=== PATIENT | female | born 1945 | race Caucasian/White ===

== ENCOUNTER 2020-08-16 10:02 | Emergency (ER) | payer MEDICARE, SELFPAY ==
--- NOTE | ~2020-08-16 | XR_ITS ---
XR chest 1V portable DATE: 08/16/2020 11:50 INDICATION: Shortness of breath TECHNIQUE: Portable AP chest on 08/16/2020 at 1152 hours COMPARISON: 10/08/2015 PA and lateral chest FINDINGS: Normal heart size. Is aortic unfolding. The lungs are mildly hyperinflated but clear of inf iltrate or consolidation. No pleural effusion or pulmonary vascular congestion or pneumothorax. Diffuse osteopenia. Scoliosis and degenerative change of the thoracic and lumbar spine. IMPRESSION: No active cardiopulmonary disease Reviewed, dictated and finalized at location A. RIMENTAL WORKER
--- NOTE | ~2020-08-16 | CT_ITS ---
EXAMINATION: CTA chest PE protocol DATE: 08/16/2020 14:33 INDICATION: Chest pain, shortness of breath TECHNIQUE: Computed tomography angiography (CTA) of the chest was performed with 100 mL Omnipaque-350 intravenous contrast timed to evaluate the pulmonary arteries. Coronal maximum intensity projection 3D-reconstructions were created by the technologist. Automated exposure control and iterative reconst ruction technique were employed. Exam dose: 274.63 mGy-cm total exam DLP. COMPARISON: 08/16/2020 portable AP chest FINDINGS: There is diagnostic contrast enhancement of the pulmonary arteries and no evidence of pulmo nary embolism. No thoracic aortic aneurysm or dissection. There is old pulmonary granulomatous disease including a large left lower lobe calcified pulmonary gr anuloma, calcified left hilar nodes and splenic and occasional hepatic calcified granulomas. There is mild focal infiltrate in the medial aspect of the right lower lobe and probable mild reactiv e right hilar lymph node prominence. Mild bilateral apical scarring. There are mild emphysematous changes including mild bullous change in the posterior right upper lobe and superior segment of the right lower lobe. Degenerative changes of the cervical, thoracic and lumbar spine; no suspicious osteolytic or osteobla stic lesions are noted. IMPRESSION: No evidence of pulmonary embolism Mild focal medial infiltrate in the right lower lobe with probable mild reactive right hilar lymph no de prominence Reviewed, dictated and finalized at Location A. Reviewed, dictated and finalized at location A. WEB DEVELOPER IMPRESSION: No evidence of pulmonary embolism Mild focal medial infiltrate in the right lower lobe with probable mild reactiv e right hilar lymph node prominence
[2020-08-16 10:22] VITALS: BP 177/81; PULSE 91; RESP 17; TEMP 36.8; O2SAT 96
--- NOTE | 2020-08-16 10:59 | ECG_ITS ---
Measurements Intervals [place] Rate: 88 P: 28 SD: 154 QRS: 31 QRSD: 84 T: 36 QT: 365 QTc: 443 Interpretive Statements SINUS RHYTHM BASELINE WANDER- I, II, III NORMAL ECG Electronically Signed On 08-16-2020 14:27:57 OUT OF TOWN COLLECTION CLERK by Javed Gutierrez D.O.
[2020-08-16 11:31] VITALS: BP 163/86; PULSE 86; RESP 22; O2SAT 97
[2020-08-16 11:40] VITALS: PULSE 87
[2020-08-16 12:11] LABS: Basophils Percent Auto 0.2 % (0.2-1.2); Eosinophils Percent Auto 0.2 % (0-4.4); Hematocrit 40.6 % (37.0-47.0); Hemoglobin 13.8 g/dL (12.0-15.0); Immature Granulocyte Absolute 0.05 K/mm3 (0.00-0.031); Immature Granulocyte Percent A 0.6 % (0-0.5); Mean Corpuscular Hemoglobin 29.4 pg (26-34); Mean Corpuscular Volume 86.4 fl (80-100); Mean Platelet Volume 9.6 fl (7.4-10.4); Monocytes Absolute Auto 0.7 K/mm3 (0.1-0.6); Monocytes Percent Auto 7.7 % (2.6-8.5); Neutrophils Absolute Auto 7.3 K/mm3 (1.3-6.7); Neutrophils Percent Auto 81.3 % (45.5-73.1); Platelet Count Result 243 k/mm3 (150-375); Red Cell Distribution Width 13.2 % (11.5-14.5)
[2020-08-16 12:20] LABS: Anion Gap 7 mmol/L (8-16); Blood Urea Nitrogen 18 mg/dL (7-17); Calcium 9.7 mg/dL (8.4-10.2); Carbon Dioxide 32 mmol/L (22-30); Chloride 96 mmol/L (98-107); Estimated CRCL calculation 74 ml/min; Estimated Glomerular Filt Rate > 60; Glucose 139 mg/dL (65-105); Sodium 135 mmol/L (137-145)
[2020-08-16 12:30] VITALS: BP 138/74; PULSE 66; RESP 14; O2SAT 96
[2020-08-16] MEDS: KETOROLAC 30 MG/ML VIAL (*BKC) IV PUSH (12:44)
[2020-08-16 13:30] VITALS: BP 151/75; PULSE 88; RESP 14; O2SAT 97
--- NOTE | 2020-08-16 13:36 | ED.SOB ---
HPI - SOB/Dyspnea General Chief Complaint: Shortness of Breath/Dyspnea Stated Complaint: SOB, coughing, chest pain Time Seen by Provider: 08/16/20 11:27 History of Present Illness HPI Narrative: Patient is a 74-year-old female who presents ER with chest pain or shortness of breath. Began last night around 1 AM. Unknown sure how to describe the chest pain that is worse with deep breaths. Is in her upper left chest. No loss of consciousness/runny nose/sore throat/productive cough. No previous MD but does have history of CVA. She takes Plavix. No Covid exposure. No loss of smell or taste. Related Data Home Medications Medication Instructions Recorded Confirmed losartan 25 mg tablet 25 mg PO DAILY 10/13/19 Allergies Allergy/AdvReac Type Severity Reaction Status Date / Time No Known Allergies Allergy Unverified 01/18/18 11:55 Review of Systems Review of Systems: All systems reviewed & are unremarkable except as noted in HPI and below Constitutional: Constitutional: Denies chills, Denies fever(s) and Denies weakness ENT: Denies nasal congestion and Denies sore throat Cardiovascular: Cardiovascular: Reports chest pain, Denies rapid heart rate and Denies radiating jaw, neck or arm pain Respiratory: Respiratory: Denies cough, Reports dyspnea and Denies wheezing Musculoskeletal: Musculoskeletal: Denies back pain and Denies muscle cramps PMFSH Past Medical History Medical History (Updated 08/16/20 @ 15:49 by Corby Ortiz MD) COPD (chronic obstructive pulmonary disease) CVA (cerebral vascular accident) Hyperlipidemia Hypertension Spinal cord cysts Surgical History Surgical History (Updated 08/16/20 @ 13:39 by Corby Ortiz MD) History of carpal tunnel surgery History of hysterectomy Family History Family History (Updated 04/18/19 @ 14:25 by DOCTOR UNKNOWN) Mother Hypertension Cerebrovascular accident Family history of pulmonary embolism Other Family history of alcoholism Family history of cardiovascular disease Social History Social History Smoking status: Former smoker Smoking end date: 09/20/09 Alcohol intake: current Exam Narrative: Exam Narrative: GENERAL: Well-appearing, well-nourished, and in no acute distress. HEAD: Normocephalic, atraumatic. ENT: Mucous membranes moist. CHEST: Clear to auscultation. No respiratory distress. Tender palpation anterior chest wall right side. HEART: Regular rate and rhythm. Normal peripheral pulses. ABDOMEN: Soft, nontender, nondistended. EXTREMITIES: Normal range of motion. No edema. NEURO: Alert and oriented x3. PSYCH: Normal mood and affect. Course Course Emergency Course: Informed of results. Discharge home with antibiotics. Patient's pain improved with Toradol. Vital Signs Vital signs: Vital Signs Temperature 98.3 F 08/16/20 10:22 Pulse Rate 91 08/16/20 10:22 Respiratory Rate 17 08/16/20 10:22 Blood Pressure 177/81 H 08/16/20 10:22 Pulse Oximetry 96 08/16/20 10:22 Temperature 98.3 F 08/16/20 10:22 Pulse Rate 17 L 08/16/20 15:22 Respiratory Rate 17 08/16/20 15:22 Blood Pressure 136/82 08/16/20 15:22 Pulse Oximetry 98 08/16/20 15:22 MDM - SOB/Dyspnea Lab Data Result diagrams: 08/16/20 11:38 08/16/20 11:38 Labs: Lab Results 08/16/20 08/16/20 08/16/20 Range/Units 11:38 11:38 14:10 WBC 9.0 (4.5-10.0) K/mm3 RBC 4.70 (4.2-5.4) M/mm3 Hgb 13.8 (12.0-15.0) g/dL Hct 40.6 (37.0-47.0) % MCV 86.4 (80-100) fl MCH 29.4 (26-34) pg MCHC 34.0 (32-36) g/dl RDW 13.2 (11.5-14.5) % Plt Count 243 (150-375) k/mm3 MPV 9.6 (7.4-10.4) fl Immature Gran % (Auto) 0.6 H (0-0.5) % Neut % (Auto) 81.3 H (45.5-73.1) % Lymph % (Auto) 10.0 L (18.3-44.2) % [place] % (Auto) 7.7 (2.6-8.5) % Eos % (Auto) 0.2 (0-4.4) % Baso % (Auto) 0.2 (0.2-1.2) % Lymph # (Auto) 0.90 (0.9-3.2) K/mm
[2020-08-16 14:53] LABS: Troponin I < 0.012 ng/mL (0.000-0.034)
[2020-08-16 15:22] VITALS: BP 136/82; PULSE 17; RESP 17; O2SAT 98
== END 2020-08-16 15:25 | disposition home or self-care (01) ==
PROVIDERS: Emergency Provider Emergency Medicine; PCP Nurse Practitioner
DX: J18.9 Pneumonia, unspecified organism (principal); Z86.73 Personal history of transient ischemic attack (TIA), and cerebral infarction without residual deficits; J44.9 Chronic obstructive pulmonary disease, unspecified; E78.5 Hyperlipidemia, unspecified; I10 Essential (primary) hypertension; Z87.891 Personal history of nicotine dependence; Z79.02 Long term (current) use of antithrombotics/antiplatelets
CPT/HCPCS: 36415; 71045; 71275; 80048; 84484; 85025; 93005; 96374; 99284; J1885; Q9967

== ENCOUNTER 2020-09-29 23:13 | Inpatient (IN) | payer MEDICARE, SELFPAY ==
--- NOTE | ~2020-09-29 | XR_ITS ---
EXAMINATION: XR ankle RT min 3V INDICATION: Right ankle pain, initial encounter TECHNIQUE: Four views of the right ankle are obtained. COMPARISON: None available FINDINGS: There is an acute, traumatic, closed, oblique fracture distal tibia which extends to the le kirk of the tibial plafond. There is a transverse fracture of the medial malleolus at the level of the tibial plafond. A posterior malleolus fracture of the distal tibia is also noted. Alignment is relat ively maintained. Soft tissue swelling surrounds the fractures. No additional acute osseous findings are evident. IMPRESSION: 1. Trimalleolar fracture. Reviewed, dictated and finalized at location A. NG DIRECTOR IMPRESSION: 1. Trimalleolar fracture.
[2020-09-29 23:12] VITALS: BP 185/94; PULSE 110; RESP 20; TEMP 36.7; O2SAT 94
[2020-09-29 23:19] VITALS: PULSE 109; RESP 19
[2020-09-29 23:36] VITALS: PULSE 92; RESP 20
[2020-09-29 23:37] VITALS: BP 153/96; PULSE 91; RESP 15; O2SAT 91
[2020-09-29 23:45] VITALS: PULSE 89; RESP 16; O2SAT 95
[2020-09-29 23:46] VITALS: BP 169/94; PULSE 87; RESP 15; O2SAT 95
--- NOTE | 2020-09-29 23:53 | ED.GENADULT ---
HPI - General Adult General Chief complaint: Extremity Injury, Lower Stated complaint: fall/deformity Time Seen by Provider: 09/29/20 23:17 Source: RN notes reviewed History of Present Illness HPI narrative: Patient presents to emergency department from home for a fall. Patient states she was walking when she slipped and fell injuring her right ankle. She states she landed on her bottom denies any other injuries from the fall. She states pain with attempting to walk on the right ankle has not been able to ambulate since that time she denies any headache vision changes numbness or tingling in the extremities chest pain shortness of breath or any other symptoms. Patient states she does have chronic foot drop on her left ankle from previous CVA and this does cause her to fall frequently Related Data Home Medications Medication Instructions Recorded Confirmed losartan 25 mg tablet 25 mg PO DAILY 10/13/19 Allergies Allergy/AdvReac Type Severity Reaction Status Date / Time No Known Allergies Allergy Unverified 01/18/18 11:55 Review of Systems Review of Systems: Narrative: Gen.: Denies fevers or chills ENT: Denies congestion Respiratory: Denies shortness of breath or cough CV: Denies chest pain or palpitations GI: Denies abdominal pain nausea, emesis or diarrhea Musculoskeletal: See HPI Neuro: Denies numbness, tingling, weakness or focal weakness Skin: Denies rash Except as documented, all other systems reviewed and negative PMF Past Medical History Medical History COPD (chronic obstructive pulmonary disease) CVA (cerebral vascular accident) Hyperlipidemia Hypertension Spinal cord cysts Surgical History Surgical History (Updated 08/16/20 @ 13:39 by Corby Ortiz MD) History of carpal tunnel surgery History of hysterectomy Family History Family History (Updated 04/18/19 @ 14:25 by DOCTOR UNKNOWN) Mother Hypertension Cerebrovascular accident Family history of pulmonary embolism Other Family history of alcoholism Family history of cardiovascular disease Social History Social History Smoking status: Former smoker Smoking end date: 09/20/09 Alcohol intake: current Exam Narrative: Exam Narrative: APPEARANCE: No acute distress, nontoxic, resting in bed EYES: PERRL HEENT: Normocephalic, atraumatic, OMM RESPIRATORY: No respiratory distress Clear to auscultation bilaterally with no rhonchi wheezing or rales. CARDIOVASCULAR: Regular rate and rhythm without murmurs rubs or gallops. ABDOMINAL: Soft, nontender, nondistended, no rebound or guarding MUSCULOSKELETAl: Moves all extremities. No clubbing, cyanosis or edema. Tender palpation diffusely over the right ankle with swelling and ecchymosis present dorsalis pedis pulse 2+ no tenderness of the proximal fibula, no tenderness of the right knee or hip NEURO: Awake and alert. Following commands, speech normal, no focal deficits SKIN:: Warm, dry. No rashes lesions or abrasions PSYCHIATRIC: Normal affect/mood, Course Course Emergency Course: : Discussed Dr. Parker presentation work-up. Agrees with plan for consult Discussed with Dr. Marquez presentation work-up agrees with admission at this time Discussed with patient and family results of workup and diagnosis. Discussed need for admission. Patient and family understand and agree to current treatment plan Vital Signs Vital signs: Vital Signs Temperature 98.1 F 09/29/20 23:12 Pulse Rate 110 H 09/29/20 23:12 Respiratory Rate 20 09/29/20 23:12 Blood Pressure 185/94 H 09/29/20 23:12 Pulse Oximetry 94 09/29/20 23:12 Temperature 98.1 F 09/29/20 23:12 Pulse Rate 94 09/30/20 00:33 Respiratory Rate 19 09/30/20 00:33 Blood Pressure 158/99 H 09/30/20 00:16 Pulse Oximetry 94 09/30/20 00:33 Procedures Orthopedic Splinting/Casting Injury #1: S
[2020-09-30] VITALS (14 sets, daily range): BP systolic 135–170; BP diastolic 69–99; PULSE 82–98; RESP 13–20; TEMP 36.3–36.9; O2SAT 92–98; BMI 29.1
[2020-09-30 00:34] LABS: Basophils Percent Auto 0.4 % (0.2-1.2); Eosinophils Absolute Auto 0.1 K/mm3 (0-0.3); Eosinophils Percent Auto 0.8 % (0-4.4); Hematocrit 39.4 % (37.0-47.0); Hemoglobin 13.6 g/dL (12.0-15.0); Immature Granulocyte Absolute 0.03 K/mm3 (0.00-0.031); Immature Granulocyte Percent A 0.3 % (0-0.5); Lymphocytes Absolute Auto 1.35 K/mm3 (0.9-3.2); Lymphocytes Percent Auto 15.1 % (18.3-44.2); Mean Corpuscular HGB Conc 34.5 g/dl (32-36); Mean Corpuscular Hemoglobin 29.8 pg (26-34); Mean Corpuscular Volume 86.2 fl (80-100); Mean Platelet Volume 9.2 fl (7.4-10.4); Monocytes Absolute Auto 0.4 K/mm3 (0.1-0.6); Monocytes Percent Auto 4.6 % (2.6-8.5); Neutrophils Percent Auto 78.8 % (45.5-73.1); Platelet Count Result 261 k/mm3 (150-375); Red Blood Count 4.57 M/mm3 (4.2-5.4); Red Cell Distribution Width 13.2 % (11.5-14.5); White Blood Count 8.9 K/mm3 (4.5-10.0)
[2020-09-30 00:44] LABS: INR 0.8; Prothrombin Time 12.1 Seconds (11.1-14.7)
[2020-09-30 00:45] LABS: Partial Thromboplastin Time 31.8 SECONDS (22.3-36.8)
[2020-09-30 00:56] LABS: Anion Gap 10 mmol/L (8-16); Blood Urea Nitrogen 14 mg/dL (7-17); Calcium 8.5 mg/dL (8.4-10.2); Carbon Dioxide 26 mmol/L (22-30); Chloride 96 mmol/L (98-107); Estimated CRCL calculation 64 ml/min; Estimated Glomerular Filt Rate > 60; Glucose 95 mg/dL (65-105); Potassium 3.9 mmol/L (3.4-5.0); Sodium 132 mmol/L (137-145)
--- NOTE | 2020-09-30 02:30 | ADMGEN ---
This patient, Nery Zacarias, was admitted to [facility] Surg Room 307-01. Patient/family oriented to hospital policies and general routines including ID bracelet, bed and alarms, visiting hours, pain management, procedures, bathroom and other care routines, personal items, smoking policy, room service/diet, and visiting hours. Information on how to activate the Rapid Response Team has been discussed. Patient/Family are encouraged to report perceived risks to care and to ask questions if they do not understand what they are told or what they should do.
[2020-09-30] MEDS: MORPHINE SULFATE (*CRX) 2 MG/ML INJ IV PUSH (03:55)
[2020-09-30] MEDS: HYDROcodone/acetaminophen (*CRX) 5-325 MG TABLET 1 TAB PO ×5 (05:26→21:49)
[2020-09-30] MEDS: SODIUM CHLORIDE 0.9% IV 1,000 ML 100 ML IV CONT (08:30)
--- NOTE | 2020-09-30 09:40 | ADMGEN ---
This patient, Nery Zacarias, was transferred to [facility] Room 222-01. Patient oriented to hospital policies and general routines including ID bracelet, bed and alarms, visiting hours, pain management, procedures, bathroom and other care routines, personal items, smoking policy, room service/diet, and visiting hours. Information on how to activate the Rapid Response Team has been discussed. Patient is encouraged to report perceived risks to care and to ask questions if they do not understand what they are told or what they should do.
--- NOTE | 2020-09-30 12:02 | PM.CNOR ---
Assessment and Plan Assessment and plan (1) Closed right trimalleolar fracture: Qualifiers: Encounter type: initial encounter Qualified Code(s): S82.851A - Displaced trimalleolar fracture of right lower leg, initial encounter for closed fracture Code(s): S82.851A - Displaced trimalleolar fracture of right lower leg, initial encounter for closed fracture Status: Acute (2) Left foot drop: Code(s): M21.372 - Foot drop, left foot Status: Chronic Assessment and Plan: 74-year-old female with an acute right trimalleolar ankle fracture. Overall position is virtually anatomic. At this point, going to continue with the splinting treating this closed. For her to be able to bear weight effectively on the left side, she will need an AFO or some type of an ankle brace attached to issue. I did discuss with her that she needs to use something like this moving forward as well as a gait aid. For the time being will be a walker and will be nonweightbearing right lower extremity. I do need to re-x-ray this in one week to assess the position and perhaps get her into a cast. I discussed all of this in great detail with her and she seems to understand. Thank you for the consultation. History of Present Illness HPI Consult date: 09/30/20 Consult reason: fracture (Right trimalleolar ankle fracture) Chief complaint: Right trimalleolar fracture Narrative: 74-year-old female who tripped yesterday suffering a right trimalleolar ankle fracture. It is essentially nondisplaced. Her history is significant for foot drop on the left side from a stroke that she suffered about 19 years ago. Although she has had an AFO in the past, she quit using as several years ago. She does not use any type of a gait aid and notes that she falls a lot. Review of Systems Constitutional: Constitutional: Denies chills and Denies fever(s) Eyes: Eyes: Reports no additional eye complaints ENT: Reports system reviewed and no additional complaints, except as documented Cardiovascular: Cardiovascular: Denies chest pain and Denies dyspnea on exertion Respiratory: Respiratory: Reports no additional respiratory complaints and Denies dyspnea on exertion Gastrointestinal: Gastrointestinal: Denies abdominal pain and Denies bloating PMFSH Past Medical History Medical History COPD (chronic obstructive pulmonary disease) CVA (cerebral vascular accident) Hyperlipidemia Hypertension Spinal cord cysts Surgical History Surgical History History of carpal tunnel surgery History of hysterectomy Family History Family History Mother Hypertension Cerebrovascular accident Family history of pulmonary embolism Other Family history of alcoholism Family history of cardiovascular disease Social History Social History Smoking packs per day: 2.5 Smoking cigarettes per day: 50.0 Years smoked: 35 Smoking pack-years: 87.50 Smoking status: Former smoker Tobacco type: cigarettes Smoking end date: 09/20/09 Alcohol intake: current Drinks per week: 6 Substance use: never Substance use type: marijuana Other substance usage details: MEDICAL MARIJUANA Last use: 09/29/20 Gender identity (if verbalized by the patient): Female Spiritual care concerns: No Meds Home Medications and Allergies Home Medications Medication Instructions Recorded Confirmed Type zolpidem 10 mg tablet 10 mg PO .[facility] PRN #30 tablet 09/05/19 09/30/20 Rx losartan 25 mg tablet 25 mg PO DAILY 10/13/19 09/30/20 History sertraline 50 mg tablet 50 mg PO DAILY #90 tablet 10/16/19 09/30/20 Rx clopidogrel 75 mg tablet 75 mg PO DAILY #90 tablet 12/08/19 09/30/20 Rx atorvastatin 80 mg PO DAILY 09/30/20 09/30/20 History ezetimibe 10 mg PO DAILY
--- NOTE | 2020-09-30 18:45 | PM.IMHP ---
H&P: HPI History of Present Illness Date/Time: 09/30/20 18:45 Chief Complaint: fall Narrative: Nery Zacarias is a 74 year old female with past medical history of left footdrop which occurred when she had a stroke 19 years patient presented emergency department up to see tripped and fall, stated see landed on her bottom denies any other injury however patient was not able to bear weight on her right foot and was painful, x-ray of the foot showed trimalleolar fracture, patient was seen by orthopedic surgeon recommended splinting the ankle as it is a nondisplaced fracture it does not need any surgical intervention, patient states the pain is worse with weight-bearing, patient denies any complaint of chest pain shortness of breath palpitation fever or chills prior to fall. Review of Systems Review of Systems: All systems reviewed & are unremarkable except as noted in HPI and below PMFSH Past Medical History Medical History COPD (chronic obstructive pulmonary disease) CVA (cerebral vascular accident) Hyperlipidemia Hypertension Spinal cord cysts Surgical History Surgical History History of carpal tunnel surgery History of hysterectomy Family History Family History Mother Hypertension Cerebrovascular accident Family history of pulmonary embolism Other Family history of alcoholism Family history of cardiovascular disease Social History Social History Smoking packs per day: 2.5 Smoking cigarettes per day: 50.0 Years smoked: 35 Smoking pack-years: 87.50 Smoking status: Former smoker Tobacco type: cigarettes Smoking end date: 09/20/09 Alcohol intake: current Drinks per week: 6 Substance use: never Substance use type: marijuana Other substance usage details: MEDICAL MARIJUANA Last use: 09/29/20 Gender identity (if verbalized by the patient): Female Spiritual care concerns: No Meds Home Medications and Allergies Home Medications Medication Instructions Recorded Confirmed Type zolpidem 10 mg tablet 10 mg PO .[facility] PRN #30 tablet 09/05/19 09/30/20 Rx losartan 25 mg tablet 25 mg PO DAILY 10/13/19 09/30/20 History sertraline 50 mg tablet 50 mg PO DAILY #90 tablet 10/16/19 09/30/20 Rx clopidogrel 75 mg tablet 75 mg PO DAILY #90 tablet 12/08/19 09/30/20 Rx atorvastatin 80 mg PO DAILY 09/30/20 09/30/20 History ezetimibe 10 mg PO DAILY 09/30/20 09/30/20 History loratadine 10 mg PO DAILY 09/30/20 09/30/20 History Allergies Allergy/AdvReac Type Severity Reaction Status Date / Time No Known Allergies Allergy Unverified 09/30/20 03:15 Vital Signs Vital Signs - 24 hr 09/29/20 23:12 09/29/20 23:19 09/29/20 23:36 Temperature 98.1 F Pulse Rate 110 H 109 H 92 Respiratory Rate 20 19 20 Blood Pressure 185/94 H Pulse Oximetry 94 09/29/20 23:37 09/29/20 23:45 09/29/20 23:46 Temperature Pulse Rate 91 89 87 Respiratory Rate 15 16 15 Blood Pressure 153/96 H 169/94 H Pulse Oximetry 91 95 95 09/30/20 00:00 09/30/20 00:15 09/30/20 00:16 Temperature Pulse Rate 98 89 85 Respiratory Rate 16 20 15 Blood Pressure 158/99 H Pulse Oximetry 94 94 96 09/30/20 00:33 09/30/20 00:56 09/30/20 01:12 Temperature Pulse Rate 94 92 97 Respiratory Rate 19 14 13 Blood Pressure Pulse Oximetry 94 92 09/30/20 01:16 09/30/20 01:17 09/30/20 06:00 Temperature 97.4 F L Pulse Rate 86 88 95 Respiratory Rate 13 13 20 Blood Pressure 143/69 H 135/87 Pulse Oximetry 96 94 09/30/20 08:00 09/30/20 09:48 09/30/20 11:00 Temperature 98.0 F 98.0 F Pulse Rate 83 83 Respiratory Rate 20 20 Blood Pressure 148/81 H Pulse Oximetry 96 96 09/30/20 14:00 Temperature 98.1 F Pulse Rate 86 Respiratory Rate 20 Blood Pressure 142/76 H Pulse Oximetry 98
[2020-09-30] MEDS: MORPHINE SULFATE (*CRX) 4 MG/ML INJ 2 MG IV PUSH (21:02)
[2020-09-30] MEDS: IBUPROFEN 600 MG TABLET PO (23:29)
[2020-10-01] MEDS: MORPHINE SULFATE (*CRX) 4 MG/ML INJ 2 MG IV PUSH (00:38)
[2020-10-01] MEDS: HYDROcodone/acetaminophen (*CRX) 5-325 MG TABLET 1 TAB PO ×5 (01:49→21:43)
[2020-10-01 05:07] VITALS: BP 150/84; PULSE 80; RESP 12; TEMP 36.9; O2SAT 95
[2020-10-01 05:22] LABS: Basophils Percent Auto 0.5 % (0.2-1.2); Eosinophils Absolute Auto 0.1 K/mm3 (0-0.3); Eosinophils Percent Auto 2.4 % (0-4.4); Hematocrit 40.9 % (37.0-47.0); Hemoglobin 13.6 g/dL (12.0-15.0); Immature Granulocyte Absolute 0.01 K/mm3 (0.00-0.031); Immature Granulocyte Percent A 0.2 % (0-0.5); Lymphocytes Absolute Auto 1.24 K/mm3 (0.9-3.2); Lymphocytes Percent Auto 21.1 % (18.3-44.2); Mean Corpuscular HGB Conc 33.3 g/dl (32-36); Mean Corpuscular Hemoglobin 29.4 pg (26-34); Mean Corpuscular Volume 88.5 fl (80-100); Monocytes Absolute Auto 0.4 K/mm3 (0.1-0.6); Monocytes Percent Auto 7.5 % (2.6-8.5); Neutrophils Percent Auto 68.3 % (45.5-73.1); Platelet Count Result 227 k/mm3 (150-375); Red Blood Count 4.62 M/mm3 (4.2-5.4); Red Cell Distribution Width 13.6 % (11.5-14.5); White Blood Count 5.9 K/mm3 (4.5-10.0)
[2020-10-01 05:36] LABS: Anion Gap 4 mmol/L (8-16); Blood Urea Nitrogen 9 mg/dL (7-17); Calcium 8.6 mg/dL (8.4-10.2); Carbon Dioxide 33 mmol/L (22-30); Chloride 99 mmol/L (98-107); Estimated CRCL calculation 75 ml/min; Estimated Glomerular Filt Rate > 60; Glucose 120 mg/dL (65-105); Potassium 3.5 mmol/L (3.4-5.0); Sodium 136 mmol/L (137-145)
[2020-10-01] MEDS: ATORVASTATIN 40 MG TABLET 80 MG PO (10:48)
[2020-10-01] MEDS: CLOPIDOGREL BISULFATE 75 MG TABLET PO (10:49)
[2020-10-01] MEDS: ENOXAPARIN 40 MG/0.4 ML SYRINGE SUB-Q (10:49)
[2020-10-01] MEDS: LOSARTAN POTASSIUM 25 MG TABLET PO (10:50)
[2020-10-01] MEDS: EZETIMIBE 10 MG TABLET PO (10:50)
[2020-10-01] MEDS: LORATADINE 10 MG TABLET PO (10:50)
[2020-10-01] MEDS: SERTRALINE HCL 50 MG TABLET PO (10:51)
[2020-10-01 14:00] VITALS: BP 137/74; PULSE 89; RESP 18; TEMP 36.4; O2SAT 98
--- NOTE | 2020-10-01 15:47 | PM.IMPN ---
Progress Note: A&P Assessment and Plan (1) Closed right trimalleolar fracture: Qualifiers: Encounter type: initial encounter Qualified Code(s): S82.851A - Displaced trimalleolar fracture of right lower leg, initial encounter for closed fracture Code(s): S82.851A - Displaced trimalleolar fracture of right lower leg, initial encounter for closed fracture Status: Acute Assessment and Plan: 10/01/20 15:47 Nery Zacarias is a 74 year old female with past medical history of left footdrop which occurred when she had a stroke 20 years patient presented emergency department up to see tripped and fall, stated see landed on her bottom denies any other injury however patient was not able to bear weight on her right foot and was painful, x-ray of the foot showed trimalleolar fracture, patient was seen by orthopedic surgeon recommended splinting the ankle as it is a nondisplaced fracture it does not need any surgical intervention, patient states the pain is worse with weight-bearing, patient denies any complaint of chest pain shortness of breath palpitation fever or chills prior to fall. Will have a PT OT evaluate the patient and further recommendation to follow 10/01 today patient states the pain is little better today, plan is to provide the patient with physical therapy to ambulate as much as possible before discharging home, denies any fever or chills will continue to monitor the patient, (2) Left foot drop: Code(s): M21.372 - Foot drop, left foot Status: Chronic Assessment and Plan: Chronic this makes patient unstable and risk of fall (3) COPD (chronic obstructive pulmonary disease): Code(s): J44.9 - Chronic obstructive pulmonary disease, unspecified Status: Inactive Assessment and Plan: Patient is clinically stable (4) Hypertension: Code(s): I10 - Essential (primary) hypertension Status: Inactive Assessment and Plan: Will continue home regimen and monitor Subjective Date/time seen: 10/01/20 15:47 Nery Zacarias is a 74 year old female with past medical history of left footdrop which occurred when she had a stroke 20 years patient presented emergency department up to see tripped and fall, stated see landed on her bottom denies any other injury however patient was not able to bear weight on her right foot and was painful, x-ray of the foot showed trimalleolar fracture, patient was seen by orthopedic surgeon recommended splinting the ankle as it is a nondisplaced fracture it does not need any surgical intervention, patient states the pain is worse with weight-bearing, patient denies any complaint of chest pain shortness of breath palpitation fever or chills prior to fall. Will have a PT OT evaluate the patient and further recommendation to follow 10/01 today patient states the pain is little better today, plan is to provide the patient with physical therapy to ambulate as much as possible before discharging home, denies any fever or chills will continue to monitor the patient, Review of Systems Review of Systems: All systems reviewed & are unremarkable except as noted in HPI and below Exam Narrative: Exam Narrative: Elderly frail Patient is comfortable, NAD HEENT: eyes are clear and none icteric LUNGS:CTA HEART: RR S1S2 ABD: BS+, Soft and nontender Lower extremities: no edema MS: Right foot and splint, left footdrop SKIN: nonjaundiced Neuro: grossly intact. Objective Data Vital Signs Vital Signs: Vital Signs - 24 hr 09/30/20 22:00 10/01/20 05:07 10/01/20 14:00 Temperature 98.4 F 98.5 F 97.6 F Pulse Rate 82 80 89 Respiratory Rate 16 12 18 Blood Pressure 170/90 H 150/84 H 137/74 Pulse Oximetry 94 95 98 Intake/Output Intake/Output: Intake & Output 09/28/20 09/29/20 09/30/20 10/01/20 23:59 23:59 23:59 23:59 Intake Total 1690 1405 Output Total 3450 1425 Balance -1760 -20 Meds/Results Medications: Active Medications Gener
[2020-10-01 20:00] VITALS: PULSE 102; RESP 20; O2SAT 99
[2020-10-01 22:00] VITALS: BP 172/101; PULSE 102; RESP 20; TEMP 36.1; O2SAT 99
[2020-10-01] MEDS: ZOLPIDEM TARTRATE (*CRX) 5 MG TABLET PO (23:20)
[2020-10-02 05:11] LABS: Hematocrit 40.2 % (37.0-47.0); Hemoglobin 13.6 g/dL (12.0-15.0); Mean Corpuscular HGB Conc 33.8 g/dl (32-36); Mean Corpuscular Hemoglobin 30.5 pg (26-34); Mean Corpuscular Volume 90.1 fl (80-100); Mean Platelet Volume 9.3 fl (7.4-10.4); Platelet Count Result 211 k/mm3 (150-375); Red Blood Count 4.46 M/mm3 (4.2-5.4); Red Cell Distribution Width 13.5 % (11.5-14.5); White Blood Count 6.6 K/mm3 (4.5-10.0)
[2020-10-02 05:28] LABS: Anion Gap 4 mmol/L (8-16); Blood Urea Nitrogen 13 mg/dL (7-17); Calcium 9.3 mg/dL (8.4-10.2); Carbon Dioxide 33 mmol/L (22-30); Chloride 98 mmol/L (98-107); Estimated CRCL calculation 75 ml/min; Estimated Glomerular Filt Rate > 60; Glucose 132 mg/dL (65-105); Potassium 3.4 mmol/L (3.4-5.0); Sodium 135 mmol/L (137-145)
[2020-10-02 06:00] VITALS: BP 107/47; PULSE 72; RESP 20; TEMP 36.2; O2SAT 96
[2020-10-02] MEDS: HYDROcodone/acetaminophen (*CRX) 5-325 MG TABLET 1 TAB PO ×3 (07:38→20:04)
[2020-10-02 08:00] VITALS: PULSE 72; RESP 20; O2SAT 96
[2020-10-02] MEDS: ENOXAPARIN 40 MG/0.4 ML SYRINGE SUB-Q (09:47)
[2020-10-02] MEDS: ATORVASTATIN 40 MG TABLET 80 MG PO (09:47)
[2020-10-02] MEDS: CLOPIDOGREL BISULFATE 75 MG TABLET PO (09:47)
[2020-10-02] MEDS: SERTRALINE HCL 50 MG TABLET PO (09:47)
[2020-10-02] MEDS: LORATADINE 10 MG TABLET PO (09:47)
[2020-10-02] MEDS: EZETIMIBE 10 MG TABLET PO (09:47)
[2020-10-02] MEDS: LOSARTAN POTASSIUM 25 MG TABLET PO (09:47)
--- NOTE | 2020-10-02 12:43 | PM.IMPN ---
Progress Note: A&P Assessment and Plan (1) Closed right trimalleolar fracture: Qualifiers: Encounter type: initial encounter Qualified Code(s): S82.851A - Displaced trimalleolar fracture of right lower leg, initial encounter for closed fracture Code(s): S82.851A - Displaced trimalleolar fracture of right lower leg, initial encounter for closed fracture Status: Acute Assessment and Plan: Nery Zacarias is a 74 year old female with past medical history of left footdrop which occurred when she had a stroke 20 years patient presented emergency department up to see tripped and fall, stated see landed on her bottom denies any other injury however patient was not able to bear weight. Today patient states the pain is little better today, plan is to provide the patient with physical therapy to ambulate as much as possible before discharging home, denies any fever or chills will continue to monitor the patient, (2) Left foot drop: Code(s): M21.372 - Foot drop, left foot Status: Chronic Assessment and Plan: Chronic this makes patient unstable and risk of fall (3) COPD (chronic obstructive pulmonary disease): Code(s): J44.9 - Chronic obstructive pulmonary disease, unspecified Status: Inactive Assessment and Plan: Patient is clinically stable (4) Hypertension: Code(s): I10 - Essential (primary) hypertension Status: Inactive Assessment and Plan: Will continue home regimen and monitor Additional Plan Will continue current plan of care and treatment. Will increase activity as tolerated. Subjective Date/time seen: 10/02/20 12:43 Patient was seen during the morning rounds today. Patient is feeling slightly better. Patient is an shortness breath or chest pain. No fever no chills. Mood stable. Review of Systems Review of Systems: All systems reviewed & are unremarkable except as noted in HPI and below Exam Narrative: Exam Narrative: Elderly frail Patient is comfortable, NAD HEENT: eyes are clear and none icteric LUNGS:CTA HEART: RR S1S2 ABD: BS+, Soft and nontender Lower extremities: no edema MS: Right foot and splint, left footdrop SKIN: nonjaundiced Neuro: grossly intact. Objective Data Vital Signs Vital Signs: Vital Signs - 24 hr 10/01/20 14:00 10/01/20 20:00 10/01/20 22:00 Temperature 36.4 C 36.1 C L Pulse Rate 89 102 H 102 H Respiratory Rate 18 20 20 Blood Pressure 137/74 172/101 H Pulse Oximetry 98 99 99 10/02/20 06:00 Temperature 36.2 C L Pulse Rate 72 Respiratory Rate 20 Blood Pressure 107/47 L Pulse Oximetry 96 Intake/Output Intake/Output: Intake & Output 09/29/20 09/30/20 10/01/20 10/02/20 23:59 23:59 23:59 23:59 Intake Total 1690 1645 625 Output Total 0020 1725 900 [facility] -1760 -80 -275 Meds/Results Medications: Active Medications Generic Name Dose Route Start Last Admin Trade Name Freq PRN Reason Stop Dose Admin Acetaminophen 650 mg 09/30/20 14:22 Acetaminophen 325 Mg Tablet PO Q6H PRN Mild Pain (1-3) or Fever Hydrocodone Bitart/Acetaminophen 1 tab 09/30/20 03:31 10/02/20 07:38 Hydrocodone/Acetaminophen (*Crx) 5-325 Mg Tablet PO 1 tab Q4H PRN Administration Pain Rated 4-6 Atorvastatin Calcium 80 mg 10/01/20 09:00 10/02/20 09:47 Atorvastatin 40 Mg Tablet PO 80 mg DAILY MAURICIO Administration Clopidogrel Bisulfate 75 mg 10/01/20 09:00 10/02/20 09:47 Clopidogrel Bisulfate 75 Mg Tablet PO 75 mg DAILY MAURICIO Administration Ezetimibe 10 mg 10/01/20 09:00 10/02/20 09:47 Ezetimibe 10 Mg Tablet PO 10 mg DAILY MAURICIO Administration Enoxaparin Sodium 40 mg 10/01/20 09:00 10/02/20 09:47 Enoxaparin 40 Mg/0.4 Ml Syringe SUB-Q 40 mg DAILY MAURICIO Administration Loratadine 10 mg 10/01/20 09:00 10/02/20 09:47 Loratadine 10 Mg Tablet PO 10 mg DAILY MAURICIO Administration Losartan Potassium 25 mg 10/01/20 09:00 10/02/20 09:4
[2020-10-02 14:00] VITALS: BP 148/72; PULSE 95; RESP 16; TEMP 35.7; O2SAT 95
[2020-10-02 16:11] VITALS: O2SAT 95
[2020-10-02] MEDS: ZOLPIDEM TARTRATE (*CRX) 5 MG TABLET PO (20:04)
[2020-10-02 20:05] VITALS: PULSE 95; RESP 16; O2SAT 95
[2020-10-02 22:00] VITALS: BP 125/69; PULSE 84; RESP 12; TEMP 36.7; O2SAT 97
[2020-10-03] MEDS: HYDROcodone/acetaminophen (*CRX) 5-325 MG TABLET 1 TAB PO ×4 (02:47→20:26)
[2020-10-03 05:35] LABS: Hematocrit 40.2 % (37.0-47.0); Hemoglobin 13.2 g/dL (12.0-15.0); Mean Corpuscular HGB Conc 32.8 g/dl (32-36); Mean Corpuscular Hemoglobin 29.4 pg (26-34); Mean Corpuscular Volume 89.5 fl (80-100); Mean Platelet Volume 9.4 fl (7.4-10.4); Platelet Count Result 225 k/mm3 (150-375); Red Blood Count 4.49 M/mm3 (4.2-5.4); Red Cell Distribution Width 13.4 % (11.5-14.5); White Blood Count 5.3 K/mm3 (4.5-10.0)
[2020-10-03 05:48] LABS: Anion Gap 3 mmol/L (8-16); Blood Urea Nitrogen 23 mg/dL (7-17); Calcium 9.8 mg/dL (8.4-10.2); Carbon Dioxide 36 mmol/L (22-30); Chloride 99 mmol/L (98-107); Estimated CRCL calculation 64 ml/min; Estimated Glomerular Filt Rate > 60; Glucose 123 mg/dL (65-105); Potassium 4.2 mmol/L (3.4-5.0); Sodium 138 mmol/L (137-145)
[2020-10-03 06:00] VITALS: BP 148/81; PULSE 94; RESP 18; TEMP 36.6; O2SAT 97
[2020-10-03] MEDS: ENOXAPARIN 40 MG/0.4 ML SYRINGE SUB-Q (09:13)
[2020-10-03] MEDS: CLOPIDOGREL BISULFATE 75 MG TABLET PO (09:13)
[2020-10-03] MEDS: EZETIMIBE 10 MG TABLET PO (09:13)
[2020-10-03] MEDS: ATORVASTATIN 40 MG TABLET 80 MG PO (09:13)
[2020-10-03] MEDS: SERTRALINE HCL 50 MG TABLET PO (09:14)
[2020-10-03] MEDS: LORATADINE 10 MG TABLET PO (09:14)
[2020-10-03] MEDS: LOSARTAN POTASSIUM 25 MG TABLET PO (09:14)
[2020-10-03 09:38] VITALS: RESP 18; O2SAT 97
[2020-10-03 14:00] VITALS: BP 135/85; PULSE 104; RESP 16; TEMP 36.2; O2SAT 97
--- NOTE | 2020-10-03 14:54 | PM.IMPN ---
Progress Note: A&P Assessment and Plan (1) Closed right trimalleolar fracture: Qualifiers: Encounter type: initial encounter Qualified Code(s): S82.851A - Displaced trimalleolar fracture of right lower leg, initial encounter for closed fracture Code(s): S82.851A - Displaced trimalleolar fracture of right lower leg, initial encounter for closed fracture Status: Acute Assessment and Plan: Nery Zacarias is a 74 year old female with past medical history of left footdrop which occurred when she had a stroke 20 years patient presented emergency department up to see tripped and fall, stated see landed on her bottom denies any other injury however patient was not able to bear weight. continue PT/POT and pain control, hopeful Dc tomorrow home. Pt seen by orthopedics closed fracture not for intervention (2) Left foot drop: Code(s): M21.372 - Foot drop, left foot Status: Chronic Assessment and Plan: Chronic (3) COPD (chronic obstructive pulmonary disease): Code(s): J44.9 - Chronic obstructive pulmonary disease, unspecified Status: Inactive Assessment and Plan: Patient is clinically stable (4) Hypertension: Code(s): I10 - Essential (primary) hypertension Status: Inactive Assessment and Plan: Will continue home regimen and monitor Subjective Date/time seen: 10/03/20 14:54 Interval history: Rell is a 74 year old female with past medical history of left footdrop which occurred when she had a stroke 20 years patient presented emergency department up to see tripped and fall, stated see landed on her bottom denies any other injury however patient was not able to bear weight on her right foot and was painful, x-ray of the foot showed trimalleolar fracture, pt is receiving physical therapy in the hospital, doing well medically hopeful DC javon to her home. Exam Narrative: Exam Narrative: Elderly frail LUNGS:CTA HEART: RR S1S2 ABD: BS+, Soft and nontender Lower extremities: no edema MS: R foot with dressing SKIN: nonjaundiced Neuro: grossly intact. Objective Data Vital Signs Vital Signs: Vital Signs - 24 hr 10/02/20 16:11 10/02/20 20:05 10/02/20 22:00 Temperature 36.7 C Pulse Rate 95 84 Respiratory Rate 16 12 Blood Pressure 125/69 Pulse Oximetry 95 95 97 10/03/20 06:00 10/03/20 09:38 10/03/20 14:00 Temperature 36.6 C 36.2 C L Pulse Rate 94 104 H Respiratory Rate 18 18 16 Blood Pressure 148/81 H 135/85 Pulse Oximetry 97 97 97 Intake/Output Intake/Output: Intake & Output 09/30/20 10/01/20 10/02/20 10/03/20 23:59 23:59 23:59 23:59 Intake Total 1690 1645 1105 1080 Output Total 3450 1725 1200 1000 Balance -1760 -80 -95 80 Meds/Results Medications: Active Medications Generic Name Dose Route Start Last Admin Trade Name Freq PRN Reason Stop Dose Admin Acetaminophen 650 mg 09/30/20 14:22 Acetaminophen 325 Mg Tablet PO Q6H PRN Mild Pain (1-3) or Fever Hydrocodone Bitart/Acetaminophen 1 tab 09/30/20 03:31 10/03/20 09:19 Hydrocodone/Acetaminophen (*Crx) 5-325 Mg Tablet PO 1 tab Q4H PRN Administration Pain Rated 4-6 Atorvastatin Calcium 80 mg 10/01/20 09:00 10/03/20 09:13 Atorvastatin 40 Mg Tablet PO 80 mg DAILY MAURICIO Administration Clopidogrel Bisulfate 75 mg 10/01/20 09:00 10/03/20 09:13 Clopidogrel Bisulfate 75 Mg Tablet PO 75 mg DAILY MAURICIO Administration Ezetimibe 10 mg 10/01/20 09:00 10/03/20 09:13 Ezetimibe 10 Mg Tablet PO 10 mg DAILY MAURICIO Administration Enoxaparin Sodium 40 mg 10/01/20 09:00 10/03/20 09:13 Enoxaparin 40 Mg/0.4 Ml Syringe SUB-Q 40 mg DAILY MAURICIO Administration Loratadine 10 mg 10/01/20 09:00 10/03/20 09:14 Loratadine 10 Mg Tablet PO 10 mg DAILY MAURICIO Administration Losartan Potassium 25 mg 10/01/20 09:00 10/03/20 09:14 Losartan Potassium 25 Mg Tablet PO 25 mg DAILY MAURICIO Administration Morphine S
[2020-10-03] MEDS: ZOLPIDEM TARTRATE (*CRX) 5 MG TABLET PO (20:26)
[2020-10-03 22:00] VITALS: BP 135/73; PULSE 87; RESP 20; TEMP 36.6; O2SAT 96
[2020-10-04 05:19] LABS: Hematocrit 38.1 % (37.0-47.0); Hemoglobin 12.8 g/dL (12.0-15.0); Mean Corpuscular HGB Conc 33.6 g/dl (32-36); Mean Corpuscular Hemoglobin 29.9 pg (26-34); Mean Platelet Volume 8.9 fl (7.4-10.4); Platelet Count Result 219 k/mm3 (150-375); Red Blood Count 4.28 M/mm3 (4.2-5.4); Red Cell Distribution Width 13.3 % (11.5-14.5); White Blood Count 4.2 K/mm3 (4.5-10.0)
[2020-10-04 05:31] LABS: Anion Gap 4 mmol/L (8-16); Blood Urea Nitrogen 23 mg/dL (7-17); Calcium 9.3 mg/dL (8.4-10.2); Carbon Dioxide 34 mmol/L (22-30); Chloride 100 mmol/L (98-107); Estimated CRCL calculation 64 ml/min; Estimated Glomerular Filt Rate > 60; Glucose 110 mg/dL (65-105); Potassium 3.9 mmol/L (3.4-5.0); Sodium 138 mmol/L (137-145)
[2020-10-04 06:00] VITALS: BP 149/109; PULSE 89; RESP 20; TEMP 36; O2SAT 97
[2020-10-04] MEDS: EZETIMIBE 10 MG TABLET PO (06:29)
[2020-10-04] MEDS: LOSARTAN POTASSIUM 25 MG TABLET PO (06:30)
[2020-10-04] MEDS: HYDROcodone/acetaminophen (*CRX) 5-325 MG TABLET 1 TAB PO ×2 (06:34→10:34)
[2020-10-04 08:00] VITALS: PULSE 89; RESP 20; O2SAT 97
[2020-10-04] MEDS: ACETAMINOPHEN 325 MG TABLET 650 MG PO (09:23)
[2020-10-04] MEDS: SERTRALINE HCL 50 MG TABLET PO (09:24)
[2020-10-04] MEDS: ATORVASTATIN 40 MG TABLET 80 MG PO (09:24)
[2020-10-04] MEDS: CLOPIDOGREL BISULFATE 75 MG TABLET PO (09:24)
[2020-10-04] MEDS: LORATADINE 10 MG TABLET PO (09:24)
[2020-10-04] MEDS: ENOXAPARIN 40 MG/0.4 ML SYRINGE SUB-Q (09:25)
--- NOTE | 2020-10-04 11:20 | PM.DS ---
DS: Admitting Diagnosis Admitting Diagnosis Admitting Diagnosis: FALL DS: Discharge Diagnosis Discharge Diagnosis (1) Closed right trimalleolar fracture: Qualifiers: Encounter type: initial encounter Qualified Code(s): S82.851A - Displaced trimalleolar fracture of right lower leg, initial encounter for closed fracture Code(s): S82.851A - Displaced trimalleolar fracture of right lower leg, initial encounter for closed fracture Status: Acute Assessment and Plan: Nery Zacarias is a 74 year old female with past medical history of left footdrop which occurred when she had a stroke 20 years patient presented emergency department up to see tripped and fall, landed on her bottom denies any other injury. Continue PT/OT and pain control. Pt seen by orthopedics closed fracture not for intervention. Pt had cast put on yesterday. Pt is non weight bearing using a walker. Comfortable to go home, home health services for a few days. Discharged on norco #20 for pain control pt can use ibuprofen and stool softener. (2) Left foot drop: Code(s): M21.372 - Foot drop, left foot Status: Chronic Assessment and Plan: Chronic (3) COPD (chronic obstructive pulmonary disease): Code(s): J44.9 - Chronic obstructive pulmonary disease, unspecified Status: Inactive Assessment and Plan: Patient is clinically stable, continue home medications (4) Hypertension: Code(s): I10 - Essential (primary) hypertension Status: Inactive Assessment and Plan: Will continue home regimen, Bp slightly high, may be secondary to pain. DS: Summary Hospital Course Hospital Course: Rell is a 74 year old female with past medical history of left footdrop which occurred when she had a stroke 20 years patient presented emergency department up to see tripped and fall, stated see landed on her bottom denies any other injury however patient was not able to bear weight on her right foot and was painful, x-ray of the foot showed trimalleolar fracture, pt is receiving physical therapy in the hospital, doing well medically. Pt had cast placed using walker to ambulate. Pt is non weight bearing on her right leg. Time Spent with Patient Time attestation: Total time spent providing and/or coordinating discharge services:40 minutes on day of dischrage Exam Narrative: Exam Narrative: Elderly frail LUNGS:CTA HEART: RR S1S2 ABD: BS+, Soft and nontender Lower extremities: no edema MS: R foot with dressing SKIN: nonjaundiced Neuro: grossly intact. DS: Data Data Completed and Pending Labs on day of discharge: Labs from last 24 hours 10/04/20 10/04/20 04:55 04:54 WBC 4.2 L RBC 4.28 Hgb 12.8 Hct 38.1 MCV 89.0 MCH 29.9 MCHC 33.6 RDW 13.3 Plt Count 219 MPV 8.9 Sodium 138 Potassium 3.9 Chloride 100 Carbon Dioxide 34 H Anion Gap 4 L BUN 23 H Creatinine 0.60 L Estim Creat Clear Calc 64 Estimated GFR > 60 Glucose 110 H Calcium 9.3 Discharge Plan Discharge Attending physician on discharge: Fatimah Pritchard Consulting providers: Nelson Parker Discharging Clinician: Fatimah Pritchard Anticipated Discharge Date/Time: 10/04/20 11:21 Patient Disposition: Home Health Service Activity: as tolerated Diet: heart healthy Discharge Instructions: Call Marriage Performer in regards to Brace for Left foot Per Care Coordination: Home Health services have been arranged through [facility]. [facility] can be contacted at [phone]. Patient Instructions: Antibiotic Form, Pain Management (DC), Blood Thinners (DC) Stand Alone Forms: General Discharge Information Follow-up/Referrals: Nelson Parker MD [Physician] - Other (Appointment WednesdayOctober 09 @ 1:30 pm. ) Discharge Medications: New hydrocodone-acetaminophen 5-325 mg Tablet 1 tablet PO Q4H PRN (Reason: Pain Rated 4-6) Qty: 20 RF:
== END 2020-10-04 13:10 | disposition home health service (06) | DRG 563 ==
LOC: ANHED 09-30 01:25 → ANH3MEDSUR 09-30 01:32 → ANHTRC 09-30 09:27
PROVIDERS: Family Medicine; Admitting Provider Internal Medicine; Emergency Provider Emergency Medicine; PCP Nurse Practitioner; Visit Provider Family Medicine
DX: S82.851A Displaced trimalleolar fracture of right lower leg, initial encounter for closed fracture (principal); W19.XXXA Unspecified fall, initial encounter; M21.372 Foot drop, left foot; J44.9 Chronic obstructive pulmonary disease, unspecified; Z86.73 Personal history of transient ischemic attack (TIA), and cerebral infarction without residual deficits; E78.5 Hyperlipidemia, unspecified; I10 Essential (primary) hypertension
CPT/HCPCS: 29515; 36415; 51702; 73610; 80048; 85025; 85027; 85610; 85730; 96361; 96372; 96374; 96376; 97110; 97116; 97161; 97165; 97530; 97535; 99285; A9270; G0378; J1650; J2270; J7030

== ENCOUNTER 2021-06-16 13:13 | Emergency (ER) | payer MEDICARE, SELFPAY ==
--- NOTE | 2021-06-16 13:16 | ED.URI ---
HPI - URI/Sore Throat General Chief Complaint: Upper Respiratory Infection Stated Complaint: cough/ears popping/sinus issues Time Seen by Provider: 06/16/21 13:16 Source: patient and RN notes reviewed History of Present Illness HPI Narrative: Patient is a 75-year-old female who presents the urgent care with complaints of productive cough, ears throbbing, sinus pressure and drainage. Patient states that started 6 days ago and she does have relief with Benadryl. Patient denies any use of other antihistamines, nasal spray or Tylenol or ibuprofen. Patient denies of any known exposure to Covid or strep. Denies of fever, chills, nausea, vomiting, shortness of breath. Denies of any chronic sinusitis. No other acute complaints. No acute distress noted. Patient aware of the plan of care. Some parts of this dictation were generated by voice recognition software and may contain typographical and/or grammatical inaccuracies. Related Data Home Medications Medication Instructions Recorded Confirmed losartan 25 mg tablet 25 mg PO DAILY 10/13/19 12/25/20 atorvastatin 80 mg PO DAILY 09/30/20 12/25/20 ezetimibe 10 mg PO DAILY 09/30/20 12/25/20 Allergies Allergy/AdvReac Type Severity Reaction Status Date / Time No Known Allergies Allergy Unverified 09/30/20 03:15 Review of Systems Review of Systems: CONSTITUTIONAL: Denies fever, chills, or sweats. EYES: Denies visual changes, redness, or discharge. ENT: Reports of rhinorrhea, congestion, postnasal drainage and bilateral otalgia CARDIOVASCULAR: Denies chest pain, palpitations, or edema. RESPIRATORY: Reports a productive cough without dyspnea GASTROINTESTINAL: Denies abdominal pain, nausea, vomiting, or diarrhea. GENITOURINARY: Denies dysuria or hematuria. SKIN: Denies rash or itching. MUSCULOSKELETAL: Denies back pain, joint pain, or myalgia. NEUROLOGIC: Denies headache, numbness, or weakness. All other systems reviewed are negative, except as documented in HPI. [facility], LAT[facility] Past Medical History Medical History (Updated 06/16/21 @ 13:30 by CARLOS Garvin) Closed right trimalleolar fracture September 2020 - treated with cast COPD (chronic obstructive pulmonary disease) CVA (cerebral vascular accident) 2000 Hyperlipidemia Hypertension Spinal cord cysts Surgical History Surgical History History of carpal tunnel surgery History of hysterectomy Previous back surgery 2009, [place] in [facility] Family History Family History Mother Hypertension Cerebrovascular accident Family history of pulmonary embolism Other Family history of alcoholism Family history of cardiovascular disease Social History Social History Smoking packs per day: 2.5 Smoking cigarettes per day: 50.0 Years smoked: 35 Smoking pack-years: 87.50 Smoking status: Former smoker Tobacco type: cigarettes Smoking end date: 09/20/09 Alcohol intake: current Drinks per week: 6 Substance use: never Substance use type: marijuana Other substance usage details: MEDICAL MARIJUANA Last use: 09/29/20 Gender identity (if verbalized by the patient): Female Spiritual care concerns: No Comments At the time of my signature, I reviewed and agree with the nursing past medical, surgical, social, and family history. There is no relevant family history pertinent to the patient complaint. Exam Narrative: GENERAL: This is a well-nourished, well-developed patient, in no apparent distress. HEAD: normocephalic, atraumatic. EYES: PERRL. Sclera clear/white. Vision is grossly intact. EARS: External ears normal, auditory canals clear and without drainage, TMs normal without perforation. Hearing grossly intact. NOSE: External nose normal with no obvious nasal discharge, nares without redness, no rhinorrhea. THROAT: Mucous membranes moist
[2021-06-16 13:22] VITALS: BP 161/72; PULSE 93; RESP 16; TEMP 36.9; O2SAT 97
== END 2021-06-16 13:36 | disposition home or self-care (01) ==
PROVIDERS: Emergency Provider Nurse Practitioner Family
DX: J32.9 Chronic sinusitis, unspecified (principal); E78.5 Hyperlipidemia, unspecified; I10 Essential (primary) hypertension; Z86.73 Personal history of transient ischemic attack (TIA), and cerebral infarction without residual deficits; Z87.891 Personal history of nicotine dependence
CPT/HCPCS: 99213; G0463

== ENCOUNTER 2021-08-11 16:06 | Outpatient (CLI) | payer MEDICARE, SELFPAY ==
--- NOTE | ~2021-08-11 | MR_ITS ---
EXAMINATION: MR lumbar spine wo con DATE: 08/11/2021 17:50 INDICATION: Vertebrogenic low back pain. TECHNIQUE: Magnetic resonance imaging (MRI) of the lumbar spine was performed without intravenous con trast. Sequences included sagittal T2-weighted FSE, coronal STIR FSE, sagittal T2-weighted FS FSE, sa gittal T1-weighted FSE, and axial T2-weighted FSE. COMPARISON: Lumbar spine MRI 10/01/2017 FINDINGS: There is 18 degrees levoscoliosis of lumbar spine. There is 3 mm retrolisthesis of L3 on L4 . There is moderately decreased disc height at T12-L1 and severely decreased disc height from L1-L2 t hrough L5-S1 with endplate remodeling. The distal spinal cord signal intensity is normal. The conus m edullaris is at L1. The following disc levels are specifically discussed: T12-L1: The disc is bulging. There is moderate right and severe left facet joint osteoarthritis. Ther e is mild left neural foraminal stenosis. There is mild central canal stenosis. L1-L2: The disc is bulging. There is moderate bilateral facet joint osteoarthritis. There is mild rig ht and moderate left neural foraminal stenosis. There is mild central canal stenosis with posterior d ecompression. L2-L3: The disc is bulging. Disc calcifications are noted. There is moderate bilateral facet joint hy pertrophy. There is moderate right and mild left neural foraminal stenosis. There is mild central can al stenosis. L3-L4: The disc is bulging. There is severe bilateral facet joint osteoarthritis. There is moderate r ight and mild left neural foraminal stenosis. There is mild central canal stenosis. L4-L5: The disc is bulging and has an annular fissure. There is severe bilateral facet joint osteoart hritis. There is moderate right and mild left neural foraminal stenosis. There is mild central canal stenosis. L5-S1: The disc is bulging and has an annular fissure. There is severe bilateral facet joint osteoart hritis. There is moderate bilateral neural foraminal stenosis. There is mild central canal stenosis. IMPRESSION: 1. Severe lumbar spondylosis with interval worsening at T12-L1. 2. Lumbar levoscoliosis. Reviewed, dictated and finalized at location B. [employer]
== END 2021-08-11 16:07 | disposition home or self-care (01) ==
LOC: ANHIMG 16:16
PROVIDERS: PCP Nurse Practitioner Family; Visit Provider Nurse Practitioner Family
DX: M54.51 Vertebrogenic low back pain (principal); M47.896 Other spondylosis, lumbar region
CPT/HCPCS: 72148

== ENCOUNTER 2022-06-13 11:14 | Emergency (ER) | payer MEDICARE, SELFPAY ==
--- NOTE | ~2022-06-13 | XR_ITS ---
XR wrist RT min 3V 06/13/2022 12:08 Indication: Right wrist pain after fall Procedure: 3 views right wrist Comparison: 03/23/2021 Findings: There is an acute transverse fracture of the distal aspect of the radius with approximately one cortical bone width dorsal displacement. No significant angulation. There is an ulnar styloid av ulsion fracture. 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 Osteopenia. Moderate soft tissue swelling ventral to the radial fracture. There is chondrocalcinosi s. Impression: 1: Transverse distal radial fracture with mild dorsal displacement. 2: Ulnar styloid avulsion fracture. Reviewed, dictated and finalized at location A. Impression: 1: Transverse distal radial fracture with mild dorsal displacement. 2: Ulnar styloid avulsion fracture.
[2022-06-13 11:24] VITALS: BP 132/76; PULSE 68; RESP 16; TEMP 36.5; O2SAT 98
[2022-06-13] MEDS: HYDROcodone/acetaminophen (*CRX) 5-325 MG TABLET 1 TAB PO (12:20)
--- NOTE | 2022-06-13 13:12 | ED.UPPEXIN ---
HPI - Extremity Injury (Upper) General Chief Complaint: Extremity Injury, Upper Stated Complaint: right arm pain after a fall Time Seen by Provider: 06/13/22 11:35 History of Present Illness HPI narrative: Patient is a 76-year-old female who presents ER with right wrist pain. She was pulling a stack of soil when she tripped and fell back. She caught herself with her hand and suffered sudden onset pain. There is swelling of the wrist and pain with movement. No numbness or tingling. She did not strike her head or lose consciousness. No additional concerns or areas of injury. Related Data Home Medications Medication Instructions Recorded Confirmed losartan 25 mg tablet 25 mg PO DAILY 10/13/19 12/25/20 atorvastatin 40 mg tablet 80 mg PO DAILY 09/30/20 12/25/20 ezetimibe 10 mg tablet 10 mg PO DAILY 09/30/20 12/25/20 Allergies Allergy/AdvReac Type Severity Reaction Status Date / Time No Known Allergies Allergy Unverified 06/13/22 12:20 Review of Systems Gastrointestinal: Gastrointestinal: Denies nausea and Denies vomiting Musculoskeletal: Musculoskeletal: Denies back pain, Reports arthralgias, Reports joint swelling and Denies muscle cramps Neurologic: Denies syncope, Denies focal weakness and Denies numbness PMFSH Past Medical History Medical History (Updated 06/13/22 @ 13:19 by Corby Ortiz MD) Closed right trimalleolar fracture September 2020 - treated with cast COPD (chronic obstructive pulmonary disease) CVA (cerebral vascular accident) 2000 Hyperlipidemia Hypertension Spinal cord cysts Surgical History Surgical History History of carpal tunnel surgery History of hysterectomy Previous back surgery 2009, [place] in [facility] Family History Family History Mother Hypertension Cerebrovascular accident Family history of pulmonary embolism Other Family history of alcoholism Family history of cardiovascular disease Social History Social History Smoking packs per day: 2.5 Smoking cigarettes per day: 50.0 Years smoked: 35 Smoking pack-years: 87.50 Smoking status: Former smoker Tobacco type: cigarettes Smoking end date: 09/20/09 Alcohol intake: current Drinks per week: 6 Substance use: never Substance use type: marijuana Other substance usage details: MEDICAL MARIJUANA Last use: 09/29/20 Gender identity (if verbalized by the patient): Female Spiritual care concerns: No Exam Narrative: GENERAL: Well-appearing, well-nourished, and in no acute distress. HEAD: Normocephalic, atraumatic. CHEST: Clear to auscultation. No respiratory distress. HEART: Regular rate and rhythm. Normal peripheral pulses. EXTREMITIES: Deformity of right wrist with swelling over the anatomical snuffbox and lateral wrist. From range of motion due to pain. Patient is able to extend her fingers. No tenderness at the shoulder or elbow. SKIN: Warm, dry, no rash. NEURO: Alert and oriented x3. PSYCH: Normal mood and affect. Course Course Emergency Course: Splinted by nursing staff. Placed in sling for comfort. Discussed with Dr. Darby and he will have the patient follow-up in his clinic for further evaluation. Vital Signs Vital signs: Vital Signs Temperature 97.7 F 06/13/22 11:24 Pulse Rate 68 06/13/22 11:24 Respiratory Rate 16 06/13/22 11:24 Blood Pressure 132/76 06/13/22 11:24 Pulse Oximetry 98 06/13/22 11:24 Temperature 97.7 F 06/13/22 11:24 Pulse Rate 68 06/13/22 11:24 Respiratory Rate 16 06/13/22 11:24 Blood Pressure 132/76 06/13/22 11:24 Pulse Oximetry 98 06/13/22 11:24 MDM - Extremity Injury (Upper) Imaging Data Radiologist's impression: ITS Impressions Wrist X-Ray 06/13/22 12:10 Impression: 1: Transverse distal radial fracture with mild dorsal displa
== END 2022-06-13 13:37 | disposition home or self-care (01) ==
PROVIDERS: Emergency Provider Emergency Medicine; PCP Family Medicine
DX: S52.591A Other fractures of lower end of right radius, initial encounter for closed fracture (principal); S52.611A Displaced fracture of right ulna styloid process, initial encounter for closed fracture; J44.9 Chronic obstructive pulmonary disease, unspecified; E78.5 Hyperlipidemia, unspecified; I10 Essential (primary) hypertension; Z86.73 Personal history of transient ischemic attack (TIA), and cerebral infarction without residual deficits; Z90.710 Acquired absence of both cervix and uterus; Z87.891 Personal history of nicotine dependence; W01.0XXA Fall on same level from slipping, tripping and stumbling without subsequent striking against object, initial encounter
CPT/HCPCS: 29125; 73110; 99284; A4565; A9270

== ENCOUNTER 2022-06-19 01:24 | Day surgery (SDC) | payer MEDICARE, SELFPAY ==
[2022-06-18 11:00] VITALS: BMI 24.7
--- NOTE | 2022-06-18 11:13 | PC.NURSE ---
Report to the Outpatient Waiting Room, entrance under the green pavilion located off [facility], at time __1000 on date __06/19/22 . OR Time: __1200 . Time changes happen often and if your time is changed the preop area will call you the afternoon before. - You and your visitor will be asked to self-screen and do not enter if you have any COVID symptoms. - Only one visitor and NO children visitors are allowed at this time. - The patient visitor is requested to leave or wait in car when not with patient due to restrictions. - A mask is required within the hospital. Patients may have clear liquids (water, carbonated beverages, clear teas, apple juice) until 3 hours prior to surgery (0900 AM) with a maximum of 20 ounces. - No food from midnight until time of surgery - Infants may have breast milk until 4 hours before surgery, formula 6 hours prior to surgery. - Children will be allowed to drink immediately following surgery. If applicable, please bring a bottle or sippy cup to assist with drinking. Juice, water, soda, and popsicles are readily available. For infants on formula, please bring formula the day of surgery. Pacifiers are allowed. Take the following medications with a SIP of water the morning of surgery: _SERTRALINE, PAIN PILL IF NEEDED_ Medications to discontinue per physician _PT STATES LAST DOSE OF PLAVIX 06/15/22__ Date to take last dose Please no make-up, nail slovak, hairspray, perfume, deodorant, or body powder the day of surgery. No jewelry (including any body piercings) or valuables the day of surgery, leave them at home. Please take a shower or bath the night before, or the morning of, surgery with an antibacterial soap. Wear comfortable, loose fitting clothing. Children are encouraged to wear pajamas. - Jewelry must be removed prior to entering the operating room. Rings and piercings that are not removed may be cut off. - The hospital will not accept responsibility for valuables. - Please leave all valuables, including medications, at home the day of surgery. If you are going home after surgery, a licensed new car driver must drive you home. - NO public transportation without another adult. - We recommend that an adult stay with you for 24 hours following discharge. - We also recommend that you do not drive, make important decision, drink alcoholic beverages, or take any drugs that were not prescribed by your health care provider for at least 24 hours after your discharge time. For Pediatric surgeries, we recommend two adults accompany the child home (only one inside the building at this time). Follow any additional instructions given to you from your surgeon. If you or anyone in your household have experienced Covid symptoms in the past week, please notify your surgeon or the nurse liaison at the phone number below for possible testing. Telephone instructions given to ___PT and asked if any additional questions and then verbalized understanding. Patient advised to call surgeon office or pre surgery nurse liaison [phone] if any additional questions.
[2022-06-19] VITALS (10 sets, daily range): BP systolic 134–177; BP diastolic 67–97; PULSE 74–92; RESP 12–16; TEMP 36.6–37; O2SAT 95–99
--- NOTE | ~2022-06-19 | XR_ITS ---
EXAMINATION: XR surgery orthopedic DATE: 06/19/2022 14:58 INDICATION: Internal fixation of a right wrist fracture TECHNIQUE: 4 fluoroscopic images of the right wrist were obtained during procedure performed by Dr. Kale garrett. Radiologist was not present for the imaging or procedure. The amount of fluoroscopy time used during this procedure was 29.8 minutes. COMPARISON: 06/18/2022 FINDINGS: Interval open reduction internal fixation of the comminuted intra-articular fracture of the distal ri ght radius which is now in near anatomic alignment with minimal 4 degrees of volar tilt of the distal articular surface. A minimally displaced fracture across the base of the ulnar styloid process remai ns unfixed. Severe osteoarthritis at the triscaphe joint. Mild osteoarthritis at the wrist, midcarpal and first carpometacarpal joints. Expected small amount of postoperative intra-articular and soft ti ssue gas. IMPRESSION: 1. Near-anatomic alignment post open reduction internal fixation of a comminuted intra-articular frac ture of the distal right radius. 2. Unchanged unfixed, minimally displaced ulnar styloid avulsion fracture. Reviewed, dictated and finalized at location A. IMPRESSION: 1. Near-anatomic alignment post open reduction internal fixation of a comminute d intra-articular fracture of the distal right radius. 2. Unchanged unfixed, minimally displaced ulnar styloid avulsion fracture.
--- NOTE | 2022-06-19 07:14 | WPDHPUPDATE1 ---
History and Physical Update Update Date/Time: 06/19/22 07:14 History and Physical has been reviewed, including an updated exam of the patient. There are NO changes in the patient's condition. Risks, benefits, and alternatives have been discussed and questions answered. Patient agrees to proceed with procedure.
--- NOTE | 2022-06-19 09:55 | ECG_ITS ---
Measurements Intervals [place] Rate: 71 P: 41 IA: 159 QRS: 49 QRSD: 85 T: 48 QT: 396 QTc: 430 Interpretive Statements SINUS RHYTHM NORMAL ECG COMPARED TO ECG 08/16/2020 10:34:02 NO SIGNIFICANT CHANGES Electronically Signed On 06-19-2022 11:03:21 CDT by Javed Gutierrez D.O.
--- NOTE | 2022-06-19 10:06 | WPDANESEPPF ---
Anes - Initial Pre Proc Eval Procedure: Operation Date: 06/19/22 12:00 Proposed Procedures p Open Reduction Internal Fixation Right Wrist Fracture - Daniel Darby MD Date/Time: 06/19/22 10:06 Surgeon: Daniel Darby MD Pre Op Diagnosis: right wrist fracture Patient Data Age: 76 Gender: F Height: 1.57 m Weight: 61.1 kg Allergies Allergy/AdvReac Type Severity Reaction Status Date / Time No Known Allergies Allergy Verified 06/19/22 10:03 Home Medications Medication Instructions Recorded Confirmed Type zolpidem 10 mg tablet 10 mg PO .QHS PRN insomnia #30 tabs 09/05/19 06/19/22 Rx losartan 25 mg tablet 25 mg PO DAILY 10/13/19 06/19/22 History sertraline 50 mg tablet 50 mg PO DAILY #90 tabs 10/16/19 06/19/22 Rx clopidogrel 75 mg tablet 75 mg PO DAILY #90 tabs 12/08/19 06/19/22 Rx atorvastatin 40 mg tablet 80 mg PO DAILY 09/30/20 06/19/22 History ezetimibe 10 mg tablet 10 mg PO DAILY 09/30/20 06/18/22 History benzonatate 100 mg capsule 100 mg PO TID PRN cough #20 caps 06/16/21 06/18/22 Rx (Yfn Aparicio) hydrocodone 5 mg-acetaminophen 325 1 tablet PO Q6H PRN pain #20 tabs 06/13/22 06/18/22 Rx mg tablet Patient hx anesthesia problems: none Family hx anesthesia problems: none Results Review: All pre-operative results and documents have been reviewed as part of the pre-operative evaluation. [facility] Past Medical History Medical History (Updated 06/19/22 @ 10:07 by Mook Arrieta MD) Back pain Chronic pain Closed right trimalleolar fracture September 2020 - treated with cast COPD (chronic obstructive pulmonary disease) CVA (cerebral vascular accident) 2000 Fracture of right distal radius Hyperlipidemia Hypertension Marijuana use Spinal cord cysts Surgical History Surgical History History of carpal tunnel surgery History of hysterectomy Previous back surgery 2009, [place] in [facility] Family History Family History Mother Hypertension Cerebrovascular accident Family history of pulmonary embolism Other Family history of alcoholism Family history of cardiovascular disease Social History Social History Smoking packs per day: 2.5 Smoking cigarettes per day: 50.0 Years smoked: 35 Smoking pack-years: 87.50 Smoking status: Former smoker Tobacco type: cigarettes Second hand tobacco smoke exposure: No Smoking end date: 09/20/09 Alcohol intake: current Drinks per week: 6 Substance use: current Substance use type: marijuana Other substance usage details: MEDICAL MARIJUANA - 2-3 HITS DAILY Last use: 06/17/22 Living arrangements: alone Gender identity (if verbalized by the patient): Female Spiritual care concerns: No Anes - Eval Final PreProcedure Day of Procedure 06/19/22 10:06 Patient weight: normal Heart: regular rate and rhythm Lungs: clear to auscultation and normal air movement Airway: Mallampati scale class II Neurological: alert and oriented Last oral intake: >/= 8 hours ASA classification: III Emergent: no Anesthetic plan: proceed Anesthesia type and monitoring: general LMA Results Review: All pre-operative results and documents have been reviewed as part of the pre-operative evaluation. Informed Consent: The patient's anesthetic plan and its attendant risks and benefits were discussed with the patient/family/POA. Questions were solicited and answers provided to the satisfaction of the patient/family/POA.
[2022-06-19] MEDS: CELECOXIB 200 MG CAPSULE PO (10:07)
[2022-06-19] MEDS: ACETAMINOPHEN 500 MG TABLET 1000 MG PO (10:07)
--- NOTE | 2022-06-19 10:07 | WPDANESPNB ---
Anes - Peripheral Nerve Block Date/Time: 06/19/22 10:07 I have discussed with the patient/family/POA the placement of a peripheral nerve block for post-operative pain management, including associated risks, benefits, complications, and side effects. Alternative methods of post-operative analgesia were detailed. Questions were solicited and answers provided to the satisfaction of the patient/family/POA. Time-Out: A pre-procedural Time-Out was completed immediately before starting the procedure and confirmed: Patient Identification, Site, Procedure, Patient Position and the Availability of Requisite Equipment. Clinical Indications: Acute post-operative pain management requested by the operative surgeon. Nerve Block Insertion Note Needle: 22 gauge, stimulating, insulated echogenic needle.
[2022-06-19] MEDS: LACTATED RINGERS 1,000 ML 30 ML IV CONT ×2 (10:30→15:18)
--- NOTE | 2022-06-19 10:37 | SUR.PREOP ---
Patient self caths but has been unable to do this since wrist fx. Patient wants a murray catheter. Says she hasn't been getting any rest because of need to urinate. I discussed this with Dr Darby.
[2022-06-19] MEDS: ceFAZolin 2 GM/D5W 50 ML 2 GM/50 ML BAG IVPB (12:32)
--- NOTE | 2022-06-19 15:27 | W.PM.PROC2 ---
Procedure Note - Detailed Date of Procedure 06/19/22 Pre-op Diagnosis right distal radius fracture Post-op Diagnosis Same Procedure Performed ORIF RIGHT DISTAL RADIUS FRACTURE Surgeon Daniel Darby MD Anesthesia General Description of Procedure THE RIGHT UPPER EXTREMITY WAS PREPPED AND DRAPED IN THE STERILE FASHION. A STANDARD HENRYS APPROACH WAS USED TO THE VOLAR WRIST. DISSECTION THROUGH THE SKIN AND SUBCUTANEOUS TISSUE WAS PREFORMED. THE FCR TENDON WAS IDENTIFIED. THE RADIAL ARTERY WAS IDENTIFIED AND RETRACTED. THE THE FLEXOR POLLICIS AND THE COMMON FLEXOR TENDONS WERE IDENTIFIED AND RETRACTED. THE PRONATOR QUADRATUS WAS IDENTIFIED AND INCISED EXPOSING THE FRACTURE. IT WAS HIGHLY COMMINUTED. A TRIAL REDUCTION WAS PREFORMED AND FIXED WITH A K WIRE. THE RADIAL STYLOID WAS HIGHLY COMMINUTED AND SEPARATE FROM THE MAIN FRAGMENT. K WIRES WERE PLACED THROUGH THE STYLOID FRAGMENT WELL. NEXT A BIOMET DISTAL RADIUS LOCKING PLATE WAS PLACED BRIDGING THE FRACTURE FRAGMENTS. SCREWS WERE PLACED DISTALLY AND PROXIMALLY. THE DISTAL SCREWS WERE IMAGED AND FOUND TO BE EXTRA ARTICULAR. C ARM IMAGES WERE PREFORMED AND HARDWARE AND FRACTURE FRAGMENTS WERE IN GOOD POSITION. THE TOURNIQUET WAS DEFLATED AND THE BLEEDERS WERE CAUTERIZED. THE FASCIA AND SUB CUTANEOUS LAYERS WERE APPROXIMATED WITH 3-0 VICRYL. THE SKIN WAS APPROXIMATED WITH YOUNG. STERILE DRESSING AND SPLINT WAS APPLIED. PATIENT WAS EXTUBATED. Estimated Blood Loss -10.0 Urine Output -400.0 Complications No immediate complications Condition Stable Disposition PACU
[2022-06-19] MEDS: fentaNYL CITRATE INJ (*CRX) 100 MCG/2 ML VIAL 25 MCG IV PUSH ×5 (15:45→16:10)
[2022-06-19] MEDS: oxyCODONE HCL (*CRX) 5 MG TAB IR PO (17:05)
== END 2022-06-19 18:10 | disposition home or self-care (01) ==
PROVIDERS: PCP Family Medicine; Visit Provider Orthopaedic Surgery
PROC: (CPT 25575; principal; 2022-06-19 12:00)
DX: S52.571A Other intraarticular fracture of lower end of right radius, initial encounter for closed fracture (principal); W01.0XXA Fall on same level from slipping, tripping and stumbling without subsequent striking against object, initial encounter; E78.5 Hyperlipidemia, unspecified; J44.9 Chronic obstructive pulmonary disease, unspecified; I10 Essential (primary) hypertension; Z87.891 Personal history of nicotine dependence
CPT/HCPCS: 25608; 93005; 99199; A9270; C1713; J0690; J1100; J1170; J2370; J2405; J2704; J3010; J7120

== ENCOUNTER 2022-06-23 17:14 | Emergency (ER) | payer MEDICARE, SELFPAY ==
[2022-06-23 18:11] VITALS: BP 165/87; PULSE 93; RESP 16; TEMP 36.7; O2SAT 99
--- NOTE | 2022-06-23 19:54 | ED.EXTPRO ---
HPI - Extremity Problem General Chief complaint: Extremity Problem,Nontraumatic Stated complaint: Possible Blood Clot Right Arm Time Seen by Provider: 06/23/22 19:32 History of Present Illness HPI Narrative: This is a 76-year-old female with history of ischemic stroke on Plavix, who presents to the emergency department complaining of right hand swelling after being placed in a splint 4 days ago. The patient states she fell 4 days ago was found to have a radius fracture and placed in a splint and has since noticed continued pain and swelling of the right hand. She denies chest pain, shortness of breath or lightheadedness. Related Data Home Medications Medication Instructions Recorded Confirmed losartan 25 mg tablet 25 mg PO DAILY 10/13/19 06/19/22 atorvastatin 40 mg tablet 80 mg PO DAILY 09/30/20 06/19/22 ezetimibe 10 mg tablet 10 mg PO DAILY 09/30/20 06/18/22 Allergies Allergy/AdvReac Type Severity Reaction Status Date / Time No Known Allergies Allergy Verified 06/19/22 10:03 Review of Systems Review of Systems: CONSTITUTIONAL: Denies fever, chills, or sweats. EYES: Denies visual changes, redness, or discharge. ENT: Denies rhinorrhea, congestion, sore throat, or otalgia. CARDIOVASCULAR: Denies chest pain, palpitations, or edema. RESPIRATORY: Denies cough or dyspnea. GASTROINTESTINAL: Denies abdominal pain, nausea, vomiting, or diarrhea. GENITOURINARY: Denies dysuria or hematuria. SKIN: Denies rash or itching. MUSCULOSKELETAL: Right wrist pain right hand swelling denies back pain, joint pain, or myalgia. NEUROLOGIC: Denies headache, numbness, dizziness, or weakness. PSYCHIATRIC: Denies anxiety or depression. [facility] Past Medical History Medical History (Updated 06/23/22 @ 21:58 by Henri Pelayo MD) Back pain Chronic pain Closed right trimalleolar fracture September 2020 - treated with cast COPD (chronic obstructive pulmonary disease) CVA (cerebral vascular accident) 2000 Fracture of right distal radius Hyperlipidemia Hypertension Marijuana use Spinal cord cysts Surgical History Surgical History History of carpal tunnel surgery History of hysterectomy Previous back surgery 2009, [place] in [facility] Family History Family History Mother Hypertension Cerebrovascular accident Family history of pulmonary embolism Other Family history of alcoholism Family history of cardiovascular disease Social History Social History Smoking packs per day: 2.5 Smoking cigarettes per day: 50.0 Years smoked: 35 Smoking pack-years: 87.50 Smoking status: Former smoker Tobacco type: cigarettes Second hand tobacco smoke exposure: No Smoking end date: 09/20/09 Alcohol intake: current Drinks per week: 6 Substance use: current Substance use type: marijuana Other substance usage details: MEDICAL MARIJUANA - 2-3 HITS DAILY Last use: 06/17/22 Gender identity (if verbalized by the patient): Female Spiritual care concerns: No Exam Narrative: GENERAL: Well-appearing, well-nourished, and in no acute distress. HEAD: Normocephalic, atraumatic. EYES: PERRLA and EOMI. NECK: Supple. No adenopathy or masses. No carotid bruits or JVD CHEST: Clear to auscultation. No respiratory distress. No wheezes rales or rhonchi HEART: Regular rate and rhythm. No murmur heard. Normal peripheral pulses. ABDOMEN: Soft, nontender, nondistended, normal active bowel sounds. EXTREMITIES: Swelling with mild ecchymosis noted of the right hand, right side splint in place with wrapping somewhat tight around the distal right arm. Range of motion intact without significant pain on passive flexion extension. SKIN: Warm, dry, no rash. NEURO: No focal deficits. Alert and oriented x3. PSYCH: Normal mood and affect. Course Course Emergency Cours
[2022-06-23 20:30] LABS: Basophils Percent Auto 0.3 % (0.2-1.2); Eosinophils Absolute Auto 0.2 K/mm3 (0-0.3); Eosinophils Percent Auto 3.4 % (0-4.4); Hematocrit 40.2 % (37.0-47.0); Hemoglobin 13.7 g/dL (12.0-15.0); Immature Granulocyte Absolute 0.01 K/mm3 (0.00-0.031); Immature Granulocyte Percent A 0.2 % (0-0.5); Lymphocytes Absolute Auto 1.33 K/mm3 (0.9-3.2); Lymphocytes Percent Auto 22.7 % (18.3-44.2); Mean Corpuscular HGB Conc 34.1 g/dl (32-36); Mean Platelet Volume 8.7 fl (7.4-10.4); Monocytes Absolute Auto 0.5 K/mm3 (0.1-0.6); Monocytes Percent Auto 9.2 % (2.6-8.5); Neutrophils Absolute Auto 3.8 K/mm3 (1.3-6.7); Neutrophils Percent Auto 64.2 % (45.5-73.1); Platelet Count Result 323 k/mm3 (150-375); Red Blood Count 4.57 M/mm3 (4.2-5.4); Red Cell Distribution Width 13.4 % (11.5-14.5); White Blood Count 5.9 K/mm3 (4.5-10.0)
[2022-06-23 20:39] LABS: Prothrombin Time 12.3 Seconds (11.1-14.7)
[2022-06-23 20:44] LABS: D Dimer 1.47 ug/mL (<0.48)
[2022-06-23] MEDS: APIXABAN 5 MG TABLET 10 MG PO (22:10)
== END 2022-06-23 22:29 | disposition home or self-care (01) ==
PROVIDERS: Emergency Provider Preventive Medicine Aerospace Medicine; PCP Family Medicine
DX: M79.631 Pain in right forearm (principal); M79.89 Other specified soft tissue disorders; S52.501D Unspecified fracture of the lower end of right radius, subsequent encounter for closed fracture with routine healing; W19.XXXD Unspecified fall, subsequent encounter; I10 Essential (primary) hypertension; E78.5 Hyperlipidemia, unspecified; J44.9 Chronic obstructive pulmonary disease, unspecified; Z86.73 Personal history of transient ischemic attack (TIA), and cerebral infarction without residual deficits; G89.29 Other chronic pain; Z87.891 Personal history of nicotine dependence; F12.90 Cannabis use, unspecified, uncomplicated; Z79.02 Long term (current) use of antithrombotics/antiplatelets; Z79.891 Long term (current) use of opiate analgesic
CPT/HCPCS: 36415; 85025; 85380; 85610; 93971; 99283; A9270

== ENCOUNTER 2022-06-24 11:12 | Outpatient (CLI) | payer MEDICARE, SELFPAY ==
--- NOTE | ~2022-06-24 | US_ITS ---
EXAMINATION: US venous doppler UE RT DATE: 06/24/2022 11:57 INDICATION: Right upper limb swelling. TECHNIQUE: Grayscale ultrasound images without and with compression and Doppler ultrasound images of the right upper extremity veins were obtained. COMPARISON: None. FINDINGS: The visualized portions of the right internal jugular vein, subclavian vein, axillary vein, brachial veins, basilic vein, cephalic vein, radial vein, and ulnar vein are patent. IMPRESSION: 1. No deep venous thrombosis. Reviewed, dictated and finalized at location A.
== END 2022-06-24 11:13 | disposition home or self-care (01) ==
PROVIDERS: PCP Family Medicine; Visit Provider Orthopaedic Surgery
DX: M79.89 Other specified soft tissue disorders (principal); S52.501A Unspecified fracture of the lower end of right radius, initial encounter for closed fracture; Z98.890 Other specified postprocedural states; X58.XXXA Exposure to other specified factors, initial encounter
CPT/HCPCS: 93971

== ENCOUNTER 2023-01-27 09:28 | Day surgery (SDC) | payer MEDICARE, SELFPAY ==
[2023-01-25 11:21] VITALS: BMI 24.4
[2023-01-27 09:41] VITALS: BP 146/81; PULSE 82; RESP 16; TEMP 36.4; O2SAT 96; BMI 23.3
[2023-01-27] MEDS: LACTATED RINGERS 1,000 ML 150 ML IV CONT (09:50)
--- NOTE | 2023-01-27 10:07 | WPDANESEPPF ---
Anes - Initial Pre Proc Eval Procedure: Operation Date: 01/27/23 10:45 Proposed Procedures p Colonoscopy - Sean Sierra MD Date/Time: 01/27/23 10:07 Surgeon: Sean Sierra MD Pre Op Diagnosis: neoplasm screening Patient Data Age: 77 Gender: F Height: 1.59 m Weight: 59 kg Last Vital Signs Temp 97.5 F L 01/27/23 09:41 Pulse 82 01/27/23 09:41 Resp 16 01/27/23 09:41 BP 146/81 H 01/27/23 09:41 Pulse Ox 96 01/27/23 09:41 O2 Del Method Room Air 01/27/23 09:41 Allergies Allergy/AdvReac Type Severity Reaction Status Date / Time No Known Allergies Allergy Verified 01/27/23 09:39 Home Medications Medication Instructions Recorded Confirmed Type zolpidem 10 mg tablet 10 mg PO .QHS PRN insomnia #30 tabs 09/05/19 01/27/23 Rx losartan 25 mg tablet 25 mg PO DAILY 10/13/19 01/27/23 History clopidogrel 75 mg tablet 75 mg PO DAILY #90 tabs 12/08/19 01/27/23 Rx atorvastatin 40 mg tablet 40 mg PO DAILY 09/30/20 01/27/23 History lisinopril 20 mg tablet 20 mg PO DAILY 12/22/22 01/27/23 History loratadine 10 mg tablet 10 mg PO DAILY 01/25/23 01/27/23 History sertraline 100 mg tablet 100 mg PO DAILY 01/25/23 01/27/23 History Patient hx anesthesia problems: none Family hx anesthesia problems: none Results Review: All pre-operative results and documents have been reviewed as part of the pre-operative evaluation. [facility] Past Medical History Medical History Back pain Cervical cancer (~1976) Chronic pain Closed right trimalleolar fracture September 2020 - treated with cast COPD (chronic obstructive pulmonary disease) CVA (cerebral vascular accident) 2000 Fracture of right distal radius Hyperlipidemia Hypertension Marijuana use Spinal cord cysts Surgical History Surgical History History of carpal tunnel surgery History of hysterectomy (~1977) RADHA with Bladder suspension/ cervical cancer Previous back surgery (05/04/10) cyst removed from spinal cord [facility] in [place] in [facility] Family History Family History Mother Hypertension Cerebrovascular accident Family history of pulmonary embolism Other Carcinoma of colon maternal aunt Other Family history of alcoholism Family history of cardiovascular disease Social History Social History Smoking packs per day: 2.5 Smoking cigarettes per day: 50.0 Years smoked: 51 Smoking pack-years: 127.50 Smoking status: Former smoker Tobacco type: cigarettes Second hand tobacco smoke exposure: No Smoking end date: 09/20/09 Alcohol intake: current Drinks per week: 21 Alcohol use details: BEERS Substance use: current Substance use type: marijuana Other substance usage details: EVERYDAY Last use: 06/17/22 Living arrangements: alone Additional living arrangements comments: Occupation/Education: retired Gender identity (if verbalized by the patient): Female Sexual Orientation (if Verbalized by the Patient): Straight or Heterosexual Spiritual care concerns: No Anes - Eval Final PreProcedure Day of Procedure 01/27/23 10:07 Patient weight: normal Heart: regular rate and rhythm Lungs: clear to auscultation Airway: Mallampati scale class II Neurological: alert and oriented Last oral intake: >/= 8 hours ASA classification: III Emergent: no Anesthetic plan: proceed Anesthesia type and monitoring: general GIVS and standard monitoring Results Review: All pre-operative results and documents have been reviewed as part of the pre-operative evaluation. Informed Consent: The patient's anesthetic plan and its attendant risks and benefits were discussed with the patient/family/POA. Questions were solicited and answers provided to the satisfaction o
--- NOTE | 2023-01-27 10:18 | PM.HPGS ---
History of Present Illness History of Present Illness Consent: Risks, benefits, and alternatives have been discussed and questions answered. Patient agrees to proceed with procedure. Chief complaint: neoplasm screening Narrative: Nery Zacarias is a 77 year old female with colon polyp 4 years ago Review of Systems Constitutional: Constitutional: Denies headache(s) and Denies weakness Eyes: Eyes: Denies blurry vision ENT: Reports Normal hearing present, Denies headache(s) and Denies neck pain Cardiovascular: Cardiovascular: Denies chest pain and Denies dyspnea Respiratory: Respiratory: Denies dyspnea Gastrointestinal: Gastrointestinal: Reports no additional gastrointestinal complaints Genitourinary: Genitourinary: Denies dysuria Musculoskeletal: Musculoskeletal: Denies neck pain Integumentary/Breasts: Skin/Breast: Denies dry skin Neurologic: Reports Normal hearing present, Denies headache(s) and Denies weakness Psychiatric: Psychiatric: Denies anxiety Endocrine: Endocrine: Denies change in body appearance Hematologic/Lymphatic: Hematologic/Lymphatic: Denies easy bleeding Allergic/Immunologic: Allergic/Immunologic: Denies urticaria PMFSH Past Medical History Medical History (Updated 01/27/23 @ 10:18 by Sean Sierra MD) Adenomatous colon polyp Back pain Cervical cancer (~1976) Chronic pain Closed right trimalleolar fracture September 2020 - treated with cast COPD (chronic obstructive pulmonary disease) CVA (cerebral vascular accident) 2001 Fracture of right distal radius Hyperlipidemia Hypertension Marijuana use Spinal cord cysts Surgical History Surgical History History of carpal tunnel surgery History of hysterectomy (~1977) RADHA with Bladder suspension/ cervical cancer Previous back surgery (05/04/10) cyst removed from spinal cord [address] [place] [address] in [facility] Family History Family History Mother Hypertension Cerebrovascular accident Family history of pulmonary embolism Other Carcinoma of colon maternal aunt Other Family history of alcoholism Family history of cardiovascular disease Social History Social History Smoking packs per day: 2.5 Smoking cigarettes per day: 50.0 Years smoked: 51 Smoking pack-years: 127.50 Smoking status: Former smoker Tobacco type: cigarettes Second hand tobacco smoke exposure: No Smoking end date: 09/20/09 Alcohol intake: current Drinks per week: 21 Alcohol use details: BEERS Substance use: current Substance use type: marijuana Other substance usage details: EVERYDAY Last use: 06/17/22 Living arrangements: alone Additional living arrangements comments: Occupation/Education: retired Gender identity (if verbalized by the patient): Female Sexual Orientation (if Verbalized by the Patient): Straight or Heterosexual Spiritual care concerns: No Meds Home Medications and Allergies Home Medications Medication Instructions Recorded Confirmed Type zolpidem 10 mg tablet 10 mg PO .HS PRN insomnia #30 tabs 09/05/19 01/27/23 Rx losartan 25 mg tablet 25 mg PO DAILY 10/13/19 01/27/23 History clopidogrel 75 mg tablet 75 mg PO DAILY #90 tabs 12/08/19 01/27/23 Rx atorvastatin 40 mg tablet 40 mg PO DAILY 09/30/20 01/27/23 History lisinopril 20 mg tablet 20 mg PO DAILY 12/22/22 01/27/23 History loratadine 10 mg tablet 10 mg PO DAILY 01/25/23 01/27/23 History sertraline 100 mg tablet 100 mg PO DAILY 01/25/23 01/27/23 History Allergies Allergy/AdvReac Type Severity Reaction Status Date / Time No Known Allergies Allergy Verified 01/27/23 09:39 Vital Signs Vital Signs - 24 hr 01/27/23 09:41 Temperature 97.5 F L Pulse Rate 82 Respiratory Rate 16 Blood Pressure 146/81 H Pulse Oximetry 96 Oxygen Delivery Room
[2023-01-27 10:39] VITALS: BP 134/65; PULSE 83; RESP 14; O2SAT 93
[2023-01-27 10:49] VITALS: BP 119/70; PULSE 80; RESP 16; O2SAT 96
[2023-01-27 10:59] VITALS: BP 126/71; PULSE 81; RESP 20; O2SAT 97
== END 2023-01-27 11:07 | disposition home or self-care (01) ==
LOC: ANHENDO 11:24
PROVIDERS: PCP Family Medicine; Visit Provider Internal Medicine Gastroenterology
PROC: 0DJD8ZZ Inspection of Lower Intestinal Tract, Via Natural or Artificial Opening Endoscopic (ICD-10-PCS; CPT 45378; principal; 2023-01-27 10:45)
DX: Z12.11 Encounter for screening for malignant neoplasm of colon (principal); K57.30 Diverticulosis of large intestine without perforation or abscess without bleeding; K64.8 Other hemorrhoids; K64.4 Residual hemorrhoidal skin tags; Z86.010 Personal history of colon polyps; J44.9 Chronic obstructive pulmonary disease, unspecified; Z86.73 Personal history of transient ischemic attack (TIA), and cerebral infarction without residual deficits; I10 Essential (primary) hypertension; E78.5 Hyperlipidemia, unspecified; Z85.41 Personal history of malignant neoplasm of cervix uteri; Z79.02 Long term (current) use of antithrombotics/antiplatelets; Z87.891 Personal history of nicotine dependence; F12.90 Cannabis use, unspecified, uncomplicated
CPT/HCPCS: G0105; J2704; J7120

== ENCOUNTER → 2023-02-10 08:04 | Outpatient (CLI) | payer MEDICARE, SELFPAY ==
--- NOTE | ~2023-02-10 | MMUS_ITS ---
EXAMINATION: MM diagnostic massimo BI w andriy, US breast RT limited HISTORY: Palpable right breast lump at the 12:00 location TECHNIQUE: Craniocaudal, mediolateral, and mediolateral oblique 3-D tomosynthesis images of the right breast were performed and synthetic 2-D images were generated. CAD analysis was submitted and interp reted. High resolution limited right breast ultrasound was performed. COMPARISON: 04/07/2019, 03/04/2018, 02/22/2018, 02/19/2017 BREAST PARENCHYMAL COMPOSITION: There are scattered areas of fibroglandular density. FINDINGS: MAMMOGRAPHIC FINDINGS: Right breast: There is an approximately 1.4 x 1.0 cm irregular, high density mass with spiculated mar gins at the 12:00 location, 5 cm from the nipple in the middle third of the breast corresponding to t he palpable abnormality of concern. Left breast: No suspicious mass, calcification, or architectural distortion are identified to suggest malignancy. There has been no suspicious interval change. ULTRASOUND: There is a 1.3 x 1.0 cm irregular, hypoechoic mass with angular margins, posterior acoustic shadowing , and peripheral vascularity at the 12:00 location, 5 cm from the nipple corresponding to the palpabl e abnormality of concern. IMPRESSION: 1. Suspicious right breast mass corresponding to the palpable abnormality of concern. 2. Ultrasound-guided biopsy is recommended. BI-RADS category 5, highly suggestive of malignancy. Reviewed, dictated and finalized at location A. IMPRESSION: 1. Suspicious right breast mass corresponding to the palpable abnormality of co ncern. 2. Ultrasound-guided biopsy is recommended. BI-RADS category 5, highly suggestive of malignancy.
== END ==
PROVIDERS: PCP Family Medicine; Visit Provider Obstetrics & Gynecology
DX: N63.15 Unspecified lump in the right breast, overlapping quadrants (principal); R92.8 Other abnormal and inconclusive findings on diagnostic imaging of breast
CPT/HCPCS: 76642; 77062; 77066; G0279

== ENCOUNTER 2023-03-17 12:45 | Outpatient (CLI) | payer MEDICARE, SELFPAY ==
--- NOTE | ~2023-03-17 | MMUS_ITS ---
EXAMINATION: US GUIDED NEEDLE BIOPSY DATE: 03/17/2023 14:30 CDT INDICATION: 1.3 x 1.0 cm irregular hypoechoic mass with angular margins, posterior shadowing at 12:00 5 cm from nipple, right breast TECHNIQUE AND FINDINGS: The risks and potential benefits of the procedure were discussed with the patient, and written inform ed consent was obtained. Timeout procedure was performed. After sterile preparation of the right patel st, 1% lidocaine was utilized for local anesthesia. A 12 G spring-loaded biopsy gun needle was advanced to the edge of the region of interest from a late ral approach utilizing sonographic guidance. A total of 7 tissue core samples were obtained through the lesion. A Hydromark marker was then placed at the biopsy site. Hemostasis was achieved. A steril e bandage was applied. The patient tolerated procedure well and there was no evidence of immediate complication. The patien t was given verbal instructions prior to departing from the department. A two view mammogram was perf ormed to document tissue marker clip placement. The tissue samples were submitted to surgical patholo gy for histologic analysis. IMPRESSION: Ultrasound guided biopsy of 12:00 right breast mass with biopsy marker placement. Please refer to pat hology report for histologic analysis. Reviewed, dictated and finalized at Location A. Reviewed, dictated and finalized at location A. IMPRESSION: Ultrasound guided biopsy of 12:00 right breast mass with biopsy marker placemen t. Please refer to pathology report for histologic analysis.
== END 2023-03-17 12:46 | disposition home or self-care (01) ==
PROVIDERS: PCP Family Medicine; Visit Provider Surgery
DX: R92.8 Other abnormal and inconclusive findings on diagnostic imaging of breast (principal); N63.10 Unspecified lump in the right breast, unspecified quadrant; D05.11 Intraductal carcinoma in situ of right breast
CPT/HCPCS: 19083; 88305; 88342; 88360

== ENCOUNTER 2023-03-22 12:22 | Emergency (ER) | payer MEDICARE, SELFPAY ==
--- NOTE | ~2023-03-22 | XR_ITS ---
Right Knee Technique: AP, lateral, and oblique views were obtained. Clinical History: Pain Findings: No fracture or dislocation is seen. Osseous alignment is anatomic. Joint spaces are preserv ed without degenerative or erosive change. Soft tissues are unremarkable. No joint effusion is seen. Impression: Unremarkable right knee radiographs. Reviewed, dictated and finalized at location . Impression: Unremarkable right knee radiographs.
[2023-03-22 12:25] VITALS: BP 147/71; PULSE 92; RESP 16; TEMP 36.7; O2SAT 94
--- NOTE | 2023-03-22 12:46 | PC.NURSE ---
Pt to XRAY via w/c.
--- NOTE | 2023-03-22 13:01 | ED.GENADULT ---
HPI - General Adult General Chief complaint: Extremity Injury, Lower Stated complaint: R knee injury Time Seen by Provider: 03/22/23 12:38 Source: patient Mode of arrival: ambulatory Limitations: no limitations History of Present Illness HPI narrative: This is a 77-year-old female who presents to the ED with chief complaint of a right knee injury occurring last night. Patient states that she was walking outside at night and tripped on a rock and had subsequent posterior knee pain. Denies any audible pops. Denies any pain in the ankle or hip. States she uses a cane normally because she has a left foot drop. Denies any new numbness or weakness. Denies any further complaints. Related Data Home Medications Medication Instructions Recorded Confirmed losartan 25 mg tablet 25 mg PO DAILY 10/13/19 02/17/23 atorvastatin 40 mg tablet 40 mg PO DAILY 09/30/20 02/17/23 lisinopril 20 mg tablet 20 mg PO DAILY 12/22/22 02/17/23 loratadine 10 mg tablet 10 mg PO DAILY 01/25/23 02/17/23 sertraline 100 mg tablet 100 mg PO DAILY 01/25/23 02/17/23 Allergies Allergy/AdvReac Type Severity Reaction Status Date / Time No Known Allergies Allergy Verified 03/22/23 12:41 [facility] Past Medical History Medical History (Updated 03/22/23 @ 13:03 by Lauro Dominguez PA-C) Adenomatous colon polyp Back pain Breast mass, right Cervical cancer (~1976) Chronic pain Closed right trimalleolar fracture September 2020 - treated with cast COPD (chronic obstructive pulmonary disease) CVA (cerebral vascular accident) 2000 Fracture of right distal radius Hyperlipidemia Hypertension Marijuana use Spinal cord cysts Surgical History Surgical History (Updated 02/17/23 @ 11:29 by Geovanna Teague CMA) H/O wrist surgery History of carpal tunnel surgery History of hysterectomy (~1977) RADHA with Bladder suspension/ cervical cancer Previous back surgery (05/04/10) cyst removed from spinal cord [address] [place] [address] in [facility] Family History Family History Mother Hypertension Cerebrovascular accident Family history of pulmonary embolism Other Carcinoma of colon maternal aunt Other Family history of alcoholism Family history of cardiovascular disease Social History Social History (Updated 02/17/23 @ 11:32 by [facility]ague [facility] Smoking packs per day: 2.5 Smoking cigarettes per day: 50.0 Years smoked: 51 Smoking pack-years: 127.50 Smoking status: Former smoker Tobacco type: cigarettes Second hand tobacco smoke exposure: No Smoking end date: 09/20/09 Alcohol intake: current Alcohol use details: 3-4 beers at night Substance use: current Substance use type: marijuana Other substance usage details: EVERYDAY Last use: 06/17/22 Lack of Transportation: No Lack of Food: Never True Current Housing: I Do Not Have Housing Concerned About Future Housing: No Difficulty Paying Gas/Electric Bills: No Difficulty Paying for Meds: No Currently Unemployed: No Education: High School Diploma/GED Difficulty w/ Childcare or Family Care: No Living arrangements: alone Additional living arrangements comments: Occupation/Education: retired Gender identity (if verbalized by the patient): Female Sexual Orientation (if Verbalized by the Patient): Straight or Heterosexual Spiritual care concerns: No Exam Narrative: GENERAL: Well-appearing, well-nourished, and in no acute distress. HEAD: Normocephalic, atraumatic. EYES: PERRLA and EOMI. ENT: Nares clear, no rhinorrhea or epistaxis. Mucous membranes moist. Oropharynx without tonsillar hypertrophy exudate or other lesions. NECK: Supple. No adenopathy or masses. CHEST: No respiratory distress. Clear to auscultation. No wheezes rales or rhonchi HEART: Regular rate and rhythm. No murmur heard. Normal peripheral pulses. ABDOMEN: Soft, nontender, nondistended, normal active bowel sounds.
== END 2023-03-22 13:15 | disposition home or self-care (01) ==
LOC: ANHED 13:07
PROVIDERS: Emergency Provider Physician Assistant; PCP Family Medicine
DX: S89.91XA Unspecified injury of right lower leg, initial encounter (principal); J44.9 Chronic obstructive pulmonary disease, unspecified; E78.5 Hyperlipidemia, unspecified; I10 Essential (primary) hypertension; Z90.710 Acquired absence of both cervix and uterus; Z85.41 Personal history of malignant neoplasm of cervix uteri; Z86.73 Personal history of transient ischemic attack (TIA), and cerebral infarction without residual deficits; Z86.010 Personal history of colon polyps; Z87.891 Personal history of nicotine dependence; W18.09XA Striking against other object with subsequent fall, initial encounter
CPT/HCPCS: 73562; 99283

== ENCOUNTER 2023-04-07 11:27 | Outpatient (CLI) | payer MEDICARE, SELFPAY ==
[2023-04-07 11:36] LABS: Kit Draw Collected
== END 2023-04-07 11:28 | disposition home or self-care (01) ==
LOC: ANHLAB 11:29
PROVIDERS: PCP Family Medicine; Visit Provider Internal Medicine Hematology & Oncology
DX: C50.119 Malignant neoplasm of central portion of unspecified female breast (principal)
CPT/HCPCS: 36415

== ENCOUNTER 2023-04-16 13:12 | Outpatient (CLI) | payer MEDICARE, SELFPAY ==
[2023-04-16 13:43] LABS: Basophils Percent Auto 0.7 % (0.2-1.2); Eosinophils Absolute Auto 0.1 K/mm3 (0-0.3); Eosinophils Percent Auto 2.2 % (0-4.4); Hematocrit 41.3 % (37.0-47.0); Hemoglobin 13.4 g/dL (12.0-15.0); Immature Granulocyte Absolute 0.01 K/mm3 (0.00-0.031); Immature Granulocyte Percent A 0.2 % (0-0.5); Lymphocytes Absolute Auto 1.32 K/mm3 (0.9-3.2); Lymphocytes Percent Auto 29.7 % (18.3-44.2); Mean Corpuscular HGB Conc 32.4 g/dl (32-36); Mean Corpuscular Hemoglobin 29.3 pg (26-34); Mean Corpuscular Volume 90.2 fl (80-100); Mean Platelet Volume 9.2 fl (7.4-10.4); Monocytes Absolute Auto 0.3 K/mm3 (0.1-0.6); Monocytes Percent Auto 6.1 % (2.6-8.5); Neutrophils Absolute Auto 2.7 K/mm3 (1.3-6.7); Neutrophils Percent Auto 61.1 % (45.5-73.1); Platelet Count Result 207 k/mm3 (150-375); Red Blood Count 4.58 M/mm3 (4.2-5.4); Red Cell Distribution Width 14.2 % (11.5-14.5); White Blood Count 4.5 K/mm3 (4.5-10.0)
[2023-04-16 13:53] LABS: Alanine Aminotransferase 30 U/L (6-35); Albumin Level 4.4 g/dL (3.5-5.1); Alkaline Phosphatase 71 U/L (38-126); Anion Gap 3 mmol/L (8-16); Aspartate Amino Transferase 39 U/L (14-36); Bilirubin,Total 0.3 mg/dL (0.2-1.3); Blood Urea Nitrogen 17 mg/dL (7-17); Calcium 9.1 mg/dL (8.4-10.2); Carbon Dioxide 35 mmol/L (22-30); Chloride 99 mmol/L (98-107); Estimated Glomerular Filt Rate > 60; Glucose 98 mg/dL (65-110); Potassium 4.2 mmol/L (3.4-5.0); Sodium 137 mmol/L (137-145)
[2023-04-21 06:03] LABS: CA 15-3 7 U/mL (<32)
== END 2023-04-16 13:13 | disposition home or self-care (01) ==
LOC: ANHLAB 13:19
PROVIDERS: PCP Family Medicine; Visit Provider Internal Medicine Hematology & Oncology
DX: C50.119 Malignant neoplasm of central portion of unspecified female breast (principal)
CPT/HCPCS: 36415; 80053; 85025; 86300

== ENCOUNTER 2023-04-28 10:01 | Outpatient (CLI) | payer MEDICARE, SELFPAY ==
--- NOTE | ~2023-04-28 | MMUS_ITS ---
EXAMINATION: US_MAGSEEDRT_US, MM post biopsy invasive RT INDICATION: Right breast cancer TECHNIQUE: The procedure for a ultrasound -guided Magseed localization was discussed with the patient . Risks discussed included bleeding and infection. The patient verbalized understanding and agreed to proceed. The time out was performed to verify the patient's name, date of , and site of procedure. The sk in overlying the right breast was prepared in usual fashion. 1% lidocaine was used for skin and deep anesthesia. Utilizing ultrasound guidance, the needle was advanced into the right breast. Confirmatio n of Magseed position was achieved with ultrasound and subsequent mediolateral and craniocaudal mammo gram. The patient tolerated procedure without immediate complication. FINDINGS: Ultrasound and mammographic images demonstrate deployment of the Magseed device within the biopsy-proven right breast cancer. IMPRESSION: 1. Successful ultrasound-guided right breast Magseed localization. Reviewed, dictated and finalized at location A. IMPRESSION: 1. Successful ultrasound-guided right breast Magseed localization.
== END 2023-04-28 10:02 | disposition home or self-care (01) ==
PROVIDERS: PCP Family Medicine; Visit Provider Surgery
DX: C50.911 Malignant neoplasm of unspecified site of right female breast (principal)
CPT/HCPCS: 19285; A4648

== ENCOUNTER 2023-05-18 01:04 | Day surgery (SDC) | payer MEDICARE, SELFPAY ==
[2023-05-05 14:52] VITALS: BMI 24.0
--- NOTE | 2023-05-05 15:28 | PC.NURSE ---
Report to the Outpatient Waiting Room, entrance under the green pavilion located off [facility], at time __6:00AM on date __05/18/23 . Planned Procedure Time: __7:30AM . Time changes happen often and if your time is changed the preop area will call you the afternoon before. - You and your visitor will be asked to self-screen and do not enter if you have any COVID symptoms. - A mask is optional within the hospital at this time. Patients may have clear liquids (water, carbonated beverages, clear teas, apple juice) until 3 hours prior to surgery with a maximum of 20 ounces. - No food from midnight until time of surgery Take the following medications with a SIP of water the morning of surgery: ___NONE DO NOT STOP ANY OF YOUR OTHER PRESCRIPTION MEDICATIONS PRIOR TO SURGERY ?EXCEPT THE FOLLOWING Medications to discontinue per physician __HOLD PLAVIX 5 DAYS PRE-OP PER DR KHAN(PER PATIENT)-LAST DOSE 05/12/23. HOLD ALL VITAMINS/SUPPLEMENTS 3 DAYS PRE-OP PER ANESTHESIA- LAST DOSE 05/14/23____ Please no make-up, nail togolese, hairspray, perfume, deodorant, or body powder the day of surgery. No jewelry (including any body piercings) or valuables the day of surgery, leave them at home. Please take a shower or bath the night before, or the morning of, surgery with an antibacterial soap. Wear comfortable, loose fitting clothing. . - Jewelry must be removed prior to entering the operating room. Rings and piercings that are not removed may be cut off. - The hospital will not accept responsibility for valuables. - Please leave all valuables, including medications, at home the day of surgery. If you are going home after surgery, a licensed local bulk driver must drive you home. - NO public transportation without another adult if you receive anesthesia. - We recommend that an adult stay with you for 24 hours following discharge. - We also recommend that you do not drive, make important decision, drink alcoholic beverages, or take any drugs that were not prescribed by your health care provider for at least 24 hours after your discharge time. Follow any additional instructions given to you from your surgeon. If you or anyone in your household have experienced Covid symptoms in the past week, please notify your surgeon or the nurse liaison at the phone number below for possible testing. Telephone instructions given to __PATIENT and asked if any additional questions and then verbalized understanding. Patient advised to call surgeon office or pre surgery nurse liaison [phone] if any additional questions.
--- NOTE | 2023-05-17 14:13 | WPDANESEPPF ---
Anes - Initial Pre Proc Eval Procedure: Operation Date: 05/18/23 07:30 Proposed Procedures p Right Breast Lumpectomy with Magseed Localization - Erica Jackson MD Date/Time: 05/17/23 14:13 Surgeon: Erica Jackson MD Pre Op Diagnosis: malignant neoplasm unspecified site of rt breast Patient Data Age: 77 Gender: F Height: 1.58 m Weight: 60 kg Allergies Allergy/AdvReac Type Severity Reaction Status Date / Time No Known Allergies Allergy Verified 05/05/23 14:40 Home Medications Medication Instructions Recorded Confirmed Type zolpidem 10 mg tablet 10 mg PO .QHS PRN insomnia #30 tabs 09/05/19 05/05/23 Rx losartan 25 mg tablet 25 mg PO QACDINNER 10/13/19 05/05/23 History atorvastatin 40 mg tablet 40 mg PO QACDINNER 09/30/20 05/05/23 History lisinopril 20 mg tablet 20 mg PO QACDINNER 12/22/22 05/05/23 History loratadine 10 mg tablet 10 mg PO QACDINNER 01/25/23 05/05/23 History sertraline 100 mg tablet 100 mg PO QACDINNER 01/25/23 05/05/23 History amlodipine 5 mg tablet 5 mg PO QACDINNER 05/05/23 05/05/23 History cholecalciferol (vitamin D3) 50 50 mcg PO QACDINNER 05/05/23 05/05/23 History mcg (2,000 unit) capsule clopidogrel 75 mg tablet 75 mg PO QACDINNER 05/05/23 05/05/23 History multivitamin 1 tablet PO DAILY 05/05/23 05/05/23 History tramadol 50 mg tablet 50 mg PO Q8-10H PRN Pain 05/05/23 05/05/23 History Patient hx anesthesia problems: none Family hx anesthesia problems: none Results Review: All pre-operative results and documents have been reviewed as part of the pre-operative evaluation. [facility] Past Medical History Medical History Adenomatous colon polyp Back pain Breast mass, right Cervical cancer (~1976) Chronic pain Closed right trimalleolar fracture September 2020 - treated with cast COPD (chronic obstructive pulmonary disease) CVA (cerebral vascular accident) 2000 Fracture of right distal radius Hyperlipidemia Hypertension Invasive ductal carcinoma of right breast in female Marijuana use Spinal cord cysts Surgical History Surgical History H/O wrist surgery History of carpal tunnel surgery History of hysterectomy (~1977) RADHA with Bladder suspension/ cervical cancer Previous back surgery (05/04/10) cyst removed from spinal cord [facility] [place] [place] in [facility] Family History Family History Mother Hypertension Cerebrovascular accident Family history of pulmonary embolism Other Carcinoma of colon maternal aunt Other Family history of alcoholism Family history of cardiovascular disease Social History Social History Smoking packs per day: 2.5 Smoking cigarettes per day: 50.0 Years smoked: 51 Smoking pack-years: 127.50 Smoking status: Former smoker Tobacco type: cigarettes Second hand tobacco smoke exposure: No Smoking end date: 03/20/10 Alcohol intake: current Drinks per week: 28 Alcohol use details: 3-4 beers at night Substance use: current Substance use type: marijuana Other substance usage details: SMOKES MARIJUANA IN THE EVENING Last use: 06/17/22 Lack of Transportation: No Lack of Food: Never True Current Housing: I Do Not Have Housing Concerned About Future Housing: No Difficulty Paying Gas/Electric Bills: No Difficulty Paying for Meds: No Currently Unemployed: No Education: High School Diploma/GED Difficulty w/ Childcare or Family Care: No Living arrangements: alone Additional living arrangements comments: Occupation/Education: retired Gender identity (if verbalized by the patient): Female Sexual Orientation (if Verbalized by the Patient): Straight or Heterosexual Spiritual care concerns: No Anes - Eval Final PreProcedure Day of Procedure 05/17/23 14:13 Patient weight: no
[2023-05-18] VITALS (9 sets, daily range): BP systolic 122–187; BP diastolic 63–92; PULSE 74–99; RESP 12–14; TEMP 36.4; O2SAT 95–98
--- NOTE | ~2023-05-18 | MM_ITS ---
EXAMINATION: MM_FAXITRON_MG INDICATION: Right breast cancer TECHNIQUE: Two specimen radiographs are submitted for review. COMPARISON: None available FINDINGS: The biopsy marker and magseed are contained within the specimen radiographs. IMPRESSION: 1. Biopsy marker and magseed within the specimen radiographs. These findings were discussed with Dr. Erica Jackson MD at 0831 hours on 05/18/2023. Reviewed, dictated and finalized at location A. IMPRESSION: 1. Biopsy marker and magseed within the specimen radiographs. These findings we re discussed with Dr. Erica Jackson MD at 0831 hours on 05/18/2023.
--- NOTE | 2023-05-18 07:04 | WPDHPUPDATE1 ---
History and Physical Update Update Date/Time: 05/18/23 07:04 History and Physical has been reviewed, including an updated exam of the patient. There are NO changes in the patient's condition. Risks, benefits, and alternatives have been discussed and questions answered. Patient agrees to proceed with procedure.
[2023-05-18] MEDS: ACETAMINOPHEN 500 MG TABLET 1000 MG PO (07:25)
[2023-05-18] MEDS: LACTATED RINGERS 1,000 ML 30 ML IV CONT (07:25)
[2023-05-18] MEDS: ceFAZolin 2 GM/D5W 50 ML 2 GM/50 ML BAG IVPB (07:26)
--- NOTE | 2023-05-18 08:18 | SUR.OPER ---
Right Breast Lumpectomy excised at 0814. Specimen marked using margin marker per Dr. Jackson. Mammography notified of specimen being scanned via Faxitron. Image sent to PACS. Specimen sent to Lab Fresh with BOUBACAR Suarez. Received in Lab by
--- NOTE | 2023-05-18 08:27 | SUR.OPER ---
Right Breast Lumpectomy Additional Anterior Margin Specimen sent Fresh with BOUBACAR Suarez. Received in Lab by Judie. 0817: [facility] contacted that specimen was being scanned. 0826: [facility] called stating they received image and will call back with results. 0831: Dr. Davis called with results. Marker present.
--- NOTE | 2023-05-18 08:38 | W.PM.PROC2 ---
Procedure Note - Detailed Date of Procedure 05/18/23 Pre-op Diagnosis Invasive ductal carcinoma of right breast Post-op Diagnosis Same Procedure Performed 1. Right lumpectomy with magseed localization 2. Excision of additional anterior margins Surgeon Erica Jackson MD Chief Clinical Dietitian Eulalia Pollock PA-C Anesthesia General Indications 77-year-old female who presents for follow-up for a palpable right breast mass who was found to have invasive ductal carcinoma ER positive, AR positive, HER2 negative, Ki-67 1%, ? Soheila grade 2.? After reviewing options for surgical treatment including lumpectomy and mastectomy, patient has elected to proceed with lumpectomy. Also reviewed with patient the Choosing Wisely guidelines by SSO and ASBrS, and the fact that she is on plavix and thus slightly higher risk for bleeding and bruising, I recommended omitting sentinel lymph node biopsy at this time.?Risks of procedure were discussed with patient which included but were not limited to risk of bleeding, infection, positive margins, possible need for additional procedures in the future, recurrence, wound healing problems, asymmetry, scar, pain, as well as the risk of anesthesia. All questions were answered and patient has agreed to proceed. Findings Lumpectomy specimen radiographic confirmation obtained with faxitron and official radiologist read Description of Procedure Patient was identified in the pre-operative area and brought to the OR suite. She underwent tumor localization previously by IR with magseed placement. She was laid supine in the operating table and sequential compression devices were applied. General anesthesia was induced without difficulties. The right chest was prepped and draped in a sterile fashion. The sentimag probe was used to identify the area where the magseed was placed and a superior periareolar incision was made. Dissection was carried down through the subcutaneous tissue into the breast tissue. The tumor was identified with palpation and using sentimag probe, and a rim of normal breast tissue was excised along with the tumor as our lumpectomy specimen. Once the specimen was completely excised, it was oriented using surgical paint according to licensed nursing assistant instructions. The specimen was placed in the faxitron and 2 radiographs were obtained and sent to Radiology for radiographic confirmation of Tumor, biopsy marker and magseed within the specimen. Once the radiographic confirmation was received, the wound was irrigated with saline and hemostasis was assured. The deep dermal layer was approximated using interrupted 3-0 vicryl followed by 4-0 monocryl for the skin. Dermabond was applied followed by a surgical bra. Patient was awoken from anesthesia and taken to the recovery area in stable condition. All needles, instruments and sponge counts were correct as reported by the operating room staff. Patient tolerated the procedure well with no immediate complications. Eulalia Pollock PA-C was required for positioning and retraction throughout the entire case. Estimated Blood Loss 15 Drains No Pathology Yes Complications No immediate complications Condition Stable Disposition PACU [facility] Billing Surgery - Charge Forward: Surgery Billing
--- NOTE | 2023-05-18 10:33 | SUR.PHASEII ---
PATIENT SELF-CATHETERIZED HERSELF WITH HOME EQUIPMENT.
== END 2023-05-18 10:40 | disposition home or self-care (01) ==
PROVIDERS: PCP Family Medicine; Visit Provider Surgery
PROC: (CPT 19301; principal; 2023-05-18 07:30)
DX: C50.911 Malignant neoplasm of unspecified site of right female breast (principal); Z17.0 Estrogen receptor positive status [ER+]; J44.9 Chronic obstructive pulmonary disease, unspecified; I10 Essential (primary) hypertension; E78.5 Hyperlipidemia, unspecified; G89.29 Other chronic pain; Z85.41 Personal history of malignant neoplasm of cervix uteri; F12.90 Cannabis use, unspecified, uncomplicated; Z87.891 Personal history of nicotine dependence; Z79.02 Long term (current) use of antithrombotics/antiplatelets; Z79.891 Long term (current) use of opiate analgesic
CPT/HCPCS: 19301; 76098; 88307; A9270; J0360; J0690; J1100; J2250; J2405; J2704; J3010; J7120; Q9968

== ENCOUNTER 2023-09-23 13:06 | Emergency (ER) | payer MEDICARE, SELFPAY ==
--- NOTE | ~2023-09-23 | XR_ITS ---
Left foot Technique: AP, oblique, and lateral views were obtained. Clinical History: Pain COMPARISON: 05/10/2017 Findings: No acute fracture or dislocation is seen. There is hallux valgus with stable degenerative c hange at the first metatarsophalangeal joint region. Soft tissues are unremarkable. Impression: No acute abnormality. Hallux valgus with stable degenerative change at the first metatarsophalangeal joint. Reviewed, dictated and finalized at location M. ERY ATTENDANT Impression: No acute abnormality. Hallux valgus with stable degenerative change at the first metatarsophalangeal joint.
[2023-09-23 13:20] VITALS: BP 145/88; PULSE 74; RESP 16; TEMP 37; O2SAT 99
--- NOTE | 2023-09-23 13:44 | ED.LOWEXIN ---
HPI - Extremity Injury (Lower) General Chief Complaint: Extremity Injury, Lower Stated Complaint: INJURED L FOOT Time Seen by Provider: 09/23/23 13:08 Source: patient Mode of arrival: ambulatory Limitations: no limitations History of Present Illness HPI Narrative: Nery is a 77-year-old female patient presenting to the clinic today with complaints of injury to her left foot. She reports that she fell down the stairs in her foot went underneath her butt and skidded down the stairs on the top of her foot. Has an abrasion to the dorsal foot. Reports pain to the medial foot. 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 Related Data Home Medications Medication Instructions Recorded Confirmed losartan 25 mg tablet 50 mg PO QACDINNER 10/13/19 09/23/23 atorvastatin 40 mg tablet 40 mg PO QACDINNER 09/30/20 09/23/23 loratadine 10 mg tablet 10 mg PO QACDINNER 01/25/23 09/23/23 sertraline 100 mg tablet 100 mg PO QACDINNER 01/25/23 09/23/23 amlodipine 5 mg tablet 5 mg PO QACDINNER 05/05/23 09/23/23 cholecalciferol (vitamin D3) 50 50 mcg PO QACDINNER 05/05/23 09/23/23 mcg (2,000 unit) capsule clopidogrel 75 mg tablet 75 mg PO QACDINNER 05/05/23 09/23/23 multivitamin 1 tablet PO DAILY 05/05/23 09/23/23 Allergies Allergy/AdvReac Type Severity Reaction Status Date / Time No Known Allergies Allergy Verified 09/23/23 13:17 Review of Systems Review of Systems: Pertinent positives per HPI. Patient denies any fever, chills, rash, headache, visual changes, dizziness, cough, runny nose, sore throat, shortness of breath, chest pain, palpitations, nausea, vomiting, diarrhea, constipation, abdominal pain, or any urinary issues. [facility] Past Medical History Medical History Adenomatous colon polyp Back pain Breast mass, right Cervical cancer (~1976) Chronic pain Closed right trimalleolar fracture September 2020 - treated with cast COPD (chronic obstructive pulmonary disease) CVA (cerebral vascular accident) 2000 Fracture of right distal radius Hyperlipidemia Hypertension Invasive ductal carcinoma of right breast in female Marijuana use Spinal cord cysts Surgical History Surgical History H/O wrist surgery History of carpal tunnel surgery History of hysterectomy (~1977) RADHA with Bladder suspension/ cervical cancer Previous back surgery (05/04/10) cyst removed from spinal cord [facility] [place] [facility] Family History Family History Mother Hypertension Cerebrovascular accident Family history of pulmonary embolism Other Carcinoma of colon maternal aunt Other Family history of alcoholism Family history of cardiovascular disease Social History Social History Smoking packs per day: 2.5 Smoking cigarettes per day: 50.0 Years smoked: 50 Smoking pack-years: 125.00 Smoking status: Former smoker Tobacco type: cigarettes Second hand tobacco smoke exposure: No Smoking end date: 03/20/10 Alcohol intake: current Drinks per week: 28 Alcohol use details: 3-4 beers at night Substance use: current Substance use type: marijuana Other substance usage details: SMOKES MARIJUANA IN THE EVENING Last use: 06/17/22 Lack of Transportation: No Lack of Food: Never True Current Housing: I Do Not Have Housing Concerned About Future Housing: No Difficulty Paying Gas/Electric Bills: No Difficulty Paying for Meds: No Currently Unemployed: No Education: High School Diploma/GED Difficulty w/ Childcare or Family Care: No Living arrangements: alone Additional living arrangements comments: Occupation/Education: retired Gender identity (if verbalized by the patient): Female Sexual Orientation (if Verbalized by the Patient): Straight or Heterosexual
== END 2023-09-23 14:22 | disposition home or self-care (01) ==
PROVIDERS: Emergency Provider Nurse Practitioner Family; PCP Family Medicine
DX: S90.812A Abrasion, left foot, initial encounter (principal); W10.9XXA Fall (on) (from) unspecified stairs and steps, initial encounter; S90.412A Abrasion, left great toe, initial encounter; M79.672 Pain in left foot; Z87.891 Personal history of nicotine dependence; J44.9 Chronic obstructive pulmonary disease, unspecified; E78.5 Hyperlipidemia, unspecified; I10 Essential (primary) hypertension; F12.90 Cannabis use, unspecified, uncomplicated; Z86.73 Personal history of transient ischemic attack (TIA), and cerebral infarction without residual deficits; Z85.41 Personal history of malignant neoplasm of cervix uteri
CPT/HCPCS: 73630; 99213; G0463

== ENCOUNTER 2024-05-05 12:42 | Outpatient (CLI) | payer MEDICARE, SELFPAY ==
--- NOTE | ~2024-05-05 | MM_ITS ---
EXAMINATION: MM diagnostic massimo BI w andriy HISTORY: History of previous right lumpectomy for breast cancer TECHNIQUE: Additional 3-D tomosynthesis images of the breasts were performed and synthetic 2-D images were generated. CAD analysis was submitted and interpreted. COMPARISON: Comparison to multiple prior studies sequentially, with oldest reviewed study dated 04/07. BREAST PARENCHYMAL COMPOSITION: Not dense: There are scattered areas of fibroglandular density. FINDINGS: The left breast is stable without evidence for malignancy. There is architectural distortio n in the upper central aspect of the right breast, consistent with previous lumpectomy. No suspicious masses, calcifications or architectural distortion. IMPRESSION: 1. No evidence for malignancy in either breast. Postoperative changes of the right breast. 2. Routine yearly screening mammogram and regular clinical breast examination are recommended. BI-RADS Category 2: Benign finding(s). Reviewed, dictated and finalized at location B. IMPRESSION: 1. No evidence for malignancy in either breast. Postoperative changes of the ri ght breast. 2. Routine yearly screening mammogram and regular clinical breast examination a re recommended. BI-RADS Category 2: Benign finding(s).
== END 2024-05-05 12:43 | disposition home or self-care (01) ==
PROVIDERS: PCP Family Medicine; Visit Provider Physician Assistant Surgical
DX: C50.911 Malignant neoplasm of unspecified site of right female breast (principal); R92.8 Other abnormal and inconclusive findings on diagnostic imaging of breast
CPT/HCPCS: 77062; 77066; G0279

== ENCOUNTER 2024-10-05 10:00 | Outpatient (CLI) | payer MEDICARE, SELFPAY ==
--- NOTE | ~2024-10-05 | CT_ITS ---
EXAMINATION:CT diagnostic chest wo con DATE: 10/05/2024 10:49 INDICATION: Lung nodule. TECHNIQUE: Computed tomography (CT) of the chest was performed without intravenous contrast. Automate d exposure control and iterative reconstruction technique were employed. The dose-length product (DLP ) was 69.33 mGy-cm. COMPARISON: Chest CT 08/16/2020 FINDINGS: There is stable mild scarring at the lung apices. There is a cluster of centrilobular nodul es in posterior segment right upper lobe, new from 08/16/20. The largest of these nodules measures 7 mm. There is mild emphysema. A calcified left lung nodule and calcified left hilar lymph nodes are co nsistent with old granulomatous disease. There is a stable groundglass opacity in left upper lobe, li raúl benign. There are a few scattered nodules in the lungs measuring up to 2 mm, likely benign. No p leural effusion. The heart size is normal. There are coronary artery calcifications. No pericardial e ffusion. Calcifications in the liver and spleen are consistent with old granulomatous disease. There is severe cervical, thoracic, and lumbar spondylosis. IMPRESSION: 1. New cluster of centrilobular nodules in posterior segment right upper lobe, likely mild pneumonia. Consider noncontrast low-dose chest CT in 6 months. Reviewed, dictated and finalized at location A. INVESTIGATOR
--- NOTE | ~2024-10-05 | DEXA_ITS ---
Bone Density Report Name: MARLENE LIVE Age: 78 Sex: Female Ethnicity: White Date of : 1945 Indication: postmenopausal; screening for osteoporosis; height loss; cancer; hysterectomy; Referring Provider: ALISSON, CRESENCIO Lara Study: Bone densitometry was performed. Exam Date: October 05, 2024 Accession number: [id number] Bone Density: Region BMD T-score Z-score Classification AP Spine(L1, L2, L3) 0.890 -1.2 1.3 Osteopenia Femoral Neck (Left) 0.597 -2.3 -0.1 Osteopenia Total Hip (Left) 0.718 -1.8 0.1 Osteopenia Femoral Neck (Right) 0.629 -2.0 0.2 Osteopenia Total Hip (Right) 0.796 -1.2 0.7 Osteopenia Total Hip Mean 0.757 -1.5 0.4 Osteopenia World Health Organization criteria for BMD impression classify patients as: Normal (T-score at or above -1.0), Osteopenia (T-score between -1.0 and -2.5), or Osteoporosis (T-score at or below -2.5). 10-year Fracture Risk(1): Major Osteoporotic Fracture 23% Hip Fracture 12% Reported Risk Factors: [place] (), Neck BMD=0.597, BMI=25.1, smoking, alcohol use (1) FRAX(R) Version 3.08. Fracture probability calculated for an untreated patient. Fracture probability may be lower if the patient has received treatment. Clinical Information Provided by Patient: Smokes Has 3 or more alcoholic drinks per day Has used the following medications: Vitamin D Has the following medical conditions: Cancer, Hysterectomy Patient maximum height was 64 Menopause Age: 29 No regular weight bearing exercise Drinks caffeinated beverages Onset of menses at age 14 Number of children 2 Impression: The patient has low bone mass, based on the Left Femoral Neck T-score. The patient has an estimated ten-year risk of hip fracture of 12% and an estimated ten-year risk of major fracture of 23%, based on the WHO FRAX algorithm. The patient has risk factors, including: smoking, excessive alcohol use. Discussion: BONE DENSITY IS LOW AT ONE OR MORE SKELETAL SITES. THE PATIENT'S BMD AND CLINICAL RISK FACTORS CONTRIBUTE TO THIS PATIENT'S HIGH RISK OF FRACTURE. This patient's lowest T-score is low at one or more skeletal sites. It meets the World Health Organization's (WHO) criteria for ?low bone mass? (T-score between -1.0 and -2.5). The patient's 10-year risk of hip fracture and 10 year risk of a major osteoporotic fracture as calculated by FRAX exceeds the threshold where pharmacological therapy is recommended by the National Osteoporosis Foundation (NOF). However, all treatment decisions require clinical judgment and consideration of individual patient factors, including patient preferences, comorbidities, previous drug use, risk factors not captured in the FRAX model (e.g., frailty, falls, vitamin D deficiency, increased bone turnover, interval significant decline in bone density) and possible under or overestimation of fracture risk by FRAX. The patient should follow a healthful lifestyle (good nutrition with adequate calcium and vitamin D, and appropriate weight-bearing exercise). Follow-Up: Consider a repeat BMD and Vertebral Fracture Assessment (VFA) exam in 2 years or sooner if medically necessary, to reassess this patient's status. Reported by: OMI on 10/05/2024 10:36:00 AM. Reviewed, dictated and finalized at location AKeisha LUEVANO
--- OUTSIDE RECORDS SUMMARY | 2024-10-12 02:26 | XMS_ITS | Data Portability ---
Author Organization [place] - [facility] [employer], Main Office Address [address] [place] [address] Care Team Providers Care Tooling Manager Name Role Phone BRAD ROSAS Primary Care Provider [phone] Assessment Encounter Date Assessment Date Assessment LastModified by Organization Details LastModified Time 10/04/2023 10/04/2023 Lisanc's fx (MT fracture) Lt footy akachigian Not available 10/04/2023 16:13:25 10/15/2023 10/15/2023 full neuro exam, light touch, S/d, reflexes, m. strength, vibratory akachigian Not available 10/15/2023 13:36:50 Plan of Treatment Reminders Order Date Submit Date Provider Last Modified By Organization Details Last Modified Time Details Appointments None record ed. Lab None record ed. Referral None record ed. Procedures None record ed. Surgeries None record ed. Imaging None record ed. Medication Orders None record ed. Patient Targets Encounter Date Encounter Id Patient Goals Patient Target Last Modified By Organization Details Last Modified Time pain free ambulation akachigian Not available 10/15/2023 13:36:56 Patient Instructions Encounter Date Encounter Id Patient Instructions Last Modified By Organization Details Last Modified Time 10/04/2023 [id number] Pt to remain OWB as much as poss. and only ambulate in the boot. akachigian Not available 10/04/2023 16:14:05 Pt relates no pain during gait w/ the boot. Instructed her on the proper application of the device. akachigian Not available 10/04/2023 16:14:26 10/15/2023 [id number] To RT regular shoegear as tolerated. akachigian Not available 10/15/2023 13:37:13 applied a low dye strapping to the left foot to assist in ambulation; may order orthotics for pt if she feels comfortable in the dressing. darcy Not available 10/15/2023 13:37:46 Reason for Referral None Reported. Problems Name Problem SNOMED Code Status Onset Date Resolution Date Notes Provider Name and Address Organization Details Recorded Time Hypercholeste rolemia 48571091 Active 2016 Not Available [facility] 3 09:18:26 Cerebrovascul ar accident 478605083 Active 2000 Not Available [facility] 3 09:18:26 Hypertensive disorder 13880152 Active 2016 Not Available [facility] 3 09:18:26 Problem Notes None recorded. Procedures Surgical History Date Name Laterality Status Provider Name and Address Organization Details Recorded Time 12/16/19 24 Nail Debridement completed Juan Nieves DPM [address], [address], [place], [address], [facility] 12/17/2023 10:53:36 10/15/19 24 Unna boot - LE edema completed Juan Nieves DPM [address], [address], [place], [address], [facility] 10/15/2023 13:38:11 10/04/19 24 Unna boot - LE edema completed Juan Nieves DPM [address], [address], [place], [address], [facility] 10/04/2023 16:12:45 10/04/19 24 Foot/Ankle Cast completed Juan Nieves DPM [address], [address], [place], [address], [facility] 10/04/2023 16:13:01 04/07/20 19 Most Recent Bone Density completed Not Available [facility] 11/18/2022 09:13:18 04/07/20 19 Most Recent Mammogram completed Not Available [facility] 11/18/2022 09:13:18 06/14/20 12 Date of Last Pap Smear completed Not Available [facility] 11/18/2022 09:13:18 Imaging Results None recorded. Procedure Notes None recorded. Medical Equipment None Reported. Allergies No known drug allergies Medications Name Sig Start Date Stop Date Status Note LastModified by Organization Details LastModified Time losartan 50 mg tablet active Not Available Not Available No t Available atorvastati n 40 mg tablet TK 1 T PO QD active Not Available Not Available No t Available buspirone 5 mg tablet active Not Available Not Available No t Available hydrocodone 7.5 mg-ibuprofe n 200 mg tablet TK 1 T PO QID PRN P 01/12 completed Not Available Not Available Not Available atorvastati n 80 mg tablet TAKE 1 TABLET BY MOUTH EVERY DAY FOR HIGH CHOLESTER OL active Not Available Not Available No t Available polyethylen e glycol 3350 17 gram oral powder packet active Not Available Not Available Not Available azithromyci n 250 mg tablet 01/14 completed Not Available Not Available Not Available hydrocodone 5 mg-acetamin ophen 325 mg tablet TAKE 1 TABLET BY MOUTH EVERY 4 HOURS NEEDED 01/14 completed Not Available Not Available Not Available lisinopril 20 mg tablet TK 1 T PO D active Not Available Not Available No t Available sertraline 100 mg tablet TAKE 1 TABLET BY MOUTH DAILY active Not Available Not Available No t Available acetaminoph en 300 mg-codeine 30 mg tablet TAKE 1 TABLET BY MOUTH EVERY 6 HOURS NEEDED FOR PAIN active Not Available Not Available No t Available clopidogrel 75 mg tablet TAKE 1 TABLET BY MOUTH DAILY active Not Available Not Available No t Available amlodipine 5 mg tablet active Not Available Not Available Not Available tramadol 50 mg tablet TAKE 1 TABLET BY MOUTH EVERY 8 HOURS FOR 3 DAYS NEEDED FOR PAIN active Not Available Not Available No t Available prednisolon e acetate 1 % eye drops,suspe nsion 01/12 completed Not Available Not Available Not Available dicyclomine 20 mg tablet active Not Available Not Available Not Available lisinopril 10 mg tablet 01/12 completed Not Available Not Available Not Available polymyxin B sulfate 10,000 unit-trimet hoprim 1 mg/mL eye drops 01/12 completed Not Available Not Available Not Available losartan 25 mg tablet active Not Available Not Available No t Available levofloxaci n 500 mg tablet 01/25 completed Not Available Not Available Not Available zolpidem 10 mg tablet active Not Available Not Available No t Available methylpredn isolone 4 mg tablets in a dose pack 01/25 completed Not Available Not Available Not Available oxybutynin chloride 5 mg tablet 01/12 completed Not Available Not Available Not Available fluticasone propionate 50 mcg/actuati on nasal spray,suspe nsion ADMINISTE R 2 SPRAYS IN EACH NOSTRIL D 01/14 completed Not Available Not Available Not Available loratadine 10 mg tablet TAKE 1 TABLET BY MOUTH DAILY active Not Available Not Available No t Available ezetimibe 10 mg tablet TK 1 T PO QD FOR HIGH CHOLESTER OL 01/14 completed Not Available Not Available Not Available Vesicare 5 mg tablet TK 1 T PO QD 01/25 completed Not Available Not Available Not Available ibuprofen 2016 active Not Available Not Available Not Avai lable peg 3350 240 gram-electr olytes 22.72 gram-6.72 g-5.84 g powdr for soln 01/12 completed Not Available Not Available Not Available Besivance 0.6 % eye drops,suspe nsion 01/12 completed Not Available Not Available Not Available sodium,pota ssium,mag sulfates 17.5 gram-3.13 gram-1.6 gram oral soln MIX AND DRINK DIRECTED active Not Available Not Available No t Available Myrbetriq 25 mg tablet,exte nded release 01/12 completed Not Available Not Available Not Available Lotemax 0.5 % eye gel drops 01/12 completed Not Available Not Available Not Available Prolensa 0.07 % eye drops 01/12 completed Not Available Not Available Not Available Vitals Date Recorded Body mass index (BMI) Body height Body temperature Body weight Systolic blood pressure Diastolic blood pressure Provider Name and Address Organization Details Last Updated DateTime 1 26.6 kg/m2 160.02 cm 97.5 [degF] 87069.8 6 g 162 mm[Hg] 102 mm[Hg] Not Available [facility] 3 09:14:15 Date Recorded Oxygen saturation Oxygen saturation in Arterial blood by Pulse oximetry Heart rate Body temperature Body height Body mass index (BMI) Body weight Systolic blood pressure Diastolic blood pressure Provider Name and Address Organization Details Last Updated DateTime 4 93 % 93 % 74 /min 97.9 [degF] 152.4 cm 27.3 kg/m2 12425.9 3 g 127 mm[Hg] 82 mm[Hg] STEPHANY Perez [employer] [facility] 4 15:44:29 Date Recorded Body height Body mass index (BMI) Body weight Oxygen saturation Oxygen saturation in Arterial blood by Pulse oximetry Body temperature Heart rate Systolic blood pressure Diastolic blood pressure Provider Name and Address Organization Details Last Updated DateTime 4 152.4 cm 27.7 kg/m2 09845.1 2 g 95 % 95 % 98.2 [degF] 80 /min 123 mm[Hg] 78 mm[Hg] STEPHANY Perez [employer] [facility] 4 12:42:51 Date Recorded Body height Body mass index (BMI) Body weight Oxygen saturation Oxygen saturation in Arterial blood by Pulse oximetry Body temperature Heart rate Provider Name and Address Organization Details Last Updated DateTime 4 152.4 cm 27.7 kg/m2 91728.1 2 g 98 % 98 % 97.6 [degF] 77 /min Pranav Foreman Jane [employer] [facility] 4 11:30:25 Social History Question Answer Notes LastModified by Organizat ion Details LastModified Time Tobacco Smoking Status Never Smoker Not Available [facility] 11/18/2022 09:12:59 What Is Your Level Of Alcohol Consumption? Occasional [id number] Information not available 11/18/2022 What Is Your Level Of Caffeine Consumption? Moderate [id number] Information not available 11/18/2022 In The 14 Days Before Symptom Onset, Have You Had Close Contact With A Laboratory-confirm ed COVID-19 While That Case Was Ill? No [id number] Information not available 11/18/2022 In The 14 Days Before Symptom Onset, Have You Had Close Contact With A Person Who Is Under Investigation For COVID-19 While That Person Was Ill? No [id number] Information not available 11/18/2022 Which Illicit Or Recreational Drugs Have You Used? Marijuana Daily [id number] Information not available 11/18/2022 What Was The Date Of Your Most Recent Tobacco Screening? 12/16/2023 [email or web address] Information not available 12/16/2023 Sex: Unknown Functional Status Question Answer Note LastModified by Organizat ion Details LastModified Time What is your exercise level? Occasional [id number] Information not available 11/18/2022 Mental Status None recorded. Family History Relationship Description Onset Age of this Age Resolved Age Notes LastModified by Organization Details LastModified Time Father No current problems or disability [email or web address] Not available 10/15 12:43:03 Mother No current problems or disability Not available 10/15 12:43:03 Notes:no new Medical History Condition Response CANCER: SPECIFY Y HYPERTENSION HIGH CHOLESTEROL / HYPERLIPIDEMIA Y Gynecological History Statement/Question Response Abnormal Pap Y Date of Last Pap Smear 06/14/2012 Current Control Method Hysterectom y Most Recent Mammogram 04/07/2019 Most Recent Bone Density 04/07/2019 Obstetrics History GPAL:G 2 P 2 0 0 2 Type Value Full Term 2 Living 2 Total 2 Past Encounters Encounter ID Performer Location Encounter Start Date Encounter Closed Date Diagnosis/Indication Diagnosis SNOMED-CT Code Diagnosis ICD10 Code Diagnosis Note [id number] _ATHENA_M IGRATION_ DEFAULT_1 _1 , 01/14/2021 00:00:00 01/14/2021 12:35:44 [id number] Juan Nieves DPM [facility] [place] [address] [place] [id number] 10/04/2023 15:20:09 04/20/2024 11:43:50 [id number] Juan Nieves DPM [facility] [place] [address] [place] [address] [id number] 10/15/2023 12:33:33 04/21/2024 11:16:31 [id number] Juan Nieves DPM [facility] [place] [address] [place] [id number] 12/16/2023 11:07:57 04/26/2024 04:08:20 Health Concerns Section Related Observation LastModified by Organization Detai ls LastModified Time None Recorded Concern Status LastModified by Organization Details LastModified Time None Recorded Advance Directives Directive None Recorded Payers Encounter Date Sequence Insurance Name Policy Number Policy Cardoza Covered Member ID Cardoza Member ID Guarantor Name 10/04/2023 1 [place] Nery Cervantest [id number] Nery Elkins Zacarias 10/04/2023 2 [employer] HE[employer]CARE OPTION - PLAN N (MEDICARE SUPPLEMENT) TDPJOEL Elkins Zacarias [id number] Nery Elkins Zacarias 10/15/2023 1 [place] Nery Elkins Zacarias [id number] Nery Elkins Zacarias 10/15/2023 2 [employer] HEALTHCARE OPTION - PLAN N (MEDICARE SUPPLEMENT) [id number] Nery Elkins Zacarias [id number] Nery Elkins Zacarias 12/16/2023 1 [place] Nery Elkins Zacarias [id number] Nery Elkins Zacarias 12/16/2023 2 [employer] HEALTHCARE OPTION - PLAN N (MEDICARE SUPPLEMENT) TDPJOEL Elkins Zacarias [id number] Nery Elkins Zacarias Notes Date Note Type Note Provider Name and Address Organization Details Recorded Time 10/04/2023 text/html Pt suffered trau ma to Lt foot 10 d ago, stumbled down stairs and bent foot backwards; already had foot drop from a previous stroke, Lt. Visited emergency room and other MD's office. Reports wearing a fx shoe and MICHELLE wrap. Xrays reportedly were negative. Juan Nieves DPM [address], [place], [address], [facility] 10/04/2023 16:14:33 10/15/2023 text/html Pain and edema f rom fall from stairs and hyperextension of the dorsal tendons, Lt. Pt reports wearing a low profile walker for ambulation and walker to assist. Juan Nieves DPM [address], [place], [address], [facility] 10/15/2023 13:38:18 12/16/2023 text/html NIDDM foot care routine this date. Juan Nieves DPM [address], [place], [address], [employer] [facility] 12/17/2023 10:53:43 OBGyn Episode No OBEpisode recorded.
--- OUTSIDE RECORDS SUMMARY | 2024-10-12 02:26 | XMS_ITS | CONTINUITY OF CARE DOCUMENT ---
Author Name bowen wiseman Address Unknown Organization [facility] Address [address] [place] [address] Phone [phone] Care Team Providers Care Residential Case Manager Name Role Phone bowen wiseamn Unavailable Unavailable INSURANCE PROVIDERS Payer name Policy type / Coverage type [place] red democrat ID [facility] [id number] Other [id number]
--- OUTSIDE RECORDS SUMMARY | 2024-10-12 02:27 | XMS_ITS | Encounter Summary ---
Author Organization [facility] Healthcare Address [address] [place] [address] Care Team Providers Care Insurance Manager Name Role Phone Juan King MD Primary Care Provider [phone] Daniel Darby MD Unavailable [phone] Reason for Visit * Reason Onset Date Comments Medical Question/Miscellaneous 09/29/2024 Encounter Details Date Type Department Care Team (Late st Contact Info) Description 09/29/2024 Telephone [facility] Medical Group Primary Care at [address] [address] Juan King MD [address] [place] [id number] Medical Question/Miscellaneous Social History Tobacco Use Types Packs/Day Years Used Date Smoking Tobacco: Former Cigarettes 2.5 39 0 09/20/1972 - 09/20/2009 Smokeless Tobacco: Never Comments:Glad I quit AUDIT-C Answer Date Recorded Q1: How often do you have a drink containing alcohol? 4 or more times a week 09/27/2023 Q2: How many drinks containi ng alcohol do you have on a typical day when you are drinking? 1 or 2 Q3: How often do you have si x or more drinks on one occasion? Never 09/27/2023 PHQ-2 Answer Date Recorded PHQ-2 Total Score (If total score is 3 or more points, staff should administer the PHQ-9) 0 09/28/2024 Personal Safety Answer Date Recorded Have you ever been in or are you currently in a harmful physical or emotional relationship or is someone making you feel afraid or unsafe? 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 Does message need to be routed? No LE SCHOOL TEACHER documented in this encounter Plan of Treatment Not on file documented as of this encounter Visit Diagnoses Not on filedocumented in this encounter Care Teams Insurance Manager Relationship Specialty Start Date End Date Juan King MD [address] [place] [address] PCP - General Family Medicine 05/04/22 Daniel Darby MD [address] [facility] [address] [place] [address] Referring Physician Orthopedic Surgery 06/16/22 documented as of this encounter
--- OUTSIDE RECORDS SUMMARY | 2024-10-12 02:27 | XMS_ITS | Encounter Summary ---
Author Organization [facility] Address [address] [place] [address] Care Team Providers Care Insole Department Worker Name Role Phone Juan King MD Primary Care Provider [phone] Daniel Darby MD Unavailable [phone] Encounter Details Date Type Department Care Team (Late st Contact Info) Description 10/14/2023 Telephone [facility] [address] [place] [id number] Mary Burns, MAIRA Social History Tobacco Use Types Packs/Day Years Used Date Smoking Tobacco: Former Cigarettes 2.5 39 0 09/20/1972 - 09/20/2009 AUDIT-C Answer Date Recorded Q1: How often [...] points, staff should administer the PHQ-9) 0 09/27/2023 Personal Safety Answer Date Recorded Have you ever been in or are you currently in a harmful physical or emotional relationship or is someone making you feel afraid or unsafe? 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
--- OUTSIDE RECORDS SUMMARY | 2024-10-12 02:27 | XMS_ITS | Continuity of Care Document ---
Author Organization [facility] Address [address] [place] [address] Phone Care Team Providers Care Reproductive Endocrinologist Name Role Phone He OD, Lai Unavailable Unavailable Advance Directives Directive Yes / No Effective Date File Name No Information Encounters Encounter Description Practice Location Reason(s) For Visit Diagnoses Date Provider Providers Copied on Encounter [facility], [address], [place], [place], [id number], [place] tel:[phone] [facility] No Information Nov-0 6-200 1 He OD Lai. [address], [place], [address], [place]. tel:[phone] Family History Family Member Type Diagnosis Age [...]
--- OUTSIDE RECORDS SUMMARY | 2024-10-12 02:27 | XMS_ITS | Clinical Summary ---
Author Organization [facility] Shukri Mcgee Address [address] [place] [address] Care Team Providers Care News Commentator Name Role Phone Juan King MD Primary Care Provider Allergies No known active allergies Medications atorvastatin (LIPITOR) 40 mg tablet Take 40 mg by mouth daily. 05/04/2022 Active losartan (COZAAR) 25 mg tablet Take 50 mg by mouth daily. 10/06/2021 Active clopidogreL (PLAVIX) 75 mg Tablet Take 75 mg by mouth daily. 10/08/2021 Active loratadine (CLARITIN) 10 mg tablet Take 1 Tablet by mouth daily. 10/06/2021 Active multivitamin (DAILY-ROM) tablet Take 1 Tablet by mouth daily. Active lisinopriL (PRINIVIL) 20 mg tablet Take 20 mg by mouth daily. Active traMADoL (ULTRAM) 50 mg tablet Take 50 mg by mouth every 6 hours as needed. 06/16/2022 Active zolpidem (AMBIEN) 10 mg tablet Take 10 mg by mouth nightly as needed. 10/07/2021 Active sertraline (ZOLOFT) 100 mg tablet Take 100 mg by mouth daily. 10/08/2021 Active TOCOPHERSOLAN, VITAMIN E TPGS, ORAL Take by mouth. Active Active Problems No known active problems Family History Relation Name Status Comments Brother Daughter Alive Father Mother Sister Alive Son Alive Social History Tobacco Use Types Packs/Day Years Used Date Smoking Tobacco: Former Cigarettes Smokeless Tobacco: Never Tobacco Cessation:Counseling Given: Not Answered Alcohol Use Standard Drinks/Week Comments Yes 0 (1 standard drink = 0.6 oz pur e alcohol) rare Comments Unknown Sex and Gender Information Value Date Recorded Sex Assigned at Not on file Legal Sex Female 9:13 AM CDT Gender Identity Not on file Sexual Orientation Not on file Last Filed Vital Signs Vital Sign Reading Time Taken Comments Blood Pressure 140/81 05/25/2023 10:39 AM CDT Pulse 71 05/25/2023 10:39 AM CDT Temperature 36.7 ??C (98.1 ??F) 05/25/2023 10:39 AM C DT Respiratory Rate 16 05/25/2023 10:39 AM CDT Oxygen Saturation 96% 05/25/2023 10:39 AM CDT Inhaled Oxygen Concentration - - Weight 62 kg (136 lb 9.6 oz) 05/25/2023 10:39 AM CDT Height 157.5 cm (5' 2 ) 04/07/2023 10:39 AM CDT Body Mass Index 24.98 04/07/2023 10:39 AM CDT Plan of Treatment Health Maintenance Due Date Last Done Comments ZOSTER VACCINE (1 of 2) 1996 OSTEOPOROSIS SCREENING 12/13/2011 04/07/2019 PNEUMOCOCCAL VACCINE 65+ YEA RS (2 of 2 - PCV) 06/21/2018 06/21/2017, 05/10/2015 RSV VACCINE (60+ or ) (1 - 1-dose 75+ series) 2021 INFLUENZA VACCINE (#1) 2024 9, 06/21/2017, 07/17/2016 DTAP/TDAP/TD VACCINES (2 - T d or Tdap) 05/10/2025 05/10/2015, 03/25/2005 Insurance MEDICARE PART A AND B [facility] [id number] Advance Directives For more information, please contact: [phone] Documents on File Type Date Recorded 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
--- OUTSIDE RECORDS SUMMARY | 2024-10-12 02:27 | XMS_ITS | Clinical Summary ---
Author Organization [facility] Address [address] [place] [address] Care Team Providers Care Bath Mixer Name Role Phone Juan King MD Primary Care Provider [phone] Daniel Darby MD Unavailable [phone] Allergies No known active allergies Medications multivitamin tablet Take 1 tablet by mouth daily Active vitamin D3-tocophersolan 10 mcg-4 mg/ 0.2 mL drops Take by mouth Active sertraline (ZOLOFT) 100 mg tablet Take 1 tablet (100 mg total) by mouth daily 90 tablet 1 09/15/20 22 Active zolpidem (AMBIEN) 10 mg tablet TAKE 1 TABLET(10 MG) BY MOUTH EVERY NIGHT NEEDED FOR SLEEP 30 tablet 1 01/16/20 23 Active busPIRone (BUSPAR) 5 mg tablet Active amLODIPine (NORVASC) 5 mg tabletIndications: Primary hypertension Take 1 tablet (5 mg total) by mouth daily 90 tablet 3 04/27/20 24 025 Active atorvastatin (LIPITOR) 40 mg tabletIndications: Mixed hyperlipidemia Take 1 tablet (40 mg total) by mouth daily 90 tablet 3 05/31/20 24 Active losartan (COZAAR) 100 mg tabletIndications: Primary hypertension Take 1 tablet (100 mg total) by mouth daily 90 tablet 3 06/12/20 24 025 Active clopidogreL (PLAVIX) 75 mg tablet Take 1 tablet (75 mg total) by mouth daily 90 tablet 1 06/28/20 24 Active loratadine (CLARITIN) 10 mg tablet Take 1 tablet (10 mg total) by mouth daily 90 tablet 1 09/21/19 25 026 Active acetaminophen-code ine (TYLENOL with CODEINE #3) 300-30 mg per tablet Take 1 tablet by mouth every 4 (four) hours as needed for pain 20 tablet 10/11/19 25 Active loratadine (CLARITIN) 10 mg tablet Take 1 tablet (10 mg total) by mouth daily 10/06/19 22 025 Discontinued(Re order) acetaminophen-code ine (TYLENOL with CODEINE #3) 300-30 mg per tablet Take 1 tablet by mouth daily as needed for pain Weaning. 20 tablet 08/31/20 24 024 Discontinued(Re order) acetaminophen-code ine (TYLENOL with CODEINE #3) 300-30 mg per tablet Take 1 tablet by mouth daily as needed for pain Weaning. 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 Suspicious that her increased stress may be playing a role in her memory. Discussed adjunct therapies, will trial Buspar (low dose) to see if benefit provided. Left wrist fracture 06/20/2022 Assessment & Plan (06/20/2022 12:02 PM CDT): Tramadol for breakthrough pain (>8/10); otherwise tylenol PRN Keeping ortho appointment on Will check around regarding getting French; first with home health Please get bone density test ordered last month scheduled (will help us rule out osteoporosis) Encounter for Medicare annual wellness exam 04/20 Assessment & Plan (09/28/2024 2:59 PM AUTOMATION TEST DEVELOPER): A(n) yearly Medicare Annual Wellness Visit has been performed today. Nery Zacarias is not up to date on screening tests. She is in need of DEXA, Lung cancer screening, and Hepatitis B screen. She is not up to date on needed preventative vaccinations; She is in need of Zoster. We discussed healthy lifestyle habits, educational material has been given. Medications reviewed, changes documented as per the medical record and discussed with patient along with risks vs benefits. Specific topics reviewed: drugs, ETOH, and tobacco, importance of regular dental care, importance of regular exercise, importance of varied diet, limit TV, media violence, minimize junk food, and seat belts. Return in 6 months Assessment & Plan (09/27/2023 1:36 PM AUTOMATION TEST DEVELOPER): A(n) yearly Medicare Annual Wellness Visit has been performed today. Nery Zacarias is not up to date on screening tests. She is in need of DEXA and Lung cancer screening. She is not up to date on needed preventative vaccinations; She is in need of Influenza. We discussed healthy lifestyle habits, educational material has been given. Medications reviewed, changes documented as per the medical record and discussed with patient along with risks vs benefits. Return in 6 months Assessment & Plan (05/04/2022 3:13 PM CDT): A(n) initial Medicare Annual Wellness Visit has been performed today. Nery Zacarias is not up to date on screening tests. She is in need of DEXA, Lung cancer screening and Cholesterol screening- ordered. She is not up to date on needed preventative vaccinations; She is in need of Pneumonia (Prevnar-13 or Pneumovax-23) and Zoster. Hypercholesterolemia 06/01/2017 Hypertensive disorder 06/01/2017 Cerebrovascular accident (CVA) 09/20/2000 Encounters Date Type Department Care Team Description 10/09/2024 Orders Only [facility] Group Primary Care at [address] [address] Juan King MD Personal history of nicotine dependence 10/03/2024 Telephone [facility] Primary Care at [address] [address] Juan King MD Additional Services Or Orders 09/29/2024 Telephone [facility] Primary Care at [address] [address] Juan King MD Medical Question/Miscellaneo us 09/29/2024 Telephone [facility] Primary Care at [address] [address] Juan King MD Medical Question/Miscellaneo us 09/28/2024 4:00 PM AUTOMATION TEST DEVELOPER Ancillary Procedure [facility] Imaging at [address] [address] Disorder of left rotator cuff 09/28/2024 2:45 PM AUTOMATION TEST DEVELOPER Office Visit [facility] Primary Care at [address] [phone] Juan King MD Encounter for Medicare annual wellness exam (Primary Dx); Need for vaccination; Hypercholesterolemia ; Primary hypertension; Anxiety and depression; Vitamin D deficiency; Personal history of nicotine dependence; Malignant neoplasm of central portion of female breast, unspecified estrogen receptor status, unspecified laterality (HCC); Need for hepatitis B screening test; Screening for osteoporosis 09/28/2024 Orders Only [facility] Primary Care at [address] [address] Juan King MD Disorder of left rotator cuff (Primary Dx) from Last 3 Months Immunizations Name Administration Dates Next Due Influenza, Quadrivalent, Spl it, Preservative Free, Intramuscular 08/07/2019 Influenza, Trivalent, High D ose, Split, Preservative Free, Intramuscular 09/28/2024,07/17/2016 Influenza, Trivalent, IM (MDV) 06/21/2017 Influenza, Unspecified 09/27/2023(Deferr ed: Patient Refused),09/20/2022(Deferred: Patient Refused),09/20/2022(Deferred: Patient Refused),07/20/2022,09/20/2021(Deferre d: Patient Refused) Pneumococcal Conjugate Pcv20 04/26/2023 Pneumococcal Polysaccharide PPV23 06/21/2017, TD Preservative Free 03/25/2005 Tdap 05/10/2015 Surgical History Surgery Date Site/Laterality Comments SPINE SURGERY 09/20/2009 - 09/19/2010 cord cyst; lumbar WRIST SURGERY Right BREAST BIOPSY 03/17/2023 Right HYSTERECTOMY FL FLUORO GUIDED LUMBAR PUNCTURE 10/13/2023 Right CATARACT EXTRACTION 06/29/18 Medical History Medical History Date Comments Hypertension Stroke (HCC) Hypercholesteremia Cancer (CMS/HCC) (HCC) Migraines Spastic colon in high school Anxiety 15 yrs ago Arthritis 30yrs ago Osteoporosis Family History Medical History Relation Name Comments Arthritis Daughter Henny Hydrocephalus Father secondary to h ead trauma Cancer Father's Sister Aunt April Atrial fibrillation Mother Mom Laura Hypertension Mother Mom Laura Stroke Mother Mom Laura Arthritis Other Hypertension Other Stroke Other Cancer Sister Radha Raygoza Relation Name Status Comments Daughter Henny Father Father's Sister Aunt April Maternal Grandfather Maternal Grandmother Mother Mom Laura Other Paternal Grandfather Paternal Grandmother Sister Radha Raygoza Alive Social History Tobacco Use Types Packs/Day Years Used Date Smoking Tobacco: Former Cigarettes 2.5 39 0 09/20/1972 - 09/20/2009 Smokeless Tobacco: Never Tobacco Cessation:Counseling Given: Not Answered Comments:Glad I quit AUDIT-C Answer Date Recorded [...] on file Legal Sex Female 2:53 PM AUTOMATION TEST DEVELOPER Gender Identity Not on file Sexual Orientation Not on file Obstetrics History Last Filed Vital Signs Vital Sign Reading Time Taken Comments Blood Pressure 142/86 09/28/2024 2:56 PM AUTOMATION TEST DEVELOPER Pulse 92 09/28/2024 2:56 PM AUTOMATION TEST DEVELOPER Temperature 36.8 ??C (98.2 ??F) 09/28/2024 2:56 PM CS T Respiratory Rate 18 05/03/2024 12:14 PM CDT Oxygen Saturation 95% 09/28/2024 2:56 PM AUTOMATION TEST DEVELOPER Inhaled Oxygen Concentration - - Weight 66.2 kg (146 lb) 09/28/2024 2:56 PM AUTOMATION TEST DEVELOPER Height 158.1 cm (5' 2.24 ) 09/28/2024 2:56 PM CS T Body Mass Index 26.49 09/28/2024 2:56 PM AUTOMATION TEST DEVELOPER Plan of Treatment Health Maintenance Due Date Last Done Comments Osteoporosis Screening-Bone Density Scan 1946 Hepatitis B Screening 1964 Lung Cancer Screening 1996 Zoster Vaccine (1 of 2) 1996 DTaP/Tdap/Td Vaccine (2 - Td or Tdap) 05/10/2025 05/10/2015, 03/25/2005 Depression Screening 09/28/2025 09/28/2024, 03/28/2024, 09/27/2023, Additional history exists Fall Risk Assessment 09/28/2025 09/28/2024, 10/13/2023, 09/27/2023, Additional history exists Well Visit 65+ 09/28/2025 09/28/2024, 04/2024, 05/04/2022 Hepatitis C Screening Completed 05/04/2022 Pneumococcal vaccine 65+ Completed 023, 06/21/2017, 05/10/2015 Breast Cancer Screening-Mammogram Discontinued 05/05/2024, 04/28/2023, 02/10/2023 Influenza Vaccine Completed 09/28/2024, , 08/07/2019, Additional history exists Procedures Procedure Name Priority Date/Time Associated Diagnosis Comments XR SHOULDER LEFT 2 OR MORE VIEWS Schedule Routine, Read Routine (OP Routine) 09/28/2024 4:04 PM AUTOMATION TEST DEVELOPER Disorder of left rotator cuff HM MAMMOGRAPHY Routine 05/05/2024 2:20 PM CDT HEPATITIS C ANTIBODY Routine 05/04/2022 1:15 PM CDT Encounter for hepatitis C screening test for low risk patient from Last 3 Months or Most Recently Relevant to Health Maintenance Results * XR Shoulder Left 2 or More Views (09/28/2024 4:04 PM AUTOMATION TEST DEVELOPER) Anatomical Region Laterality Modality Upper Extremities, Shoulder Left Digi gabriela Radiography 09/29/2024 3:47 PM AUTOMATION TEST DEVELOPER Narrative 09/29/2024 3:49 PM AUTOMATION TEST DEVELOPER EXAM DESCRIPTION: XR SHOULDER LEFT 2 OR MORE VIEWS REASON FOR STUDY: old injury (15-20 years) to left shoulder; continued pain and weakness ?? Pt complains of chronic shoulder pain. Injury 20 years ago. Worsening recently. No prior fx or surgery ?? TECHNIQUE: Four ??radiographic view(s) of the ??left shoulder . COMPARISON: None FINDINGS: BONES/JOINTS: There is no acute fracture or dislocation. ??No destructive osseous lesion. ??There is osteoarthritis of both the acromioclavicular and glenohumeral joints. ??There are degenerative changes at the greater tuberosity. ??There is downward sloping of the acromion process as can be associated with impingement symptoms. ??Correlate clinically. ??There are healed fracture deformities involving the left 7th through 9th posterolateral ribs. ?? SOFT TISSUES: There are atherosclerotic calcifications of the thoracic aorta. ?? IMPRESSION: Osteoarthritis of the left shoulder. ??No acute fracture or dislocation. ??Chronic rib fracture deformities involving the posterolateral left 7th through 9th ribs. THIS IS AN ELECTRONICALLY VERIFIED FINAL REPORT 09/29/2024 3:49 PM - Electronically signed by ??Trinidad Marcos M.D. TW D: ??09/29/2024 3:49 PM T: Report ID: [id number] Reading Location: ??[id number] Procedure Note Trinidad Marcos MD - 09/29/2024 EXAM DESCRIPTION: XR SHOULDER LEFT 2 OR MORE VIEWS REASON FOR STUDY: old injury (15-20 years) to left shoulder; continuedpain and weakness Pt complains of chronic shoulder pain. Injury 20 years ago. Worsening recently. No prior fx or surgery TECHNIQUE: Four radiographic view(s) of the left shoulder . COMPARISON: None FINDINGS: BONES/JOINTS: There is no acute fracture or dislocation. No destructive osseous lesion. There is osteoarthritis of both the acromioclavicular and glenohumeral joints. There are degenerative changesat the greater tuberosity. There is downward sloping of the acromion processas can be associated with impingement symptoms. Correlate clinically. Thereare healed fracture deformities involving the left 7th through 9thposterolateral ribs. SOFT TISSUES: There are atherosclerotic calcifications of the thoracicaorta. IMPRESSION: Osteoarthritis of the left shoulder. No acute fracture or dislocation. Chronic rib fracture deformities involving theposterolateral left 7th through 9th ribs. THIS IS AN ELECTRONICALLY VERIFIED FINAL REPORT 09/29/2024 3:49 PM - Electronically signed by Trinidad Marcos M.D. TW T: Report ID: [id number] Reading Location: [place] [address] Juan King MD IMG XR PROCEDURES Final Res ult * HM MAMMOGRAPHY (05/05/2024 2:20 PM CDT) Pathologist [facility] Mammography Normal Historical Provider HEALTH MAINTENANCE Final Result * Hepatitis C antibody (05/04/2022 1:15 PM CDT) Hep C Ab Nonreactive Nonreactive [facility] WEBB Comment: Interpretive Data Nonreactive: Antibodies to HCV not detected. Does NOT exclude the possibility of recent exposure to HCV. Equivocal: Equivocal for HCV antibodies. Supplemental molecular testing will be automatically performed to determine infection status in accordance with current CDC screening recommendations. ?? Reactive: Positive for HCV antibodies. ??This may represent current or past HCV infection. Supplemental molecular testing will be automatically performed to determine ??current infection status in accordance with current CDC screening recommendations. Interpretive data was last revised on 2019. 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 Expl anation Advance Directives and Living Will 07/05/2023 3:41 PM POA updated 06/14/23 Power of Loan Processor 04/02/2023 3:20 PM Power of Loan Processor 03/11/2023 12:28 PM Power of Loan Processor 08/20/2022 6:50 PM * Full Code (Latest Code Status on File) Date Activated Date Inactivated Comments 10/13/2023 9:38 AM 10/14/2023 5:32 AM Care Teams Bath Mixer Relationship Specialty Start Date End Date Juan King MD [address] [place] [address] PCP - General Family Medicine 05/04/22 Daniel Darby MD [address] [facility] [address] [place], [place] [id number] Referring Physician Orthopedic Surgery 06/16/22
--- OUTSIDE RECORDS SUMMARY | 2024-10-12 02:27 | XMS_ITS ---
Author Organization [facility] Medical Office Building B Address [address] [place] [address] Care Team Providers Care Labor Economics Professor Name Role Phone Christine, Juan Solomon MD Primary Care Provider [phone] Daniel Darby MD Unavailable [phone] Active Problems Problem Noted Date Diagnosed Date Malignant neoplasm of centra l portion of female breast, unspecified estrogen receptor status, unspecified laterality 09/28/2024 Memory loss 03/26/2023 Medical marijuana use 03/25/2023 Anxiety and depression 09/15/2022 Assessment & Plan (09/15/2022 1:58 PM CHAIRMAN OF THE BOARD): Patient doesn't feel like the Sertraline does much, has had increased stress and 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 Suspicious that her increased stress may be [...] 04/20 Assessment & Plan (09/28/2024 2:59 PM CHAIRMAN OF THE BOARD): A(n) yearly Medicare Annual Wellness Visit has [...] months Assessment & Plan (09/27/2023 1:36 PM CHAIRMAN OF THE BOARD): A(n) yearly Medicare Annual Wellness Visit has [...] Hypertensive disorder 06/01/2017 Cerebrovascular accident (CVA) 09/20/2000 Current Oncology Plans No current plan information found. Past Plans No past plan information found. Radiation Treatments * No radiation treatments are documented for this patient in [facility]. Treatments may have been administered in another system. Lifetime Dose Tracking * Chemical Lifetime Dose Automatic Entry Manual Entr y Fluoro Time 1.23 minutes 1.23 minutes 0 minutes Air kerma at the reference point (Ka,r) 46.65 mGy 4 6.65 mGy 0 mGy
--- OUTSIDE RECORDS SUMMARY | 2024-10-12 02:27 | XMS_ITS | Referral Summary ---
Author Organization [facility] Medical Office Building B Address [address] [place] [address] Care Team Providers Care Automobile Upholsterer Name Role Phone Juan King MD Primary Care Provider [phone] Daniel Darby MD Unavailable [phone] Encounters Date Type Department Care Team Description 10/09/2024 Orders Only [facility] Primary Care at [address] [address] Juan King MD Personal history of nicotine dependence 10/03/2024 Telephone [facility] Primary Care at [address] [address] Juan King MD Additional Services Or Orders 09/29/2024 Telephone [facility] Primary Care at [address] [address] Juan King MD Medical Question/Miscellaneo us 09/29/2024 Telephone [facility] Primary Care at [address] [address] Juan King MD Medical Question/Miscellaneo us 09/28/2024 4:00 PM BARREL LINER Ancillary Procedure [facility] Imaging at [address] [address] Disorder of left rotator cuff 09/28/2024 Orders Only [facility] Primary Care at [address] [address] Juan King MD Disorder of left rotator cuff (Primary Dx) 09/28/2024 2:45 PM BARREL LINER Office Visit [facility] Primary Care at [address] [address] Juan King MD Encounter for Medicare annual wellness exam (Primary Dx); Need for vaccination; Hypercholesterolemia ; Primary hypertension; Anxiety and depression; Vitamin D deficiency; Personal history of nicotine dependence; Malignant neoplasm of central portion of female breast, unspecified estrogen receptor status, unspecified laterality (HCC); Need for hepatitis B screening test; Screening for osteoporosis from Last 3 Months Allergies No known active allergies Medications multivitamin [...] 09/15/2022 Assessment & Plan (09/15/2022 1:58 PM BARREL LINER): Patient doesn't feel like the Sertraline does much, has had increased stress and anxiety since her 's passing 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 Suspicious that her increased stress may be [...] 04/20 Assessment & Plan (09/28/2024 2:59 PM BARREL LINER): A(n) yearly Medicare Annual Wellness Visit has [...] months Assessment & Plan (09/27/2023 1:36 PM BARREL LINER): A(n) yearly Medicare Annual Wellness Visit has [...] Hypertensive disorder 06/01/2017 Cerebrovascular accident (CVA) 09/20/2000 Immunizations Name Administration Dates Next Due Influenza, Quadrivalent, Spl it, Preservative Free, Intramuscular 08/07/2019 Influenza, Trivalent, High D ose, Split, Preservative Free, Intramuscular 09/28/2024,07/17/2016 Influenza, Trivalent, IM (MDV) 06/21/2017 Influenza, Unspecified 09/27/2023(Deferr ed: Patient Refused),09/20/2022(Deferred: Patient Refused),09/20/2022(Deferred: Patient Refused),07/20/2022,09/20/2021(Deferre d: Patient Refused) Pneumococcal Conjugate Pcv20 04/26/2023 Pneumococcal Polysaccharide PPV23 06/21/2017, TD Preservative Free 03/25/2005 Tdap 05/10/2015 Social History Tobacco Use Types Packs/Day Years [...] on file Legal Sex Female 2:53 PM BARREL LINER Gender Identity Not on file Sexual Orientation Not on file Last Filed Vital Signs Vital Sign Reading Time Taken Comments Blood Pressure 142/86 09/28/2024 2:56 PM BARREL LINER Pulse 92 09/28/2024 2:56 PM BARREL LINER Temperature 36.8 ??C (98.2 ??F) 09/28/2024 2:56 PM CS T Respiratory Rate 18 05/03/2024 12:14 PM CDT Oxygen Saturation 95% 09/28/2024 2:56 PM BARREL LINER Inhaled Oxygen Concentration - - Weight 66.2 kg (146 lb) 09/28/2024 2:56 PM BARREL LINER Height 158.1 cm (5' 2.24 ) 09/28/2024 2:56 PM CS T Body Mass Index 26.49 09/28/2024 2:56 PM BARREL LINER Plan of Treatment Not on file Procedures Procedure Name Priority Date/Time Associated Diagnosis Comments XR SHOULDER LEFT 2 OR MORE VIEWS Schedule Routine, Read Routine (OP Routine) 09/28/2024 4:04 PM BARREL LINER Disorder of left rotator cuff HM MAMMOGRAPHY Routine 05/05/2024 2:20 PM CDT HEPATITIS C ANTIBODY Routine 05/04/2022 1:15 PM CDT Encounter for hepatitis C screening test for low risk patient from Last 3 Months or Most Recently Relevant to Health Maintenance Results * XR Shoulder Left 2 or More Views (09/28/2024 4:04 PM BARREL LINER) Anatomical Region Laterality Modality Upper Extremities, Shoulder Left Digi gabriela Radiography 09/29/2024 3:47 PM BARREL LINER Narrative 09/29/2024 3:49 PM BARREL LINER EXAM DESCRIPTION: XR SHOULDER LEFT 2 OR [...] 3:49 PM - Electronically signed by ??Trinidad Mclain: ??09/29/2024 3:49 PM T: Report ID: [id number] Reading Location: ??[id number] Procedure Note Trinidad Marcos MD - 09/29/2024 [...] Trinidad Marcos M.D. TW T: Report ID: [id number] Reading Location: [id number] Juan King MD IMG XR PROCEDURES Final Res ult * HM MAMMOGRAPHY (05/05/2024 2:20 PM CDT) Pathologist [facility] Mammography Normal Historical Provider HEALTH MAINTENANCE Final Result * Hepatitis C antibody (05/04/2022 1:15 PM CDT) Pathologist [facility] Hep C Ab Nonreactive Nonreactive [facility] [...] LAB MICROBIOLOGY - GENERAL ORDERABLES Final Result [facility] [address] Department [place] [address] from Last 3 Months or Most Recently Relevant to Health Maintenance Insurance MEDICARE [facility] MEDICARE [facility] Advance Directives For more information, please contact: [phone] Documents on File Type Date Recorded Patient Cartography Teacher Expl anation Advance Directives and Living Will 07/05/2023 3:41 PM POA updated 06/14/23 Power of Rate And Cost Analyst 04/02/2023 3:20 PM Power of Rate And Cost Analyst 03/11/2023 12:28 PM Power of Rate And Cost Analyst 08/20/2022 6:50 PM * Full Code (Latest Code Status on File) Date Activated Date Inactivated Comments 10/13/2023 9:38 AM 10/14/2023 5:32 AM Care Teams Automobile Upholsterer Relationship Specialty Start Date End Date Juan King MD [address] [place] [address] PCP - General Family Medicine 05/04/22 Daniel Darby MD [address] [facility] [address] [place] [address] Referring Physician Orthopedic Surgery 06/16/22
== END 2024-10-05 10:01 | disposition home or self-care (01) ==
PROVIDERS: PCP Family Medicine; Visit Provider Family Medicine
DX: R91.1 Solitary pulmonary nodule (principal); M85.89 Other specified disorders of bone density and structure, multiple sites; Z78.0 Asymptomatic menopausal state; Z13.820 Encounter for screening for osteoporosis; Z87.891 Personal history of nicotine dependence
CPT/HCPCS: 71250; 77080

== ENCOUNTER 2025-07-16 17:59 | Emergency (ER) | payer MEDICARE, SELFPAY ==
--- OUTSIDE RECORDS SUMMARY | 2001-07-26 09:30 | XMS_ITS | Continuity of Care Document ---
Author Organization [facility] Address [address] [place] [address] Phone Care Team Providers Care Rope Tow Operator Name Role Phone He OD, Lai Unavailable Unavailable Advance Directives Directive Yes / No Effective Date File Name No Information Encounters Encounter Description Practice Location Reason(s) For Visit Diagnoses Date Provider Providers Copied on Encounter [facility], [address], [place], [place], [id number], [place] tel:[phone] [facility] No Information Nov-0 6-200 1 He OD Lai. [address] , [address], [place], [address], [place]. tel:[phone] Family History Family Member Type Diagnosis Age At Onset No Information Payers Payer name Insurance type Covered green party ID Authoriza tion(s) No Information Social History Type Description Quantity Date Captured Comments Sex Female Smoking Status No Information Chief Complaint And Reason For Visit No Information Reason For Referral Reason For Referral No Information History Of Present Illness Encounter Date Complaint History Of Prese nt Illness No Information Functional Status Date Functional Assessmen t No Information Instructions Date Instruction Additional Infor mation No Information Assessments Type Assessment Date No Information Patient Care Teams Name Effective Dates (start - stop) Status Members No Information
--- OUTSIDE RECORDS SUMMARY | 2001-07-26 09:30 | XMS_ITS | Continuity of Care Document ---
Author Organization [facility] Address [address] [facility] [address] [place] [address] Phone Care Team Providers Care Elevator Operator Service Name Role Phone Eh OD, Lai Unavailable Unavailable Advance Directives Directive Yes / No Effective Date File Name No Information Encounters Encounter Description Practice Location Reason(s) For Visit Diagnoses Date Provider Providers Copied on Encounter [facility], [address], [place], [place], [id number], [place] tel:[phone] [facility] No Information Nov-0 6-200 1 He OD Lai. [address] , [address], [place], [address], [place]. tel:[phone] Family History Family Member Type Diagnosis Age [...]
--- OUTSIDE RECORDS SUMMARY | 2025-07-16 17:30 | XMS_ITS | Encounter Summary ---
Author Organization [facility] Healthcare Address [address] [place] [address] Care Team Providers Care Historiographer Name Role Phone Daniel Darby MD Unavailable [phone] Kylee Fine Primary Care Provider [phone] Reason for Visit * Reason Comments Diarrhea Bleeding Encounter Details Date Type Department Care Team (Late st Contact Info) Description 07/16/2025 5:30 PM CDT Office Visit [facility] Medical Group Convenient Care at [address] [address] Christine Taylor PA [address] [place] [address] [address] [place], [place] [id number] Rectal bleeding (Primary Dx) Social History Tobacco Use Types Packs/Day Years [...] on file Legal Sex Female 2:53 PM CALENDER WIND UP TENDER Gender Identity Not on file Sexual Orientation Not on file documented as of this encounter Last Filed Vital Signs Vital Sign Reading Time Taken Comments Blood Pressure 122/78 07/16/2025 5:15 PM CDT Pulse 71 07/16/2025 5:15 PM CDT Temperature 36.8 C (98.3 F) 07/16/2025 5:15 PM CDT Respiratory Rate 20 07/16/2025 5:15 PM CDT Oxygen Saturation 96% 07/16/2025 5:15 PM CDT Inhaled Oxygen Concentration - - Weight 64.9 kg (143 lb) 07/16/2025 5:15 PM CDT Height - - Body Mass Index 25.95 09/28/2024 2:56 PM CALENDER WIND UP TENDER documented in this encounter Progress Notes * Christine Taylor PA - 07/16/2025 5:30 PM CDT Images from the original note were not included. Subjective/Objective Patient ID: Nery Zacarias is a 79 y.o. female. This patient has verbally consented to recording this visit in order to utilize AI technology in generating this note. Chief Complaint Diarrhea (Bleeding) History of Present Illness Nery Zacarias is a 79 year old female with IBS who presents with rectal bleeding following a colonoscopy. She is accompanied by her granddaughter. Rectal bleeding - Onset yesterday following colonoscopy performed one week ago - Bright red blood noted during wiping - No clots present - Bleeding described as significant pools of blood - No melena or black stools - History of external hemorrhoids since childbirth; questions if hemorrhoids are related to currentbleeding Diarrhea - Persistent for several months - Severe, with soft stools primarily in the mornings - Diarrhea has led to incontinence and limits ability to leave the house - Low FODMAP diet has not improved symptoms - Colonoscopy one week ago showed normal results with no polyps or abnormalities Review of Systems All other systems reviewed and are negative. Physical Exam Physical Exam Constitutional: Appearance: Normal appearance. HENT: Head: Normocephalic and atraumatic. Right Ear: External ear normal. Left Ear: External ear normal. Nose: Nose normal. Mouth/Throat: Pharynx: Oropharynx is clear. Eyes: Pupils: Pupils are equal, round, and reactive to light. Cardiovascular: Rate and Rhythm: Normal rate. Pulmonary: Effort: Pulmonary effort is normal. Musculoskeletal: General: Normal range of motion. Cervical back: Normal range of motion. Skin: General: Skin is warm and dry. Neurological: General: No focal deficit present. Mental Status: She is alert and oriented to person, place, and time. Psychiatric: Mood and Affect: Mood normal. Behavior: Behavior normal. Vitals: 07/16/25 1715 BP: 122/78 Pulse: 71 Resp: 20 Temp: 36.8 ??C (98.3 ??F) TempSrc: Oral SpO2: 96% Weight: 64.9 kg (143 lb) No results found. Past Medical History: Diagnosis Date Anxiety 15 yrs ago Arthritis 30yrs ago Cancer (HCC) Hypercholesteremia Hypertension Migraines Osteoporosis Spastic colon in high school Stroke (HCC) Current Outpatient Medications: acetaminophen-codeine (TYLENOL with CODEINE #3) 300-30 mg per tablet, Take 1 tablet by mouth every 4 (four) hours as needed for pain for pain, Disp: 20 tablet, Rfl: 0 amLODIPine (NORVASC) 5 mg tablet, Take 1 tablet (5 mg total) by mouth daily, Disp: 90 tablet, Rfl: 3 atorvastatin (LIPITOR) 40 mg tablet, Take 1 tablet (40 mg total) by mouth daily, Disp: 90 tablet, Rfl: 3 busPIRone (BUSPAR) 5 mg tablet, , Disp: , Rfl: clopidogreL (PLAVIX) 75 mg tablet, TAKE 1 TABLET(75 MG) BY MOUTH DAILY, Disp: 90 tablet, Rfl: 1 loratadine (CLARITIN) 10 mg tablet, Take 1 tablet (10 mg total) by mouth daily, Disp: 90 tablet, Rfl: 1 losartan (COZAAR) 100 mg tablet, Take 1 tablet (100 mg total) by mouth daily, Disp: 90 tablet, Rfl:3 sertraline (ZOLOFT) 100 mg tablet, Take 1 tablet (100 mg total) by mouth daily, Disp: 90 tablet, Rfl: 1 vitamin D3-tocophersolan 10 mcg-4 mg/ 0.2 mL drops, Take by mouth, Disp: , Rfl: zolpidem (AMBIEN) 10 mg tablet, Take 1 tablet (10 mg total) by mouth nightly as needed for sleep for sleep, Disp: 30 tablet, Rfl: 0 multivitamin tablet, Take 1 tablet by mouth daily (Patient not taking: Reported on 07/16/2025), Disp: , Rfl: No Known Allergies Social History Tobacco Use Smoking status: Former Current packs/day: 0.00 Average packs/day: 2.5 packs/day for 39.0 years (97.5 ttl pk-yrs) Types: Cigarettes Start date: 09/20/1972 Quit date: 09/20/2009 Years since quittin.8 Smokeless tobacco: Never Tobacco comments: Glad I quit Substance and Sexual Activity Drug use: Yes Frequency: 7.0 times per week Types: Medical marijuana Sexual activity: Not Currently Partners: Male control/protection: Post-menopausal Alcohol Use: Not At Risk (05/23/2025) Received from [facility] AUDIT-C Q1: How often do you have a drink containing alcohol?: Never Q2: How many drinks containing alcohol do you have on a typical day when you are drinking?: 1 or 2 Q3: How often do you have six or more drinks on one occasion?: Never Past Surgical History: Procedure Laterality Date BREAST BIOPSY Right 03/17/2023 CATARACT EXTRACTION 06/29/18 [place] FLUORO GUIDED LUMBAR PUNCTURE Right 10/13/2023 HYSTERECTOMY SPINE 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 Assessment & Plan Rectal bleeding after recent colonoscopy Bright red bleeding suggests possible external hemorrhoids or post-procedural complication. Recent colonoscopy increases risk for complications. - Advise immediate ER evaluation for post-colonoscopy complications and bleeding source. Diagnoses and all orders for this visit: Rectal bleeding (Primary) Disposition Treatment plan including expectations, follow up, and return precautions discussed with patient/parent, verbalizes understanding. Medication dosage, use, and potential adverse reactions discussed with patient/parent. Advised to follow up with PCP if symptoms do not resolve as expected or sooner if condition worsens. Signs/symptoms warranting ER evaluation reviewed. Patient and/or guardian was given an opportunity to ask questions, questions answered. KAVITHA Smith Cosigned by Jorge Ledesma MD at 07/16/2025 5:37 PM CDT documented in this encounter Plan of Treatment Not on file documented as of this encounter Visit Diagnoses Diagnosis Rectal bleeding- Primary Hemorrhage of rectum and anus documented in this encounter Care Teams Historiographer Relationship Specialty Start Date End Date Kylee Fine [address] [address] PCP - General 06/06/25 Daniel Darby MD [address] [address] Referring Physician Orthopedic Surgery 06/16/22 documented as of this encounter
--- OUTSIDE RECORDS SUMMARY | 2025-07-16 17:30 | XMS_ITS | Encounter Summary ---
Author Organization [facility] Healthcare Address [address] [place] [address] Care Team Providers Care Marble Coper Name Role Phone Daniel Darby MD Unavailable [phone] Kylee Fine Primary Care Provider [phone] Reason for Visit * Reason Comments Diarrhea Bleeding Encounter Details Date Type Department Care Team (Late st Contact Info) Description 07/16/2025 5:30 PM CDT Office Visit [facility] Medical Group Convenient Care at [address] [address] Christine Taylor PA [address] [place] [address] [address] [place], [place] [id number] Rectal bleeding (Primary Dx) Social History Tobacco [...] on file Legal Sex Female 2:53 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 Gender Identity Not on file Sexual Orientation [...] Body Mass Index 25.95 09/28/2024 2:56 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 documented in this encounter Progress Notes * [...] Use: Not At Risk (05/23/2025) Received from [facility] AUDIT-C Q1: How often do you have [...] anus documented in this encounter Care Teams Marble Coper Relationship Specialty Start Date End Date Kylee Fine [address], [place] [address] PCP - General 06/06/25 Daniel Darby MD [address] [address] Referring Physician Orthopedic Surgery 06/16/22 documented as of this encounter
--- OUTSIDE RECORDS SUMMARY | 2025-07-16 18:01 | XMS_ITS | Data Portability ---
Author Organization [place] - [employer], Main Office Address [address] [place] [address] Care Team Providers Care Alternative Energy Engineer Name Role Phone BRAD ROSAS Primary Care Provider [phone] Assessment Encounter Date Assessment Date Assessment LastModified [...] Modified By Organization Details Last Modified Time 10/15/2023 [id number] pain free ambulation [email or web address] Not available 10/15/2023 13:36:56 Patient Instructions Encounter Date Encounter Id Patient Instructions Last Modified By Organization Details Last Modified Time 10/04/2023 [id number] Pt to remain OWB as much as poss. and only ambulate in the boot. [email or web address] Not available 10/04/2023 16:14:05 Pt relates no pain during gait w/ the boot. Instructed her on the proper application of the device. [email or web address] Not available 10/04/2023 16:14:26 10/15/2023 [id number] To RT regular shoegear as tolerated. [email or web address] [...] Name and Address Organization Details Recorded Time Cerebrovascul ar accident 002573411 Active 2000 Not Available [facility] 3 09:18:26 Hypercholeste rolemia 02030672 Active 2016 Not Available [facility] 3 09:18:26 Hypertensive disorder 79571899 Active 2016 Not Available [facility] 3 09:18:26 Problem Notes None recorded. Procedures Surgical History Date Name Laterality Status Provider Name and Address Organization Details Recorded Time 12/16/19 24 Nail Debridement completed Juan Nieves DPM [address], [place], [address], [employer] 12/17/2023 10:53:36 10/15/19 24 Unna boot - LE edema completed Juan Nieves DPM [address], [address], [place], [address], [employer] 10/15/2023 13:38:11 10/04/19 24 Unna boot - LE edema completed Juan Nieves DPM [address], [address], [place], [address], [employer] 10/04/2023 16:12:45 10/04/19 24 Foot/Ankle Cast completed Juan Nieves DPM [address], [place], [address], [employer] 10/04/2023 16:13:01 04/07/20 19 Most Recent Bone Density completed Not Available [facility] 11/18/2022 09:13:18 04/07/20 19 Most Recent Mammogram completed Not Available [facility] 11/18/2022 09:13:18 06/14/20 12 Date of Last Pap Smear completed Not Available [facility] 11/18/2022 09:13:18 Imaging Results None recorded. Procedure [...] Not Available Not Available Vitals Date Recorded Oxygen saturation Oxygen saturation in Arterial blood by Pulse oximetry Heart rate Body temperature Body height Body mass index (BMI) Body weight Systolic And Diastolic Provider Name and Address Organization Details Last Updated DateTime 4 93 % 93 % 74 /min 97.9 [degF] 152.4 cm 27.3 kg/m2 55628.9 3 g 127/82 mm[Hg] STEPHANY Perez [place] [facility] [place] [employer] [facility] 4 15:44:29 Date Recorded Body height Body mass index (BMI) Body weight Oxygen saturation Oxygen saturation in Arterial blood by Pulse oximetry Body temperature Heart rate Systolic And Diastolic Provider Name and Address Organization Details Last Updated DateTime 4 152.4 cm 27.7 kg/m2 02243.1 2 g 95 % 95 % 98.2 [degF] 80 /min 123/78 mm[Hg] Pranav Foreman Jane [facility] [employer] [facility] [employer] [facility] 4 12:42:51 Date Recorded Body height Body mass index (BMI) Body weight Oxygen saturation Oxygen saturation in Arterial blood by Pulse oximetry Body temperature Heart rate Provider Name and Address Organization Details Last Updated DateTime 4 152.4 cm 27.7 kg/m2 07679.1 2 g 98 % 98 % 97.6 [degF] 77 /min Pranav Foreman [facility] [employer] [facility] [employer] [facility] 4 11:30:25 Date Recorded Body mass index (BMI) Body height Body temperature Body weight Systolic And Diastolic Provider Name and Address Organization Details Last Updated DateTime 01/14/2021 26.6 kg/m2 160.02 cm 97.5 [degF] 65788.8 6 g 162/102 mm[Hg] Not Available [facility] 3 09:14:15 Social History Question Answer Notes LastModified by [employer] Details LastModified Time Tobacco Smoking Status Never Smoker Not Available [facility] 11/18/2022 09:12:59 What Is Your Level Of Caffeine Consumption? Moderate [id number] Information not available 11/18/2022 In The 14 Days Before Symptom Onset, Have You Had Close Contact With A Laboratory-confirm ed COVID-19 While That Case Was Ill? No [id number] Information not available 11/18/2022 In The 14 Days Before Symptom Onset, Have You Had Close Contact With A Person Who Is Under Investigation For COVID-19 While That Person Was Ill? No [id number] Information not available 11/18/2022 Which Illicit Or Recreational Drugs Have You Used? Marijuana Daily [id number] Information not available 11/18/2022 What Was The Date Of Your Most Recent Tobacco Screening? 12/16/2023 [email or web address] Information not available 12/16/2023 Sex: Unknown Functional Status Question Answer Note LastModified by Organizat ion Details LastModified Time What is your level of alcohol consumption? Occasional [id number] Information not available 11/18/2022 What is your exercise level? Occasional [id number] Information not available 11/18/2022 Mental Status None recorded. Family History Relationship Description Onset Age of this Age Resolved Age Notes LastModified by Organization Details LastModified Time Father No current problems or disability [email or web address] Not available 10/15 12:43:03 Mother No current problems or disability [email or web address] Not available 10/15 12:43:03 Notes:no new Medical [...] Diagnosis SNOMED-CT Code Diagnosis ICD10 Code Diagnosis IMO Codes Diagnosis Note [id number] [facility] _ATHENA_M IGRATION_ DEFAULT_1 _1 , 01/14/2021 00:00:00 01/14/2021 12:35:44 [id number] [facility] [place] [address] [address] 10/04/2023 15:20:09 04/20/2024 11:43:50 [id number] Juan Nieves DPM [facility] [address] [address] 10/15/2023 12:33:33 04/21/2024 11:16:31 [id number] Juan Nieves DPM [facility] [place] [address] [address] 12/16/2023 11:07:57 04/26/2024 04:08:20 Health Concerns Section Related Observation LastModified by Organization Sadi ls LastModified Time None Recorded Concern Status LastModified by Organization Details LastModified Time None Recorded Advance Directives Directive None Recorded Payers Insurance Date Sequence Insurance Name Policy Number Policy Cardoza Covered Member ID Cardoza Member ID Guarantor Name 12/16/2023 1 [place] Nery Elkins Rell [id number] Nery Elkins Rell 12/16/2023 2 [employer] HEALTHCARE OPTION - PLAN N (MEDICARE SUPPLEMENT) TDPIND Nery K Rell [id number] Nery Severo Rell Notes Date Note Type Note Provider Name and Address Organization Details Recorded Time 10/04/2023 text/html Pt suffered trauma to Lt foot 10 d ago, stumbled down stairs and bent foot backwards; already had foot drop from a previous stroke, Lt. Visited emergency room and other MD's office. Reports wearing a fx shoe and MICHELLE wrap. Xrays reportedly were negative. Juan Nieves DPM [address], [place], [address], [employer] 10/04/2023 16:14:33 10/15/2023 text/html Pain and edema from fall from stairs and hyperextension of the dorsal tendons, Lt. Pt reports wearing a low profile walker for ambulation and walker to assist. Juan Nieves DPM [address], [place], [address], [employer] 10/15/2023 13:38:18 12/16/2023 text/html [facility] foot care routine this date. Juan Nieves DPM [address], [place], [address], [employer] 12/17/2023 10:53:43 OBGyn Episode No OBEpisode recorded.
--- OUTSIDE RECORDS SUMMARY | 2025-07-16 18:02 | XMS_ITS | Encounter Summary ---
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 Role Phone Patient, No Pcp Per Primary Care Provider Olya Chris Brewer MD Primary Care Provider Prince Velez APRN, FIREARMS SALES ASSOCIATE Unavailable Reason for Visit * Reason Comments Medication Refill Encounter Details Date Type Department Care Team (Late st Contact Info) Description 03/01/2025 Refill [facility] [address] [address] Geronimo Herron MD [address] [place] [address] Medication Refill Social History Tobacco Use Types Packs/Day Years Used Date Smoking Tobacco: Former Cigarettes Smokeless Tobacco: Never Alcohol Use Standard Drinks/Week Comments Yes 17.5 (1 standard dri nk = 0.6 oz pure alcohol) drinks about 3 12oz beers daily [facility] Utilities Answer Date Recorded In the past 12 months has [employer], gas, oil, or water [employer] threatened to shut off services in your home? No 02/13/2025 AUDIT-C Answer Date Recorded Q1: How often do you have a drink containing alc ohol? Never 02/12/2025 Q2: How many drinks containi ng alcohol do you have on a typical day when you are drinking? 3 or 4 02/12/2025 Q3: How often do you have six or more drinks on one occasion? Never 02/12/2025 Overall Financial Resource Strain (CARDIA) Answe r Date Recorded How hard is it for you to pa y for the very basics like food, housing, medical care, and heating? Not very hard 02/13/2025 Depression Answer Date Recorded PHQ-2 Score 0 02/22/2025 Last PHQ-9 Score Not on file 02/22/2025 Interpersonal Safety Answer Date Record ed Feels UN-safe at Home or Work/School no 03/01/2025 Feels Unsafe Not on file 03/01/2025 Physical Signs of Abuse Present no 03/01/2025 Food Insecurity Answer Date Recorded Within the past 12 months, y ou worried that your food would run out before you got the money to buy more. Never true 02/14/20 Within the past 12 months, t he food you bought just didn't last and you didn't have money to get more. Never true 02/13/2025 Transportation Answer Date Recorded In the past 12 months, has l ack of transportation kept you from medical appointments or from getting medications? No 01/19 In the past 12 months, has l ack of transportation kept you from meetings, work, or from getting things needed for daily living? No 02/13/2025 Housing Stability Answer Date Recorded At any time in the past 12 m [facility], were you homeless or living in a custodial (including now)? No 02/13/2025 In the last 12 months, was t here a time when you were not able to pay the mortgage or rent on time? No 02/13/2025 In the past 12 months, how m any times have you moved where you were living? 1 02/13/2025 Comments Unknown Sex and Gender Information Value Date Recorded Sex Assigned at Not on file Legal Sex Female 4:15 PM CDT Gender Identity Not on file Sexual Orientation Not on file documented as of this encounter Miscellaneous Notes * Telephone Encounter - Argelia Huitron RN - 03/02/2025 11:54 AM CDT Notified pharmacy that MD will see her in 30 days and to refill 30, not 90. documented in this encounter Plan of Treatment Upcoming Encounters Date Type Department Care Team (Late st Contact Info) Description 08/07/2025 8:00 AM THEOLOGY TEACHER Evaluation [facility] - [place] [address] [address] Matti Wolf PsyD [address] [place] [phone] 08/08/2025 11:20 AM THEOLOGY TEACHER Office Visit [facility] [place] [facility] [place] [address] [address] Orquidea Arizmendi APRN, FIREARMS SALES ASSOCIATE [address] [address] 08/27/2025 3:00 PM THEOLOGY TEACHER Office Visit [facility] - [place] [address] [address] [place] [address] [place] [address] 09/26/2025 3:40 PM THEOLOGY TEACHER Office Visit [facility] - [place] [address] [address] Chris Tam MD [address] [place] [address] 10/08/2025 1:00 PM THEOLOGY TEACHER Office Visit [facility] 5A - [place] [address] [address] Hope Reza PA-C [address] [place] [address] 12/19/2025 1:00 PM CDT Appointment [facility] 2D - [place] [address] [place] [address] Tray Cornell MD [address] [place] [address] 01/04/2026 8:30 AM CDT Lab [facility] Diagnostic [facility] [address] [address] 01/08/2026 10:20 AM CDT Office Visit [facility] VC - [place] [address] [address] Geronimo Herron MD [address] [phone] 03/19/2026 4:20 PM CDT Office Visit [facility] 3B - [place] [address] [place] [address] Grant Carmona, ARTIFACTS CONSERVATOR, [facility] [address] [place] [address] 05/10/2026 2:00 PM CDT Appointment [facility] Ground Floor Desk - [place] [address] [address] documented as of this encounter Visit Diagnoses Diagnosis Encounter for monitoring aromatase inhibitor therapy documented in this encounter Additional Health Concerns Infection Onset Date Last Indicated Resolved Time Respiratory Suspected 04/26/2025 04/26/20252024 1:12 AM CDT GI Infection Suspected 07/05/2025 07/05/202507/06 2:47 PM CDT documented as of this encounter Care Teams Fruit Or Nut Farm Worker Relationship Specialty Start Date End Date Patient, No Pcp MD Greg PCP - General Internal Medicine 02/11/25 5 [place] [address] [place] [address] [place] [address] PCP - General Internal Medicine 03/15/25 Prince Velez APRN, FIREARMS SALES ASSOCIATE [address] [place] [phone] Nurse Practitioner Internal Medicine 03/15/25 documented as of this encounter
--- OUTSIDE RECORDS SUMMARY | 2025-07-16 18:02 | XMS_ITS | Clinical Summary ---
Author Organization [facility] Address [address] [place] [address] Care Team Providers Care Deputy Felony Clerk Name Role Phone Chris Tam MD Primary Care Provider Prince Velez APRN, PCAT INSTRUCTOR Unavailable Allergies No known active allergies Medications amLODIPine (NORVASC) 5 MG tablet Take 1 tablet (5 mg total) by mouth daily. 04/27/20 24 Active atorvastatin (LIPITOR) 40 MG tablet Take 1 tablet (40 mg total) by mouth daily. 05/31/20 24 Active clopidogreL (PLAVIX) 75 mg tablet Take 1 tablet (75 mg total) by mouth daily. 06/28/20 24 Active losartan (COZAAR) 100 MG tablet Take 1 tablet (100 mg total) by mouth daily. 06/12/20 24 Active loratadine (CLARITIN) 10 mg tablet Take 1 tablet (10 mg total) by mouth daily. 09/21/19 25 026 Active multivitamin (THERAGRAN) per tablet Take 1 tablet by mouth daily. Active cyanocobalamin (VITAMIN B-12) 1000 MCG tablet Take 1 tablet (1,000 mcg total) by mouth daily. Active loperamide (IMODIUM) 2 mg capsule Take 1 capsule (2 mg total) by mouth daily as needed for Diarrhea. Active cholecalcifero l, vitamin D3, (VITAMIN D3 ORAL) Take 1 tablet by mouth daily. Active benzonatate (TESSALON) 100 MG capsuleIndicat ions:Chronic cough Take 1 capsule (100 mg total) by mouth 3 (three) times daily as needed for cough. 30 capsule 05/02/20 25 Active sertraline (ZOLOFT) 100 MG tabletIndicati ons:Anxiety and depression Take 1 tablet (100 mg total) by mouth daily. 90 tablet 3 05/04/20 25 026 Active zolpidem (AMBIEN) 5 MG tabletIndicati ons:INSOMNIA Take 1 tablet (5 mg total) by mouth nightly as needed. Indications: INSOMNIA 30 tablet 05/15/20 25 Active naloxone 4 mg/actuation SpryIndication s:opioid overdose 1 spray by one nostril route once as needed (for known or suspected opioid overdose) Call for emergency medical help right away after using. May repeat after 2-3 minutes if needed.. Indications: opioid overdose 2 each 05/15/20 25 Active busPIRone (BUSPAR) 5 MG tabletIndicati ons:Anxiety Take 1 tablet (5 mg total) by mouth daily. 90 tablet 05/30/20 25 025 Active anastrozole (ARIMIDEX) 1 mg tabletIndicati ons:Encounter for monitoring aromatase inhibitor therapy TAKE 1 TABLET(1 MG) BY MOUTH DAILY 30 tablet 06/25/20 25 Active hyoscyamine (LEVSIN/SL) 0.125 mg SL tabletIndicati ons:IBS (irritable bowel syndrome) DISSOLVE 1 TABLET(0.125 MG) UNDER THE TONGUE EVERY 4 HOURS NEEDED FOR CRAMPING OR DIARRHEA 30 tablet 3 07/02/20 25 Active hyoscyamine (LEVSIN/SL) 0.125 mg SL tabletIndicati ons:IBS (irritable bowel syndrome) Place 1 tablet (0.125 mg total) under the tongue every 4 (four) hours as needed for Cramping or Diarrhea. 30 tablet 3 05/15/20 25 025 Discontinued anastrozole (ARIMIDEX) 1 mg tabletIndicati ons:Encounter for monitoring aromatase inhibitor therapy TAKE 1 TABLET(1 MG) BY MOUTH DAILY 30 tablet 05/23/20 25 025 Discontinued Active Problems Problem Noted Date Diagnosed Date Possible Wernicke's encephalopathy 04/27/2025 Microscopic hematuria 02/15/2025 Leukopenia 02/13/2025 History of CVA with residual deficit left drop f oot 02/11/2025 Expressive aphasia, now resolved 02/11/2025 Neurogenic bladder due to co mplications from lumbar spinal surgery 02/11/2025 Overview (02/11/2025): Performs CIC up 7x daily History of breast cancer, s/p lumpectomy 2022 Essential hypertension 02/11/2025 Right Internal carotid aneurysm 02/11/2025 Overview (02/11/2025): Per CTA neck 02/11/2025 2 mm right cavernous ICA aneurysm suspected Sleep apnea 02/11/2025 Anxiety and depression 09/15/2022 Hypercholesterolemia 06/01/2017 Dementia EtOH dependence Resolved Problems Problem Noted Date Diagnosed Date Resolved Date Influenza B 02/11/2025 02/15/2025 Malignant neoplasm of centra l portion of female breast, unspecified estrogen receptor status, unspecified laterality 09/28/2024 Medical marijuana use 03/25/20232024 Left wrist fracture 06/20/2022 02/12/20 Encounters Date Type Department Care Team Description 07/11/2025 3:00 PM CDT Office Visit [facility] Desk - [address] [phone] Geronimo Herron MD Malignant neoplasm of overlapping sites of right breast in female, estrogen receptor positive (HCC) (Primary Dx); Osteoporosis, unspecified osteoporosis type, unspecified pathological fracture presence; Encounter for screening mammogram for breast cancer; Encounter for monitoring aromatase inhibitor therapy; Encounter for follow-up surveillance of breast cancer; Status post right breast lumpectomy; Status post radiation therapy; Memory changes; Counseling and coordination of care 07/11/2025 11:40 AM CDT Telemedicine [facility] Desk 3B - [place] [address] [place] [phone] Maria Dolores Beck, PREMIUM CANCELLATION CLERK, PCAT INSTRUCTOR Constipation (Primary Dx); Diarrhea; IBS (irritable bowel syndrome) 07/11/2025 Travel 07/11/2025 Telephone [facility] Desk 3B - [place] [address] [place] [phone] Maria Dolores Beck APRN, CARLOS 07/09/2025 3:20 PM CDT Anest[facility] [place] [address] [place] [phone] Michelle Cochran RN 07/09/2025 3:18 PM CDT - 07/09/2025 11:59 PM CDT Hospital Encounter [facility] - [place] [address] [place] [phone] Edgar Meredith Jr., DO Discharge Disposition: Home or Self Care 07/09/2025 Travel 07/05/2025 5:55 PM CDT Lab [facility] Diagnostic Medicine - [place] [address] [place] [phone] IBS (irritable bowel syndrome) 07/05/2025 Travel 07/05/2025 Pre-Evaluation [facility] - [place] [address] [place] [address] [phone] Michelle Cochran RN 07/05/2025 Telephone [facility] [place] [address] [place] [address] [phone] Leonor Rogers RN ECOLI 07/01/2025 Refill [facility] - [place] [address] [place] [phone] Grant Carmona APRN, CARLOS Medication Refill 06/29/2025 Telephone [facility] 3[facility] - [place] [address] [place] [address] [phone] Edgar Meredith Jr., DO Colonoscopy 06/25/2025 Refill [facility] - [place] [address] [place] [address] 78[address] Geronimo Herron MD Medication Refill 06/25/2025 Telephone [facility] Desk 3B - [place] [address] [place] [address] 24[address] Susanna Saul, optical glass sawyer Only 06/22/2025 Refill [facility] Des[facility] VC - [place] [address] [place] [address] [phone] Geronimo Herron MD Medication Refill 06/20/2025 3:00 PM CDT Office Visit [facility] Desk 2D - [place] [address] [place] [address] 25000 Tray Cornell MD OAB (overactive bladder) [N32.81] (Primary Dx); Anxiety and depression 06/20/2025 Travel 06/19/2025 Telephone [facility] Des[facility] 3B - [place] [address] [place] [address] [phone] Britany Walker LVN BT--Plavix 06/18/2025 Patient Outreach [facility] Tammy Cheney CMAS 06/18/2025 Orders Only [facility] Diarrhea (Primary Dx) 06/18/2025 Patient Outreach [facility] Janie Gamble MA 06/14/2025 Results Follow-Up [facility] 3B - [place] [address] [place] [phone] Ana Paula Gayle APRN, ANP X-ray abdomen AP (1 view) 06/13/2025 12:00 PM CDT - 06/13/2025 11:59 PM CDT Hospital Encounter [facility] Desk 2X - [place] [address] [place] [address] [phone] Discharge Disposition: Home or Self Care 06/13/2025 11:20 AM CDT Office Visit [facility] Desk 3B - [place] [address] [place] [address] [phone] Ana Paula Gayle APRN, ANP IBS (irritable bowel syndrome) (Primary Dx); Dementia, unspecified dementia severity, unspecified dementia type, unspecified whether behavioral, psychotic, or mood disturbance or anxiety ([facility]) 06/13/2025 Travel 06/08/2025 Telephone [facility] 2D - [place] [address] [place] [address] [phone] Tray Cornell MD 06/07/2025 2:30 PM CDT Treatment [facility] - [place] [address] [place] [address] Rome Rissa, HEAD OF [employer] Impaired gait and mobility (Primary Dx); Left foot drop; Recurrent falls 06/07/2025 Travel 06/05/2025 2:30 PM CDT Treatment [facility] - [place] [address] [place] [phone] RomeAmilcarRissa, HEAD [employer] Impaired gait and mobility (Primary Dx); Left foot drop; Recurrent falls 06/05/2025 Travel 06/04/2025 Telephone [facility] - [place] [address] [place] [address] [phone] Grant Carmona APRN, PCAT INSTRUCTOR Appointment 05/31/2025 2:30 PM CDT Treatment [facility] - [place] [address] [place] [phone] RomeAmilcarRissa, HEAD [employer] Impaired gait and mobility (Primary Dx); Left foot drop; Recurrent falls 05/31/2025 Travel 05/31/2025 Telephone [facility] 2[facility] - [place] [address] [place] [address] [phone] Renetta Zavala APRN, PCAT INSTRUCTOR Appointment 05/30/2025 Orders Only [facility] for [facility] Medicine - [place] [address] [place] [address] [phone] Chris Tam MD Anxiety (Primary Dx) 05/30/2025 Telephone [facility] - [place] [address] [place] [address] [phone] Renetta Zavala APRN, PCAT INSTRUCTOR Appointment 05/30/2025 Telephone [facility] [address] [place] [address] Davida Lou, MAIRA Biopsy (Breast Biopsy Results/) 05/29/2025 3:15 PM CDT Treatment [facility] [address] [place] [address] Rissa Peter, HEAD [employer] Impaired gait and mobility (Primary Dx); Left foot drop; Recurrent falls 05/29/2025 Travel 05/28/[address] [place] [address] [phone] Renetta Zavala APRN, PCAT INSTRUCTOR 05/25/2025 2:26 PM CDT - 05/25/2025 11:59 PM CDT Hospital Encounter [facility] [address] [place] [address] [phone] Discharge Disposition: Home or Self Care 05/25/2025 2:26 PM CDT - 05/25/2025 11:59 PM CDT Hospital Encounter [facility] [address] [place] [address] 160[address] Discharge Disposition: Home or Self Care 05/25/2025 10:30 AM CDT Evaluation [facility] [address] [place] [address] 8[address]63 Velia Dozier PT Impaired gait and mobility (Primary Dx); Left foot drop; Recurrent falls 05/25/2025 Travel 05/24/2025 3:40 PM CDT Office Visit [facility] [address] [place] [address] [phone] Eli Child APRN, WHNP History of breast cancer (Primary Dx); History of cervical cancer; Colon cancer screening 05/24/2025 10:30 AM CDT Office Visit [facility] [place] [address] [phone] Renetta Zavala APRN, PCAT INSTRUCTOR Neurogenic bladder due to complications from lumbar spinal surgery (Primary Dx); Self-catheterizes urinary bladder 05/24/2025 Telephone [facility] - [place] [address] [place] [phone] AnyVictorina fall, RADHASW 05/24/2025 Travel 05/23/2025 Refill [facility] [address] [place] [address] 76287 Geronimo Herron MD Medication Refill 05/23/2025 Telephone [facility] [address] [address] Geronimo Herron MD 05/22/2025 Telephone [facility] Professional [place] [facility] [address] [address] Eli Child APRN, LAKIA Appointment 05/20/2025 Refill [facility] for Diagnostic Medicine - [place] [address] [place] [address] Prince Velez APRN, PCAT INSTRUCTOR Medication Refill (BENZONATATE 100MG CAPSULES) 05/18/2025 1:41 PM CDT - 05/18/2025 11:59 PM CDT Hospital Encounter [facility] [address] [address] Discharge Disposition: Home or Self Care 05/18/2025 1:41 PM CDT - 05/18/2025 11:59 PM CDT Hospital Encounter [facility] [address] [address] Discharge Disposition: Home or Self Care 05/18/2025 Results Follow-Up [facility] Desk 3B - [place] [address] [place] [address] 332[address] Grant Carmona APRN, PCAT INSTRUCTOR Tissue Transglutaminase Antibodies, IgA 05/17/2025 2:30 PM CDT Treatment [facility] [address] [place], [place] [phone] Rissa Peter, HEAD [employer] Impaired gait and mobility (Primary Dx); Left foot drop; Recurrent falls 05/17/2025 Travel 05/15/2025 11:10 AM CDT Lab [facility] - [place] [address] [place], [place] [phone] Kia Thayer MD IBS (irritable bowel syndrome) 05/15/2025 10:40 AM CDT Office Visit [facility] [address] [place], [place] [phone] Grant Carmona APRN, PCAT INSTRUCTOR IBS (irritable bowel syndrome) (Primary Dx); Colon cancer screening 05/15/2025 Refill [facility] - [place] [address] [place], [place] [phone] Geronimo Herron MD Medication Refill 05/15/2025 Orders Only [facility] for Diagnostic Medicine - [place] [address] [place], [place] [phone] Chris Tam MD Insomnia 05/15/2025 Documentation [facility] - [place] [address] [place] [phone] Rissa Peter PTA 05/15/2025 Telephone [facility] [address] [place] [address] [address] [place] [phone] Chris Tam MD 05/15/2025 Travel 05/10/2025 2:30 PM CDT Treatment [facility] - [place] [address] [place] [address] Rissa Peter PTA Impaired gait and mobility (Primary Dx); Left foot drop; Recurrent falls 05/10/2025 Travel 05/09/2025 1:24 PM CDT - 05/09/2025 11:59 PM CDT Hospital Encounter [facility] Ground Floor Desk - [place] [address] [place], [place] [phone] Geronimo Herron MD Discharge Disposition: Home or Self Care 05/09/2025 Travel 05/08/2025 Results Follow-Up [address] [place], [place] [phone] Lj Hilliard MD Vitamin B12 Level, Folate, Thyroid Stimulating Hormone, T4 (Thyroxine), Free 05/07/2025 12:15 PM CDT Lab [address] [place], [place] [phone] Kia Thayer MD Cognitive complaints 05/07/2025 11:00 AM CDT Office Visit [address] [place] [phone] Lj Hilliard MD Cognitive complaints (Primary Dx); TIA (transient ischemic attack); Cerebral aneurysm (HHS-HCC); Migraine with aura and without status migrainosus, not intractable 05/07/2025 Travel 05/04/2025 Orders Only [facility] Diagnostic [facility] [address] [place] [phone] Chris Tam MD Anxiety and depression (Primary Dx) 05/04/2025 Refill [facility] - [place] [address] [place] [address] 73757 Chris Tam MD Medication Refill (zoloft) 05/02/2025 3:20 PM CDT Office Visit [facility] Diagnostic Medicine [facility] [address] [place], [place] [phone] Prince Velez, PREMIUM CANCELLATION CLERK, PCAT INSTRUCTOR History of colonoscopy (Primary Dx); Alternating constipation and diarrhea; Change in bowel habit; Chronic cough; Abnormal chest x-ray; History of smoking; Essential hypertension 05/02/2025 Travel 05/02/2025 Transitional Care Management [facility] Diagnostic Medicine - [place] [address] [address] Chris Tam MD 04/25/2025 10:55 PM CDT - 05/01/2025 10:16 AM CDT Hospital Encounter [facility] - [place] [address] Room SCG.107 [place] [address] Cale Knight MD Reasoner, Brian Michael, MD Wood, Teofilo Nelson MD Wernicke's encephalopathy Discharge Disposition: Home or Self Care 04/25/2025 Travel 04/17/2025 11:30 AM CDT Evaluation [facility] - [place] [address] [place], [place] [phone] Velia Dozier, PT Impaired gait and mobility (Primary Dx); Left foot drop; Recurrent falls 04/17/2025 Travel 04/17/2025 Telephone [facility] Des[facility] [address] [place] [phone] Geronimo Herron MD 04/17/2025 Refill [facility] Des[facility] [address] [place] [phone] Geronimo Herron MD Medication Refill from Last 3 Months Family History Medical History Relation Name Comments Diabetes Daughter Henny Bipolar disorder Granddaughter Marisol Hypertension Mother Stroke Mother Colon cancer Neg Hx Esophageal cancer Neg Hx Heart attack Neg Hx Stomach cancer Neg Hx Relation Name Status Comments Daughter Henny Alive Father Granddaughter Marisol Alive Mother Social History Tobacco Use Types Packs/Day Years Used Date Smoking Tobacco: Former Cigarettes 0 05/31/1962 - 09/08/2010 Smokeless Tobacco: Never Tobacco Cessation:Counseling Given: No Alcohol Use Standard Drinks/Week Comments Not Currently 17.5 (1 standard dri nk = 0.6 oz pure alcohol) drinks about 3 12oz beers daily [facility] Utilities Answer Date Recorded In the past 12 months has th e electric, gas, oil, or water company threatened to shut off services in your home? No 05/23/2025 AUDIT-C Answer Date Recorded Q1: How often do you have a drink containing alc ohol? Never 05/23/2025 Q2: How many drinks containi ng alcohol do you have on a typical day when you are drinking? 1 or 2 05/23/2025 Q3: How often do you have six or more drinks on one occasion? Never 05/23/2025 Overall Financial Resource Strain (CARDIA) Answe r Date Recorded How hard is it for you to pa y for the very basics like food, housing, medical care, and heating? Not hard at all 05/23/2025 Depression Answer Date Recorded PHQ-2 Score 2 05/24/2025 Last PHQ-9 Score Not on file 05/24/2025 Interpersonal Safety Answer Date Record ed Feels UN-safe at Home or Work/School no 07/11/2025 Verbal Abuse Denies 07/11/2025 Physical Signs of Abuse Present no 07/11/2025 Food Insecurity Answer Date Recorded Within the past 12 months, y ou worried that your food would run out before you got the money to buy more. Never true 05/23/20 25 Within the past 12 months, t he food you bought just didn't last and you didn't have money to get more. Never true 05/23/2025 Transportation Answer Date Recorded In the past 12 months, has l ack of transportation kept you from medical appointments or from getting medications? No 11/2024 In the past 12 months, has l ack of transportation kept you from meetings, work, or from getting things needed for daily living? No 05/23/2025 Housing Stability Answer Date Recorded At any time in the past 12 m [facility], were you homeless or living in a usp (including now)? No 05/23/2025 In the last 12 months, was t here a time when you were not able to pay the mortgage or rent on time? No 05/23/2025 In the past 12 months, how m any times have you moved where you were living? 0 05/23/2025 Comments No Sex and Gender Information Value Date Recorded Sex Assigned at Not on file Legal Sex Female 4:15 PM CDT Gender Identity Not on file Sexual Orientation Not on file Last Filed Vital Signs Vital Sign Reading Time Taken Comments Blood Pressure 112/66 07/11/2025 2:53 PM CDT Pulse 82 07/11/2025 2:53 PM CDT Temperature 35.6 C (96 F) 07/11/2025 2:53 PM CDT Respiratory Rate 18 07/11/2025 2:53 PM CDT Oxygen Saturation 96% 07/11/2025 2:53 PM CDT Inhaled Oxygen Concentration - - Weight 64 kg (141 lb 3.2 oz) 07/11/2025 2:53 PM CDT Height 157.5 cm (5' 2.01) 07/11/2025 2:53 PM CD T Body Mass Index 25.82 07/11/2025 2:53 PM CDT Plan of Treatment Upcoming Encounters Date Type Department Care Team (Late st Contact Info) Description 08/07/2025 8:00 AM PAINTING CONTRACTOR Evaluation [facility] Clinic Desk 6W - [place] [address] [address] Matti Wolf PsyD [address] [place] [phone] 08/08/2025 11:20 AM PAINTING CONTRACTOR Office Visit [facility] - [place] [address] [place] [address] Sleep [facility] - [facility] [address] [place] [address] Orquidea Arizmendi APRN, PCAT INSTRUCTOR [address] [place] [address] 08/27/2025 3:00 PM PAINTING CONTRACTOR Office Visit [facility] Medicine - [place] [address] [place] [phone] Jorge Gutierrez MD [address] [place] [address] 09/26/2025 3:40 PM PAINTING CONTRACTOR Office Visit [facility] Diagnostic [facility] [address] [address] Chris Tam MD [address] [place] [address] 10/08/2025 1:00 PM PAINTING CONTRACTOR Office Visit [facility] Desk 5A [facility] [address] [address] Hope Reza PA-C [address] [address] 12/19/2025 1:00 PM CDT Appointment [facility] Desk 2D [facility] [address] [place] [phone] Tray Cornell MD [address] [address] 01/04/2026 8:30 AM CDT Lab [facility] [address] [address] 01/08/2026 10:20 AM CDT Office Visit [facility] Desk VC [facility] [address] [place] [address] Geroinmo Herron MD [address] [phone] 03/19/2026 4:20 PM CDT Office Visit [facility] Desk 3B [facility] [address] [place] [address] Grant Carmona, PREMIUM CANCELLATION CLERK, PCAT INSTRUCTOR [address] [place] [address] 05/10/2026 2:00 PM CDT Appointment [facility] [place] [address] Health Maintenance Due Date Last Done Comments Advance Care Planning 1945 Colorectal Cancer Screening: CT Colonography 1946 Colorectal Cancer Screening: FIT-DNA 1945 Colorectal Cancer Screening: Fecal Occult Blood 1945 Colorectal Cancer Screening: Sigmoidoscopy 1945 Hepatitis C Screening Adults 1945 COVID-19 Vaccine (#1) 12/13/1950 Kidney Health Evaluation 1956 Medicare Wellness Visit 1964 Zoster Vaccine (1 of 2) 1965 RSV (Adults 60+) (1 - 1-dose 75+ series) 2021 Tetanus Booster Vaccines 05/10/2025 05/10/2015, 02/2005 Seasonal Influenza Vaccine (#1) 2025 09/28/2024, 07/20/2022, 08/07/2019, Additional history exists Mood Screen 05/24/2026 05/24/2025, 12/2024, 05/23/2025, Additional history exists Pneumococcal Vaccine (50+) Completed 04/26, 06/21/2017, 05/10/2015 Osteoporosis Screening Discontinued 04/03/2025 Colorectal Cancer Screening: Colonoscopy Discontinued 07/09/2025, 01/27/2023 Colorectal Cancer Screening Discontinued HPV Vaccines Aged Out No longer eligi ble based on patient's age to complete this topic Hepatitis A Vaccines Aged Out No long er eligible based on patient's age to complete this topic Hepatitis B Vaccines Aged Out No long er eligible based on patient's age to complete this topic Hib Vaccines Aged Out No longer eligi ble based on patient's age to complete this topic Meningococcal (ACWY) Vaccines Aged Out No longer eligible based on patient's age to complete this topic Meningococcal B Vaccine Aged Out No l onger eligible based on patient's age to complete this topic Pediatric RSV Vaccines Aged Out No lo nger eligible based on patient's age to complete this topic Polio Vaccines Aged Out No longer bowen gible based on patient's age to complete this topic Goals Goal Patient Goal Type Associated Problems Recent Progress Patient-Stated? Author PHQ-9 score below 10 Disease Management No Chris Ramsey MD Note: Managing Your Depression What are the symptoms of depression? There are physical and emotional symptoms such as: Crying easily Changes in appetite Feeling worthless or hopeless Feeling tired all the time Feeling numb Headaches, backaches, or digestive problems Feeling easily annoyed Having difficulty sleeping (too much or too little) Loss of enjoyment in activities Having troubles paying attention Thoughts of or suicide Unintended weight loss or gain How is depression treated? Depression is a highly treatable disease. A combination of medicine and counseling is usually the most effective way of treating more severe depression. Doing both makes it less likely to have your depression come back. What can I do to help my depression? Wednesday Week 1 Week 2 Week 3 Week 4 Self-care plan: Each day you complete one of the activities below, then place the number of the activity on the day that you completed activity in the chart above. 1. I found something to look forward to today. 2. I spent time with a loved one or friend who supports me 3. I was in touch with my rastafarian community/attended orthodox service. 4. I followed a daily routine (got up on time, bathed, went to work/school, took care of responsibilities) 5. I made time today to do a physical activity. I spent time outside. I did something that I thought was fun. 6. I ate a balanced meal and healthy foods. 7. I slept to rest, not to hide out. 8. I relaxed. 9. I avoided negative talk. 10. I avoided drugs and alcohol because they make my depression worse. Resources for Depression 1. Depression and Bipolar [place] www.dbsalliance.org 2. National [place] of Mental Health www.nimh.nih.gov 3. National [place] on Mental Illness www.callie.org 4. [facility] www.webmd.com/depression Call your doctor or go to the emergency room if you start thinking about suicide. Medical Devices Implanted Type Area Medical Technical Writer Device Identifier Shelf Expiration Date Model / Serial / Lot Monitor Cardiac 7.2mm X 44.8mm D4mm 1.2cc Titanium Nitride Electrode Polymer Header Parylene Insertable Mr Conditional For Subcutaneous Ekg Lux-Dx Ii+ - [id number] Implanted:Qty: 1 on 02/15/2025 by Yakelin Lou APRN, AGACNP at [facility] Implant Left: Chest 8tracks Radio [id number] / / Procedures Procedure Name Priority Date/Time Associated Diagnosis Comments SCREENING COLONOSCOPY Routine 07/09/2025 4:19 PM CDT Colon cancer screening O&P(ROUTINE) Routine 07/05/2025 12:34 PM CDT IBS (irritable bowel syndrome) PCR LIMITED STOOL PATHOGEN PANEL, PCR Routine 07/05/2025 12:34 PM CDT IBS (irritable bowel syndrome) ILR DEVICE CHECK-REMOTE 06/21/2025 10:43 AM CDT XR ABDOMEN 1 VIEW KUB Routine 06/13/2025 12:08 PM CDT IBS (irritable bowel syndrome) MG DIGITAL DIAGNOSTIC LEFT W WO CAD Routine 05/25/2025 3:23 PM CDT Abnormal mammogram Breast mass SURGICAL PATHOLOGY EXAM Routine 05/25/2025 3:09 PM CDT Abnormal mammogram Breast mass US GUIDED BREAST CORE NEEDLE BIOPSY LEFT Routine 05/25/2025 3:08 PM CDT Abnormal mammogram Breast mass ILR DEVICE CHECK-REMOTE 05/20/2025 11:24 AM CDT US BREAST LIMITED LEFT Routine 3:45 PM CDT Abnormal mammogram Breast asymmetry MG DIGITAL DIAGNOSTIC LEFT W WO CAD Routine 05/18/2025 3:02 PM CDT Abnormal mammogram Breast asymmetry IGA Routine 05/15/2025 11:37 AM CDT IBS (irritable bowel syndrome) TISSUE TRANSGLUTAMINASE, IGA Routine 05/15/2025 11:37 AM CDT IBS (irritable bowel syndrome) MG 3D KAMRON SCREEN BILATERAL W WO CAD Routine 05/09/2025 1:56 PM CDT Encounter for screening mammogram for breast cancer T4 (THYROXINE), FREE Routine 05/07/2025 12:22 PM CDT Cognitive complaints THYROID STIMULATING HORMONE Routine 05/07/2025 12:22 PM CDT Cognitive complaints FOLATE Routine 05/07/2025 12:22 PM CDT Cognitive complaints THYROID STIMULATING HORMONE Routine 05/07/2025 12:22 PM CDT Cognitive complaints VITAMIN B12 LEVEL Routine 05/07/2025 12: 22 PM CDT Cognitive complaints TELEMETRY INTEGRATION RHYTHM STRIP 04/27/2025 2:14 PM CDT TELEMETRY INTEGRATION RHYTHM STRIP 04/27/2025 7:58 AM CDT TELEMETRY INTEGRATION RHYTHM STRIP 04/27/2025 2:12 AM CDT TELEMETRY INTEGRATION RHYTHM STRIP 04/26/2025 10:20 PM CDT TELEMETRY INTEGRATION RHYTHM STRIP 04/26/2025 2:08 PM CDT MRA NECK W CONTRAST Routine 04/26/2025 1 1:29 AM CDT MRI BRAIN WO CONTRAST Routine 04/26/2025 11:11 AM CDT MRA HEAD WO CONTRAST Routine 04/26/2025 11:11 AM CDT TELEMETRY INTEGRATION RHYTHM STRIP 04/26/2025 8:29 AM CDT VITAMIN B1 (THIAMINE), WHOLE BLOOD Routine 04/26/2025 6:39 AM CDT CBC WITH DIFFERENTIAL Routine 04/26/2025 6:38 AM CDT COMPLETE BLOOD COUNT (CBC) WITH DIFFERENTIAL Routine 04/26/2025 6:38 AM CDT PHOSPHORUS Routine 04/26/2025 6:38 AM CDT MAGNESIUM Routine 04/26/2025 6:38 AM CDT BASIC METABOLIC PANEL Routine 04/26/2025 6:38 AM CDT HEMOGLOBIN A1C Routine 04/26/2025 6:38 AM CDT LIPID PANEL Routine 04/26/2025 6:38 AM CDT ECG 12-LEAD Routine 04/26/2025 6:25 AM CDT RT TO INSTRUCT IS Routine 04/26/2025 5:1 0 AM CDT DRUG SCREEN (BASIC MEDICAL), URINE Add-On 04/26/2025 12:34 AM CDT URINALYSIS WITH MICROSCOPY WITH REFLEX TO CULTURE STAT 04/26/2025 12:34 AM CDT URINALYSIS WITH MICROSCOPIC EXAMINATION AND REFLEX TO CULTURE STAT 04/26/2025 12:34 AM CDT CULTURE, URINE STAT 04/26/2025 12:34 AM CDT RESPIRATORY VIRUS MINI-PANEL, [place] (SARS COV-2, INFLUENZA A AND B) STAT 04/26/2025 12:[address] HEAD WO CONTRAST STAT 04/25/2025 2 :48 PM CDT XR CHEST 2 VIEWS STAT 04/25/2025 2:24 PM CDT ECG 12-LEAD STAT 04/25/2025 1:55 PM CDT CBC WITH DIFFERENTIAL STAT 04/25/2025 1:51 PM CDT PROTHROMBIN TIME (PT) WITH INR STAT 04/25/2025 1:51 PM CDT TROPONIN T, HIGH-SENSITIVITY STAT 04/25/2025 1:51 PM CDT THYROID STIMULATING HORMONE STAT 04/25/2025 1:51 PM CDT MAGNESIUM STAT 04/25/2025 1:51 PM CDT COMPREHENSIVE METABOLIC PANEL STAT 04/25/2025 1:51 PM CDT COMPLETE BLOOD COUNT (CBC) WITH DIFFERENTIAL STAT 04/25/2025 1:51 PM CDT B-TYPE NATRIURETIC PEPTIDE (BNP) STAT 04/25/2025 1:51 PM CDT ILR DEVICE CHECK-REMOTE 04/19/2025 1:17 PM CDT XR DEXA AXIAL SKELETON Routine 11:47 AM CDT Osteoporosis from Last 3 Months or Most Recently Relevant to Health Maintenance Results * Screening Colonoscopy Lumens (07/09/2025 4:19 PM CDT) Anatomical Region Laterality Modality Endoscopy Narrative 07/09/2025 4:21 PM CDT Table formatting from the original result was not included. Impression Normal. Recommendation Diet Continue medications Call clinic with any questions Patient has a contact number available for emergencies No further screening colonoscopies necessary Indication Colon cancer screening Post-Procedure Diagnosis None Staff Staff Role Corbin Locke RN Procedure Nurse Edgar Meredith Jr., DO GI Provider Marysol Alexis RN Procedure Nurse Jennifer Louis Investment Analyst Medications fentaNYL (SUBLIMAZE) 50 mcg/mL injection 75 mcg midazolam (VERSED) injection 4 mg (Totals for administrations occurring from 1551 to 1615 on 07/09/25) Preprocedure A history and physical has been performed, and patient medication allergies have been reviewed. The patient's tolerance of previous anesthesia has been reviewed. The risks and benefits of the procedure and the sedation options and risks were discussed with the patient. All questions were answered and informed consent obtained. Details of the Procedure The patient underwent moderate sedation, which was administered by the procedural nurse. The patient's blood pressure, heart rate, level of consciousness, oxygen saturation, respirations and ECG were monitored throughout the procedure. A digital rectal exam was performed. A perianal exam was performed. The scope was introduced through the anus and advanced to the terminal ileum. Insufflated with carbon dioxide. Retroflexion was performed in the rectum. Computer-assisted detection was not used during the procedure. The quality of bowel preparation was evaluated using the [place] Bowel Preparation Scale with scores of: right colon = 3, transverse colon = 3, left colon = 3. The total BBPS score was 9. Bowel prep was adequate. The patient experienced no blood loss. The procedure was not difficult. The patient tolerated the procedure well. There were no apparent adverse events. Events Procedure Events Event Event Time ENDO SCOPE IN TIME 07/09/2025 3:57 PM ENDO CECUM REACHED 07/09/2025 4:10 PM ENDO SCOPE OUT TIME 07/09/2025 4:14 PM Cecal Withdrawal Time: 4m 16s Findings All observed locations appeared normal. Specimens No specimens collected Patient Friendly Report Summary {\[id number]\[id number]\ansi\spltpgpar\jexpand\noxlattoyen\deff0{\fonttbl{\f0 F[place]ch;}}{\colortbl ;}\[id number]\[id number]\[id number]\[id number]\bjuwa4859\ldeuvjn429\fo otery 720\pard\plain\fs22 Normal: The exam was completed and no problems were found. Nothing unusual or abnormal was seen, and no samples were taken or treatments done.\par} Grant Carmona APRN, PCAT INSTRUCTOR ENDOSCOPY PRO CEDURE ORDERABLES Final Result * PCR Limited Stool Pathogen Panel, PCR (07/05/2025 12:34 PM CDT) Adenovirus Not Detected Not Detected 5 2:47 PM CDT [facility] Campylobacter species Not Detected Not Detected 5 2:47 PM CDT [facility] Cryptosporidium species Not Detected Not Detected 5 2:47 PM CDT [facility] Shigella / Enteroinvasive E. coli Not Detected Not Detected 5 2:47 PM CDT [facility] Enteroaggregative E. coli Not Detected Not Detected 5 2:47 PM CDT [facility] Enterotoxigenic E. coli Not Detected Not Detected 5 2:47 PM CDT [facility] Shiga toxin-producing E. coli Not Detected Not Detected 5 2:47 PM CDT [facility] Giardia lamblia Not Detected Not Detected 5 2:47 PM CDT [facility] Norovirus Not Detected Not Detected 5 2:47 PM CDT [facility] Rotavirus Not Detected Not Detected 5 2:47 PM CDT [facility] Salmonella species Not Detected Not Detected 5 2:47 PM CDT [facility] Yersinia enterocolitica Not Detected Not Detected 5 2:47 PM CDT [facility] C. difficile Toxin Gene(s), [place] Not Detected Not Detected 5 2:47 PM CDT [facility] Comment:Specimen tested usin g the Maxcyte platform, which detects the C. difficile toxin A and B genes. Methodology, Molecular This test is performed using the Closetbox MDx 3000, an automated system that integrates PCR amplification, target capture, signal generation, and optical detection for multiple gastrointestinal pathogens in a single well. Appropriate positive and negative controls were run alongside the patient's sample. 5 2:47 PM CDT [facility] Disclaimer This test was validated and its performance determined by the [facility]. This test is approved by the U.S. Food and Drug Administration. This test is used for clinical purposes. It should not be regarded as investigational or for research. This laboratory is certified under the Clinical Laboratory Improvement Amendments of 1988 (CLIA) as qualified to perform high complexity clinical testing. 5 2:47 PM CDT [facility] Stool Non-Blood Collection / Unknown 07/05/2025 12:34 PM CDT 07/05/2025 5:27 PM CDT Grant Carmona APRN, PCAT INSTRUCTOR MICROBIOLOGY - GENERAL ORDERABLES Final Result Performing Organization Address [facility] Co de Phone Number [facility] [address] [phone] * O&P(Routine) (07/05/2025 12:34 PM CDT) Ova and Parasite Identification No Parasites seen. No Parasites Seen 07/06/2025 6:06 AM CDT [facility] Stool Non-Blood Collection / Unknown 07/05/2025 12:34 PM CDT 07/05/2025 5:28 PM CDT CARLOS Waddell APRN MICROBIOLOGY - GENERAL ORDERABLES Final Result Performing Organization Address [facility] de Phone Number [address] [phone] * ILR Device Check- Remote (06/21/2025 10:43 AM CDT) Anatomical Region Laterality Modality Other Adrien Card MD CV IMPLANTABLE DEVICE ORDS F inal Result * X-ray abdomen AP (1 view) (06/13/2025 12:08 PM CDT) Anatomical Region Laterality Modality Abdomen Computed Radiogr aphy 06/13/2025 4:06 PM CDT Impressions 06/13/2025 4:07 PM CDT No acute finding in the abdomen or pelvis noted. Large colonic stool burden. ELECTRONICALLY SIGNED By: Talon Cole MD Date/Time 06/13/2025 4:07 PM Narrative 06/13/2025 4:07 PM CDT REASON GIVEN FOR EXAM: . IBS (irritable bowel syndrome) EXAM: XR ABDOMEN 1 VIEW KUB. COMPARISON: None available. FINDINGS: Abundant formed stool within the colon. Vascular appearing calcifications. Calcified granuloma overlies the left lung base. No bowel obstruction, suspicious calcification, organ enlargement or acute osseous abnormality noted. Similar thoracolumbar curvature and spondylosis. Procedure Note Talon Cole MD - 06/13/2025 REASON GIVEN FOR EXAM: . IBS (irritable bowel syndrome) EXAM: XR ABDOMEN 1 VIEW KUB. COMPARISON: None available. FINDINGS: Abundant formed stool within the colon. Vascular appearingcalcifications. Calcified granuloma overlies the left lung base. No bowelobstruction, suspicious calcification, organ enlargement or acute osseousabnormality noted. Similar thoracolumbar curvature and spondylosis. IMPRESSION: No acute finding in the abdomen or pelvis noted. Large colonic stool burden. ELECTRONICALLY SIGNED By: Talon Cole MD Date/Time 06/13/2025 4:07PM JACK Garduno APRN IMG DIAGNOSTIC APPLE GING ORDERABLES Final Result * (ABNORMAL) MG Digital Diagnostic Left w wo CAD (05/25/2025 3:23 PM CDT) Only the most recent of2 resultswithin the time period is included. Anatomical Region Laterality Modality Breast Mammography 05/25/2025 2:31 PM CDT Narrative 05/25/2025 6:42 PM CDT #[id number] - MG DIGITAL DIAGNOSTIC LEFT W WO CAD UNILATERAL LEFT DIGITAL DIAGNOSTIC MAMMOGRAM WITH CAD: 05/25/2025 CLINICAL HISTORY: Abnormal Mammogram. COMPARISON: Comparison is made to exams dated: 05/25/2025 ultrasound biopsy, 05/18/2025 ultrasound, 05/18/2025 mammogram, 05/09/2025 mammogram - [facility], 05/05/2024 mammogram, and 05/18/2023 mammogram. TECHNIQUE: Mammographic views were obtained using digital acquisition. Current study was also evaluated with a Computer Aided Detection (CAD) system. Current study contains 2 films. BREAST COMPOSITION CATEGORY: The breasts are heterogeneously dense, which may obscure small masses. FINDINGS: There is a marker clip in the appropriate position in the left breast at 11 o'clock posterior depth. This marker clip placement is at the biopsy site. The clip damon the biopsy target (mass). There is no other significant change since the prior mammogram. PATHOLOGY IS PENDING; other findings in this report do not reflect the pathology of the biopsied lesion, as those results are not yet available. IMPRESSION: POST PROCEDURE MAMMOGRAM FOR MARKER PLACEMENT There was a successful marker clip placement in the left breast posterior depth. The clips correctly monique the target. PATHOLOGY IS PENDING; other findings in this report do not reflect the pathology of the biopsied lesion, as those results are not yet available. The exam was reviewed by a staff physician. Because of the breast density and/or pattern, lesions can be obscured and, therefore, physical exam correlation is especially important in this patient. Increased breast density may also increase breast cancer risk. For this patient, assessing overall breast cancer risk, which includes many other risk factors, might be helpful in determining whether or not additional screening would be appropriate. The most sensitive screening method in patients proven to be high risk is mammography with contrast-enhanced breast MRI. Mammogram BI-RADS: Post-procedure mammogram for marker placement Talon flor,mf/penrad:05/25/2025 18:42:14 Manager Machine: RT Esteban(Javier)(Velma), [facility] Letter Sent: Post Proc Mammo Procedure Note Talon Gayle, DO - 05/28/2025 #[id number] - MG DIGITAL DIAGNOSTIC LEFT W WO CAD UNILATERAL LEFT DIGITAL DIAGNOSTIC MAMMOGRAM WITH CAD: 05/25/2025 CLINICAL HISTORY: Abnormal Mammogram. COMPARISON: Comparison is made to exams dated: 05/25/2025 ultrasoundbiopsy, 05/18/2025 ultrasound, 05/18/2025 mammogram, 05/09/2025 mammogram -[facility], 05/05/2024 mammogram, and05/18/2023 mammogram. TECHNIQUE: Mammographic views were obtained using digital acquisition.Current study was also evaluated with a Computer Aided Detection (CAD)system. Current study contains 2 films. BREAST COMPOSITION CATEGORY: The breasts are heterogeneously dense, whichmay obscure small masses. FINDINGS: There is a marker clip in the appropriate position in the left breast at11 o'clock posterior depth. This marker clip placement is at the biopsysite. The clip damon the biopsy target (mass). There is no othersignificant change since the prior mammogram. PATHOLOGY IS PENDING; other findings in this report do not reflect thepathology of the biopsied lesion, as those results are not yet available. IMPRESSION: POST PROCEDURE MAMMOGRAM FOR MARKER PLACEMENT There was a successful marker clip placement in the left breast posteriordepth. The clips correctly monique the target. PATHOLOGY IS PENDING; other findings in this report do not reflect thepathology of the biopsied lesion, as those results are not yet available. The exam was reviewed by a staff physician. Because of the breast density and/or pattern, lesions can be obscured and,therefore, physical exam correlation is especially important in thispatient. Increased breast density may also increase breast cancer risk.For this patient, assessing overall breast cancer risk, which includes many other risk factors, might behelpful in determining whether or not additional screening would beappropriate. The most sensitive screening method in patients proven to behigh risk is mammography with contrast-enhanced breast MRI. Mammogram BI-RADS: Post-procedure mammogram for marker placement Talon flor,/penrad:05/25/2025 18:42:14 Manager Machine: RT Esteban(Javier)(M), [facility] Letter Sent: Post Proc Mammo Geronimo Herron MD IM MAMMOGRAPHY ORDERABLES Final Result * Surgical Pathology Exam (05/25/2025 3:09 PM CDT) Case Report Surgical Pathology Report Case: [id number] Authorizing Provider: Geronimo Herron MD Collected: 05/25/2025 1509 Ordering Location: [facility] Received: 05/25/2025 [address] Floor [facility] Pathologist: Genesis Bernstein MD Specimen: Breast, US GUIDED LEFT BREAST 11:00 MASS 05/29/2025 5:40 PM CDT [facility] Clinical Information US GUIDED LEFT BREAST 11:00 MASS 05/29/2025 5:40 PM CDT [facility] Final Diagnosis Left breast, 11 o'clock, US guided biopsy: Small amount of benign breast tissue composed of predominantly dense fibrotic stroma. 05/29/2025 5:40 PM CDT [facility] at 1740 CDT Gross Description A. Specimen labeled left breast 11 o'clock mass are five friable ruby-pink to yellow cores ranging from 0.4 cm to 0.7 cm in length. Entirely submitted in A1-A2. Specimen collected at 15:09 and placed in formalin within 5 minutes. Specimen fixed in 10% formalin for at least 6 hours and to a maximum of 72 hours. 05/29/2025 5:40 PM CDT [facility] Microscopic Description Multiple levels were examined. 05/29/2025 5:40 PM CDT [facility] Quality Information Unless gross only is specified, the final diagnosis for each specimen is based on a microscopic examination. Unless otherwise noted, the quality of any routine and special stains performed is satisfactory, and applicable internal or external positive and negative controls react appropriately. If any immunohistochemist ry (in vitro diagnostic or analyte-specific reagent), immunofluorescence , or in situ hybridization tests are included in this report, these tests were developed and their performance characteristics determined by the performing laboratory. They have not been cleared or approved by the U.S. Food and Drug Administration (FDA). The FDA has determined that such clearance or approval is not necessary. These tests are used for clinical purposes. They should not be regarded as investigational or for research. The performing laboratory is certified under the Clinical Laboratory Improvement Amendments of 1988 (CLIA) as qualified to perform high complexity clinical laboratory testing. Professional services performed at address [address] [place] [address]; CLIA [id number]. 05/29/2025 5:40 PM CDT [facility] Tissue SPECIMEN FROM BREAST / Unknown Non-Blood Collection / Unknown 05/25/2025 3:09 PM CDT 05/25/2025 9:54 PM CDT Comment:US GUIDED LEFT BREAS T 11:00 MASS us Geronimo Herron MD PATHOLOGY/CYTOLOGY ORDERABLES Fi nal Result [facility] [address] [place], [place] [id number] [place] [address] * (ABNORMAL) US Guided Breast Core Needle Biopsy Left (05/25/2025 3:08 PM CDT) Anatomical Region Laterality Modality Breast Mammography 05/25/2025 2:31 PM CDT Narrative 05/30/2025 7:42 AM CDT FINAL REPORT #[id number] - US GUIDED BREAST CORE NEEDLE BIOPSY LEFT ULTRASOUND GUIDED BIOPSY LEFT BREAST WITH MARKING DEVICE INSERTED AND POST DIGITAL MAMMOGRAPHIC AND ULTRASOUND IMAGIN05/25/2025 CLINICAL HISTORY: Abnormal Mammogram. PATIENT CONSENT: Procedure and potential risks and complications were explained to the patient and informed consent obtained. A T IMEOUT was performed before the procedure. Patient name and date of were verified, along with the correct side and correct procedure. Consent and pertinent H&P elements were reviewed and verified. Allergies were also verified. Correlation is made to exams dated: 05/18/2025 ultrasound, 05/18/2025 mammogram, 05/09/2025 mammogram, 05/25/2025 mammogram - [facility], and 05/05/2024 mammogram. An ultrasound guided biopsy using real-time ultrasound was performed for the 9 mm oval mass located in the left breast at 11 o'clock posterior depth. This was described on the previous mammography and ultrasound reports. The skin was prepped in the usual manner. 1% lidocaine was used for local anesthesia. A small incision was made in the breast. The abnormality was approached from the medial aspect. A 14 gauge biopsy needle was placed adjacent to the abnormality under ultrasound guidance. Once the needle was documented to be in the correct location, five specimens were obtained using Inrad 14G device. A anne-marie shaped titanium clip was inserted into the biopsy cavity. A skin closure strip and a sterile dressing were applied to the access site. Post procedure digital mammographic and ultrasound imaging demonstrates the location device at the targeted area. The specimens were sent to the laboratory for pathological analysis. Labeling was confirmed with the technologist, the patient and the MD. IMPRESSION: ULTRASOUND GUIDED BIOPSY BENIGN Ultrasound guided biopsy of the 9 mm mass in the left breast at 11 o'clock posterior depth was successful with no apparent post procedure complications. Pathology indicates benign breast tissue composed of predominantly dense fibrotic stroma. Pathology results are concordant with mammography and ultrasound findings. Return to annual mammogram screening schedule is recommended. The procedure was reviewed by a staff physician. SUMMARY: The patient will be due for annual mammographic screening in April 2026. Talon flor,/:05/30/2025 07:42:28 Manager Machine: RAND Orellana)(Velma), [facility] Letter Sent: B9 Biopsy Short Term Procedure Note Talon Gayle Juan, DO - 05/31/2025 FINAL REPORT #[id number] - US GUIDED BREAST CORE NEEDLE BIOPSY LEFT ULTRASOUND GUIDED BIOPSY LEFT BREAST WITH MARKING DEVICE INSERTED AND POSTDIGITAL MAMMOGRAPHIC AND ULTRASOUND IMAGIN05/25/2025 CLINICAL HISTORY: Abnormal Mammogram. PATIENT CONSENT: Procedure and potential risks and complications wereexplained to the patient and informed consent obtained. A T IMEOUT wasperformed before the procedure. Patient name and date of wereverified, along with the correct side and correct procedure. Consent and pertinent H&P elements were reviewed andverified. Allergies were also verified. Correlation is made to exams dated: 05/18/2025 ultrasound, 05/18/2025mammogram, 05/09/2025 mammogram, 05/25/2025 mammogram - [facility], and 05/05/2024 mammogram. An ultrasound guided biopsy using real-time ultrasound was performed forthe 9 mm oval mass located in the left breast at 11 o'clock posteriordepth. This was described on the previous mammography and ultrasoundreports. The skin was prepped in the usual manner. 1% lidocaine was used for local anesthesia. A smallincision was made in the breast. The abnormality was approached from themedial aspect. A 14 gauge biopsy needle was placed adjacent to theabnormality under ultrasound guidance. Once the needle was documented to be in the correct location, five specimenswere obtained using Inrad 14G device. A anne-marie shaped titanium clip wasinserted into the biopsy cavity. A skin closure strip and a steriledressing were applied to the access site. Post procedure digital mammographic and ultrasound imaging demonstratesthe location device at the targeted area. The specimens were sent to thelaboratory for pathological analysis. Labeling was confirmed with thetechnologist, the patient and the MD. IMPRESSION: ULTRASOUND GUIDED BIOPSY BENIGN Ultrasound guided biopsy of the 9 mm mass in the left breast at 11 o'clockposterior depth was successful with no apparent post procedurecomplications. Pathology indicates benign breast tissue composed ofpredominantly dense fibrotic stroma. Pathology results are concordant with mammography and ultrasound findings. Return to annual mammogram screening schedule is recommended. The procedure was reviewed by a staff physician. SUMMARY: The patient will be due for annual mammographic screening in April 2026. Talon flor,/:05/30/2025 07:42:28 Manager Machine: RT Esteban(R)(M), [facility] Letter Sent: B9 Biopsy Short Term Geronimo Herron MD G US ORDERABLES Final Result * ILR Device Check- Remote (05/20/2025 11:24 AM CDT) Anatomical Region Laterality Modality Other Adrien Card MD CV IMPLANTABLE DEVICE ORDS F inal Result * (ABNORMAL) US Breast Limited Left (05/18/2025 3:45 PM CDT) Anatomical Region Laterality Modality Breast Mammography 05/18/2025 3:33 PM CDT Narrative 05/18/2025 3:56 PM CDT #[id number] - US BREAST LIMITED LEFT ULTRASOUND OF LEFT BREAST: 05/18/2025 CLINICAL HISTORY: Abnormal Mammogram. COMPARISON: Comparison is made to exams dated: 05/18/2025 mammogram, 05/09/2025 mammogram - [facility], 05/05/2024 mammogram, and 05/18/2023 mammogram. TECHNIQUE: Real-time ultrasound of the left breast was performed. FINDINGS: There is a 9 mm oval mass in the left breast at 11 o'clock posterior depth. This oval mass is hypoechoic. This correlates with mammography findings. The entire quadrant around the area of interest was scanned. IMPRESSION: SUSPICIOUS ABNORMALITY The 9 mm oval mass in the left breast is suspicious for malignancy. Ultrasound guided biopsy is recommended and has been arranged with the patient. This has been discussed with the patient. Dr. Fredy Villalobos M.D. def/penrad:05/18/2025 15:56:55 Manager Machine: EVETTE AbramsR)(M), [facility] Ultrasound BI-RADS: 4 Suspicious Abnormality Procedure Note Fredy Villalobos MD - 05/18/2025 #[id number] - US BREAST LIMITED LEFT ULTRASOUND OF LEFT BREAST: 05/18/2025 CLINICAL HISTORY: Abnormal Mammogram. COMPARISON: Comparison is made to exams dated: 05/18/2025 mammogram,05/09/2025 mammogram - [facility],05/05/2024 mammogram, and 05/18/2023 mammogram. TECHNIQUE: Real-time ultrasound of the left breast was performed. FINDINGS: There is a 9 mm oval mass in the left breast at 11 o'clock posteriordepth. This oval mass is hypoechoic. This correlates with mammographyfindings. The entire quadrant around the area of interest was scanned. IMPRESSION: SUSPICIOUS ABNORMALITY The 9 mm oval mass in the left breast is suspicious for malignancy.Ultrasound guided biopsy is recommended and has been arranged with thepatient. This has been discussed with the patient. Dr. Fredy Villalobos M.D. def/penrad:05/18/2025 15:56:55 Manager Machine: RAND Abrams)(M), [facility] Ultrasound BI-RADS: 4 Suspicious Abnormality Geronimo Herron MD [facility] US ORDERABLES Final Result * Tissue Transglutaminase Antibodies, IgA (05/15/2025 11:37 AM CDT) Tissue Transglutaminase Antibody, IgA, Qualitative Negative Negative 05/16/2025 11:29 AM CDT [facility] Tissue Transglutaminase Antibody, IgA, Quantitative <0.5 <15.0 U/mL 05/16/2025 11:29 AM CDT [facility] Blood VENOUS BLOOD SPECIMEN / Unknown Venipuncture / Unknown 05/15/2025 11:37 AM CDT 05/15/2025 12:16 PM CDT Narrative [facility] - 05/16/2025 11:29 AM CDT Testing performed on [employer] 2200 utilizing multiplexed bead immunoassay. Grant Carmona APRN, PCAT INSTRUCTOR LAB BLOOD ORD ERABLES Final Result Performing Organization Address City/[facility]/ZIP Co de Phone Number [facility] [address] [place] [address], [facility] [phone] * IgA, Quantitative (05/15/2025 11:37 AM CDT) IgA, Quantitative 123 70 - 400 mg/dL 05/15/2025 4:32 PM CDT [facility] Blood VENOUS BLOOD SPECIMEN / Unknown Venipuncture / Unknown 05/15/2025 11:37 AM CDT 05/15/2025 12:16 PM CDT Grant Carmona APRN, PCAT INSTRUCTOR LAB BLOOD ORD ERABLES Final Result Performing Organization Address City/[facility] Co de Phone Number [facility] [address] [phone] * (ABNORMAL) MG 3D Kamron Screen Bilateral w wo CAD (05/09/2025 1:56 PM CDT) Anatomical Region Laterality Modality Breast Mammography 05/09/2025 1:39 PM CDT Narrative 05/09/2025 4:32 PM CDT #[id number] - MG 3D KAMRON SCREEN BILATERAL W WO CAD BILATERAL DIGITAL SCREENING MAMMOGRAM 3D/2D WITH CAD: 05/09/2025 CLINICAL HISTORY: Encounter For Screening Mammogram For Breast Cancer. COMPARISON: Comparison is made to exams dated: 05/05/2024 mammogram, 05/18/2023 mammogram, and 04/28/2023 mammogram. TECHNIQUE: Digital Breast Tomosynthesis was performed and utilized for Interpretation. Current study was also evaluated with a Computer Aided Detection (CAD) system. Current study contains 8 films. BREAST COMPOSITION CATEGORY: The breasts are heterogeneously dense, which may obscure small masses. FINDINGS: Loop recorder device overlies the medial left breast. This obscures tissue in this region. There are benign calcifications in the left breast. There also are benign vascular calcifications in the left breast. Additionally, there are benign post operative findings in the right breast. There is a possible 7 mm asymmetry in the left breast posterior depth medial region seen on the craniocaudal view only. Finding is best noted on tomographic CC slice 35. No other significant masses, calcifications, or other findings are seen in either breast. IMPRESSION: INCOMPLETE: NEEDS ADDITIONAL IMAGING EVALUATION The possible 7 mm asymmetry in the left breast is indeterminate. Spot magnification, rolled lateral, and rolled medial views of the left breast are recommended. Because of the breast density and/or pattern, lesions can be obscured and, therefore, physical exam correlation is especially important in this patient. Increased breast density may also increase breast cancer risk. For this patient, assessing overall breast cancer risk, which includes many other risk factors, might be helpful in determining whether or not additional screening would be appropriate. The most sensitive screening method in patients proven to be high risk is mammography with contrast-enhanced breast MRI. Mammogram BI-RADS: 0 Needs Additional Imaging Evaluation Talon flor/cinthia:05/09/2025 16:32:11 Manager Machine: RT Naynaa(R), [facility] Letter Sent: Additional Imaging Procedure Note Talon Gayle, DO - 05/10/2025 #[id number] - MG 3D KAMRON SCREEN BILATERAL W WO CAD BILATERAL DIGITAL SCREENING MAMMOGRAM 3D/2D WITH CAD: 05/09/2025 CLINICAL HISTORY: Encounter For Screening Mammogram For Breast Cancer. COMPARISON: Comparison is made to exams dated: 05/05/2024 mammogram,05/18/2023 mammogram, and 04/28/2023 mammogram. TECHNIQUE: Digital Breast Tomosynthesis was performed and utilized forInterpretation. Current study was also evaluated with a Computer AidedDetection (CAD) system. Current study contains 8 films. BREAST COMPOSITION CATEGORY: The breasts are heterogeneously dense, whichmay obscure small masses. FINDINGS: Loop recorder device overlies the medial left breast. This obscures tissuein this region. There are benign calcifications in the left breast. There also are benignvascular calcifications in the left breast. Additionally, there arebenign post operative findings in the right breast. There is a possible 7 mm asymmetry in the left breast posterior depthmedial region seen on the craniocaudal view only. Finding is best notedon tomographic CC slice 35. No other significant masses, calcifications, or other findings are seen ineither breast. IMPRESSION: INCOMPLETE: NEEDS ADDITIONAL IMAGING EVALUATION The possible 7 mm asymmetry in the left breast is indeterminate. Spotmagnification, rolled lateral, and rolled medial views of the left breastare recommended. Because of the breast density and/or pattern, lesions can be obscured and,therefore, physical exam correlation is especially important in thispatient. Increased breast density may also increase breast cancer risk.For this patient, assessing overall breast cancer risk, which includes many other risk factors, might behelpful in determining whether or not additional screening would beappropriate. The most sensitive screening method in patients proven to behigh risk is mammography with contrast-enhanced breast MRI. Mammogram BI-RADS: 0 Needs Additional Imaging Evaluation Talon flor/cinthia:05/09/2025 16:32:11 Manager Machine: RT Nayana(R), [facility] Letter Sent: Additional Imaging Geronimo Herron MD IMG MAMMOGRAPHY ORDERABLES Final Result * Thyroid Stimulating Hormone (05/07/2025 12:22 PM CDT) Only the most recent of2 resultswithin the time period is included. Thyroid Stimulating Hormone (TSH) 3.040 0.270 - 4.200 uIU/mL 05/07/2025 4:12 PM CDT [facility] Comment:Biotin, present in s ome multivitamins and dietary supplements, may interfere with this test, causing falsely high or low results. Blood VENOUS BLOOD SPECIMEN / Unknown Venipuncture / Unknown 05/07/2025 12:22 PM CDT 05/07/2025 1:11 PM CDT Lj Hilliard MD LAB BLOOD ORDERABLES Final Resul t [facility] [address] [phone] * T4 (Thyroxine), Free (05/07/2025 12:22 PM CDT) Pathologist [facility] T4 (Thyroxine), Free 1.15 0.92 - 1.68 ng/dL 05/07/2025 4:12 PM CDT [facility] Blood VENOUS BLOOD SPECIMEN / Unknown Venipuncture / Unknown 05/07/2025 12:22 PM CDT 05/07/2025 1:11 PM CDT Lj Hilliard MD LAB BLOOD ORDERABLES Final Resul t Performing Organization Address [facility] Co de Phone Number [facility] [address] [phone] * Folate (05/07/2025 12:22 PM CDT) [facility] Folate 16.4 4.8 - 37.3 ng/mL 05/07/2025 4:12 PM CDT [facility] Comment:Biotin, present in s ome multivitamins and dietary supplements, may interfere with this test, causing falsely high or low results. Blood VENOUS BLOOD SPECIMEN / Unknown Venipuncture / Unknown 05/07/2025 12:22 PM CDT 05/07/2025 1:11 PM CDT Lj Hilliard MD LAB BLOOD ORDERABLES Final Resul t [facility] [address] [phone] * Vitamin B12 Level (05/07/2025 12:22 PM CDT) [facility] Vitamin B12 703 232 - 1,245 pg/mL 05/07/2025 4:12 PM CDT [facility] Blood VENOUS BLOOD SPECIMEN / Unknown Venipuncture / Unknown 05/07/2025 12:22 PM CDT 05/07/2025 1:11 PM CDT us Lj Hilliard MD LAB BLOOD ORDERABLES Final Resul t [facility] [address] [address], [facility] [phone] * Telemetry Integration Rhythm Strip (04/27/2025 2:14 PM CDT) Only the most recent of6 resultswithin the time period is included. us Him Scanning Provider NURSING TREATMENT ORDERABL ES - UNTIL DISCONTINUED Final Result * MRA Neck w Contrast (04/26/2025 11:29 AM CDT) Anatomical Region Laterality Modality Neck, C-spine, Vascular Magnetic Resonance 04/26/2025 11:3 6 AM CDT Impressions 04/26/2025 11:56 AM CDT Negative for significant neck vascular abnormality. Dictated By: Siddharth Hendrix MD By electronically signing this report, I, the responsible physician, attest that I have personally reviewed the images/data for the above examination(s) and agree with the final edited report. ELECTRONICALLY SIGNED By: Jeff Byrd DO Date/Time 04/26/2025 11:56 AM Narrative 04/26/2025 11:56 AM CDT EXAM: MRA NECK W CONTRAST REASON FOR EXAM: dizziness, r/o stroke TECHNIQUE: Contrast enhanced MRA of the neck arterial vasculature was obtained with multiplanar 3D reconstructions also submitted. Stenoses are graded by the NASCET criteria where residual lumen diameter is compared to the downstream ICA diameter. Grading system is mild <50%, moderate 50-69%, and severe 70% and greater. CONTRAST: 20 mL of Dotarem IV COMPARISON: CTA stroke neck 02/11/2025. FINDINGS: DISSECTION: Negative. STENOSIS/OCCLUSION: Negative for hemodynamically significant stenosis. NORMAL ANATOMIC VASCULAR VARIANTS: A conjoined brachiocephalic and left common carotid artery origin is present. The right vertebral is diffusely hypoplastic throughout the vessels course. VISIBLE INTRACRANIAL VASCULATURE: See MRA head. Procedure Note Jeff Byrd DO - 04/26/2025 EXAM: MRA NECK W CONTRAST REASON FOR EXAM: dizziness, r/o stroke TECHNIQUE: Contrast enhanced MRA of the neck arterial vasculature wasobtained with multiplanar 3D reconstructions also submitted. Stenoses aregraded by the NASCET criteria where residual lumen diameter is compared tothe downstream ICA diameter. Grading system is mild <50%, moderate 50-69%,and severe 70% and greater. CONTRAST: 20 mL of Dotarem IV COMPARISON: CTA stroke neck 02/11/2025. FINDINGS: DISSECTION: Negative. STENOSIS/OCCLUSION: Negative for hemodynamically significant stenosis. NORMAL ANATOMIC VASCULAR VARIANTS: A conjoined brachiocephalic and leftcommon carotid artery origin is present. The right vertebral is diffuselyhypoplastic throughout the vessels course. VISIBLE INTRACRANIAL VASCULATURE: See MRA head. IMPRESSION: Negative for significant neck vascular abnormality. Dictated By: Siddharth Hendrix MD By electronically signing this report, I, the responsible physician,attest that I have personally reviewed the images/data for the aboveexamination(s) and agree with the final edited report. ELECTRONICALLY SIGNED By: Jeff Byrd DO Date/Time 04/26/2025 11:56AM us Ladi Castillo MD IMG MRI ORDERABLES Final Re sult * MRI brain without contrast (04/26/2025 11:11 AM CDT) Anatomical Region Laterality Modality Head Magnetic Resonan ce 04/26/2025 11:1 9 AM CDT Impressions 04/26/2025 11:36 AM CDT 1. No acute intracranial abnormality. 2. Stable moderate chronic small vessel ischemic changes. Dictated By: Siddharth Hendrix MD By electronically signing this report, I, the responsible physician, attest that I have personally reviewed the images/data for the above examination(s) and agree with the final edited report. ELECTRONICALLY SIGNED By: Jeff Byrd DO Date/Time 04/26/2025 11:36 AM Narrative 04/26/2025 11:36 AM CDT EXAM: MRI BRAIN WO CONTRAST REASON FOR EXAM: Dizziness, non-specific Evaluate for neurological abnormalities TECHNIQUE: Multiplanar, multisequence MRI examination performed of the brain without intravenous contrast material. COMPARISON: MRI brain 02/12/2025. FINDINGS: BRAIN PARENCHYMA: No acute infarct or hemorrhage. No mass effect or herniation. Moderate chronic small vessel changes. VENTRICLES/EXTRA-AXIAL SPACES: No hydrocephalus. Normal extra-axial spaces. FLOW VOIDS: Intact. EXTRACRANIAL STRUCTURES: Imaged structures are normal. OTHER SIGNIFICANT FINDINGS: Bilateral pseudophakia. Mild mucosal thickening of the right maxillary sinus. Procedure Note Jeff Byrd DO - 04/26/2025 EXAM: MRI BRAIN WO CONTRAST REASON FOR EXAM: Dizziness, non-specific Evaluate for neurological abnormalities TECHNIQUE: Multiplanar, multisequence MRI examination performed of thebrain without intravenous contrast material. COMPARISON: MRI brain 02/12/2025. FINDINGS: BRAIN PARENCHYMA: No acute infarct or hemorrhage. No mass effect orherniation. Moderate chronic small vessel changes. VENTRICLES/EXTRA-AXIAL SPACES: No hydrocephalus. Normal extra-axialspaces. FLOW VOIDS: Intact. EXTRACRANIAL STRUCTURES: Imaged structures are normal. OTHER SIGNIFICANT FINDINGS: Bilateral pseudophakia. Mild mucosalthickening of the right maxillary sinus. IMPRESSION: 1. No acute intracranial abnormality. 2. Stable moderate chronic small vessel ischemic changes. Dictated By: Siddharth Hendrix MD By electronically signing this report, I, the responsible physician,attest that I have personally reviewed the images/data for the aboveexamination(s) and agree with the final edited report. ELECTRONICALLY SIGNED By: Jeff Byrd DO Date/Time 04/26/2025 11:36AM Ladi Castillo MD [facility] MRI ORDERABLES Final Re sult * MRA Head wo Contrast (04/26/2025 11:11 AM CDT) Anatomical Region Laterality Modality Head, Vascular Magnetic Resonan ce 04/26/2025 11:2 7 AM CDT Impressions 04/26/2025 11:52 AM CDT 1. Stable 2 mm right cavernous ICA aneurysm. 2. Otherwise, no new significant vascular abnormality since 02/11/2025. Dictated By: Siddharth Hendrix MD By electronically signing this report, I, the responsible physician, attest that I have personally reviewed the images/data for the above examination(s) and agree with the final edited report. ELECTRONICALLY SIGNED By: Jeff Byrd DO Date/Time 04/26/2025 11:52 AM Narrative 04/26/2025 11:52 AM CDT EXAM: MRA HEAD WO CONTRAST REASON FOR EXAM: dizziness, r/o CVA TECHNIQUE: 3D Time of Flight MR angiogram obtained with multiple maximum intensity projections (MIP) reconstructions also submitted. COMPARISON: CTA stroke head 02/11/2025. FINDINGS: OCCLUSION/STENOSIS: Negative. ANEURYSM/VASCULAR MALFORMATION: Stable 2 mm right cavernous ICA aneurysm projecting laterally. VERTEBROBASILAR SYSTEM: Left dominant. NORMAL VASCULAR ANATOMIC VARIANTS: Bilateral origin posterior cerebral arteries are present with no sizable P1 segments. Procedure Note Jeff Byrd DO - 04/26/2025 EXAM: MRA HEAD WO CONTRAST REASON FOR EXAM: dizziness, r/o CVA TECHNIQUE: 3D Time of Flight MR angiogram obtained with multiple maximumintensity projections (MIP) reconstructions also submitted. COMPARISON: CTA stroke head 02/11/2025. FINDINGS: OCCLUSION/STENOSIS: Negative. ANEURYSM/VASCULAR MALFORMATION: Stable 2 mm right cavernous ICA aneurysmprojecting laterally. VERTEBROBASILAR SYSTEM: Left dominant. NORMAL VASCULAR ANATOMIC VARIANTS: Bilateral origin posteriorcerebral arteries are present with no sizable P1 segments. IMPRESSION: 1. Stable 2 mm right cavernous ICA aneurysm. 2. Otherwise, no new significant vascular abnormality since 02/11/2025. Dictated By: Siddharth Hendrix MD By electronically signing this report, I, the responsible physician,attest that I have personally reviewed the images/data for the aboveexamination(s) and agree with the final edited report. ELECTRONICALLY SIGNED By: Jeff Byrd DO Date/Time 04/26/2025 11:52AM us Ladi Castillo MD IM MRI ORDERABLES Final Re sult * Vitamin B1 Level (04/26/2025 6:39 AM CDT) Vitamin B1 (Thiamine), Whole Blood 150 70 - 180 nmol/L 04/29/2025 12:41 PM CDT [facility]) Comment: INTERPRETIVE INFORMATION: Vitamin B1, Whole Blood This assay measures the concentration of thiamine diphosphate (TDP), the primary active form of vitamin B1. Approximately 90 percent of vitamin B1 present in whole blood is TDP. Thiamine and thiamine monophosphate, which comprise the remaining 10 percent, are not measured. This test was developed and its performance characteristics determined by [facility]. It has not been cleared or approved by the US Food and Drug Administration. This test was performed in a CLIA certified laboratory and is intended for clinical purposes. Performed By: [facility] [address] [place] [address] Cloth Reeler: Farrukh Villanueva MD, PhD CLIA Number: [id number] Blood VENOUS BLOOD SPECIMEN / Unknown Venipuncture / Unknown 04/26/2025 6:39 AM CDT 04/26/2025 8:11 AM CDT Ladi Castillo MD LAB BLOOD ORDERABLES Final Result [facility] [employer]) [address] [place] [address] * (ABNORMAL) (P) CBC WITH DIFFERENTIAL (04/26/2025 6:38 AM CDT) Only the most recent of2 resultswithin the time period is included. White Blood Cell Count 4.3(L) 4.5 - 11.0 10*3/uL 04/26/2025 7:07 AM CDT [facility] Red Blood Cell Count 3.81(L) 4.00 - 5.40 10*6/uL 04/26/2025 7:07 AM CDT [facility] Hemoglobin 11.2(L) 12.0 - 16.0 g/dL 04/26/2025 7:07 AM T [facility] Hematocrit 33.8(L) 37.0 - 47.0 % 04/26/2025 7:07 AM T [facility] MCV 88.7 80.0 - 99.0 fL 04/26/2025 7:07 AM CDT [facility] MCH 29.4 27.0 - 34.5 pg 04/26/2025 7:07 AM T [facility] MCHC 33.1 32.0 - 36.5 g/dL 04/26/2025 7:07 AM [facility] RDW 13.7 11.0 - 15.0 % 04/26/2025 7:07 AM [facility] Platelet Count 191 150 - 450 10*3/uL 04/26/2025 7:07 AM [facility] MPV 9.5 7.4 - 12.0 fL 04/26/2025 7:07 AM [facility] Segmented Neutrophils 55.4 % 04/26/2025 7:07 AM [facility] Lymphocytes 28.2 % 04/26/2025 7:07 AM [facility] Monocytes 9.4 % 04/26/2025 7:07 AM [facility] Eosinophils 5.4 % 04/26/2025 7:07 AM [facility] Basophils 0.7 % 04/26/2025 7:07 AM [facility] Immature Granulocytes 0.9 % 04/26/2025 7:07 AM [facility] Comment:Immature Granulocyte includes Metamyelocytes, Myelocytes and Promyelocytes. Absolute Neutrophil Count (ANC) 2.36 1.92 - 8.64 10*3/uL 04/26/2025 7:07 AM [facility] Lymphocytes, Absolute 1.20 0.72 - 4.32 10*3/uL 04/26/2025 7:07 AM [facility] Monocytes, Absolute 0.40 0.09 - 0.99 10*3/uL 04/26/2025 7:07 AM [facility] Eosinophils, Absolute 0.23 0.00 - 0.76 10*3/uL 04/26/2025 7:07 AM [facility] Basophils, Absolute 0.03 0.00 - 0.22 10*3/uL 04/26/2025 7:07 AM [facility] Blood VENOUS BLOOD SPECIMEN / Unknown Venipuncture / Unknown 04/26/2025 6:38 AM CDT 04/26/2025 6:53 AM CDT us Ladi Castillo MD LAB BLOOD ORDERABLES Final Result Performing Organization Address [facility]/ZIP Co de Phone Number [facility] [address] [phone] * Phosphorus (04/26/2025 6:38 AM CDT) Phosphorus 3.7 2.5 - 4.5 mg/dL 04/26/2025 7:23 AM CDT [facility] Blood VENOUS BLOOD SPECIMEN / Unknown Venipuncture / Unknown 04/26/2025 6:38 AM CDT 04/26/2025 7:23 AM CDT Ladi Castillo MD LAB BLOOD ORDERABLES Final Result Performing Organization Address [facility] Co de Phone Number [facility] [address] [phone] * Magnesium (04/26/2025 6:38 AM CDT) Only the most recent of2 resultswithin the time period is included. Magnesium 2.0 1.6 - 2.4 mg/dL 04/26/2025 7:23 AM CDT [facility] Blood VENOUS BLOOD SPECIMEN / Unknown Venipuncture / Unknown 04/26/2025 6:38 AM CDT 04/26/2025 7:23 AM CDT Ladi Castillo MD LAB BLOOD ORDERABLES Final Result Performing Organization Address [facility] Co de Phone Number [facility] [address] [phone] * Hemoglobin A1c (04/26/2025 6:38 AM CDT) Hemoglobin A1c 5.6 3.8 - 5.6 % 04/26/2025 7:17 AM CDT [facility] Comment: Diabetes: HgbA1c of 6.5% or greater (should be confirmed with a follow-up test) There is not a standard for using HgbA1c to diagnose diabetes in children Pre-Diabetes: HgbA1c 5.7%-6.4% HgbA1c Goal: 7.0% or less (your goal may be different based on how long you have had diabetes, your age, or other medical conditions) Note: This test does not detect hemoglobin variants, hemolytic disease, or significant blood loss, which may interfere with the accuracy of the HgbA1c test, especially when homozygous variants are present. If clinically indicated, alternative HgbA1c methods such as HPLC, electrophoresis, or fructosamine are available. Estimated Average Glucose 114 mg/dL 04/26/2025 7:17 AM CDT [facility] Blood VENOUS BLOOD SPECIMEN / Unknown Venipuncture / Unknown 04/26/2025 6:38 AM CDT 04/26/2025 7:16 AM CDT Ladi Castillo MD LAB BLOOD ORDERABLES Final Result Performing Organization Address City/State/[facility] Co de Phone Number [facility] [address] [place] [address] * Lipid Panel (04/26/2025 6:38 AM CDT) [facility] Cholesterol, Total 175 <200 mg/dL 2024 7:23 AM T [facility] Triglycerides 140 <150 mg/dL 04/26/2025 7:23 AM T [facility] HDL Cholesterol 62 >=40 mg/dL 7:23 AM T [facility] Comment: < 40 mg/dL: Low HDL-Cholesterol (major risk factor for CHD) >= 60 mg/dL: High HDL-Cholesterol (negative risk factor for CHD) Cholesterol/HDL Ratio 2.8 04/26/2025 7:23 AM T [facility] LDL Cholesterol 90 <100 mg/dL 7:23 AM T [facility] Comment: Optimal <100 mg/dL Near Optimal/Above Optimal 100 - 129 mg/dL Borderline High 130 - 159 mg/dL High 160 - 189 mg/dL Very High >= 190 mg/dL Non-HDL Cholesterol 113 mg/dL 04/26/2025 7:23 AM T [facility] Blood VENOUS BLOOD SPECIMEN / Unknown Venipuncture / Unknown 04/26/2025 6:38 AM CDT 04/26/2025 7:23 AM CDT us Ladi Castillo MD LAB BLOOD ORDERABLES Final Result [facility] [address] [phone] * (ABNORMAL) Basic Metabolic Panel (04/26/2025 6:38 AM CDT) Glucose 110(H) 70 - 99 mg/dL 04/26/2025 7:23 AM T [facility] Comment:Reference interval b ased on minimum 8 hour fasting sample. Sodium 140 136 - 145 meq/L 04/26/2025 7:23 AM T [facility] Potassium 3.9 3.5 - 5.1 meq/L 04/26/2025 7:23 AM T [facility] Comment:Hemolysis is present which may interfere with this analyte. Please interpret with caution Chloride 104 98 - 107 meq/L 04/26/2025 7:23 AM T [facility] Anion Gap 10 6 - 16 meq/L 04/26/2025 7:23 AM T [facility] Carbon Dioxide 26 22 - 29 meq/L 04/26/2025 7:23 AM T [facility] BUN 17 8 - 23 mg/dL 04/26/2025 7:23 AM T [facility] Creatinine 0.61 0.51 - 0.95 mg/dL 04/26/2025 7:23 AM T [facility] BUN/Creatinine Ratio 28(H) 7 - 25 04/26/2025 7:23 AM T [facility] Calcium 8.6(L) 8.8 - 10.2 mg/dL 04/26/2025 7:23 AM T [facility] Estimated Glomerular Filtration Rate (eGFR) 91 >=60 mL/min/1.7 3m2 04/26/2025 7:23 AM CDT [facility] Comment:Calculated using the Chronic Kidney Disease Epidemiology Collaboration (CKD-EPI) equation. Blood VENOUS BLOOD SPECIMEN / Unknown Venipuncture / Unknown 04/26/2025 6:38 AM CDT 04/26/2025 7:23 AM CDT Ladi Castillo MD LAB BLOOD ORDERABLES Final Result Performing Organization Address City/[facility] Co de Phone Number [facility] [address] [phone] * ECG 12-Lead (04/26/2025 6:25 AM CDT) Only the most recent of2 resultswithin the time period is included. VENTRICULAR RATE 64 BPM MUSE ATRIAL RATE 64 BPM MUSE PRINT 170 ms MUSE QRS DURATION 86 ms MUSE Q-T INTERVAL 424 ms MUSE QTCINT 437 ms MUSE P AXIS 55 degrees MUSE R AXIS 46 degrees MUSE T AXIS 49 degrees MUSE DIAGNOSIS Test Reason : R00.8 - Vent. Rate : 064 BPM Atrial Rate : 064 BPM P-R Int : 170 ms QRS Dur : 086 ms QT Int : 424 ms P-R-T Axes : 055 046 049 degrees QTc Int : 437 ms SX: R00.8 Other abnormalities of heart beat Normal sinus rhythm Normal ECG When compared with ECG of 25-APR-2025 13:55, No significant change was found Referred By: Confirmed By:CRESCENCIO MONTES MD MUSE 04/26/2025 6:25 AM CDT 04/26/2025 6:41 AM CDT Ladi Castillo MD ECG ORDERABLES Edited Resu lt - Final MUSE * Respiratory virus mini-panel, [place] ??(SARS CoV-2, Influenza A and B) (04/26/2025 12:34 AM CDT) SARS-CoV-2 (COVID-19) Virus, [place] Not Detected Not Detected [place] METHOD 04/26/2025 1:12 AM CDT [facility] Influenza A, [place] Not Detected Not Detected [place] METHOD 04/26/2025 1:12 AM CDT [facility] Influenza B, [place] Not Detected Not Detected [place] METHOD 04/26/2025 1:12 AM CDT [facility] Swab NASOPHARYNGEAL STRUCTURE / Unknown Non-Blood Collection / Unknown 04/26/2025 12:34 AM CDT 04/26/2025 12:49 AM CDT Narrative [facility] - 04/26/2025 1:12 AM CDT Competitive inhibition studies showed that SARS-CoV-2 virus, when present at certain concentrations, can inhibit the detection and amplification of influenza A and influenza B virus RNA if present at low concentration, and may lead to false negative influenza virus results. If co-infection with influenza A or influenza B virus is suspected in samples with a positive SARS-CoV-2 result, the sample should be re-tested with another FDA cleared, approved or authorized influenza test. A negative test for any organism does not exclude an active infection, particularly in patients with moderate to high clinical suspicion of disease. Documentation of infection may be possible by retesting or testing of other specimen sources. This sample was analyzed using the [employer] platform using nucleic acid amplification technology. Test performance was verified by the performing laboratory prior to use. Results should be interpreted in the context of other clinical and laboratory data. The SARS-CoV-2 test was performed using qualified reagents and protocol under an Emergency Use Authorization by the FDA. Patient Fact Sheet for SARS CoV-2 test is available at https://www.fda.gov/media/990512/download Provider Fact Sheet for SARS CoV-2 test is available at Https://www.fda.gov/media/201345/download us Cale Knight MD MICROBIOLOGY - GENERAL O RDERABLES Final Result [facility] [address] [place] [address], [facility] [phone] * (ABNORMAL) (P) Urinalysis with microscopy with reflex to culture (04/26/2025 12:34 AM CDT) Color, Urine Yellow See Below 04/26/2025 12:55 AM [facility] Comment:Reference range: Col orless, Light Yellow, Pale Yellow, Straw, Yellow, Dark Yellow. Appearance, Urine Clear Clear 04/26/2025 12:55 AM [facility] Specific [place], Urine 1.005(A) 1.006 - 1.029 04/26/2025 12:55 AM [facility] pH, Urine 6.5 5.0 - 8.0 04/26/2025 12:55 AM [facility] Protein, Urine Negative Negative 04/26/2025 12:55 AM [facility] Glucose, Urine Negative Negative 04/26/2025 12:55 AM [facility] Ketones, Urine Negative Negative 04/26/2025 12:55 AM [facility] Bilirubin, Urine Negative Negative 04/26/2025 12:55 AM [facility] Blood, Urine Negative Negative 04/26/2025 12:55 AM [facility] Urobilinogen, Urine 0.2 0.2 - 1.0 David U/dL 04/26/2025 12:55 AM [facility] Nitrites, Urine Negative Negative 04/26/2025 12:55 AM [facility] Leukocyte Esterase, Urine 3+(A) Negative 04/26/2025 12:55 AM [facility] Red Blood Cells, Urine 0-2 0 - 2 /hpf 04/26/2025 12:55 AM [facility] White Blood Cells, Urine 21-50(A) 0 - 5 /hpf 04/26/2025 12:55 AM [facility] Bacteria, Urine None Seen None Seen /hpf 04/26/2025 12:55 AM [facility] Hyaline Casts, Urine Negative Negative /lpf 04/26/2025 12:55 AM [facility] Squamous Epithelial Cells, Urine 0-2 0-2, 3-5 /hpf /hpf 04/26/2025 12:55 AM [facility] Urine URINE SPECIMEN OBTAINED BY CLEAN CATCH PROCEDURE / Unknown Non-Blood Collection / Unknown 04/26/2025 12:34 AM CDT 04/26/2025 12:48 AM CDT us Cale Knight MD URINE ORDERABLES Final R esult [facility] [address] [place] [address], [facility] [phone] * (ABNORMAL) UDS (04/26/2025 12:34 AM CDT) Pathologist [facility] Amphetamine, Urine Negative Negative 04/26/2025 5:32 AM CDT [facility] Comment:Cutoff 500 ng/mL Barbiturates, Urine Negative Negative 04/26/2025 5:32 AM CDT [facility] Comment:Cutoff 200 ng/mL Benzodiazepines, Urine Negative Negative 04/26/2025 5:32 AM CDT [facility] Comment:Cutoff 100 ng/mL Cocaine, Urine Negative Negative 04/26/2025 5:32 AM CDT [facility] Comment:Cutoff 150 ng/mL Opiates, Urine Negative Negative 04/26/2025 5:32 AM CDT [facility] Comment:Cutoff 300 ng/mL Phencyclidine, Urine Negative Negative 04/26/2025 5:32 AM CDT [facility] Comment:Cutoff 25 ng/mL Cannabinoids (THC), Urine Negative Negative 04/26/2025 5:32 AM CDT [facility] Comment:Cutoff 50 ng/mL Fentanyl, Urine Negative Negative 5:32 AM T [facility] Comment:Cutoff 5.0 ng/mL Creatinine, Random Urine 18.3(L) 29.0 - 226.0 mg/dL 04/26/2025 5:32 AM CDT [facility] Comment:Creatinine <20 mg/dL = dilute urine specimen pH, Urine 6.3 5.0 - 8.0 04/26/2025 5:32 AM T [facility] Urine URINE SPECIMEN OBTAINED BY CLEAN CATCH PROCEDURE / Unknown Non-Blood Collection / Unknown 04/26/2025 12:34 AM CDT 04/26/2025 12:48 AM CDT Narrative [facility] - 04/26/2025 5:32 AM CDT Positive urine drug screening results have not been subjected to confirmation unless specifically noted on the test result. The urine drug screen is intended for medical use in the clinical management of patients. The urine drug concentration must exceed SAMHSA guidelines to be considered positive. Confirmation of positive drug screening results by an alternative method must be additionally requested within 48 hours of the original collection. Ladi Castillo MD URINE ORDERABLES Final Resu lt [facility] [address] [place] [address], [facility] [phone] * (ABNORMAL) Culture, Urine (04/26/2025 12:34 AM CDT) Culture 50,000-100,00 0 CFU/mL Klebsiella oxytoca(A) DASHAWN SUSCEPTIBILITY 04/28/2025 2:00 PM CDT [facility] Urine URINE SPECIMEN OBTAINED BY CLEAN CATCH PROCEDURE / Unknown Non-Blood Collection / Unknown 04/26/2025 12:34 AM CDT 04/26/2025 12:55 AM CDT Narrative Organism Antibiotic Method Susceptibility Klebsiella oxytoca Amoxicillin/Clavulanate DASHAWN SUSCEPT IBILITY <=8/4 ug/mL: Susceptible Klebsiella oxytoca Ampicillin DASHAWN SUSCEPTIBILITY Klebsiella oxytoca Ampicillin/Sulbactam DASHAWN SUSCEPTIBI LITY 8/4 ug/mL: Susceptible Klebsiella oxytoca Cefazolin DASHAWN SUSCEPTIBILITY 16 ug/mL: Resistant Klebsiella oxytoca Cefepime DASHAWN SUSCEPTIBILITY <=2 ug/mL: Susceptible Klebsiella oxytoca Ceftriaxone DASHAWN SUSCEPTIBILITY <=1 ug/mL: Susceptible Klebsiella oxytoca Cefuroxime DASHAWN SUSCEPTIBILITY <=4 ug/mL: Susceptible Klebsiella oxytoca Gentamicin DASHAWN SUSCEPTIBILITY <=2 ug/mL: Susceptible Klebsiella oxytoca Nitrofurantoin DASHAWN SUSCEPTIBILITY <=32 ug/mL: Susceptible Klebsiella oxytoca Piperacillin/Tazobactam DASHAWN SUSCEPT IBILITY <=8 ug/mL: Susceptible Klebsiella oxytoca Tobramycin DASHAWN SUSCEPTIBILITY <=2 ug/mL: Susceptible Klebsiella oxytoca Trimethoprim + Sulfamethoxazole DASHAWN SUSCEPTIBILITY <=0.5/9.5 ug/mL: Susceptible Cale Knight MD MICROBIOLOGY - GENERAL O RDERABLES Final Result [facility] [address] [place] [address], [facility] [phone] * CT Head wo Contrast (04/25/2025 2:48 PM CDT) Anatomical Region Laterality Modality Head Computed Tomogra phy 04/25/2025 2:54 PM CDT Impressions 04/25/2025 2:55 PM CDT No acute intracranial abnormality. ELECTRONICALLY SIGNED By: Edgar Hayden MD Date/Time 04/25/2025 2:55 PM Narrative 04/25/2025 2:55 PM CDT EXAM: CT HEAD WO CONTRAST REASON FOR EXAM: Transient ischemic attack (TIA) TECHNIQUE: Unenhanced volumetric CT data of the brain obtained with display of axial, coronal and sagittal planes. COMPARISON: 02/12/2025 FINDINGS: INTRACRANIAL: Moderate chronic microvascular ischemic changes. Volume loss. Coffey-white differentiation is maintained. No hemorrhage. No mass effect or herniation. No extra-axial fluid collection. No hydrocephalus. SKULL/SCALP: Normal bones and soft tissues. SINUSES: Visualized paranasal sinuses and mastoids are clear. ORBITS: Absent nuiqsut ocular lenses. Procedure Note Edgar Hayden MD - 04/25/2025 EXAM: CT HEAD WO CONTRAST REASON FOR EXAM: Transient ischemic attack (TIA) TECHNIQUE: Unenhanced volumetric CT data of the brain obtained withdisplay of axial, coronal and sagittal planes. COMPARISON: 02/12/2025 FINDINGS: INTRACRANIAL: Moderate chronic microvascular ischemic changes. Volumeloss. Coffey- white differentiation is maintained. No hemorrhage. No masseffect or herniation. No extra-axial fluid collection. No hydrocephalus. SKULL/SCALP: Normal bones and soft tissues. SINUSES: Visualized paranasal sinuses and mastoids are clear. ORBITS: Absent nuiqsut ocular lenses. IMPRESSION: No acute intracranial abnormality. ELECTRONICALLY SIGNED By: Edgar Hayden MD Date/Time04/25/2025 2:55 PM Nelson Oglesby MD IMG CT ORDERABLES Fi nal Result * XR Chest 2 Views (04/25/2025 2:24 PM CDT) Anatomical Region Laterality Modality Chest Computed Radiogr aphy 04/25/2025 2:55 PM CDT Impressions 04/25/2025 2:57 PM CDT Similar small nodularity in the right upper lobe compared to prior CT chest dated 10/05/2024, likely represents a chronic infectious/inflammatory process. ELECTRONICALLY SIGNED By: Latha Nielsen MD Date/Time 04/25/2025 2:57 PM Narrative 04/25/2025 2:57 PM CDT EXAM: XR CHEST 2 VIEWS HISTORY: weakness TECHNIQUE: Frontal and lateral views of the chest. COMPARISON: Chest radiograph dated 02/18/2025, CT chest dated 10/05/2024 FINDINGS: Lines/tubes/devices: Loop recorder overlying the left hemithorax. Lungs/Pleura: Left lower lobe calcified granuloma is redemonstrated. Similar small nodularity in the right upper lobe. No pleural effusion or significant pneumothorax. CV: The heart size and vascularity are within normal limits. Bone: There are chronic degenerative changes present without acute osseous abnormality. Procedure Note Latha Nielsen MD - 04/25/2025 EXAM: XR CHEST 2 VIEWS HISTORY: weakness TECHNIQUE: Frontal and lateral views of the chest. COMPARISON: Chest radiograph dated 02/18/2025, CT chest dated 10/05/2024 FINDINGS: Lines/tubes/devices: Loop recorder overlying the left hemithorax. Lungs/Pleura: Left lower lobe calcified granuloma is redemonstrated.Similar small nodularity in the right upper lobe. No pleural effusion orsignificant pneumothorax. CV: The heart size and vascularity are within normal limits. Bone: There are chronic degenerative changes present without acuteosseous abnormality. IMPRESSION: Similar small nodularity in the right upper lobe compared to prior CTchest dated 10/05/2024, likely represents a chronic infectious/inflammatoryprocess. ELECTRONICALLY SIGNED By: Latha Nielsen MD Date/Time 04/25/2025 2:57PM Nelson Oglesby MD IMG DIAGNOSTIC IMAGI NG ORDERABLES Final Result * Prothrombin Time (PT) with INR (04/25/2025 1:51 PM CDT) Prothrombin Time (PT) 9.8 9.4 - 12.5 s 04/25/2025 2:12 PM CDT [facility] Comment:Normal range PT does not rule out presence of oral Factor Xa Inhibitors. International Normalized Ratio (INR) 0.9 <=1.1 04/25/2025 2:12 PM CDT [facility] Comment: Coumadin Anticoagulant Therapeutic Ranges (INR): Prophylaxis and treatment of venous thromboembolism: 2.0-3.0 Prevention of recurrent thromboembolism or treatment for prosthetic heart valves: 2.5-3.5 Blood VENOUS BLOOD SPECIMEN / Unknown Venipuncture / Unknown 04/25/2025 1:51 PM CDT 04/25/2025 1:56 PM CDT Nelson Oglesby MD LAB BLOOD ORDERABLES Final Result Performing Organization Address City/State/[facility] Co de Phone Number [facility] [address] [phone] * Troponin T, High-sensitivity (04/25/2025 1:51 PM CDT) Pathologist [facility] Troponin T, High-Sensitivity 9 <14 ng/L 04/25/2025 2:28 PM CDT [facility] Comment: <14 ng/L (female) , <22 ng/L (male): Normal, Less than the 99th percentile reference point of a healthy population 14 ng/L (female) or 22 ng/L (male) to 51 ng/L: Indeterminate, Greater than the 99th percentile reference point of a healthy population >=52 ng/L: Abnormal, Critical Value Recommended testing interval: 0H, 1H, and, if necessary, further testing at 3H. Any troponin >=52 at any time or a delta > 5 ng/L from baseline at 1H, or a delta > 7 ng/L from baseline at 3H is abnormal. Low risk patients (HEART score <= 3) with troponins < 14 ng/L (female) or < 22 ng/L (male) with delta < 3 ng/L from baseline at 1H, or delta <= 5 ng/L from baseline at 3H are ruled out for OK. See [facility] hsTnT Accelerated Diagnostic Protocol for further details. Detection of a rise and/or fall of serial cardiac troponins with at least one value above the 99th percentile upper reference limit in addition to clinical evidence consistent with acute cardiac ischemia meets the criteria for acute myocardial infarction. A rise and/or fall in hsTnT may be necessary to distinguish chronically elevated hsTnT values due to other disease (renal failure, etc) from acute cardiac ischemia. Blood VENOUS BLOOD SPECIMEN / Unknown Venipuncture / Unknown 04/25/2025 1:51 PM CDT 04/25/2025 1:56 PM CDT Nelson Oglesby MD LAB BLOOD ORDERABLES Final Result Performing Organization Address [facility] Co de Phone Number [facility] [address] [phone] * B-Type Natriuretic Peptide (BNP) (04/25/2025 1:51 PM CDT) [facility] B-Type Natriuretic Peptide (BNP) 58 0 - 100 pg/mL [employer] I2000 METHOD 04/25/2025 3:43 PM CDT [facility] Comment:After use of recombi nant BNP, generally designated nesiritide, trade name NATRECOR, two hours should be allowed for clearance of the drug for results to reflect the Patient's physiologic BNP with no medication interference. Blood VENOUS BLOOD SPECIMEN / Unknown Venipuncture / Unknown 04/25/2025 1:51 PM CDT 04/25/2025 1:56 PM CDT Nelson Oglesby MD LAB BLOOD ORDERABLES Final Result Performing Organization Address [facility] Co de Phone Number [facility] [address] [phone] * (ABNORMAL) Comprehensive Metabolic Panel (04/25/2025 1:51 PM CDT) Pathologist [facility] Glucose 122(H) 70 - 99 mg/dL 04/25/2025 2:28 PM CDT [facility] Comment:Reference interval b ased on minimum 8 hour fasting sample. Sodium 136 136 - 145 meq/L 04/25/2025 2:28 PM [facility] Potassium 4.2 3.5 - 5.1 meq/L 04/25/2025 2:28 PM [facility] Comment:Hemolysis is present which may interfere with this analyte. Please interpret with caution Chloride 101 98 - 107 meq/L 04/25/2025 2:28 PM T [facility] Anion Gap 12 6 - 16 meq/L 04/25/2025 2:28 PM [facility] Carbon Dioxide 23 22 - 29 meq/L 04/25/2025 2:28 PM [facility] BUN 15 8 - 23 mg/dL 04/25/2025 2:28 PM [facility] Creatinine 0.61 0.51 - 0.95 mg/dL 04/25/2025 2:28 PM [facility] BUN/Creatinine Ratio 25 7 - 25 02/2025 2:28 PM T [facility] Estimated Glomerular Filtration Rate (eGFR) 91 >=60 mL/min/1. 73m2 04/25/2025 2:28 PM [facility] Comment:Calculated using the Chronic Kidney Disease Epidemiology Collaboration (CKD-EPI) equation. Calcium 8.6(L) 8.8 - 10.2 mg/dL 04/25/2025 2:28 PM [facility] Total Protein 6.3(L) 6.4 - 8.3 g/dL 04/25/2025 2:28 PM [facility] Albumin 3.9 3.5 - 5.2 g/dL 04/25/2025 2:28 PM [facility] Globulin (Calculated) 2.4 1.7 - 3.3 g/dL 04/25/2025 2:28 PM [facility] Albumin/Globulin Ratio 1.6 1.3 - 2.8 04/25/2025 2:28 PM [facility] Bilirubin, Total 0.3 0.0 - 1.1 mg/dL 04/25/2025 2:28 PM T [facility] Alkaline Phosphatase 74 35 - 104 U/L 04/25/2025 2:28 PM CDT [facility] Aspartate Aminotransferase (AST) 30 10 - 35 U/L 04/25/2025 2:28 PM CDT [facility] Comment:Hemolysis is present which may interfere with this analyte. Please interpret with caution Alanine Aminotransferase (ALT) 19 10 - 35 U/L 04/25/2025 2:28 PM CDT [facility] Blood VENOUS BLOOD SPECIMEN / Unknown Venipuncture / Unknown 04/25/2025 1:51 PM CDT 04/25/2025 1:56 PM CDT Nelson Oglesby MD LAB BLOOD ORDERABLES Final Result [facility] [address] [place] [address], [facility] [phone] * ILR Device Check- Remote (04/19/2025 1:17 PM CDT) Anatomical Region Laterality Modality Other Adrien Card MD CV IMPLANTABLE DEVICE ORDS F inal Result * XR DEXA Axial Skeleton (04/03/2025 11:47 AM CDT) Anatomical Region Laterality Modality Hip, C-spine, T-spine, L-spine C omputed Radiography 04/03/2025 12:1 6 PM CDT Impressions 04/03/2025 12:18 PM CDT 1. Osteoporosis with left femoral neck T score/s indicating a/an 4 fold increased risk for fracture compared with young adult normal. 2. Calculated FRAX 10-year probability of fracture: Major osteoporotic fracture: 34.3% Hip fracture: 14.8% Osteoporosis may be diagnosed in postmenopausal women or in men over age 50 if the T-score is -2.5 or lower in the lumbar spine, total hip or femoral neck. In certain circumstances the 33% radius may be utilized. By T-score, compared to young adult normals, relative increased risk for fracture is as follows: T-score -1.1 to -1.9 ----two-fold increased risk T-score -2.0 to -2.9-----four-fold increased risk T-score -3.0 to -3.9-----eight-fold increased risk. T-score < -3.9-----sixteen-fold increased risk TECHNICAL INFORMATION: Anabaptism studies at desk 2X are performed on [id number] with [employer] software version 18.SP5. MONITORING PATIENTS: Perform BMD testing 1 to 2 years after initiating medical therapy for osteoporosis and every 2 years thereafter. -More frequent BMD testing may be warranted in certain clinical situations. -The interval between repeat BMD screenings may be longer for patients without major risk factors and who have an initial T-score in the normal or upper low bone mass range. Biochemical markers can be repeated to determine if treatment is producing expected effect. TREATMENT INFORMATION: Approaches to reduce osteoporosis related fracture risk include optimizing calcium and vitamin D status and fall prevention measures. The National Osteoporosis Foundation treatment guidelines (http://nof.org/files/nof/public/content/resource/913/files/580.pdf)recommend: -Initiate pharmacologic treatment in those with hip or vertebral (clinical or asymptomatic) fractures -Initiate therapy in those with T- scores ? -2.5 at the femoral neck, total hip or lumbar spine by DXA, after appropriate evaluation -Initiate treatment in postmenopausal women and men age 50 and older with low bone mass (T- score between -1.0 and -2.5, low bone density) at the femoral neck, total hip or lumbar spine by DXA and a 10-year hip fracture probability ? 3% or a 10- year major osteoporosis - related fracture probability ? 20% based on the U.S.- adapted WHO absolute fracture risk model (FRAX?; www.NOF.org and www.shef.ac.uk/FRAX) All treatment decisions require clinical judgment and consideration of individual factors including patient preferences, comorbidities, prior drug use, risk factors not captured in the FRAX model (e.g. sarcopenia, falls, vitamin D deficiency, increased bone turnover, interval significant decline in bone density. ELECTRONICALLY SIGNED By: Talon Cole MD Date/Time 04/03/2025 12:18 PM Narrative 04/03/2025 12:18 PM CDT EXAM: DEXA. CLINICAL HISTORY PROVIDED: osteoporosis CLINICAL: 79-year-old postmenopausal white female. Patient reports the following risk factors: Personal history of fracture as an adult. 3 or more units of alcohol per day. COMPARISON: None available for comparative purposes. FINDINGS: Lumbar spine (L1-L4): BMD is 1.084 g/cm2. T-score is -0.9. Left femoral neck: BMD is 0.664 g/cm2. T-score is -2.7. Right femoral neck: BMD is 0.809 g/cm2. T-score is -1.6. Procedure Note Talon Cole MD - 04/03/2025 EXAM: DEXA. CLINICAL HISTORY PROVIDED: osteoporosis CLINICAL: 79-year-old postmenopausal white female. Patient reports thefollowing risk factors: Personal history of fracture as an adult. 3 ormore units of alcohol per day. COMPARISON: None available for comparative purposes. FINDINGS: Lumbar spine (L1-L4): BMD is 1.084 g/cm2. T-score is -0.9. Left femoral neck: BMD is 0.664 g/cm2. T-score is -2.7. Right femoral neck: BMD is 0.809 g/cm2. T-score is -1.6. IMPRESSION: 1. Osteoporosis with left femoral neck T score/s indicating a/an 4 foldincreased risk for fracture compared with young adult normal. 2. Calculated FRAX 10-year probability of fracture: Major osteoporoticfracture: 34.3% Hip fracture: 14.8% Osteoporosis may be diagnosed in postmenopausal women or in men over age50 if the T-score is -2.5 or lower in the lumbar spine, total hip orfemoral neck. In certain circumstances the 33% radius may be utilized. By T-score, compared to young adult normals, relative increased risk forfracture is as follows: T-score -1.1 to -1.9 ----two-fold increased risk T-score -2.0 to -2.9-----four-fold increased risk T-score -3.0 to -3.9-----eight-fold increased risk. T-score < -3.9-----sixteen-fold increased risk TECHNICAL INFORMATION: Anabaptism studies at des 2X are performed on [place] [id number] with[employer] software version 18.SP5. MONITORING PATIENTS: Perform BMD testing 1 to 2 years after initiating medical therapy forosteoporosis and every 2 years thereafter. -More frequent BMD testing may be warranted in certain clinicalsituations. -The interval between repeat BMD screenings may be longer for patientswithout major risk factors and who have an initial T-score in the normalor upper low bone mass range. Biochemical markers can be repeated to determine if treatment is producingexpected effect. TREATMENT INFORMATION: Approaches to reduce osteoporosis related fracture risk include optimizingcalcium and vitamin D status and fall prevention measures. The NationalOsteoporosis Foundation treatment guidelines(http://nof.org/files/nof/public/content/resource/913/files/580.pdf)re comme nd: -Initiate pharmacologic treatment in those with hip or vertebral (clinicalor asymptomatic) fractures -Initiate therapy in those with T- scores ? -2.5 at the femoral neck,total hip or lumbar spine by DXA, after appropriate evaluation -Initiate treatment in postmenopausal women and men age 50 and older withlow bone mass (T- score between -1.0 and -2.5, low bone density) at thefemoral neck, total hip or lumbar spine by DXA and a 10-year hip fractureprobability ? 3% or a 10-year major osteoporosis - related fractureprobability ? 20% based on the U.S.- adapted WHO absolute fracture riskmodel (FRAX?; www.NOF.org and www.shef.ac.uk/FRAX) All treatment decisions require clinical judgment and consideration ofindividual factors including patient preferences, comorbidities, priordrug use, risk factors not captured in the FRAX model (e.g. sarcopenia,falls, vitamin D deficiency, increased bone turnover, interval significantdecline in bone density. ELECTRONICALLY SIGNED By: Talon Cole MD Date/Time 04/03/2025 12:18PM Geronimo Herron MD IMG DXA ORDERABLES Final Result from Last 3 Months or Most Recently Relevant to Health Maintenance Insurance MEDICARE [facility] MEDICARE SUPPLEMENT MEDICARE [facility] MEDICARE SUPPLEMENT MEDICARE [facility] MEDICARE SUPPLEMENT Advance Directives For more information, please contact: [phone] * Full Code (Latest Code Status on File) Date Activated Date Inactivated Comments 04/26/2025 5:10 AM 05/01/2025 12:22 PM * Full Code Date Activated Date Inactivated Comments 02/12/2025 1:52 AM 02/15/2025 9:15 PM Care Teams Deputy Felony Clerk Relationship Specialty Start Date End Date Chris Tam MD [address] [place] [address] PCP - General Internal Medicine 03/15/25 Prince Velez APRN, PCAT INSTRUCTOR [address] [phone] Nurse Practitioner Internal Medicine 03/15/25
--- OUTSIDE RECORDS SUMMARY | 2025-07-16 18:02 | XMS_ITS ---
Author Organization [facility] Address [address] [facility] [place] [address] Care Team Providers Care Tassel Maker Name Role Phone Chris Tam MD Primary Care Provider Prince Velez TRIM SETTER HELPER, APPEALS REPRESENTATIVE Unavailable Active Problems Problem Noted Date Diagnosed Date [...] depression 09/15/2022 Hypercholesterolemia 06/01/2017 Dementia EtOH dependence Current Treatment and Therapy Plans No current plan information found. Past Treatment and Therapy Plans No past plan information found. Lifetime Dose Tracking * Chemical Lifetime Dose Automatic Entry Manual Entr y mGy 13.76 mGy 13.76 mGy 0 mGy Radiation (DLP) 2,609 DLP 2,609 DLP 0 DLP Resolved Problems Problem Noted Date Diagnosed Date Resolved Date Influenza B 02/11/2025 02/15/2025 Malignant neoplasm of centra l portion of female breast, unspecified estrogen receptor status, unspecified laterality 09/28/2024 Medical marijuana use 03/25/20232024 Left wrist fracture 06/20/2022 02/12/20 25
--- OUTSIDE RECORDS SUMMARY | 2025-07-16 18:02 | XMS_ITS | Encounter Summary ---
Author Organization [facility] Address [address] [place] [address] Care Team Providers Care Gear Machinist Name Role Phone Chris Tam MD Primary Care Provider Prince Velez APRN, PLASTER MIXER Unavailable Encounter Details Date Type Department Care Team (Late st Contact Info) Description 05/04/2025 Orders Only [facility] [place] [address] [phone] Chris Tam MD [address] [place] [address] Anxiety and depression (Primary Dx) Social History Tobacco Use Types Packs/Day Years Used Date Smoking Tobacco: Former Cigarettes 0 05/31/1962 - 09/08/2010 Smokeless Tobacco: Never Alcohol Use Standard Drinks/Week Comments Yes 17.5 (1 standard dri nk = 0.6 oz pure alcohol) drinks about 3 12oz beers daily [facility] Utilities Answer Date Recorded In the past 12 months has e Contactual, gas, oil, or water [employer] threatened to shut off services in your home? No 04/26/2025 AUDIT-C Answer Date Recorded Q1: How often do you have a drink containing alc ohol? Monthly or less 04/26/2025 Q2: How many drinks containi ng alcohol do you have on a typical day when you are drinking? 1 or 2 04/26/2025 Q3: How often do you have si x or more drinks on one occasion? Never 04/26/2025 Overall Financial Resource Strain (CARDIA) Answe r Date Recorded How hard is it for you to pa y for the very basics like food, housing, medical care, and heating? Not very hard 04/26/2025 Depression Answer Date Recorded PHQ-2 Score 2 05/02/2025 Last PHQ-9 Score Not on file 05/02/2025 Interpersonal Safety Answer Date Record ed Feels UN-safe at Home or Work/School no 05/07/2025 Verbal Abuse Denies 05/07/2025 Physical Signs of Abuse Present no 05/07/2025 Food Insecurity Answer Date Recorded Within the past 12 months, y ou worried that your food would run out before you got the money to buy more. Never true 04/26/20 25 Within the past 12 months, t he food you bought just didn't last and you didn't have money to get more. Never true 04/26/2025 Transportation Answer Date Recorded In the past 12 months, has l ack of transportation kept you from medical appointments or from getting medications? No 03/2025 In the past 12 months, has l ack of transportation kept you from meetings, work, or from getting things needed for daily living? No 04/26/2025 Housing Stability Answer Date Recorded At any time in the past 12 m [facility], were you homeless or living in a senior care (including now)? No 04/26/2025 In the last 12 months, was t here a time when you were not able to pay the mortgage or rent on time? No 04/26/2025 In the past 12 months, how m any times have you moved where you were living? 0 04/26/2025 Comments Unknown Sex and Gender Information Value Date Recorded Sex Assigned at Not on file Legal Sex Female 4:15 PM CDT Gender Identity Not on file Sexual Orientation Not on file documented as of this encounter Plan of Treatment Upcoming Encounters Date Type Department Care Team (Late Contact Info) Description 08/07/2025 8:00 AM FILING AND POLISHING SUPERVISOR Evaluation [facility] Des[facility] [place] [address] [place] [address] Maryann Matti Omid, PsyD [address] [place] [phone] 08/08/2025 11:20 AM FILING AND POLISHING SUPERVISOR Office Visit [facility] [place] [facility] [place] [address] [place] [address] Orquidea Arizmendi APRN, PLASTER MIXER [address] [place] [address] 08/27/2025 3:00 PM FILING AND POLISHING SUPERVISOR Office Visit [facility] [address] [address] Jorge Gutierrez MD [address] [address] 09/26/2025 3:40 PM FILING AND POLISHING SUPERVISOR Office Visit [facility] [address] [phone] [place] [address] [place] [address] [place] [address] 10/08/2025 1:00 PM FILING AND POLISHING SUPERVISOR Office Visit [facility] Desk 5A - [place] [address] [address] Hope Reza PA-C [address] [place] [address] 12/19/2025 1:00 PM CDT Appointment [facility] Desk 2D - [place] [address] [place] [address] Tray Cornell MD [address] [place] [address] 01/04/2026 8:30 AM CDT Lab [facility] - [place] [address] [address] 01/08/2026 10:20 AM CDT Office Visit [facility] Desk [facility] - [place] [address] [address] Geronimo Herron MD [address] [place] [phone] 03/19/2026 4:20 PM CDT Office Visit [facility] Desk 3B - [place] [address] [address] Grant Carmona APRN, PLASTER MIXER [address] [place] [address] 05/10/2026 2:00 PM CDT Appointment [facility] Ground Floor Desk - [place] [address] [address] documented as of this encounter Goals Goal Patient Goal Type Associated Problems [...] 3. I was in touch with my advent community/attended islam service. 4. I followed a daily routine [...] Resources for Depression 1. Depression and Bipolar [place] www.dbsalliance.org 2. National [place] of Mental Health www.nimh.nih.gov 3. National [place] on Mental Illness www.callie.org 4. Depression [facility] www.webTextualAds.com/depression Call your doctor or go to the emergency room if you start thinking about suicide. documented as of this encounter Visit Diagnoses Diagnosis Anxiety and depression- Primary documented in this encounter Additional Health Concerns Infection Onset Date Last Indicated Resolved Time GI Infection Suspected 07/05/2025 07/05/202507/06 2:47 PM CDT documented as of this encounter Care Teams Gear Machinist Relationship Specialty Start Date End Date Chris Tam MD [address] Medicine [place], [place] [phone] PCP - General Internal Medicine 03/15/25 Prince Velez APRN, PLASTER MIXER [address] [phone] Nurse Practitioner Internal Medicine 03/15/25 documented as of this encounter
--- OUTSIDE RECORDS SUMMARY | 2025-07-16 18:02 | XMS_ITS | Clinical Summary ---
Author Organization [facility] Office Building B Address [address] [place] [address] Care Team Providers Care Graduate Nurse Name Role Phone Daniel Darby MD Unavailable [phone] Kylee Fine Primary Care Provider [phone] Allergies No known active allergies Medications multivitamin tablet Take 1 tablet by mouth daily Active vitamin D3-tocophersolan 10 mcg-4 mg/ 0.2 mL drops Take by mouth Active busPIRone (BUSPAR) 5 mg tablet Active amLODIPine (NORVASC) 5 mg tabletIndications:P rimary hypertension Take 1 tablet (5 mg total) by mouth daily 90 tablet 3 4 Active atorvastatin (LIPITOR) 40 mg tabletIndications:M ixed hyperlipidemia Take 1 tablet (40 mg total) by mouth daily 90 tablet 3 4 Active losartan (COZAAR) 100 mg tabletIndications:P rimary hypertension Take 1 tablet (100 mg total) by mouth daily 90 tablet 3 4 Active loratadine (CLARITIN) 10 mg tablet Take 1 tablet (10 mg total) by mouth daily 90 tablet 1 5 09/21/19 26 Active sertraline (ZOLOFT) 100 mg tablet Take 1 tablet (100 mg total) by mouth daily 90 tablet 1 5 Active zolpidem (AMBIEN) 10 mg tablet Take 1 tablet (10 mg total) by mouth nightly as needed for sleep for sleep 30 tablet 5 Active clopidogreL (PLAVIX) 75 mg tablet TAKE 1 TABLET(75 MG) BY MOUTH DAILY 90 tablet 1 5 Active acetaminophen-codei ne (TYLENOL with CODEINE #3) 300-30 mg per tablet Take 1 tablet by mouth every 4 (four) hours as needed for pain for pain 20 tablet 5 Active Active Problems Problem Noted Date Diagnosed Date Malignant neoplasm of centra l portion of female breast, unspecified estrogen receptor status, unspecified laterality 09/28/2024 Memory loss 03/26/2023 Medical marijuana use 03/25/2023 Anxiety and depression 09/15/2022 Assessment & Plan (09/15/2022 1:58 PM HEAD NECK SURGEON): Patient doesn't feel like the Sertraline does much, has had increased stress and anxiety 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 Suspicious that her increased stress may be [...] 04/20 Assessment & Plan (09/28/2024 2:59 PM HEAD NECK SURGEON): A(n) yearly Medicare Annual Wellness Visit has [...] months Assessment & Plan (09/27/2023 1:36 PM HEAD NECK SURGEON): A(n) yearly Medicare Annual Wellness Visit has [...] Encounters Date Type Department Care Team Description 07/16/2025 5:30 PM CDT Office Visit [facility] Care at [address] [phone] Christine Taylor PA Rectal bleeding (Primary Dx) from Last 3 Months Immunizations Immunization Administration Dates Next Due Influenza, Quadrivalent, Spl [...] Date Comments Hypertension Stroke (HCC) Hypercholesteremia Cancer (HCC) Migraines Spastic colon in high school Anxiety 15 yrs ago Arthritis 30yrs ago Osteoporosis Family History Medical History Relation Name Comments Arthritis Daughter Shannan Hydrocephalus Father secondary to h ead trauma Cancer Father's Sister Aunt April Atrial fibrillation Mother Mom Laura Hypertension Mother Mom Laura Stroke Mother Mom Laura Arthritis Other Hypertension Other Stroke Other Cancer Sister Radha Raygoza Relation Name Status Comments Daughter Shannan Father Father's Sister Aunt April Maternal Grandfather [...] on file Legal Sex Female 2:53 PM HEAD NECK SURGEON Gender Identity Not on file Sexual Orientation [...] (143 lb) 07/16/2025 5:15 PM CDT Height 158.1 cm (5' 2.24) 09/28/2024 2:56 PM CS T Body Mass Index 25.95 09/28/2024 2:56 PM HEAD NECK SURGEON Plan of Treatment Health Maintenance Due Date Last Done Comments Hepatitis B Screening 1963 Lung Cancer Screening 1996 Zoster Vaccine (1 of 2) 1996 DTaP/Tdap/Td Vaccine (2 - Td or Tdap) 05/10/2025 05/10/2015, 03/25/2005 Influenza Vaccine (#1) 2025 , 07/20/2022, 08/07/2019, Additional history exists Depression Screening 09/28/2025 09/28/2024, 03/28/2024, 09/27/2023, Additional history exists Fall Risk Assessment 09/28/2025 09/28/2024, 10/13/2023, 09/27/2023, Additional history exists Well Visit 65+ 09/28/2025 09/28/2024, 04/2024, 05/04/2022 Osteoporosis Screening-Bone Density Scan 04/03/2027 04/03/2025, 04/03/2025 Hepatitis C Screening Completed 05/04/2022 Pneumococcal vaccine 65+ Completed 023, 06/21/2017, 05/10/2015 Breast Cancer Screening-Mammogram Discontinued 05/09/2025, 05/09/2025, 05/05/2024, Additional history exists Procedures Procedure Name Priority Date/Time Associated Diagnosis Comments HM MAMMOGRAPHY Routine 05/05/2024 2:20 PM CDT HEPATITIS C ANTIBODY Routine 05/04/2022 1:15 PM CDT Encounter for hepatitis C screening test for low risk patient from Last 3 Months or Most Recently Relevant to Health Maintenance Results * Hepatitis C antibody (05/04/2022 1:15 PM CDT) Hep C Ab Nonreactive Nonreactive [facility] Comment: Interpretive Data Nonreactive: Antibodies to HCV not detected. Does NOT exclude the possibility of recent exposure to HCV. Equivocal: Equivocal for HCV antibodies. Supplemental molecular testing will be automatically performed to determine infection status in accordance with current CDC screening recommendations. Reactive: Positive for HCV antibodies. This may represent current or past HCV infection. Supplemental molecular testing will be automatically performed to determine current infection status in accordance with current CDC screening recommendations. Interpretive data was last revised on 2019. Blood 05/04/2022 1:15 PM CDT 05/04/2022 8:03 PM CDT us Juan King MD LAB MICROBIOLOGY - GENERAL ORDERABLES Final Result [facility] [id number] [address] [place] [address] from Last 3 Months or Most Recently Relevant to Health Maintenance Insurance MEDICARE [facility] MEDICARE [facility] Address: [address] [place] [phone] [facility] MEDICARE AAR Advance Directives For more information, please contact: [phone] Documents on File Type Date Recorded Patient Assembler Dry Cell And Battery Expl anation Advance Directives and Living Will 07/05/2023 3:41 PM POA updated 06/14/23 Power of Resident Service Coordinator 04/02/2023 3:20 PM Power of Resident Service Coordinator 03/11/2023 12:28 PM Power of Resident Service Coordinator 08/20/2022 6:50 PM * Full Code (Latest Code Status on File) Date Activated Date Inactivated Comments 10/13/2023 9:38 AM 10/14/2023 5:32 AM Care Teams Graduate Nurse Relationship Specialty Start Date End Date Rody Kyleekarolina Rea [address] [place] [address] PCP - General 06/06/25 Daniel Darby MD [address] [facility] [address] [place] [address] Referring Physician Orthopedic Surgery 06/16/22
--- OUTSIDE RECORDS SUMMARY | 2025-07-16 18:02 | XMS_ITS | Clinical Summary ---
Author Organization [facility] Shukri Mcgee Address [address] [place] [address] Care Team Providers Care Cloth Spreader Screen Printing Name Role Phone Juan King MD Primary [...] 71 05/25/2023 10:39 AM CDT Temperature 36.7 C (98.1 F) 05/25/2023 10:39 AM CDT Respiratory Rate 16 05/25/2023 10:39 AM CDT Oxygen Saturation 96% 05/25/2023 10:39 AM CDT Inhaled Oxygen Concentration - - Weight 62 kg (136 lb 9.6 oz) 05/25/2023 10:39 AM CDT Height 157.5 cm (5' 2) 04/07/2023 10:39 AM CDT Body Mass Index 24.98 04/07/2023 10:39 AM CDT Plan of Treatment Health Maintenance Due Date Last Done Comments ZOSTER VACCINE (1 of 2) 1996 PNEUMOCOCCAL VACCINE 50+ YEA RS (2 of 2 - PCV) 06/21/2018 06/21/2017, 05/10/2015 RSV VACCINE (60+ or ) (1 - 1-dose 75+ series) 2021 OSTEOPOROSIS SCREENING 04/07/2024 04/07/2019 INFLUENZA VACCINE (#1) 2025 9, 06/21/2017, 07/17/2016 DTAP/TDAP/TD VACCINES (2 - T d or Tdap) 05/10/2025 05/10/2015, 03/25/2005 COLORECTAL SCREENING Discontinued 01/27/2023 Colorectal Cancer Screening Discontinued FIT-DNA Q 3 years Discontinued FIT/FOBT Q 1 year Discontinued Flex Sig/CT Colonography Q 5 years Discontinued Insurance MEDICARE PART A AND B [place] [id number] Advance Directives For more information, please contact: [phone] Documents on File Type Date Recorded Patient Rivet Driver Expl anation Advance Directive POA 07/07/2023 9:41 AM Updated 06/14/2023 Care Teams Cloth Spreader Screen Printing Relationship Specialty Start Date End Date Juan King MD [address] [place] [phone] PCP - General Family Practice 04/07/23
--- OUTSIDE RECORDS SUMMARY | 2025-07-16 18:02 | XMS_ITS | Encounter Summary ---
Author Organization [facility] Address [address] [address] Care Team Providers Care Floral Assistant Name Role Phone Chris Tam MD Primary Care Provider Prince Velez APRN, CARLOS Unavailable Reason for Visit * Reason Comments Appointment Encounter Details Date Type Department Care Team (Late st Contact Info) Description 06/04/2025 Telephone [facility] Desk - [place] [address] [place] [address] Grant Carmona APRN, SLITTING MACHINE FEEDER [address] [address] Appointment Social History Tobacco Use Types Packs/Day Years Used Date Smoking Tobacco: Former Cigarettes 0 05/31/1962 - 09/08/2010 Smokeless Tobacco: Never Alcohol Use Standard Drinks/Week Comments Yes 17.5 (1 standard dri nk = 0.6 oz pure alcohol) drinks about 3 12oz beers daily [facility] Utilities Answer Date Recorded In the past 12 months has [employer], gas, oil, or water [employer] threatened to shut off services in your [...] Feels UN-safe at Home or Work/School no 05/15/2025 Verbal Abuse Denies 05/15/2025 Physical Signs of Abuse Present no 05/15/2025 Food Insecurity Answer Date Recorded Within the [...] any time in the past 12 m [facility], were you homeless or living in a skilled nursing (including now)? No 05/23/2025 In the last [...] encounter Miscellaneous Notes * Telephone Encounter - Senait Rehman - 06/05/2025 10:01 AM CDT Called pt no answer couldn't leave a voicemail, sent a my chart message * Telephone Encounter - Catherine Saenz - 06/04/2025 5:02 PM CDT Copied from [facility] #[id number]. Topic: Clinic Involvement - CM >> Jun 04, 2025 4:58 PM Catherine Carreon wrote: Contacted by: Ember Patient Relationship: Other Relative Patient NERY LIVE Date/Time: 06/04/2025 4:50 PM Contact Type: Incoming Requesting sooner appt due to same issues not getting better Additional Details: the pt is still having the same issue as before and the medicine has not helpedand would like to be seen sooner than Aug 2025 Response Requested: Yes Caller's preferred method of contact: Phone # as listed above Did you attempt to call the clinic? No If Yes, what number did you dial? na documented in this encounter Plan of Treatment Upcoming Encounters Date Type Department Care Team (Late st Contact Info) Description 08/07/2025 8:00 AM CLAIM MANAGER Evaluation [facility] Desk 6W - [place] [address] [address] Matti Wolf, YonatanyD [address] [place] [phone] 08/08/2025 11:20 AM CLAIM MANAGER Office Visit [facility] [place] - [place] [address] [place] [address] [address] Orquidea Arizmendi APRN, SLITTING MACHINE FEEDER [address] [place] [address] 08/27/2025 3:00 PM CLAIM MANAGER Office Visit [facility] - [place] [address] [address] Jorge Gutierrez MD [address] [place] [address] 09/26/2025 3:40 PM CLAIM MANAGER Office Visit [facility] - [place] [address] [address] Chris Tam MD [address] [place] [address] 10/08/2025 1:00 PM CLAIM MANAGER Office Visit [facility] Desk 5A - [place] [address] [address] Hope Reza PA-C [address] [place] [address] 12/19/2025 1:00 PM CDT Appointment [facility] Desk 2D - [place] [address] [address] Tray Cornell MD [address] [place] [address] 01/04/2026 8:30 AM CDT Lab [facility] Diagnostic Medicine [facility] [address] [address] 01/08/2026 10:20 AM CDT Office Visit [facility] Desk VC - [place] [address] [address] Geronimo Herron MD [address] [place] [phone] 03/19/2026 4:20 PM CDT Office Visit [facility] Desk 3B - [place] [address] [place] [address] Grant Carmona APRN, SLITTING MACHINE FEEDER [address] [place] [address] 05/10/2026 2:00 PM CDT Appointment [facility] Ground Floor Desk - [place] [address] [place] [address] documented as of this encounter Goals Goal [...] 3. I was in touch with my jewish community/attended baptism service. 4. I followed a daily routine [...] Resources for Depression 1. Depression and Bipolar [place] www.dbsalliance.org 2. National [place] of Mental Health www.nimh.nih.gov 3. National [place] on Mental Illness www.callie.org 4. Depression Health Center-WebMD www.webmd.com/depression Call your doctor or go to the emergency room if you start thinking about suicide. documented as of this encounter Visit Diagnoses Not on filedocumented in this encounter Additional Health Concerns Infection Onset Date Last Indicated Resolved Time GI Infection Suspected 07/05/2025 07/05/202507/06 2:47 PM CDT documented as of this encounter Care Teams Floral Assistant Relationship Specialty Start Date End Date Chris Tam MD [address] Medicine [place], [place] [phone] PCP - General Internal Medicine 03/15/25 Prince Velez APRN, SLITTING MACHINE FEEDER [address] [address] Nurse Practitioner Internal Medicine 03/15/25 documented as of this encounter
--- OUTSIDE RECORDS SUMMARY | 2025-07-16 18:02 | XMS_ITS | Encounter Summary ---
Author Organization [facility] Address [address] [place] [address] Care Team Providers Care Color Drum Worker Name Role Phone Chris Tam MD Primary Care Provider Prince Velez APRN, HAND SHAPER Unavailable Encounter Details Date Type Department Care Team (Late st Contact Info) Description 05/15/2025 Orders Only [facility] Diagnostic [place] [address] [phone] Chris Tam MD [address] [place] [address] Insomnia Social History Tobacco Use Types Packs/Day Years Used Date Smoking Tobacco: Former Cigarettes 0 05/31/1962 - 09/08/2010 Smokeless Tobacco: Never Alcohol Use Standard Drinks/Week Comments Yes 17.5 (1 standard dri nk = 0.6 oz pure alcohol) drinks about 3 12oz beers daily [facility] Utilities Answer Date Recorded In the past 12 months has [employer], gas, oil, or water [employer] threatened to shut off services in your [...] any time in the past [address] [facility], were you homeless or living in a longterm (including now)? No 04/26/2025 In the last [...] st Contact Info) Description 08/07/2025 8:00 AM ROUTE RIDER Evaluation [facility]k [address] [place] [address] Matti Wolf, PsyD [address] [place] [phone] 08/08/2025 11:20 AM ROUTE RIDER Office Visit [facility] [place] [facility] [place] [address] [place] [address] Orquidea Arizmendi APRN, HAND SHAPER [address] [place] [address] 08/27/2025 3:00 PM ROUTE RIDER Office Visit [facility] Diagnostic Medicine [facility] [address] [address] Jorge Gutierrez MD [address] [address] 09/26/2025 3:40 PM ROUTE RIDER Office Visit [facility] [address] [address] [place] [address] [place] [address] [place] [address] 10/08/2025 1:00 PM ROUTE RIDER Office Visit [facility] Desk 5A [facility] [address] [address] Hope Reza PA-C [address] [place] [address] 12/19/2025 1:00 PM CDT Appointment [facility] Desk 2D - [place] [address] [address] Tray Cornell MD [address] [place] [address] 01/04/2026 8:30 AM CDT Lab [facility] - [place] [address] [address] 01/08/2026 10:20 AM CDT Office Visit [facility] Desk VC - [place] [address] [address] Geronimo Herron MD [address] [place] [phone] 03/19/2026 4:20 PM CDT Office Visit [facility] Desk 3B - [place] [address] [address] Grant Carmona APRN, [facility] [address] [place] [address] 05/10/2026 2:00 PM CDT Appointment [facility] Ground Floor Desk - [place] [address] [address] documented as of this encounter Goals Goal [...] 3. I was in touch with my shinto community/attended uatsdin service. 4. I followed a daily routine [...] Resources for Depression 1. Depression and Bipolar [place] www.dbsalliance.org 2. National [place] of Mental Health www.nimh.nih.gov 3. National [place] on Mental Illness www.callie.org 4. Depression Health Center-WebMD www.webPersonal Development Bureau.com/depression Call your doctor or go to the emergency room if you start thinking about suicide. documented as of this encounter Visit Diagnoses Diagnosis Insomnia Insomnia, unspecified documented in this encounter Additional Health Concerns Infection Onset Date Last Indicated Resolved Time GI Infection Suspected 07/05/2025 07/05/202507/06 2:47 PM CDT documented as of this encounter Care Teams Color Drum Worker Relationship Specialty Start Date End Date Chris Tam MD [address] Medicine [place], [place] [phone] PCP - General Internal Medicine 03/15/25 Prince Velez APRN, HAND SHAPER [address] [phone] Nurse Practitioner Internal Medicine 03/15/25 documented as of this encounter
--- OUTSIDE RECORDS SUMMARY | 2025-07-16 18:02 | XMS_ITS ---
Author Organization [facility] Address [address] [place] [address] Care Team Providers Care Non Destructive Evaluation Manager Name Role Phone Daniel Darby MD Unavailable [phone] Kylee Fine Primary Care Provider [phone] Active Problems Problem Noted Date Diagnosed Date Malignant neoplasm of centra l portion of female breast, unspecified estrogen receptor status, unspecified laterality 09/28/2024 Memory loss 03/26/2023 Medical marijuana use 03/25/2023 Anxiety and depression 09/15/2022 Assessment & Plan (09/15/2022 1:58 PM DOCTOR OF PODIATRY): Patient doesn't feel like the Sertraline does much, has had increased stress and anxiety since 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 Suspicious that her increased stress may be [...] 04/20 Assessment & Plan (09/28/2024 2:59 PM DOCTOR OF PODIATRY): A(n) yearly Medicare Annual Wellness Visit has [...] months Assessment & Plan (09/27/2023 1:36 PM DOCTOR OF PODIATRY): A(n) yearly Medicare Annual Wellness Visit has [...] disorder 06/01/2017 Cerebrovascular accident (CVA) 09/20/2000 Current Treatment and Therapy Plans No current plan information found. Past Treatment and Therapy Plans No past plan information found. Lifetime Dose Tracking * Chemical Lifetime Dose Automatic Entry Manual Entr y Fluoro Time 1.23 minutes 1.23 minutes 0 minutes Air kerma at the reference point (Ka,r) 46.65 mGy 4 6.65 mGy 0 mGy
--- OUTSIDE RECORDS SUMMARY | 2025-07-16 18:02 | XMS_ITS | Encounter Summary ---
Author Organization [facility] Address [address] [address] Care Team Providers Care Hotel Services Sales Representative Name Role Phone Chris Tam MD Primary Care Provider Prince Velez APRN, METAL WEIGHER Unavailable Encounter Details Date Type Department Care Team (Late Contact Info) Description 06/14/2025 Results Follow-Up [facility] Desk 3B - [place] [address] [address] Ana Paula Gayle APRN, ANP [address] [place] [phone] X-ray abdomen AP (1 view) Social History Tobacco Use Types Packs/Day Years Used Date Smoking Tobacco: Former Cigarettes 0 05/31/1962 - 09/08/2010 Smokeless Tobacco: Never Alcohol Use Standard Drinks/Week Comments Yes 17.5 (1 standard dri nk = 0.6 oz pure alcohol) drinks about 3 12oz beers daily [facility] Utilities Answer Date Recorded In the past 12 months has [employer], gas, oil, or water company threatened [...] Feels UN-safe at Home or Work/School no 06/13/2025 Verbal Abuse Denies 06/13/2025 Physical Signs of Abuse Present no 06/13/2025 Food Insecurity Answer Date Recorded Within the [...] any time in the past 12 m [facility], were you homeless or living in [...] st Contact Info) Description 08/07/2025 8:00 AM CERTIFIED NURSE MIDWIFE Evaluation [facility] Desk 6W - [place] [address] [place] [address] Maryann Matti Omid, PsyD [address] [place] [phone] 08/08/2025 11:20 AM CERTIFIED NURSE MIDWIFE Office Visit [facility] Sleep [facility] - [place] [address] [place] [address] Orquidea Arizmendi APRN, METAL WEIGHER [address] [place] [address] 08/27/2025 3:00 PM CERTIFIED NURSE MIDWIFE Office Visit [facility] for Diagnostic Medicine [facility] [address] [address] Jorge Gutierrez MD [address] [address] 09/26/2025 3:40 PM CERTIFIED NURSE MIDWIFE Office Visit [facility] - [place] [address] [address] Chris Tam MD [address] [place] [address] 10/08/2025 1:00 PM CERTIFIED NURSE MIDWIFE Office Visit [facility] Desk 5A - [place] [address] [address] Hope Reza PA-C [address] [place] [address] 12/19/2025 1:00 PM CDT Appointment [facility] Desk 2D - [place] [address] [place] [address] Tray Cornell MD [address] [place] [address] 01/04/2026 8:30 AM CDT Lab [facility] - [place] [address] [address] 01/08/2026 10:20 AM CDT Office Visit [facility] Desk VC - [place] [address] [address] Geronimo Herron MD [address] [place] [phone] 03/19/2026 4:20 PM CDT Office Visit [facility] Desk 3B - [place] [address] [address] Grant Carmona APRN, [facility] [address] [place] [address] 05/10/2026 2:00 PM CDT Appointment [facility] Ground Floor Desk - [place] [address] [address] documented as of this encounter Goals Goal [...] 3. I was in touch with my methodist community/attended jehovah's witness service. 4. I followed a daily routine [...] Resources for Depression 1. Depression and Bipolar [place] www.dbsalliance.org 2. National [place] of Mental Health www.nimh.nih.gov 3. National [place] on Mental Illness www.callie.org 4. Depression Health Center-WebMD www.webJETME.com/depression Call your doctor or go to the emergency room if you start thinking about suicide. documented as of this encounter Visit Diagnoses Not on filedocumented in this encounter Additional Health Concerns Infection Onset Date Last Indicated Resolved Time GI Infection Suspected 07/05/2025 07/05/202507/06 2:47 PM CDT documented as of this encounter Care Teams Hotel Services Sales Representative Relationship Specialty Start Date End Date Chris Tam MD [address] Medicine [place], [place] [phone] PCP - General Internal Medicine 03/15/25 Prince Velez APRN, METAL WEIGHER [address] [phone] Nurse Practitioner Internal Medicine 03/15/25 documented as of this encounter
--- OUTSIDE RECORDS SUMMARY | 2025-07-16 18:02 | XMS_ITS | Encounter Summary ---
Author Organization [facility] Address [address] [place] [address] Care Team Providers Care Tool Engineer Name Role Phone Juan King MD Primary Care Provider [phone] Daniel Darby MD Unavailable [phone] Kylee Fine Primary Care Provider [phone] Encounter Details Date Type Department Care Team (Late st Contact Info) Description 10/14/2023 Telephone [facility] [address] [place] [address] Mary Burns RN Social History Tobacco Use Types Packs/Day Years [...] on file Legal Sex Female 2:53 PM DISTILLERY MILLER HELPER Gender Identity Not on file Sexual Orientation Not on file documented as of this encounter Plan of Treatment Not on file documented as of this encounter Visit Diagnoses Not on filedocumented in this encounter Care Teams Tool Engineer Relationship Specialty Start Date End Date Juan King MD [address] [place] [address] PCP - General Family Medicine 05/04/22 06/05/25 Kylee Fine [address] [address] PCP - General 06/06/25 Daniel Darby MD [address] [facility] [address] [place] [address] Referring Physician Orthopedic Surgery 06/16/22 documented as of this encounter
--- OUTSIDE RECORDS SUMMARY | 2025-07-16 18:02 | XMS_ITS | Encounter Summary ---
Author Organization [facility] Address [address] [place] [address] Care Team Providers Care Bird Sitter Name Role Phone Chris Tam MD Primary Care Provider Prince Velez APRN, FEEDER OPERATOR Unavailable Encounter Details Date Type Department Care Team (Late st Contact Info) Description 05/30/2025 Orders Only [facility] Diagnostic [facility] [place] [address] [address] Chris Tam MD [address] [place] [address] Anxiety (Primary Dx) Social History Tobacco Use Types Packs/Day Years Used Date Smoking Tobacco: Former Cigarettes 0 05/31/1962 - 09/08/2010 Smokeless Tobacco: Never Alcohol Use Standard Drinks/Week Comments Yes 17.5 (1 standard dri nk = 0.6 oz pure alcohol) drinks about 3 12oz beers daily [facility] Utilities Answer Date Recorded In the past 12 months has [employer], gas, oil, or water [employer] threatened to shut off services in your [...] any time in the past 12 m [facility], were you homeless or living in a fpc (including now)? No 05/23/2025 In the last [...] st Contact Info) Description 08/07/2025 8:00 AM INTERNAL AUDIT CONSULTANT Evaluation [facility] Desk [address] [place] [address] Maryann Matti Omid, PsyD [address] [place] [phone] 08/08/2025 11:20 AM INTERNAL AUDIT CONSULTANT Office Visit [facility] [place] [address] [place] [address] Orquidea Arizmendi APRN, FEEDER OPERATOR [address] [place] [address] 08/27/2025 3:00 PM INTERNAL AUDIT CONSULTANT Office Visit [facility] Diagnostic Medicine [facility] [address] [place] [address] Jorge Gutierrez MD [address] [address] 09/26/2025 3:40 PM INTERNAL AUDIT CONSULTANT Office Visit [facility] Diagnostic Medicine [facility] [address] [place] [address] Chris Tam MD [address] [place] [address] 10/08/2025 1:00 PM INTERNAL AUDIT CONSULTANT Office Visit [facility] Desk 5A [facility] [address] [place] [address] Hope Reza PA-C [address] [place] [address] 12/19/2025 1:00 PM CDT Appointment [facility] Desk 2D - [place] [address] [place] [address] Tray Cornell MD [address] [place] [address] 01/04/2026 8:30 AM CDT Lab [facility] - [place] [address] [address] 01/08/2026 10:20 AM CDT Office Visit [facility] Desk VC - [place] [address] [address] Geronimo Herron MD [address] [place] [phone] 03/19/2026 4:20 PM CDT Office Visit [facility] Desk 3B - [place] [address] [address] Grant Carmona APRN, [facility] [address] [place] [address] 05/10/2026 2:00 PM CDT Appointment [facility] Ground Floor Desk - [place] [address] [address] documented as of this encounter Goals Goal [...] 3. I was in touch with my latter day community/attended tenriism service. 4. I followed a daily routine [...] Resources for Depression 1. Depression and Bipolar [place] www.dbsalliance.org 2. National [place] of Mental Health www.nimh.nih.gov 3. National [place] on Mental Illness www.callie.org 4. Depression Health Center-WebMD www.webInstructure.com/depression Call your doctor or go to the emergency room if you start thinking about suicide. documented as of this encounter Visit Diagnoses Diagnosis Anxiety- Primary Anxiety state, unspecified documented in this encounter Additional Health Concerns Infection Onset Date Last Indicated Resolved Time GI Infection Suspected 07/05/2025 07/05/202507/06 2:47 PM CDT documented as of this encounter Care Teams Bird Sitter Relationship Specialty Start Date End Date Chris Tam MD [address] Medicine [place], [place] [phone] PCP - General Internal Medicine 03/15/25 Prince Vleez APRN, FEEDER OPERATOR [address] [phone] Nurse Practitioner Internal Medicine 03/15/25 documented as of this encounter
[2025-07-16 18:04] VITALS: BP 155/79; PULSE 86; RESP 20; TEMP 36.9; O2SAT 97
[2025-07-16 19:06] VITALS: BP 138/67; PULSE 83; RESP 16; O2SAT 96
[2025-07-16 19:10] LABS: Hematocrit 36.9 % (37.0-47.0); Hemoglobin 12.3 g/dL (12.0-15.0); Immature Granulocyte Percent A 0.2 % (0-0.5); Lymphocytes Absolute Auto 1.42 K/mm3 (0.9-3.2); Mean Corpuscular HGB Conc 33.3 g/dl (32-36); Mean Corpuscular Hemoglobin 28.7 pg (26-34); Mean Corpuscular Volume 86.2 fl (80-100); Nucleated Red Blood Cells Absolute Auto 0.000 K/mm3 (0.0-0.012); Nucleated Red Blood Cells Perc 0.0 % (0.0-0.2); Platelet Count Result 234 k/mm3 (150-375); Red Blood Count 4.28 M/mm3 (4.2-5.4); White Blood Count 5.2 K/mm3 (4.5-10.0)
[2025-07-16 19:20] LABS: Alanine Aminotransferase 20 U/L (6-35); Albumin Level 4.3 g/dL (3.5-5.1); Alkaline Phosphatase 64 U/L (38-126); Anion Gap 5 mmol/L (4-12); Aspartate Amino Transferase 33 U/L (14-36); Bilirubin,Total 0.3 mg/dL (0.2-1.3); Blood Urea Nitrogen 22 mg/dL (7-17); Calcium 8.9 mg/dL (8.4-10.2); Carbon Dioxide 32 mmol/L (22-30); Chloride 98 mmol/L (98-107); Estimated CRCL calculation 56 ml/min; Estimated Glomerular Filt Rate > 60; Glucose 82 mg/dL (65-110); INR 0.9; Potassium 4.0 mmol/L (3.4-5.0); Prothrombin Time 12.1 Seconds (11.1-14.7); Sodium 135 mmol/L (137-145); Total Protein 7.1 g/dL (6.3-8.2)
[2025-07-16 19:21] LABS: Partial Thromboplastin Time 28.7 Seconds (22.3-36.8)
--- OUTSIDE RECORDS SUMMARY | 2025-07-16 19:23 | XMS_ITS ---
Author Organization [facility] Address [address] [facility] [place] [address] Care Team Providers Care Rehabilitation Caseworker Name Role Phone Chris Tam MD Primary Care Provider Prince Velez SENIOR MEDICAL DIRECTOR, RENTAL CAR FERRY DRIVER Unavailable Active Problems Problem Noted Date Diagnosed [...]
--- OUTSIDE RECORDS SUMMARY | 2025-07-16 19:23 | XMS_ITS | Encounter Summary ---
Author Organization [facility] Address [address] [place] [address] Care Team Providers Care Head Nurse Name Role Phone Chris Tam MD Primary Care Provider Prince Velez APRN, NUCLEAR EQUIPMENT DESIGN ENGINEER Unavailable Encounter Details Date Type Department Care Team (Late st Contact Info) Description 05/15/2025 Orders Only [facility] Diagnostic [place] [address] [phone] Chris Tam MD [address] [place] [address] Insomnia Social History Tobacco Use Types Packs/Day Years Used Date Smoking Tobacco: Former Cigarettes 0 05/31/1962 - 09/08/2010 Smokeless Tobacco: Never Alcohol Use Standard Drinks/Week Comments Yes 17.5 (1 standard dri nk = 0.6 oz pure alcohol) drinks about 3 12oz beers daily [facility] Utilities Answer Date Recorded In the past 12 months has [employer], gas, oil, or water [employer] threatened to shut off services in your [...] any time in the past 12 m [facility], were you homeless or living in a half-way (including now)? No 04/26/2025 In the last [...] st Contact Info) Description 08/07/2025 8:00 AM ONLINE EDITOR Evaluation [facility] Desk [address] [place] [address] Matti Wolf, PsyD [address] [place] [phone] 08/08/2025 11:20 AM ONLINE EDITOR Office Visit [facility] Sleep [place] [address] [place] [address] Orquidea Arizmendi APRN, NUCLEAR EQUIPMENT DESIGN ENGINEER [address] [place] [address] 08/27/2025 3:00 PM ONLINE EDITOR Office Visit [facility] Diagnostic Medicine [facility] [address] [address] Jorge Gutierrez MD [address] [address] 09/26/2025 3:40 PM ONLINE EDITOR Office Visit [facility] for Diagnostic Medicine [facility] [address] [address] [place] [address] [place] [address] [place] [address] 10/08/2025 1:00 PM ONLINE EDITOR Office Visit [facility] Desk [address] [facility] [address] [address] Hope Reza PA-C [address] [place] [address] 12/19/2025 1:00 PM CDT Appointment [facility] Desk 2D - [place] [address] [address] Tray Cornell MD [address] [place] [address] 01/04/2026 8:[address] [facility] for Diagnostic Medicine - [place] [address] [address] 01/08/2026 10:20 AM CDT Office Visit [facility] Desk [place] - [place] [address] [address] Geronimo Herron MD [address] [place] [phone] 03/19/2026 4:20 PM CDT Office Visit [facility] Desk 3B - [place] [address] [address] Grant Carmona APRN, [facility] [address] [place] [address] 05/10/2026 2:00 PM CDT Appointment [facility] Ground Floor Desk - [place] [address] [address] documented as of this encounter Goals Goal [...] 3. I was in touch with my mormonism community/attended sikhism service. 4. I followed a daily routine [...] Resources for Depression 1. Depression and Bipolar [place] www.dbsalliance.org 2. National [place] of Mental Health www.nimh.nih.gov 3. National [place] on Mental Illness www.callie.org 4. Depression Health Center-WebMD www.webPHmHealth.com/depression Call your doctor or go to the emergency room if you start thinking about suicide. documented as of this encounter Visit Diagnoses Diagnosis Insomnia Insomnia, unspecified documented in this encounter Additional Health Concerns Infection Onset Date Last Indicated Resolved Time GI Infection Suspected 07/05/2025 07/05/202507/06 2:47 PM CDT documented as of this encounter Care Teams Head Nurse Relationship Specialty Start Date End Date Chris Tam MD [address] Medicine [place], [place] [phone] PCP - General Internal Medicine 03/15/25 Prince Velez APRN, NUCLEAR EQUIPMENT DESIGN ENGINEER [address] [phone] Nurse Practitioner Internal Medicine 03/15/25 documented as of this encounter
--- OUTSIDE RECORDS SUMMARY | 2025-07-16 19:23 | XMS_ITS | Encounter Summary ---
Author Organization [facility] Address [address] [address] Care Team Providers Care Plastics Plater Name Role Phone Chris Tam MD Primary Care Provider Prince Velez APRN, CARLOS Unavailable Reason for Visit * Reason Comments Appointment Encounter Details Date Type Department Care Team (Late st Contact Info) Description 06/04/2025 Telephone [facility] Desk - [place] [address] [place] [address] Grant Carmona APRN, MEDICAL PATHOLOGY TEACHER [address] [address] Appointment Social History Tobacco Use Types Packs/Day Years Used Date Smoking Tobacco: Former Cigarettes 0 05/31/1962 - 09/08/2010 Smokeless Tobacco: Never Alcohol Use Standard Drinks/Week Comments Yes 17.5 (1 standard dri nk = 0.6 oz pure alcohol) drinks about 3 12oz beers daily [facility] Utilities Answer Date Recorded In the past 12 months has [address], gas, oil, or water [employer] threatened to shut off services in your [...] were you homeless or living in a nursing home (including now)? No 05/23/2025 In the last [...] - 06/04/2025 5:02 PM CDT Copied from [facility] #[id number]. Topic: Clinic Involvement - CM >> Jun [...] st Contact Info) Description 08/07/2025 8:00 AM MANAGER PATIENT Evaluation [facility] Clinic Desk 6W - [place] [address] [address] Matti Wolf, YonatanyD [address] [place] [phone] 08/08/2025 11:20 AM MANAGER PATIENT Office Visit [facility] Sleep [place] [address] [place] [address] [address] Orquidea Arizmendi APRN, MEDICAL PATHOLOGY TEACHER [address] [place] [address] 08/27/2025 3:00 PM MANAGER PATIENT Office Visit [facility] for Diagnostic Medicine - [place] [address] [address] Jorge Gutierrez MD [address] [place] [address] 09/26/2025 3:40 PM MANAGER PATIENT Office Visit [facility] for Diagnostic Medicine - [place] [address] [address] Chris Tam MD [address] [place] [place] [address] 10/08/2025 1:00 PM MANAGER PATIENT Office Visit [facility] Desk 5A - [place] [address] [address] Hope Reza PA-C [address] [place] [address] 12/19/2025 1:00 PM CDT Appointment [facility] Desk 2D - [place] [address] [address] Tray Cornell MD [address] [place] [address] 01/04/2026 8:30 AM CDT Lab [facility] Diagnostic Medicine [facility] [address] [address] 01/08/2026 10:20 AM CDT Office Visit [facility] Desk VC - [place] [address] [address] Geronimo Herron MD [address] [place] [phone] 03/19/2026 4:20 PM CDT Office Visit [facility] Desk 3B - [place] [address] [place] [address] Grant Carmona APRN, MEDICAL PATHOLOGY TEACHER [address] [place] [address] 05/10/2026 2:00 PM CDT Appointment [facility] Ground Floor Desk - [place] [address] [place] [address] documented as of this encounter Goals Goal [...] 3. I was in touch with my yazdanism community/attended pentecostal service. 4. I followed a daily routine [...] Resources for Depression 1. Depression and Bipolar [place] www.dbsalliance.org 2. National [place] of Mental Health www.nimh.nih.gov 3. National [place] on Mental Illness www.callie.org 4. Depression Health Center-WebMD www.webmd.com/depression Call your doctor or go to the emergency room if you start thinking about suicide. documented as of this encounter Visit Diagnoses Not on filedocumented in this encounter Additional Health Concerns Infection Onset Date Last Indicated Resolved Time GI Infection Suspected 07/05/2025 07/05/202507/06 2:47 PM CDT documented as of this encounter Care Teams Plastics Plater Relationship Specialty Start Date End Date Chris Tam MD [address] Medicine [place], [place] [phone] PCP - General Internal Medicine 03/15/25 Prince Velez APRN, MEDICAL PATHOLOGY TEACHER [address] [address] Nurse Practitioner Internal Medicine 03/15/25 documented as of this encounter
--- OUTSIDE RECORDS SUMMARY | 2025-07-16 19:23 | XMS_ITS | Clinical Summary ---
Author Organization [facility] Shukri Mcgee Address [address] [place] [address] Care Team Providers Care Room Cooler Installer Name Role Phone Juan King MD Primary [...] Discontinued Insurance MEDICARE PART A AND B [place] [id number] Advance Directives For more information, please contact: [phone] Documents on File Type Date Recorded Patient Insole Tape Stitcher Uco Expl anation Advance Directive POA 07/07/2023 9:41 AM Updated 06/14/2023 Care Teams Room Cooler Installer Relationship Specialty Start Date End Date Juan King MD [address] [place] [phone] PCP - General Family Practice 04/07/23
--- OUTSIDE RECORDS SUMMARY | 2025-07-16 19:23 | XMS_ITS | Clinical Summary ---
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 Suspicious that her increased stress may [...] 04/20 Assessment & Plan (09/28/2024 2:59 PM PLATE WORKER HELPER): A(n) yearly Medicare Annual Wellness Visit has [...] months Assessment & Plan (09/27/2023 1:36 PM PLATE WORKER HELPER): A(n) yearly Medicare Annual Wellness Visit has [...] Description 07/16/2025 5:30 PM CDT Office Visit [facility] Care at [address] [phone] Christine Taylor PA Rectal bleeding [...] on file Legal Sex Female 2:53 PM PLATE WORKER HELPER Gender Identity Not on file Sexual [...] Body Mass Index 25.95 09/28/2024 2:56 PM PLATE WORKER HELPER Plan of Treatment Health Maintenance Due Date [...] - GENERAL ORDERABLES Final Result [facility] [address] [address] Department [place] [address] from Last 3 Months or Most Recently Relevant to Health Maintenance Insurance MEDICARE [facility] MEDICARE [facility] MEDICARE AAR Advance Directives For more information, please contact: [phone] Documents on File Type Date Recorded Patient Interior Block Wirer Expl anation Advance Directives and Living Will 07/05/2023 3:41 PM POA updated 06/14/23 Power of Executive Consultant 04/02/2023 3:20 PM Power of Executive Consultant 03/11/2023 12:28 PM Power of Executive Consultant 08/20/2022 6:50 PM * Full Code (Latest Code Status on File) Date Activated Date Inactivated Comments 10/13/2023 9:38 AM 10/14/2023 5:32 AM Care Teams Business Services Sales Representative Relationship Specialty Start Date End Date Rody Kyleekarolina Rea [address] [place] [address] PCP - General 06/06/25 Daniel Darby MD [address] [facility] [address] [place] [address] Referring Physician Orthopedic Surgery 06/16/22
--- OUTSIDE RECORDS SUMMARY | 2025-07-16 19:23 | XMS_ITS ---
Author Organization [facility] Address [address] [place] [address] Care Team Providers Care Blow Torch Operator Name Role Phone Daniel Darby MD Unavailable [phone] Kylee Fine Primary Care Provider [phone] Active Problems Problem Noted Date Diagnosed Date Malignant neoplasm of centra l portion of female breast, unspecified estrogen receptor status, unspecified laterality 09/28/2024 Memory loss 03/26/2023 Medical marijuana use 03/25/2023 Anxiety and depression 09/15/2022 Assessment & Plan (09/15/2022 1:58 PM COACH PROFESSIONAL ATHLETES): Patient doesn't feel like the Sertraline does much, has had increased stress and 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 Suspicious that her increased stress may be [...] 04/20 Assessment & Plan (09/28/2024 2:59 PM COACH PROFESSIONAL ATHLETES): A(n) yearly Medicare Annual Wellness Visit has [...] months Assessment & Plan (09/27/2023 1:36 PM COACH PROFESSIONAL ATHLETES): A(n) yearly Medicare Annual Wellness Visit has [...]
--- OUTSIDE RECORDS SUMMARY | 2025-07-16 19:23 | XMS_ITS | Encounter Summary ---
Author Organization [facility] Address [address] [place] [address] Care Team Providers Care Desulphuring Operator Name Role Phone Juan King MD Primary Care Provider [phone] Daniel Darby MD Unavailable [phone] Kylee Fine Primary Care Provider [phone] Encounter Details Date Type Department Care Team (Late st Contact Info) Description 10/14/2023 Telephone [facility] 1 [place] [address] Mary Burns RN Social History Tobacco Use [...] on file Legal Sex Female 2:53 PM VP DIRECTOR OF CREATIVE STRATEGY Gender Identity Not on file Sexual Orientation Not on file documented as of this encounter Plan of Treatment Not on file documented as of this encounter Visit Diagnoses Not on filedocumented in this encounter Care Teams Desulphuring Operator Relationship Specialty Start Date End Date Juan King MD [address] [place] [address] PCP - General Family Medicine 05/04/22 06/05/25 Kylee Fine [address] [address] PCP - General 06/06/25 Daniel Darby MD [address] [facility] [address] [place] [address] Referring Physician Orthopedic Surgery 06/16/22 documented as of this encounter
--- OUTSIDE RECORDS SUMMARY | 2025-07-16 19:23 | XMS_ITS | Encounter Summary ---
Author Organization [facility] Address [address] [address] Care Team Providers Care Print Developer Automatic Name Role Phone Patient, No Pcp Per Primary Care Provider Olya Chris Brewer MD Primary Care Provider Prince Velez APRN, FIELD CONTACT TECHNICIAN Unavailable Reason for Visit * Reason Comments Medication Refill Encounter Details Date Type Department Care Team (Late st Contact Info) Description 03/01/2025 Refill [facility] Desk [address] [address] Geronimo Herron MD [address] [place] [phone] Medication Refill Social History Tobacco Use Types Packs/Day Years Used Date Smoking Tobacco: Former Cigarettes Smokeless Tobacco: Never Alcohol Use Standard Drinks/Week Comments Yes 17.5 (1 standard dri nk = 0.6 oz pure alcohol) drinks about 3 12oz beers daily [facility] Utilities Answer Date Recorded In the past 12 months has [employer], gas, oil, or water [employer] threatened to shut off services in your [...] any time in the past [address] [facility], were you homeless or living in a half-way (including now)? No 02/13/2025 In the last [...] st Contact Info) Description 08/07/2025 8:00 AM CLINIC OFFICE COORDINATOR Evaluation [facility] Desk 6W - [place] [address] [address] Matti Wolf PsyD [address] [place] [phone] 08/08/2025 11:20 AM CLINIC OFFICE COORDINATOR Office Visit [facility] - [place] [address] [address] Orquidea Arizmendi APRN, FIELD CONTACT TECHNICIAN [address] [address] 08/27/2025 3:00 PM CLINIC OFFICE COORDINATOR Office Visit [facility] Diagnostic Medicine - [place] [address] [address] [place] [address] [place] [address] 09/26/2025 3:40 PM CLINIC OFFICE COORDINATOR Office Visit [facility] Diagnostic Medicine - [place] [address] [address] Chris Tam MD [address] [place] [address] 10/08/2025 1:00 PM CLINIC OFFICE COORDINATOR Office Visit [facility] Desk 5A - [place] [address] [address] Hope Reza PA-C [address] [place] [address] 12/19/2025 1:00 PM CDT Appointment [facility] Desk 2D - [place] [address] [place] [address] Tray Cornell MD [address] [place] [address] 01/04/2026 8:30 AM CDT Lab [facility] Diagnostic [facility] [address] [address] 01/08/2026 10:20 AM CDT Office Visit [facility] Desk VC - [place] [address] [address] Geronimo Herron MD [address] [phone] 03/19/2026 4:20 PM CDT Office Visit [facility] Desk 3B - [place] [address] [place] [address] Grant Carmona, COLLATERAL SPECIALIST, [facility] [address] [place] [address] 05/10/2026 2:00 PM CDT Appointment [facility] Ground Floor Desk - [place] [address] [address] documented as of this encounter Visit Diagnoses Diagnosis Encounter for monitoring aromatase inhibitor therapy documented in this encounter Additional Health Concerns Infection Onset Date Last Indicated Resolved Time Respiratory Suspected 04/26/2025 04/26/20252024 1:12 AM CDT GI Infection Suspected 07/05/2025 07/05/202507/06 2:47 PM CDT documented as of this encounter Care Teams Print Developer Automatic Relationship Specialty Start Date End Date Patient, No Pcp MD Greg PCP - General Internal Medicine 02/11/25 5 [place] [address] [place] [address] [place] [address] PCP - General Internal Medicine 03/15/25 Prince Velez APRN, FIELD CONTACT TECHNICIAN [address] [place] [phone] Nurse Practitioner Internal Medicine 03/15/25 documented as of this encounter
--- OUTSIDE RECORDS SUMMARY | 2025-07-16 19:23 | XMS_ITS | Encounter Summary ---
Author Organization [facility] Address [address] [place] [address] Care Team Providers Care Engine Monitor Name Role Phone Chris Tam MD Primary Care Provider Prince Velez APRN, DIRECTOR PHONE Unavailable Encounter Details Date Type Department Care Team (Late st Contact Info) Description 05/30/2025 Orders Only [facility] Diagnostic [facility] [place] [facility] - [place] [address] [address] Chris Tam MD [address] [place] [address] Anxiety (Primary Dx) Social History Tobacco Use Types Packs/Day Years Used Date Smoking Tobacco: Former Cigarettes 0 05/31/1962 - 09/08/2010 Smokeless Tobacco: Never Alcohol Use Standard Drinks/Week Comments Yes 17.5 (1 standard dri nk = 0.6 oz pure alcohol) drinks about 3 12oz beers daily [facility] Utilities Answer Date Recorded In the past 12 months has [employer], gas, oil, or water [employer] threatened to shut off services in your [...] any time in the past 12 m [facility], were you homeless or living in a group home (including now)? No 05/23/2025 In the [...] st Contact Info) Description 08/07/2025 8:00 AM DREDGE OR BARGE SHORE HAND Evaluation [facility] Desk [address] [place] [address] Maryann Matti Omid, PsyD [address] [place] [phone] 08/08/2025 11:20 AM DREDGE OR BARGE SHORE HAND Office Visit [facility] [place] [address] [place] [address] Orquidea Arizmendi APRN, DIRECTOR PHONE [address] [place] [address] 08/27/2025 3:00 PM DREDGE OR BARGE SHORE HAND Office Visit [facility] Diagnostic Medicine [facility] [address] [place] [address] Jorge Gutierrez MD [address] [address] 09/26/2025 3:40 PM DREDGE OR BARGE SHORE HAND Office Visit [facility] Diagnostic Medicine [facility] [address] [place] [address] Chris Tam MD [address] [place] [address] 10/08/2025 1:00 PM DREDGE OR BARGE SHORE HAND Office Visit [facility] Desk 5A [facility] [address] [place] [address] Hope Reza PA-C [address] [place] [address] 12/19/2025 1:00 PM CDT Appointment [facility] Desk 2D - [place] [address] [place] [address] Tray Cornell MD [address] [place] [address] 01/04/2026 8:30 AM CDT Lab [facility] Diagnostic Medicine - [place] [address] [address] 01/08/2026 10:20 AM CDT Office Visit [facility] Desk VC - [place] [address] [address] Geronimo Herron MD [address] [place] [phone] 03/19/2026 4:20 PM CDT Office Visit [facility] Desk 3B - [place] [address] [address] Grant Carmona APRN, [facility] [address] [place] [address] 05/10/2026 2:00 PM CDT Appointment [facility] Ground Floor Desk - [place] [address] [address] documented as of this encounter Goals Goal [...] 3. I was in touch with my cheondoism community/attended shinto service. 4. I followed a daily routine [...] Resources for Depression 1. Depression and Bipolar [place] www.dbsalliance.org 2. National [place] of Mental Health www.nimh.nih.gov 3. National [place] on Mental Illness www.callie.org 4. Depression Health Center-WebMD www.webShadesCases inc..com/depression Call your doctor or go to the emergency room if you start thinking about suicide. documented as of this encounter Visit Diagnoses Diagnosis Anxiety- Primary Anxiety state, unspecified documented in this encounter Additional Health Concerns Infection Onset Date Last Indicated Resolved Time GI Infection Suspected 07/05/2025 07/05/202507/06 2:47 PM CDT documented as of this encounter Care Teams Engine Monitor Relationship Specialty Start Date End Date Chris Tam MD [address] Medicine [place], [place] [phone] PCP - General Internal Medicine 03/15/25 Prince Velez APRN, DIRECTOR PHONE [address] [phone] Nurse Practitioner Internal Medicine 03/15/25 documented as of this encounter
--- OUTSIDE RECORDS SUMMARY | 2025-07-16 19:23 | XMS_ITS | Encounter Summary ---
Author Organization [facility] Address [address] [place] [id number] Care Team Providers Care Dot Net Developer Name Role Phone Chris Tam MD Primary Care Provider Prince Velez APRN, LINOLEUM FLOOR INSTALLER Unavailable Encounter Details Date Type Department Care Team (Late st Contact Info) Description 05/04/2025 Orders Only [facility] [place] [address] [phone] Chris Tam MD [address] [place] [address] Anxiety and depression (Primary Dx) Social History Tobacco Use Types Packs/Day Years Used Date Smoking Tobacco: Former Cigarettes 0 05/31/1962 - 09/08/2010 Smokeless Tobacco: Never Alcohol Use Standard Drinks/Week Comments Yes 17.5 (1 standard dri nk = 0.6 oz pure alcohol) drinks about 3 12oz beers daily [facility] Utilities Answer Date Recorded In the past 12 months has e [employer], gas, oil, or water [employer] threatened to shut off services in your [...] any time in the past 12 m [facility], were you homeless or living in a residential (including now)? No 04/26/2025 In the last [...] (Late Contact Info) Description 08/07/2025 8:00 AM FORCE ADJUSTMENT SUPERVISOR Evaluation [facility] Desk [place] [address] [place] [phone] Maryann Matti Omid, PsyD [address] [place] [phone] 08/08/2025 11:20 AM FORCE ADJUSTMENT SUPERVISOR Office Visit [facility] [place] [address] [place] [address] Orquidea Arizmendi APRN, LINOLEUM FLOOR INSTALLER [address] [place] [phone] 08/27/2025 3:00 PM FORCE ADJUSTMENT SUPERVISOR Office Visit [facility] Diagnostic Medicine [facility] [address] [address] Jorge Gutierrez MD [address] [address] 09/26/2025 3:40 PM FORCE ADJUSTMENT SUPERVISOR Office Visit [facility] [address] [phone] [place] [address] [place] [address] [place] [address] 10/08/2025 1:00 PM FORCE ADJUSTMENT SUPERVISOR Office Visit [facility] Desk 5A - [place] [address] [address] Hope Reza PA-C [address] [place] [address] 12/19/2025 1:00 PM CDT Appointment [facility] Desk 2D - [place] [address] [place] [address] Tray Cornell MD [address] [place] [address] 01/04/2026 8:30 AM CDT Lab [facility] - [place] [address] [address] 01/08/2026 10:20 AM CDT Office Visit [facility] Desk VC - [place] [address] [address] Geronimo Herron MD [address] [place] [phone] 03/19/2026 4:20 PM CDT Office Visit [facility] Desk 3B - [place] [address] [address] Grant Carmona APRN, LINOLEUM FLOOR INSTALLER [address] [place] [address] 05/10/2026 2:00 PM CDT Appointment [facility] Ground Floor Desk - [place] [address] [address] documented as of this encounter Goals Goal [...] 3. I was in touch with my latter-day community/attended [facility] service. 4. I followed a daily routine [...] Resources for Depression 1. Depression and Bipolar [place] www.dbsalliance.org 2. [facility] [place] [facility] www.nimh.nih.gov 3. National [place] on Mental Illness www.callie.org 4. [facility] www.webSPOTBY.COM.com/depression Call your doctor or go to the emergency room if you start thinking about suicide. documented as of this encounter Visit Diagnoses Diagnosis Anxiety and depression- Primary documented in this encounter Additional Health Concerns Infection Onset Date Last Indicated Resolved Time GI Infection Suspected 07/05/2025 07/05/202507/06 2:47 PM CDT documented as of this encounter Care Teams Dot Net Developer Relationship Specialty Start Date End Date Chris Tam MD [address] Medicine [place], [place] [phone] PCP - General Internal Medicine 03/15/25 Prince Velez APRN, LINOLEUM FLOOR INSTALLER [address] [phone] Nurse Practitioner Internal Medicine 03/15/25 documented as of this encounter
--- OUTSIDE RECORDS SUMMARY | 2025-07-16 19:23 | XMS_ITS | Clinical Summary ---
Author Organization [facility] [place] [place] Address [address] [place] [address] Care Team Providers Care Bulk Plant Manager Name Role Phone Chris Tam MD Primary Care Provider Prince Velez APRN, VOLUNTEER MANAGER Unavailable Allergies No known active allergies Medications [...] Description 07/11/2025 3:00 PM CDT Office Visit [facility] Desk - [address] [address] Geronimo Herron MD Malignant neoplasm of overlapping [...] of care 07/11/2025 11:40 AM CDT Telemedicine [facility] Desk 3B - [place] [address] [place] [address] [phone] Maria Dolores Beck, SENIOR WAREHOUSE CLERK, VOLUNTEER MANAGER Constipation (Primary Dx); Diarrhea; IBS (irritable bowel syndrome) 07/11/2025 Travel 07/11/2025 Telephone [facility] Desk 3B - [place] [address] [place] [address] Maria Dolores Beck APRN, CARLOS 07/09/2025 3:20 PM CDT [facility]est[facility] [place] [address] [place] [phone] Michelle Cochran RN 07/09/2025 3:18 PM CDT - 07/09/2025 11:59 PM CDT Hospital Encounter [facility] [place] [address] [place] [address] 28309 Edgar Meredith Jr., DO Discharge Disposition: Home or Self Care 07/09/2025 Travel 07/05/2025 5:55 PM CDT Lab [facility] - [place] [address] [place] [address] 13388 IBS (irritable bowel syndrome) 07/05/2025 Travel 07/05/2025 Pre-Evaluation [facility] [place] [address] [place] [address] Michelle Cochran RN 07/05/2025 Telephone [facility] [place] [address] [place] [address] 33463 Leonor Rogers RN ECOLI 07/01/2025 Refill [facility] [place] [address] [place] [address] 16[address] Grant Carmona APRN, CARLOS Medication Refill 06/29/2025 Telephone [facility] [place] [address] [place] [address] 13659 Edgar Meredith Jr., DO Colonoscopy 06/25/2025 Refill [facility] VC [facility] [place] [address] [place] [address] 99117 Geronimo Herron MD Medication Refill 06/25/2025 Telephone [facility] Desk 3B - [place] [address] [place] [address] 43898 Susanna Saul, kitchen cleaner Only 06/22/2025 Refill [facility] Desk VC - [place] [address] [place] [address] 430[address] Geronimo Herron MD Medication Refill 06/20/2025 3:00 PM CDT Office Visit [facility] Desk 2D - [place] [address] [place] [address] 57539 Tray Cornell MD OAB (overactive bladder) [N32.81] (Primary Dx); Anxiety and depression 06/20/2025 Travel 06/19/2025 Telephone [facility] Desk 3B - [place] [address] [place] [address] 51864 Britany Walker LVN BT--Plavix 06/18/2025 Patient Outreach [facility] Tammy Cheney CMAS 06/18/2025 Orders Only [facility] Diarrhea (Primary Dx) 06/18/2025 Patient Outreach [facility] Janie Gamble MA 06/14/2025 Results Follow-Up [facility] Desk 3B - [place] [address] [place] [address] Ana Paula Gayle APRN, ANP X-ray abdomen AP (1 view) 06/13/2025 12:00 PM CDT - 06/13/2025 11:59 PM CDT Hospital Encounter [facility] Desk 2X - [place] [address] [place] [address] [phone] Discharge Disposition: Home or Self Care 06/13/2025 11:20 AM CDT Office Visit [facility] Desk 3B - [place] [address] [place] [address] [phone] Ana Paula Gayle APRN, ANP IBS (irritable bowel syndrome) (Primary Dx); Dementia, unspecified dementia severity, unspecified dementia type, unspecified whether behavioral, psychotic, or mood disturbance or anxiety ([facility]) 06/13/2025 Travel 06/08/2025 Telephone [facility] Desk 2D - [place] [address] [place] [address] 13340 Tray Cornell MD 06/07/2025 2:30 PM CDT Treatment [facility] - [place] [address] [place] [phone] Rome Rissa, DIRECT MAIL CLERK Impaired gait and mobility (Primary Dx); Left foot drop; Recurrent falls 06/07/2025 Travel 06/05/2025 2:30 PM CDT Treatment [facility] - [place] [address] [place] [address] RomeAmilcarRissa, DIRECT MAIL CLERK Impaired gait and mobility (Primary Dx); Left foot drop; Recurrent falls 06/05/2025 Travel 06/04/2025 Telephone [facility] [place] [address] [place] [address] Grant Carmona APRN, VOLUNTEER MANAGER Appointment 05/31/2025 2:30 PM CDT Treatment [facility] - [place] [address] [place] [address] RomeAmilcarRissa, DIRECT MAIL CLERK Impaired gait and mobility (Primary Dx); Left foot drop; Recurrent falls 05/31/2025 Travel 05/31/2025 Telephone [facility] 2[facility] [place] [address] [place] [address] [phone] Renetta Zavala APRN, VOLUNTEER MANAGER Appointment 05/30/2025 Orders Only [facility] Medicine - [place] [address] [place] [address] 61045 Chris Tam MD Anxiety (Primary Dx) 05/30/2025 Telephone [facility] [place] [address] [place] [address] 78[address] Renetta Zavala APRN, VOLUNTEER MANAGER Appointment 05/30/2025 Telephone [facility] [address] [place] [address] [phone] Davida Lou, MAIRA Biopsy (Breast Biopsy Results/) 05/29/2025 3:15 PM CDT Treatment [facility] [address] [place] [phone] Rissa Peter, DIRECT MAIL CLERK Impaired gait and mobility (Primary Dx); Left foot drop; Recurrent falls 05/29/2025 Travel 05/28/[address] [place] [address] 16457 Renetta Zavala APRN, VOLUNTEER MANAGER 05/25/2025 2:26 PM CDT - 05/25/2025 11:59 PM CDT Hospital Encounter [facility] [address] [place] [address] Discharge Disposition: Home or Self Care 05/25/2025 2:26 PM CDT - 05/25/2025 11:59 PM CDT Hospital Encounter [facility] [address] [place] [address] Discharge Disposition: Home or Self Care 05/25/2025 10:30 AM CDT Evaluation [facility] [address] [place] [phone] Velia Dozier PT Impaired gait and mobility (Primary Dx); Left foot drop; Recurrent falls 05/25/2025 Travel 05/24/2025 3:40 PM CDT Office Visit [facility] [address] [place] [address] [phone] lEi Child APRN, WHNP History of breast cancer (Primary Dx); History of cervical cancer; Colon cancer screening 05/24/2025 10:30 AM CDT [facility] [place] [address] [address] Renetta Zavala APRN, VOLUNTEER MANAGER Neurogenic bladder due to complications from lumbar spinal surgery (Primary Dx); Self-catheterizes urinary bladder 05/24/2025 Telephone [facility] [place] [address] [place] [address] AnyVictorina fall, RADHASW 05/24/2025 Travel 05/23/2025 Refill [facility] [address] [place] [address] 26883 Greonimo Herron MD Medication Refill 05/23/2025 Telephone [facility] [address] [address] Geronimo Herron MD 05/22/2025 Telephone [facility] Professional [place] [address] [address] Eli Child APRN, LAKIA Appointment 05/20/2025 Refill [facility] for Diagnostic Medicine - [place] [address] [place] [address] 39726 Prince Velez APRN, VOLUNTEER MANAGER Medication Refill (BENZONATATE 100MG CAPSULES) 05/18/2025 1:41 PM CDT - 05/18/2025 11:59 PM CDT Hospital Encounter [facility] [address] [address] Discharge Disposition: Home or Self Care 05/18/2025 1:41 PM CDT - 05/18/2025 11:59 PM CDT Hospital Encounter [facility] [address] [address] Discharge Disposition: Home or Self Care 05/18/2025 Results Follow-Up [facility] Desk 3B - [place] [address] [place] [address] [phone] Grant Carmona APRN, VOLUNTEER MANAGER Tissue Transglutaminase Antibodies, IgA 05/17/2025 2:30 PM CDT Treatment [facility] [address] [place], [place] [phone] Rissa Peter, DIRECT MAIL CLERK Impaired gait and mobility (Primary Dx); Left foot drop; Recurrent falls 05/17/2025 Travel 05/15/2025 11:10 AM CDT Lab [facility] [place] [address] [place], [place] [phone] Kia Thayer MD IBS (irritable bowel syndrome) 05/15/2025 10:40 AM CDT Office Visit [facility] 3[facility] [address] [place], [place] [phone] Grant Carmona APRN, VOLUNTEER MANAGER IBS (irritable bowel syndrome) (Primary Dx); Colon cancer screening 05/15/2025 Refill [facility] VC [facility] [place] [address] [place], [place] [phone] Geronimo Herron MD Medication Refill 05/15/2025 Orders Only [facility] for Diagnostic Medicine - [place] [address] [place], [place] [phone] Chris Tam MD Insomnia 05/15/2025 Documentation [facility] [place] [address] [place] [address]874 Rissa Peter PTA 05/15/2025 Telephone [facility] [address] [place] [address] [address] [place] [address] Chris Tam MD 05/15/2025 Travel 05/10/2025 2:30 PM CDT Treatment [facility] [place] [address] [place] [address] Rissa Peter PTA Impaired gait and mobility (Primary Dx); Left foot drop; Recurrent falls 05/10/2025 Travel 05/09/2025 1:24 PM CDT - 05/09/2025 11:59 PM CDT Hospital Encounter [facility] Ground Floor Desk - [place] [address] [place], [place] [phone] Geronimo Herron MD Discharge Disposition: Home or Self Care 05/09/2025 Travel 05/08/2025 Results Follow-Up [address] [place], [place] [phone] Lj Hilliard MD Vitamin B12 Level, Folate, Thyroid Stimulating Hormone, T4 (Thyroxine), Free 05/07/2025 12:15 PM CDT Lab [address] [place], [place] [phone] Kia Thayer MD Cognitive complaints 05/07/2025 11:00 AM CDT Office Visit [address] [place] [phone] Lj Hilliard MD Cognitive complaints (Primary Dx); TIA (transient ischemic attack); Cerebral aneurysm (HHS-HCC); Migraine with aura and without status migrainosus, not intractable 05/07/2025 Travel 05/04/2025 Orders Only [facility] Diagnostic [facility] [address] [place] [address] 9[address] Chris Tam MD Anxiety and depression (Primary Dx) 05/04/2025 Refill [facility] [place] [address] [place] [address] 08110 Chris Tam MD Medication Refill (zoloft) 05/02/2025 3:20 PM CDT Office Visit [facility] Medicine [facility] [address] [place], [place] [phone] Prince Velez, SENIOR WAREHOUSE CLERK, VOLUNTEER MANAGER History of colonoscopy (Primary Dx); Alternating constipation and diarrhea; Change in bowel habit; Chronic cough; Abnormal chest x-ray; History of smoking; Essential hypertension 05/02/2025 Travel 05/02/2025 Transitional Care Management [facility] - [place] [address] [address] Chris Tam MD 04/25/2025 10:55 PM CDT - 05/01/2025 10:16 AM CDT Hospital Encounter [facility] - [place] [address] Room SCG.[address] [place] [address] Cale Knight MD Reasoner, Brian Michael, MD Wood, Teofilo Nelson MD Wernicke's encephalopathy Discharge Disposition: Home or Self Care 04/25/2025 Travel 04/17/2025 11:30 AM CDT Evaluation [facility] [place] [address] [place], [place] [phone] Velia Dozier, PT Impaired gait and mobility (Primary Dx); Left foot drop; Recurrent falls 04/17/2025 Travel 04/17/2025 Telephone [facility] Desk [facility] [address] [place] [phone] Geronimo Herron MD 04/17/2025 Refill [facility] Desk [facility] [address] [place] [phone] Geronimo Herron MD Medication Refill from Last [...] alcohol) drinks about 3 12oz beers daily [facility] Utilities Answer Date Recorded In [...] any time in the past 12 [facility], were you homeless or living in a [facility] (including now)? No 05/23/2025 In the last [...] st Contact Info) Description 08/07/2025 8:00 AM MATRIX SUPERVISOR Evaluation [facility] Desk 6W - [place] [address] [address] Matti Wolf PsyD [address] [place] [phone] 08/08/2025 11:20 AM MATRIX SUPERVISOR Office Visit [facility] [place] [address] [place] [address] [facility] [place] [facility] [address] [place] [address] Orquidea Arizmendi APRN, VOLUNTEER MANAGER [address] [place] [address] 08/27/2025 3:00 PM MATRIX SUPERVISOR Office Visit [facility] - [place] [address] [place] [address] Jorge Gutierrez MD [address] [place] [address] 09/26/2025 3:40 PM MATRIX SUPERVISOR Office Visit [facility] [address] [address] Chris Tam MD [address] [place] [address] 10/08/2025 1:00 PM MATRIX SUPERVISOR Office Visit [facility] Desk 5A [facility] [address] [address] Hope Reza PA-C [address] [address] 12/19/2025 1:00 PM CDT Appointment [facility] Desk 2D [facility] [address] [place] [address] Tray Cornell MD [address] [address] 01/04/2026 8:30 AM CDT Lab [facility] [address] [address] 01/08/2026 10:20 AM CDT Office Visit [facility] Desk VC [facility] [address] [place] [address] Geronimo Herron MD [address] [phone] 03/19/2026 4:20 PM CDT Office Visit [facility] Desk 3B [facility] [address] [place] [address] Grant Carmona, SENIOR WAREHOUSE CLERK, VOLUNTEER MANAGER [address] [place] [address] 05/10/2026 2:00 PM CDT Appointment [facility] [place] [address] Health Maintenance Due Date Last Done Comments [...] 3. I was in touch with my [employer] community/attended [employer] service. 4. I followed a daily routine [...] Resources for Depression 1. Depression and Bipolar [place] www.dbsalliance.org 2. National [place] of Mental Health www.nimh.nih.gov 3. National [place] on Mental Illness www.callie.org 4. Depression Health Center-WebMD www.webmd.com/depression Call your doctor or go to the emergency room if you start thinking about suicide. Medical Devices Implanted Type Area Manager Floor Device Identifier Shelf Expiration Date Model / Serial / Lot Monitor Cardiac 7.2mm X 44.8mm D4mm 1.2cc Titanium Nitride Electrode Polymer Header Parylene Insertable Mr Conditional For Subcutaneous Ekg Lux-Dx Ii+ - [id number] Implanted:Qty: 1 on 02/15/2025 by Yakelin Lou APRN, AGACNP at [facility] Implant Left: Chest [employer] [id number] / / Procedures Procedure Name Priority [...] Marysol Alexis RN Procedure Nurse Jennifer Louis Balance Staff Staker Medications fentaNYL (SUBLIMAZE) 50 mcg/mL injection 75 [...] of bowel preparation was evaluated using the [place] Bowel Preparation Scale with scores of: right [...] No specimens collected Patient Friendly Report Summary {\rtf1\[id number]\ansi\spltpgpar\jexpand\noxlattoyen\deff0{\fonttbl{\f0 [place];}}{\colortbl ;}\[id number]\[id number]\[id number]\[id number]\nvalp0584\wnvck5983\pssppam409\fo otery 720\pard\plain\fs22 Normal: The exam was completed and no problems were found. Nothing unusual or abnormal was seen, and no samples were taken or treatments done.\par} Grant Carmona APRN, VOLUNTEER MANAGER ENDOSCOPY PRO CEDURE ORDERABLES Final Result * PCR Limited Stool Pathogen Panel, PCR (07/05/2025 12:34 PM CDT) Adenovirus Not Detected Not Detected 5 2:47 PM CDT [facility] Campylobacter species Not Detected Not Detected 5 2:47 PM CDT [facility] Cryptosporidium species Not Detected Not Detected 5 2:47 PM CDT [facility] Shigella / Enteroinvasive E. coli Not Detected Not Detected 5 2:47 PM CDT [facility] Enteroaggregative E. coli Not Detected Not Detected 5 2:47 PM CDT [facility] Enterotoxigenic E. coli Not Detected Not Detected 5 2:47 PM CDT [facility] Shiga toxin-producing E. coli Not Detected Not Detected 5 2:47 PM CDT [facility] Giardia lamblia Not Detected Not Detected 5 2:47 PM CDT [facility] Norovirus Not Detected Not Detected 5 2:47 PM CDT [facility] Rotavirus Not Detected Not Detected 5 2:47 PM CDT [facility] Salmonella species Not Detected Not Detected 5 2:47 PM CDT [facility] Yersinia enterocolitica Not Detected Not Detected 5 2:47 PM CDT [facility] C. difficile Toxin Gene(s), [place] Not Detected Not Detected 5 2:47 PM CDT [facility] Comment:Specimen tested usin g the Spine Wave platform, which detects the C. difficile toxin A and B genes. Methodology, Molecular This test is performed using the WizMeta MDx 3000, an automated system that integrates PCR amplification, target capture, signal generation, and optical detection for multiple gastrointestinal pathogens in a single well. Appropriate positive and negative controls were run alongside the patient's sample. 5 2:47 PM CDT [facility] Disclaimer This test was validated and its performance determined by the [facility]. This test is approved by the U.S. Food and Drug Administration. This test is used for clinical purposes. It should not be regarded as investigational or for research. This laboratory is certified under the Clinical Laboratory Improvement Amendments of 1988 (CLIA) as qualified to perform high complexity clinical testing. 5 2:47 PM CDT [facility] Stool Non-Blood Collection / Unknown 07/05/2025 12:34 PM CDT 07/05/2025 5:27 PM CDT Grant Carmona APRN, VOLUNTEER MANAGER MICROBIOLOGY - GENERAL ORDERABLES Final Result Performing Organization Address [facility] Co de Phone Number [facility] [address] [phone] * O&P(Routine) (07/05/2025 12:34 PM CDT) Ova and Parasite Identification No Parasites seen. No Parasites Seen 07/06/2025 6:06 AM CDT [facility] Stool Non-Blood Collection / Unknown 07/05/2025 12:34 PM CDT 07/05/2025 5:28 PM CDT CARLOS Waddell APRN MICROBIOLOGY - GENERAL ORDERABLES Final Result Performing Organization Address [facility] de Phone Number [address] [phone] * ILR Device Check- Remote (06/21/2025 10:43 [...] PM CDT Narrative 05/25/2025 6:42 PM CDT #[id number] - MG DIGITAL DIAGNOSTIC LEFT W WO CAD UNILATERAL LEFT DIGITAL DIAGNOSTIC MAMMOGRAM WITH CAD: 05/25/2025 CLINICAL HISTORY: Abnormal Mammogram. COMPARISON: Comparison is made to exams dated: 05/25/2025 ultrasound biopsy, 05/18/2025 ultrasound, 05/18/2025 mammogram, 05/09/2025 mammogram - [facility] [place], 05/05/2024 mammogram, and 05/18/2023 mammogram. TECHNIQUE: Mammographic [...] mammogram for marker placement Talon flor,mf/penrad:05/25/2025 18:42:14 Robotic Welder: RT Esteban(Javier)(Velma), [facility] Letter Sent: Post Proc Mammo Procedure Note Talon Gayle, DO - 05/28/2025 #[id number] - MG DIGITAL DIAGNOSTIC LEFT W WO CAD UNILATERAL LEFT DIGITAL DIAGNOSTIC MAMMOGRAM WITH CAD: 05/25/2025 CLINICAL HISTORY: Abnormal Mammogram. COMPARISON: Comparison is made to exams dated: 05/25/2025 ultrasoundbiopsy, 05/18/2025 ultrasound, 05/18/2025 mammogram, 05/09/2025 mammogram -[facility], 05/05/2024 mammogram, and05/18/2023 mammogram. TECHNIQUE: Mammographic views [...] mammogram for marker placement Talon flor,/penrad:05/25/2025 18:42:14 Robotic Welder: RT Esteban(Javier)(M), [facility] Letter Sent: Post Proc Mammo Geronimo Herron MD IM MAMMOGRAPHY ORDERABLES Final Result * Surgical Pathology Exam (05/25/2025 3:09 PM CDT) Case Report Surgical Pathology Report Case: [id number] Authorizing Provider: Geronimo Herron MD Collected: 05/25/2025 1509 Ordering Location: [facility] Received: 05/25/2025 2153 Clinic Ground Floor [facility] Pathologist: Genesis Bernstein MD Specimen: Breast, US GUIDED LEFT BREAST 11:00 MASS 05/29/2025 5:40 PM CDT [facility] Clinical Information US GUIDED LEFT BREAST 11:00 MASS 05/29/2025 5:40 PM CDT [facility] Final Diagnosis Left breast, 11 o'clock, US guided biopsy: Small amount of benign breast tissue composed of predominantly dense fibrotic stroma. 05/29/2025 5:40 PM CDT [facility] at 1740 CDT Gross Description A. [...] of 72 hours. 05/29/2025 5:40 PM CDT [facility] Microscopic Description Multiple levels were examined. 05/29/2025 5:40 PM CDT [facility] Quality Information Unless gross only is [...] laboratory testing. Professional services performed at address [address] [place] [address]; CLIA [id number]. 05/29/2025 5:40 PM CDT [facility] Tissue SPECIMEN FROM BREAST / Unknown Non-Blood Collection / Unknown 05/25/2025 3:09 PM CDT 05/25/2025 9:54 PM CDT Comment:US GUIDED LEFT BREAS T 11:00 MASS us Geronimo Herron MD PATHOLOGY/CYTOLOGY ORDERABLES Fi nal Result [facility] [address] [place], [place] [id number] [place] [address] * (ABNORMAL) US Guided Breast Core Needle Biopsy Left (05/25/2025 3:08 PM CDT) Anatomical Region Laterality Modality Breast Mammography 05/25/2025 2:31 PM CDT Narrative 05/30/2025 7:42 AM CDT FINAL REPORT #[id number] - US GUIDED BREAST CORE NEEDLE BIOPSY [...] 05/18/2025 mammogram, 05/09/2025 mammogram, 05/25/2025 mammogram - [facility], and 05/05/2024 mammogram. An ultrasound guided biopsy [...] screening in April 2026. Talon flor,/:05/30/2025 07:42:28 Robotic Welder: RAND Orellana)(Velma), [facility] Letter Sent: B9 Biopsy Short Term Procedure Note Talon Gayle Juan, DO - 05/31/2025 FINAL REPORT #[id number] - US GUIDED BREAST CORE NEEDLE BIOPSY [...] ultrasound, 05/18/2025mammogram, 05/09/2025 mammogram, 05/25/2025 mammogram - [facility], and 05/05/2024 mammogram. An ultrasound guided biopsy [...] screening in April 2026. Talon flor,/:05/30/2025 07:42:28 Robotic Welder: RT Esteban(R)(M), [facility] Letter Sent: B9 Biopsy Short Term Geronimo Herron MD G US ORDERABLES Final Result * ILR Device Check- Remote (05/20/2025 11:24 AM CDT) Anatomical Region Laterality Modality Other Adrien Card MD CV IMPLANTABLE DEVICE ORDS F inal Result * (ABNORMAL) US Breast Limited Left (05/18/2025 3:45 PM CDT) Anatomical Region Laterality Modality Breast Mammography 05/18/2025 3:33 PM CDT Narrative 05/18/2025 3:56 PM CDT #[id number] - US BREAST LIMITED LEFT ULTRASOUND OF LEFT BREAST: 05/18/2025 CLINICAL HISTORY: Abnormal Mammogram. COMPARISON: Comparison is made to exams dated: 05/18/2025 mammogram, 05/09/2025 mammogram - [facility], 05/05/2024 mammogram, and 05/18/2023 mammogram. TECHNIQUE: Real-time [...] patient. Dr. Fredy Villalobos M.D. def/penrad:05/18/2025 15:56:55 Robotic Welder: EVETTE bAramsR)(M), [facility] Ultrasound BI-RADS: 4 Suspicious Abnormality Procedure Note Fredy Villalobos MD - 05/18/2025 #[id number] - US BREAST LIMITED LEFT ULTRASOUND OF LEFT BREAST: 05/18/2025 CLINICAL HISTORY: Abnormal Mammogram. COMPARISON: Comparison is made to exams dated: 05/18/2025 mammogram,05/09/2025 mammogram - [facility],05/05/2024 mammogram, and 05/18/2023 mammogram. TECHNIQUE: Real-time ultrasound [...] patient. Dr. Fredy Villalobos M.D. def/penrad:05/18/2025 15:56:55 Robotic Welder: RAND Abrams)(M), [facility] Ultrasound BI-RADS: 4 Suspicious Abnormality Geronimo Herron MD [facility] US ORDERABLES Final Result * Tissue Transglutaminase Antibodies, IgA (05/15/2025 11:37 AM CDT) Tissue Transglutaminase Antibody, IgA, Qualitative Negative Negative 05/16/2025 11:29 AM CDT [facility] Tissue Transglutaminase Antibody, IgA, Quantitative <0.5 <15.0 U/mL 05/16/2025 11:29 AM CDT [facility] Blood VENOUS BLOOD SPECIMEN / Unknown Venipuncture / Unknown 05/15/2025 11:37 AM CDT 05/15/2025 12:16 PM CDT Narrative [facility] - 05/16/2025 11:29 AM CDT Testing performed on Harvest 2200 utilizing multiplexed bead immunoassay. Grant Carmona APRN, VOLUNTEER MANAGER LAB BLOOD ORD ERABLES Final Result Performing Organization Address City/[facility]/ZIP Co de Phone Number [facility] [address] [place] [address], [facility] [phone] * IgA, Quantitative (05/15/2025 11:37 AM CDT) IgA, Quantitative 123 70 - 400 mg/dL 05/15/2025 4:32 PM CDT [facility] Blood VENOUS BLOOD SPECIMEN / Unknown Venipuncture / Unknown 05/15/2025 11:37 AM CDT 05/15/2025 12:16 PM CDT Grant Carmona APRN, VOLUNTEER MANAGER LAB BLOOD ORD ERABLES Final Result Performing Organization Address City/[facility] Co de Phone Number [facility] [address] [phone] * (ABNORMAL) MG 3D Kamron Screen Bilateral w wo CAD (05/09/2025 1:56 PM CDT) Anatomical Region Laterality Modality Breast Mammography 05/09/2025 1:39 PM CDT Narrative 05/09/2025 4:32 PM CDT #[id number] - MG 3D KAMRON SCREEN BILATERAL W [...] Needs Additional Imaging Evaluation Talon flor/cinthia:05/09/2025 16:32:11 Robotic Welder: RT Nayana(R), [facility] Letter Sent: Additional Imaging Procedure Note Talon Gayle, DO - 05/10/2025 #[id number] - MG 3D KAMRON SCREEN BILATERAL W [...] Needs Additional Imaging Evaluation Talon flor/cinthia:05/09/2025 16:32:11 Robotic Welder: RT Nayana(R), [facility] Letter Sent: Additional Imaging Geronimo Herron MD IMG MAMMOGRAPHY ORDERABLES Final Result * Thyroid Stimulating Hormone (05/07/2025 12:22 PM CDT) Only the most recent of2 resultswithin the time period is included. Thyroid Stimulating Hormone (TSH) 3.040 0.270 - 4.200 uIU/mL 05/07/2025 4:12 PM CDT [facility] Comment:Biotin, present in s ome multivitamins and dietary supplements, may interfere with this test, causing falsely high or low results. Blood VENOUS BLOOD SPECIMEN / Unknown Venipuncture / Unknown 05/07/2025 12:22 PM CDT 05/07/2025 1:11 PM CDT Lj Hilliard MD LAB BLOOD ORDERABLES Final Resul t [facility] [address] [phone] * T4 (Thyroxine), Free (05/07/2025 12:22 PM CDT) Pathologist [facility] T4 (Thyroxine), Free 1.15 0.92 - 1.68 ng/dL 05/07/2025 4:12 PM CDT [facility] Blood VENOUS BLOOD SPECIMEN / Unknown Venipuncture / Unknown 05/07/2025 12:22 PM CDT 05/07/2025 1:11 PM CDT Lj Hilliard MD LAB BLOOD ORDERABLES Final Resul t Performing Organization Address [facility] Co de Phone Number [facility] [address] [phone] * Folate (05/07/2025 12:22 PM CDT) [facility] Folate 16.4 4.8 - 37.3 ng/mL 05/07/2025 4:12 PM CDT [facility] Comment:Biotin, present in s ome multivitamins and dietary supplements, may interfere with this test, causing falsely high or low results. Blood VENOUS BLOOD SPECIMEN / Unknown Venipuncture / Unknown 05/07/2025 12:22 PM CDT 05/07/2025 1:11 PM CDT Lj Hilliard MD LAB BLOOD ORDERABLES Final Resul t [facility] [address] [phone] * Vitamin B12 Level (05/07/2025 12:22 PM CDT) [facility] Vitamin B12 703 232 - 1,245 pg/mL 05/07/2025 4:12 PM CDT [facility] Blood VENOUS BLOOD SPECIMEN / Unknown Venipuncture / Unknown 05/07/2025 12:22 PM CDT 05/07/2025 1:11 PM CDT us Lj Hilliard MD LAB BLOOD ORDERABLES Final Resul t [facility] [address] [address], [facility] [phone] * Telemetry Integration Rhythm Strip (04/27/2025 2:14 [...] DO Date/Time 04/26/2025 11:36AM Ladi Castillo MD [facility] MRI ORDERABLES Final Re sult * MRA [...] - 180 nmol/L 04/29/2025 12:41 PM CDT [facility])( BEAKER) Comment: INTERPRETIVE INFORMATION: Vitamin B1, Whole Blood This assay measures the concentration of thiamine diphosphate (TDP), the primary active form of vitamin B1. Approximately 90 percent of vitamin B1 present in whole blood is TDP. Thiamine and thiamine monophosphate, which comprise the remaining 10 percent, are not measured. This test was developed and its performance characteristics determined by [facility]. It has not been cleared or approved by the US Food and Drug Administration. This test was performed in a CLIA certified laboratory and is intended for clinical purposes. Performed By: [facility] [address] [place] [address] Personal Fitness Manager: Farrukh Villanueva MD, PhD CLIA Number: [id number] Blood VENOUS BLOOD SPECIMEN / Unknown Venipuncture / Unknown 04/26/2025 6:39 AM CDT 04/26/2025 8:11 AM CDT Ladi Castillo MD LAB BLOOD ORDERABLES Final Result [facility] Personal[employer]AILASH) [address] [place] [address] * (ABNORMAL) (P) CBC WITH DIFFERENTIAL (04/26/2025 6:38 AM CDT) Only the most recent of2 resultswithin the time period is included. White Blood Cell Count 4.3(L) 4.5 - 11.0 10*3/uL 04/26/2025 7:07 AM CDT [facility] Red Blood Cell Count 3.81(L) 4.00 - 5.40 10*6/uL 04/26/2025 7:07 AM CDT [facility] Hemoglobin 11.2(L) 12.0 - 16.0 g/dL 04/26/2025 7:07 AM T [facility] Hematocrit 33.8(L) 37.0 - 47.0 % 04/26/2025 7:07 AM T [facility] MCV 88.7 80.0 - 99.0 fL 04/26/2025 7:07 AM CDT [facility] MCH 29.4 27.0 - 34.5 pg 04/26/2025 7:07 AM T [facility] MCHC 33.1 32.0 - 36.5 g/dL 04/26/2025 7:07 AM [facility] RDW 13.7 11.0 - 15.0 % 04/26/2025 7:07 AM [facility] Platelet Count 191 150 - 450 10*3/uL 04/26/2025 7:07 AM [facility] MPV 9.5 7.4 - 12.0 fL 04/26/2025 7:07 AM [facility] Segmented Neutrophils 55.4 % 04/26/2025 7:07 AM [facility] Lymphocytes 28.2 % 04/26/2025 7:07 AM [facility] Monocytes 9.4 % 04/26/2025 7:07 AM [facility] Eosinophils 5.4 % 04/26/2025 7:07 AM [facility] Basophils 0.7 % 04/26/2025 7:07 AM [facility] Immature Granulocytes 0.9 % 04/26/2025 7:07 AM [facility] Comment:Immature Granulocyte includes Metamyelocytes, Myelocytes and Promyelocytes. Absolute Neutrophil Count (ANC) 2.36 1.92 - 8.64 10*3/uL 04/26/2025 7:07 AM [facility] Lymphocytes, Absolute 1.20 0.72 - 4.32 10*3/uL 04/26/2025 7:07 AM [facility] Monocytes, Absolute 0.40 0.09 - 0.99 10*3/uL 04/26/2025 7:07 AM [facility] Eosinophils, Absolute 0.23 0.00 - 0.76 10*3/uL 04/26/2025 7:07 AM [facility] Basophils, Absolute 0.03 0.00 - 0.22 10*3/uL 04/26/2025 7:07 AM [facility] Blood VENOUS BLOOD SPECIMEN / Unknown Venipuncture / Unknown 04/26/2025 6:38 AM CDT 04/26/2025 6:53 AM CDT us Ladi Castillo MD LAB BLOOD ORDERABLES Final Result Performing Organization Address [facility]/ZIP Co de Phone Number [facility] [address] [phone] * Phosphorus (04/26/2025 6:38 AM CDT) Phosphorus 3.7 2.5 - 4.5 mg/dL 04/26/2025 7:23 AM CDT [facility] Blood VENOUS BLOOD SPECIMEN / Unknown Venipuncture / Unknown 04/26/2025 6:38 AM CDT 04/26/2025 7:23 AM CDT Ladi Castillo MD LAB BLOOD ORDERABLES Final Result Performing Organization Address [facility] Co de Phone Number [facility] [address] [phone] * Magnesium (04/26/2025 6:38 AM CDT) Only the most recent of2 resultswithin the time period is included. Magnesium 2.0 1.6 - 2.4 mg/dL 04/26/2025 7:23 AM CDT [facility] Blood VENOUS BLOOD SPECIMEN / Unknown Venipuncture / Unknown 04/26/2025 6:38 AM CDT 04/26/2025 7:23 AM CDT Ladi Castillo MD LAB BLOOD ORDERABLES Final Result Performing Organization Address [facility] Co de Phone Number [facility] [address] [phone] * Hemoglobin A1c (04/26/2025 6:38 AM CDT) Hemoglobin A1c 5.6 3.8 - 5.6 % 04/26/2025 7:17 AM CDT [facility] Comment: Diabetes: HgbA1c of 6.5% [...] Glucose 114 mg/dL 04/26/2025 7:17 AM CDT [facility] Blood VENOUS BLOOD SPECIMEN / Unknown Venipuncture / Unknown 04/26/2025 6:38 AM CDT 04/26/2025 7:16 AM CDT Ladi Castillo MD LAB BLOOD ORDERABLES Final Result Performing Organization Address City/State/[facility] Co de Phone Number [facility] [address] [place] [address] * Lipid Panel (04/26/2025 6:38 AM CDT) [facility] Cholesterol, Total 175 <200 mg/dL 2024 7:23 AM T [facility] Triglycerides 140 <150 mg/dL 04/26/2025 7:23 AM T [facility] HDL Cholesterol 62 >=40 mg/dL 7:23 AM T [facility] Comment: < 40 mg/dL: Low HDL-Cholesterol (major risk factor for CHD) >= 60 mg/dL: High HDL-Cholesterol (negative risk factor for CHD) Cholesterol/HDL Ratio 2.8 04/26/2025 7:23 AM T [facility] LDL Cholesterol 90 <100 mg/dL 7:23 AM T [facility] Comment: Optimal <100 mg/dL Near Optimal/Above Optimal 100 - 129 mg/dL Borderline High 130 - 159 mg/dL High 160 - 189 mg/dL Very High >= 190 mg/dL Non-HDL Cholesterol 113 mg/dL 04/26/2025 7:23 AM T [facility] Blood VENOUS BLOOD SPECIMEN / Unknown Venipuncture / Unknown 04/26/2025 6:38 AM CDT 04/26/2025 7:23 AM CDT us Ladi Castillo MD LAB BLOOD ORDERABLES Final Result [facility] [address] [phone] * (ABNORMAL) Basic Metabolic Panel (04/26/2025 6:38 AM CDT) Glucose 110(H) 70 - 99 mg/dL 04/26/2025 7:23 AM T [facility] Comment:Reference interval b ased on minimum 8 hour fasting sample. Sodium 140 136 - 145 meq/L 04/26/2025 7:23 AM T [facility] Potassium 3.9 3.5 - 5.1 meq/L 04/26/2025 7:23 AM T [facility] Comment:Hemolysis is present which may interfere with this analyte. Please interpret with caution Chloride 104 98 - 107 meq/L 04/26/2025 7:23 AM T [facility] Anion Gap 10 6 - 16 meq/L 04/26/2025 7:23 AM T [facility] Carbon Dioxide 26 22 - 29 meq/L 04/26/2025 7:23 AM T [facility] BUN 17 8 - 23 mg/dL 04/26/2025 7:23 AM T [facility] Creatinine 0.61 0.51 - 0.95 mg/dL 04/26/2025 7:23 AM T [facility] BUN/Creatinine Ratio 28(H) 7 - 25 04/26/2025 7:23 AM T [facility] Calcium 8.6(L) 8.8 - 10.2 mg/dL 04/26/2025 7:23 AM T [facility] Estimated Glomerular Filtration Rate (eGFR) 91 >=60 mL/min/1.7 3m2 04/26/2025 7:23 AM CDT [facility] Comment:Calculated using the Chronic Kidney Disease Epidemiology Collaboration (CKD-EPI) equation. Blood VENOUS BLOOD SPECIMEN / Unknown Venipuncture / Unknown 04/26/2025 6:38 AM CDT 04/26/2025 7:23 AM CDT Ladi Castillo MD LAB BLOOD ORDERABLES Final Result Performing Organization Address City/[facility] Co de Phone Number [facility] [address] [phone] * ECG 12-Lead (04/26/2025 6:25 AM CDT) [...] ANNE TERESA METHOD 04/26/2025 1:12 AM CDT [facility] Influenza A, [place] Not Detected Not Detected [place] ANNE TERESA METHOD 04/26/2025 1:12 AM CDT [facility] Influenza B, [place] Not Detected Not Detected [place] ANNE TERESA METHOD 04/26/2025 1:12 AM CDT [facility] Swab NASOPHARYNGEAL STRUCTURE / Unknown Non-Blood Collection / Unknown 04/26/2025 12:34 AM CDT 04/26/2025 12:49 AM CDT Narrative [facility] - 04/26/2025 1:12 AM CDT [...] for SARS CoV-2 test is available at https://www.fda.gov/media/451156/download Provider Fact Sheet for SARS CoV-2 test is available at Https://www.fda.gov/media/538552/download us Cale Knight MD MICROBIOLOGY - GENERAL O RDERABLES Final Result [facility] [address] [place] [address], [facility] [phone] * (ABNORMAL) (P) Urinalysis with microscopy with reflex to culture (04/26/2025 12:34 AM CDT) Color, Urine Yellow See Below 04/26/2025 12:55 AM [facility] Comment:Reference range: Col orless, Light Yellow, Pale Yellow, Straw, Yellow, Dark Yellow. Appearance, Urine Clear Clear 04/26/2025 12:55 AM [facility] Specific [place], Urine 1.005(A) 1.006 - 1.029 04/26/2025 12:55 AM [facility] pH, Urine 6.5 5.0 - 8.0 04/26/2025 12:55 AM [facility] Protein, Urine Negative Negative 04/26/2025 12:55 AM [facility] Glucose, Urine Negative Negative 04/26/2025 12:55 AM [facility] Ketones, Urine Negative Negative 04/26/2025 12:55 AM [facility] Bilirubin, Urine Negative Negative 04/26/2025 12:55 AM [facility] Blood, Urine Negative Negative 04/26/2025 12:55 AM [facility] Urobilinogen, Urine 0.2 0.2 - 1.0 David U/dL 04/26/2025 12:55 AM [facility] Nitrites, Urine Negative Negative 04/26/2025 12:55 AM [facility] Leukocyte Esterase, Urine 3+(A) Negative 04/26/2025 12:55 AM [facility] Red Blood Cells, Urine 0-2 0 - 2 /hpf 04/26/2025 12:55 AM [facility] White Blood Cells, Urine 21-50(A) 0 - 5 /hpf 04/26/2025 12:55 AM [facility] Bacteria, Urine None Seen None Seen /hpf 04/26/2025 12:55 AM [facility] Hyaline Casts, Urine Negative Negative /lpf 04/26/2025 12:55 AM [facility] Squamous Epithelial Cells, Urine 0-2 0-2, 3-5 /hpf /hpf 04/26/2025 12:55 AM [facility] Urine URINE SPECIMEN OBTAINED BY CLEAN CATCH PROCEDURE / Unknown Non-Blood Collection / Unknown 04/26/2025 12:34 AM CDT 04/26/2025 12:48 AM CDT us Cale Knight MD URINE ORDERABLES Final R esult [facility] [address] [place] [address], [facility] [phone] * (ABNORMAL) UDS (04/26/2025 12:34 AM CDT) Pathologist [facility] Amphetamine, Urine Negative Negative 04/26/2025 5:32 AM CDT [facility] Comment:Cutoff 500 ng/mL Barbiturates, Urine Negative Negative 04/26/2025 5:32 AM CDT [facility] Comment:Cutoff 200 ng/mL Benzodiazepines, Urine Negative Negative 04/26/2025 5:32 AM CDT [facility] Comment:Cutoff 100 ng/mL Cocaine, Urine Negative Negative 04/26/2025 5:32 AM CDT [facility] Comment:Cutoff 150 ng/mL Opiates, Urine Negative Negative 04/26/2025 5:32 AM CDT [facility] Comment:Cutoff 300 ng/mL Phencyclidine, Urine Negative Negative 04/26/2025 5:32 AM CDT [facility] Comment:Cutoff 25 ng/mL Cannabinoids (THC), Urine Negative Negative 04/26/2025 5:32 AM CDT [facility] Comment:Cutoff 50 ng/mL Fentanyl, Urine Negative Negative 5:32 AM T [facility] Comment:Cutoff 5.0 ng/mL Creatinine, Random Urine 18.3(L) 29.0 - 226.0 mg/dL 04/26/2025 5:32 AM CDT [facility] Comment:Creatinine <20 mg/dL = dilute urine specimen pH, Urine 6.3 5.0 - 8.0 04/26/2025 5:32 AM T [facility] Urine URINE SPECIMEN OBTAINED BY CLEAN CATCH PROCEDURE / Unknown Non-Blood Collection / Unknown 04/26/2025 12:34 AM CDT 04/26/2025 12:48 AM CDT Narrative [facility] - 04/26/2025 5:32 AM CDT [...] Castillo MD URINE ORDERABLES Final Resu lt [facility] [address] [place] [address], [facility] [phone] * (ABNORMAL) Culture, Urine (04/26/2025 12:34 AM CDT) Culture 50,000-100,00 0 CFU/mL Klebsiella oxytoca(A) DASHAWN SUSCEPTIBILITY 04/28/2025 2:00 PM CDT [facility] Urine URINE SPECIMEN OBTAINED BY CLEAN [...] MICROBIOLOGY - GENERAL O RDERABLES Final Result [facility] [address] [place] [address], [facility] [phone] * CT Head wo Contrast (04/25/2025 2:48 [...] sinuses and mastoids are clear. ORBITS: Absent chilkoot ocular lenses. Procedure Note Edgar Hayden MD [...] sinuses and mastoids are clear. ORBITS: Absent chilkoot ocular lenses. IMPRESSION: No acute intracranial abnormality. [...] - 12.5 s 04/25/2025 2:12 PM CDT [facility] Comment:Normal range PT does not rule out presence of oral Factor Xa Inhibitors. International Normalized Ratio (INR) 0.9 <=1.1 04/25/2025 2:12 PM CDT [facility] Comment: Coumadin Anticoagulant Therapeutic Ranges (INR): Prophylaxis and treatment of venous thromboembolism: 2.0-3.0 Prevention of recurrent thromboembolism or treatment for prosthetic heart valves: 2.5-3.5 Blood VENOUS BLOOD SPECIMEN / Unknown Venipuncture / Unknown 04/25/2025 1:51 PM CDT 04/25/2025 1:56 PM CDT Nelson Oglesby MD LAB BLOOD ORDERABLES Final Result Performing Organization Address City/State/[facility] Co de Phone Number [facility] [address] [phone] * Troponin T, High-sensitivity (04/25/2025 1:51 PM CDT) Pathologist [facility] Troponin T, High-Sensitivity 9 <14 ng/L 04/25/2025 2:28 PM CDT [facility] Comment: <14 ng/L (female) , [...] baseline at 3H are ruled out for OR. See [facility] hsTnT Accelerated Diagnostic Protocol for [...] BLOOD ORDERABLES Final Result Performing Organization Address [facility] Co de Phone Number [facility] [address] [phone] * B-Type Natriuretic Peptide (BNP) (04/25/2025 1:51 PM CDT) [facility] B-Type Natriuretic Peptide (BNP) 58 0 - 100 pg/mL [employer]IST[employer] PLANNER I2000 METHOD 04/25/2025 3:43 PM CDT [facility] Comment:After use of recombi nant [...] BLOOD ORDERABLES Final Result Performing Organization Address [facility] Co de Phone Number [facility] [address] [phone] * (ABNORMAL) Comprehensive Metabolic Panel (04/25/2025 1:51 PM CDT) Pathologist [facility] Glucose 122(H) 70 - 99 mg/dL 04/25/2025 2:28 PM CDT [facility] Comment:Reference interval b ased on minimum 8 hour fasting sample. Sodium 136 136 - 145 meq/L 04/25/2025 2:28 PM [facility] Potassium 4.2 3.5 - 5.1 meq/L 04/25/2025 2:28 PM [facility] Comment:Hemolysis is present which may interfere with this analyte. Please interpret with caution Chloride 101 98 - 107 meq/L 04/25/2025 2:28 PM T [facility] Anion Gap 12 6 - 16 meq/L 04/25/2025 2:28 PM [facility] Carbon Dioxide 23 22 - 29 meq/L 04/25/2025 2:28 PM [facility] BUN 15 8 - 23 mg/dL 04/25/2025 2:28 PM [facility] Creatinine 0.61 0.51 - 0.95 mg/dL 04/25/2025 2:28 PM [facility] BUN/Creatinine Ratio 25 7 - 25 02/2025 2:28 PM T [facility] Estimated Glomerular Filtration Rate (eGFR) 91 >=60 mL/min/1. 73m2 04/25/2025 2:28 PM [facility] Comment:Calculated using the Chronic Kidney Disease Epidemiology Collaboration (CKD-EPI) equation. Calcium 8.6(L) 8.8 - 10.2 mg/dL 04/25/2025 2:28 PM [facility] Total Protein 6.3(L) 6.4 - 8.3 g/dL 04/25/2025 2:28 PM [facility] Albumin 3.9 3.5 - 5.2 g/dL 04/25/2025 2:28 PM [facility] Globulin (Calculated) 2.4 1.7 - 3.3 g/dL 04/25/2025 2:28 PM [facility] Albumin/Globulin Ratio 1.6 1.3 - 2.8 04/25/2025 2:28 PM [facility] Bilirubin, Total 0.3 0.0 - 1.1 mg/dL 04/25/2025 2:28 PM T [facility] Alkaline Phosphatase 74 35 - 104 U/L 04/25/2025 2:28 PM [facility] Aspartate Aminotransferase (AST) 30 10 - 35 U/L 04/25/2025 2:28 PM CDT [facility] Comment:Hemolysis is present which may interfere with this analyte. Please interpret with caution Alanine Aminotransferase (ALT) 19 10 - 35 U/L 04/25/2025 2:28 PM CDT [facility] Blood VENOUS BLOOD SPECIMEN / Unknown Venipuncture / Unknown 04/25/2025 1:51 PM CDT 04/25/2025 1:56 PM CDT Nelson Oglesby MD LAB BLOOD ORDERABLES Final Result [facility] [address] [place] [address], [facility] [phone] * ILR Device Check- Remote (04/19/2025 1:17 [...] T-score < -3.9-----sixteen-fold increased risk TECHNICAL INFORMATION: Catholic studies at desk 2X are performed on [id number] with [employer] software version 18.SP5. MONITORING PATIENTS: Perform BMD [...] T-score < -3.9-----sixteen-fold increased risk TECHNICAL INFORMATION: Catholic studies at des 2X are performed on Friendly Score [id number] with[employer] software version 18.SP5. MONITORING PATIENTS: Perform BMD [...] Recently Relevant to Health Maintenance Insurance MEDICARE [facility] MEDICARE SUPPLEMENT MEDICARE [facility] MEDICARE SUPPLEMENT MEDICARE [facility] MEDICARE SUPPLEMENT Advance Directives For more information, please contact: [phone] * Full Code (Latest Code Status on File) Date Activated Date Inactivated Comments 04/26/2025 5:10 AM 05/01/2025 12:22 PM * Full Code Date Activated Date Inactivated Comments 02/12/2025 1:52 AM 02/15/2025 9:15 PM Care Teams Bulk Plant Manager Relationship Specialty Start Date End Date Chris Tam MD [address] [place] [address] PCP - General Internal Medicine 03/15/25 Prince Velez APRN, VOLUNTEER MANAGER [address] [phone] Nurse Practitioner Internal Medicine 03/15/25
--- OUTSIDE RECORDS SUMMARY | 2025-07-16 19:23 | XMS_ITS | Encounter Summary ---
Author Organization [facility] Address [address] [address] Care Team Providers Care Adding Machine Servicer Name Role Phone Chris Tam MD Primary Care Provider Prince Velez APRN, DOPE SPRAYER Unavailable Encounter Details Date Type Department Care Team (Late Contact Info) Description 06/14/2025 Results Follow-Up [facility] Desk 3B - [facility] [address] [address] Ana Palua Gayle APRN, ANP [address] [place] [phone] X-ray abdomen AP (1 view) Social History Tobacco Use Types Packs/Day Years Used Date Smoking Tobacco: Former Cigarettes 0 05/31/1962 - 09/08/2010 Smokeless Tobacco: Never Alcohol Use Standard Drinks/Week Comments Yes 17.5 (1 standard dri nk = 0.6 oz pure alcohol) drinks about 3 12oz beers daily [facility] Utilities Answer Date Recorded In the past 12 months has [employer] electric, gas, oil, or water company threatened [...] any time in the past 12 [facility], were you homeless or living in a penitentiary (including now)? No 05/23/2025 In the last [...] st Contact Info) Description 08/07/2025 8:00 AM LINE SERVICER Evaluation [facility] Desk 6W - Spiritism [address] [place] [phone] Maryann Matti Omid, PsyD [address] [place] [phone] 08/08/2025 11:20 AM LINE SERVICER Office Visit [facility] [place] - Spiritism [address] [place] [phone] Orquidea Arizmendi APRN, DOPE SPRAYER [address] [place] [phone] 08/27/2025 3:00 PM LINE SERVICER Office Visit [facility] [address] [address] Jorge Gutierrez MD [address] [address] 09/26/2025 3:40 PM LINE SERVICER Office Visit [facility] - [facility] [address] [phone] Chris Tam MD [address] [place] [address] 10/08/2025 1:00 PM LINE SERVICER Office Visit [facility] Desk 5A - [facility] [address] [address] Hope Reza PA-C [address] [place] [phone] 12/19/2025 1:00 PM CDT Appointment [facility] Desk 2D - [place] [address] [place] [address] Tray Cornell MD [address] [place] [address] 01/04/2026 8:30 AM CDT Lab [facility] - [facility] [address] [address] 01/08/2026 10:20 AM CDT Office Visit [facility] Desk VC - Spiritism [address] [address] Geronimo Herron MD [address] [place] [phone] 03/19/2026 4:20 PM CDT Office Visit [facility] Desk 3B - [place] [address] [address] Grant Carmona APRN, [facility] [address] [place] [phone] 05/10/2026 2:00 PM CDT Appointment [facility] Ground Floor Desk - [place] [address] [address] documented as of this encounter Goals Goal [...] 3. I was in touch with my [employer] community/attended quaker service. 4. I followed a daily routine [...] Resources for Depression 1. Depression and Bipolar [place] www.dbsalliance.org 2. National [place] of Mental Health www.nimh.nih.gov 3. National [place] on Mental Illness www.callie.org 4. Depression [facility] www.webFirst Marketing.com/depression Call your doctor or go to the emergency room if you start thinking about suicide. documented as of this encounter Visit Diagnoses Not on filedocumented in this encounter Additional Health Concerns Infection Onset Date Last Indicated Resolved Time GI Infection Suspected 07/05/2025 07/05/202507/06 2:47 PM CDT documented as of this encounter Care Teams Adding Machine Servicer Relationship Specialty Start Date End Date Chris Tam MD [address] Medicine [place], [place] [id number] PCP - General Internal Medicine 03/15/25 Prince Velez APRN, DOPE SPRAYER [address] [phone] Nurse Practitioner Internal Medicine 03/15/25 documented as of this encounter
--- NOTE | 2025-07-16 19:34 | ED_ITS ---
HPI - Nausea/Vomiting/Diarrhea General Chief complaint: Nausea/Vomiting/Diarrhea Stated complaint: DIAPER RASH Time Seen by Provider: 07/16/25 19:00 Source: patient and family Mode of arrival: ambulatory Limitations: no limitations History of Present Illness HPI Narrative: This is a 79-year-old female with history of invasive ductal carcinoma in remission who presents the ED for diarrhea and rash. Patient states that she has been having persistent diarrhea for months. She states that she follows with a GI physician in [place] and had a colonoscopy last week that was good. She states that she was at [facility] today when she had to go to the bathroom and when she went to the bathroom she noticed some blood in her diaper and had a half-dollar sized area of blood that she wiped. She is not on any iron supplementations. No prior histories of anemia that she is aware of. Has never required transfusions or iron infusions. Denies fevers, chills, nausea vomiting, abdominal pain. She has a follow-up appointment with GI next week in [place]. Related Data Home Medications ?Medication ?Instructions ?Recorded ?Confirmed ?Last Taken ?Type losartan 25 mg tablet 50 mg PO QACDINNER 10/13/19 09/23/23 06/16/22 History atorvastatin 40 mg tablet 40 mg PO QACDINNER 09/30/20 09/23/23 06/16/22 History loratadine 10 mg tablet 10 mg PO QACDINNER 01/25/23 09/23/23 Unknown History sertraline 100 mg tablet 100 mg PO QACDINNER 01/25/23 09/23/23 Unknown History amlodipine 5 mg tablet 5 mg PO QACDINNER 05/05/23 0 09/23/23 Unknown History cholecalciferol (vitamin D3) 50 50 mcg PO QACDINNER 09/23/23 Unknown History mcg (2,000 unit) capsule clopidogrel 75 mg tablet 75 mg PO QACDINNER 05/05/23 09/23/23 Unknown History Held on 05/18/23. Instructions: Resume on 05/20/23. May resume in 48 hours after surgery if no significant bleeding/bruising. multivitamin 1 tablet PO DAILY 05/05/23 0 09/23/23 Unknown History Allergies Allergy/AdvReac Type Severity Reaction Status Date / Time adhesive tape AdvReac Rash Verified 07/16/25 18:00 Review of Systems 2 Review of Systems: Gen.: Denies fevers or chills Eyes: Denies eye pain or visual change ENT: Denies congestion Respiratory: Denies shortness of breath or cough CV: Denies chest pain or palpitations GI: As per HPI denies burning, urgency, frequency or hematuria Musculoskeletal: Denies back pain or muscle pain Neuro: Denies numbness, tingling, weakness or focal weakness Skin: Denies rash Except as documented, all other systems reviewed and negative [facility] Past Medical History Medical History Invasive ductal carcinoma of right breast in female Breast mass, right Adenomatous colon polyp Cervical cancer (~1976) Marijuana use Chronic pain Back pain Fracture of right distal radius Closed right trimalleolar fracture September 2020 - treated with cast Spinal cord cysts COPD (chronic obstructive pulmonary disease) Hyperlipidemia Hypertension CVA (cerebral vascular accident) 2000 Surgical History Surgical History H/O wrist surgery Previous back surgery (05/04/10) cyst removed from spinal cord 2009, [facility] History of carpal tunnel surgery History of hysterectomy (~1977) RADHA with Bladder suspension/ cervical cancer Family History Family History Mother Hypertension Cerebrovascular accident Family history of pulmonary embolism Other Carcinoma of colon maternal aunt Other Family history of alcoholism Family history of cardiovascular disease Social History Social History Smoking packs per day: 2.5 Smoking cigarettes per day: 50.0 Years smoked: 50 Smoking pack-years: 125.00 Smoking status: Former smoker Tobacco type: cigarettes Second hand tobacco smoke exposure: No Smoking end date: 03/20/10 Alcohol intake: current Drinks per week: 28 Alcohol use details: 3-4 beers at night Substance use: current Substance use type: marijuana Other substance usage details: SMOKES MARIJUANA IN THE EVENING Last use: 06/17/22 Do You Feel Safe in your Home?: Yes Lack of Transportation: No Lack of Food: Never True Current Housing: I Do Not Have Housing Concerned About Future Housing: No Difficulty Paying Gas/Electric Bills: No Difficulty Paying for Meds: No Currently Unemployed: No Education: High School Diploma/GED Difficulty w/ Childcare or Family Care: No Living arrangements: alone Additional living arrangements comments: Occupation/Education: retired Gender identity (if verbalized by the patient): Female Sexual Orientation (if Verbalized by the Patient): Straight or Heterosexual Spiritual care concerns: No Exam 2 Narrative: APPEARANCE: No acute distress, nontoxic, resting in bed EYES: EOMI HEENT: Normocephalic, atraumatic, OMM RESPIRATORY: No respiratory distress Clear to auscultation bilaterally with no rhonchi wheezing or rales. CARDIOVASCULAR: Regular rate and rhythm without murmurs rubs or gallops. ABDOMINAL: Soft, nontender, nondistended, no rebound or guarding Rectal: External hemorrhoid noted at 3 o clock, no active bleeding identified. There is some local irritation to the perianal region. MUSCULOSKELETAL: Moves all extremities. No clubbing, cyanosis or edema. NEURO: Awake and alert. Following commands, speech normal, no focal deficits SKIN:: Warm, dry. No rashes lesions or abrasions PSYCHIATRIC: Normal affect/mood, Course Vital Signs Vital signs: Vital Signs Temperature 98.5 F 07/16/25 18:04 Pulse Rate 86 07/16/25 18:04 Respiratory Rate 20 07/16/25 18:04 Blood Pressure 155/79 H 07/16/25 18:04 Pulse Oximetry 97 07/16/25 18:04 Oxygen Delivery Room Air 07/16/25 18:04 Temperature 98.2 F 07/16/25 20:14 Pulse Rate 82 07/16/25 20:14 Respiratory Rate 16 07/16/25 20:14 Blood Pressure 133/81 07/16/25 20:14 Pulse Oximetry 96 07/16/25 20:14 Oxygen Delivery Room Air 07/16/25 18:04 MDM - Nausea/Vomiting/Diarrhea MDM Narrative Medical decision making narrative: 79-year-old female Presenting for rectal bleeding and pain. On initial evaluation patient was in no acute distress afebrile, hemodynamic stable. Differentials include but are not limited to: Hemorrhoid, thrombosed hemorrhoid, contact dermatitis, diarrhea Notable exam findings: External hemorrhoid not bleeding, local irritation to the perianal area Notable lab findings: CBC and CMP without any significant abnormalities. Patient was deemed appropriate for discharge at this time. Patient family were educated on baby powder and Butt paste use for local irritation. She has a follow-up with her GI physician in [place] next week which I encouraged them to go to. Patient was agreeable to this plan. Given strict return precautions. Medical Records Attestation: I reviewed the patient's medical records. Lab Data Attestation: I reviewed the patient's lab results. 07/16/25 19:05 07/16/25 19:05 Labs: Lab Results 07/16/25 Range/Units 19:05 WBC 5.2 (4.5-10.0) K/mm3 RBC 4.28 (4.2-5.4) M/mm3 Hgb 12.3 (12.0-15.0) g/dL Hct 36.9 L (37.0-47.0) % MCV 86.2 (80-100) fl MCH 28.7 (26-34) pg MCHC 33.3 (32-36) g/dl RDW 13.4 (11.5-14.5) % Plt Count 234 (150-375) k/mm3 MPV 9.1 (7.4-10.4) fl Immature Gran % (Auto) 0.2 (0-0.5) % Neut % (Auto) 59.6 (45.5-73.1) % Lymph % (Auto) 27.6 (18.3-44.2) % Chambers % (Auto) 9.1 H (2.6-8.5) % Eos % (Auto) 3.1 (0-4.4) % Baso % (Auto) 0.4 (0.2-1.2) % Lymph # (Auto) 1.42 (0.9-3.2) K/mm3 Chambers # (Auto) 0.5 (0.1-0.6) K/mm3 Eos # (Auto) 0.2 (0-0.3) K/mm3 Baso # (Auto) 0.0 (0.0-0.1) K/mm3 Abs Immat Gran (auto) 0.01 (0.00-0.031) K/mm3 Absolute Neuts (auto) 3.1 (1.3-6.7) K/mm3 Absolute Nucleated RBC 0.000 (0.0-0.012) K/mm3 Nucleated RBC % 0.0 (0.0-0.2) % PT 12.1 (11.1-14.7) Seconds INR 0.9 APTT 28.7 (22.3-36.8) Seconds Sodium 135 L (137-145) mmol/L Potassium 4.0 (3.4-5.0) mmol/L Chloride 98 (98-107) mmol/L Carbon Dioxide 32 H (22-30) mmol/L Anion Gap 5 (4-12) mmol/L BUN 22 H (7-17) mg/dL Creatinine 0.61 L (0.7-1.0) mg/dL Estim Creat Clear Calc 56 ml/min Estimated GFR > 60 (59 - ) Glucose 82 (65-110) mg/dL Calcium 8.9 (8.4-10.2) mg/dL Total Bilirubin 0.3 (0.2-1.3) mg/dL AST 33 (14-36) U/L ALT 20 (6-35) U/L Alkaline Phosphatase 64 (38-126) U/L Total Protein 7.1 (6.3-8.2) g/dL Albumin 4.3 (3.5-5.1) g/dL Blood Type O Positive Antibody Screen Negative Discharge Plan Discharge Clinical Impression: External hemorrhoid Contact dermatitis Qualifiers: Contact dermatitis type: irritant Contact dermatitis trigger: body fluid Type of body fluid: fecal incontinence Qualified Code(s): L24.A2 - Irritant contact dermatitis due to fecal, urinary or dual incontinence Patient Disposition: Home Condition: Stable Instructions: Antibiotic Form, Diaper Rash (ED), Contact Dermatitis (ED) Additional Instructions: Follow-up with your GI doctor next week as scheduled. Apply baby powder every time you change her diaper due to an accident. One to 2 times a day, you should apply a Butt paste or some kind of diaper cream. Try increasing your MiraLax to 2 cap fulls daily or 1 capful twice a day. Consider discussing treatment of your hemorrhoids with a general surgeon at home. Return to the ED for any new or worsening symptoms. Patient Language: Upper Sorbian Prescriptions: No Action atorvastatin 40 mg tablet 40 mg PO QACDINNER Patient Comments: QAM sertraline 100 mg tablet 100 mg PO QACDINNER loratadine 10 mg tablet 10 mg PO QACDINNER multivitamin Tablet 1 tablet PO DAILY amlodipine 5 mg tablet 5 mg PO QACDINNER clopidogrel 75 mg tablet 75 mg PO QACDINNER Patient Comments: QAM cholecalciferol (vitamin D3) 50 mcg (2,000 unit) Capsule 50 mcg PO QACDINNER zolpidem 10 mg tablet 10 mg PO .QHS PRN (Reason: insomnia) Qty: 30 5RF losartan 25 mg tablet 50 mg PO QACDINNER Patient Comments: QAM Rx Instructions: take 1 tablet by oral route every day Follow-up/Referrals: PHYSICIAN NOT ON STAFF,NONSTAFF [Primary Care Provider]
[2025-07-16 19:38] VITALS: BP 159/82
[2025-07-16 19:40] VITALS: BP 163/95
[2025-07-16 19:42] VITALS: BP 133/81
[2025-07-16 20:14] VITALS: BP 133/81; PULSE 82; RESP 16; TEMP 36.8; O2SAT 96
== END 2025-07-16 20:16 | disposition home or self-care (01) ==
PROVIDERS: Emergency Medicine; Emergency Provider Student in an Organized Health Care Education/Training Program
DX: L24.A2 Irritant contact dermatitis due to fecal, urinary or dual incontinence (principal); K64.4 Residual hemorrhoidal skin tags; K92.1 Melena; I10 Essential (primary) hypertension; J44.9 Chronic obstructive pulmonary disease, unspecified; E78.5 Hyperlipidemia, unspecified; Z85.3 Personal history of malignant neoplasm of breast; Z85.41 Personal history of malignant neoplasm of cervix uteri; Z86.0101 Personal history of adenomatous and serrated colon polyps; Z86.73 Personal history of transient ischemic attack (TIA), and cerebral infarction without residual deficits; Z87.891 Personal history of nicotine dependence; Z90.710 Acquired absence of both cervix and uterus
CPT/HCPCS: 36415; 80053; 85025; 85610; 85730; 86850; 86900; 86901; 99283